=== PATIENT | female | born 1935 | race Caucasian/White ===

== ENCOUNTER → 2016-09-14 | Outpatient (CLI) | payer BC ==
[~2016-09-14] MED LIST: ACET-1311 PO; ACET160S78 PO; ACET650S10 RE; ACET650S11 RE; BACL10TA PO; BUME1TAB PO; BUME1TAB42 PO; CHOL1DRO5 PO; CHOL2000 PO; CHOL200023 PO; CHOL400L4 PO; CIPR-255 PO; CIPR1INJ3 IV; CLR10 PO; CYAN3INJ IM; CYNI1000 IM; CYNI1000 INJ; DIPH-416 PO; DIPH25CA65 PO; EMOL-63 TD; FAMO40SU PO; FLUT0.15 NAE; IMD/2 PO; KETO0.0216 OP; KETO0.024 OPB; KETO2SHA TOP; LAMO25TA PO; LEVO150T PO; LEVO150T9 PO; LIPIDS IV; LOPE-5 PO; LORA10TA5 PO; MENT1LOZ PO; MENT4GEL EXT; MENT4GEL TOP; METO50TA7 PO; MICO12CR EXT; MICOCRE TOP; MULTIVITAMIN IV; NSF10F IV.; ONDA4TAB10 SL; ONDA4TAB46 PO; ONDANSETRON IV; OXYC-57 PO; OXYC-609 PO; OXYC1TAB3 PO; PANT1INJ2 IV; PANT40TA PO; PHNS25 RE; PROM1SUP19 PO; PROM25TA9 PO; SRQ/50 IV; SYN125 PO; TPN IV; TRAZ1TAB5 PO; XNX25 PO; ZFRI4 IV; [UNRECOGNIZED DRUG - CODE] IV; [UNRECOGNIZED DRUG - CODE] IV.; [UNRECOGNIZED DRUG - CODE] OP; [UNRECOGNIZED DRUG - OTHER] TOP
== END | disposition home or self-care (01) ==
LOC: C.MAMM 11:36
PROVIDERS: ATTEND Family Medicine
DX: M85.89 Other specified disorders of bone density and structure, multiple sites (principal); E46 Unspecified protein-calorie malnutrition

== ENCOUNTER 2016-11-29 17:28 | Emergency (ER) | payer BC ==
[~2016-11-29] VITALS: Ht 162.6 cm; Wt 65.2 kg
[~2016-11-29 17:28] MED LIST changes: -ACET-1311 PO; -ACET160S78 PO; -ACET650S11 RE; -BACL10TA PO; -BUME1TAB PO; -CHOL2000 PO; -CHOL200023 PO; -CHOL400L4 PO; -CIPR-255 PO; -CIPR1INJ3 IV; -CLR10 PO; -CYNI1000 IM; -CYNI1000 INJ; -FAMO40SU PO; -FLUT0.15 NAE; -IMD/2 PO; -KETO0.024 OPB; -KETO2SHA TOP; -LAMO25TA PO; -LEVO150T PO; -LEVO150T9 PO; -LIPIDS IV; -LOPE-5 PO; -MENT1LOZ PO; -MENT4GEL EXT; -MENT4GEL TOP; -MICO12CR EXT; -MICOCRE TOP; -MULTIVITAMIN IV; -ONDA4TAB10 SL; -ONDA4TAB46 PO; -ONDANSETRON IV; -OXYC-57 PO; -OXYC1TAB3 PO; -PANT40TA PO; -PHNS25 RE; -PROM1SUP19 PO; -PROM25TA9 PO; -SRQ/50 IV; -TRAZ1TAB5 PO; -[UNRECOGNIZED DRUG - CODE] IV; -[UNRECOGNIZED DRUG - CODE] IV.; -[UNRECOGNIZED DRUG - CODE] OP; -[UNRECOGNIZED DRUG - OTHER] TOP
[2016-11-29 17:35] VITALS: TEMP 37; Ht 162.6 cm; Wt 65.2 kg
[2016-11-29] MEDS ORDERED: SODIUM CHLORIDE 0.9% 1000ML 1,000 ML IV STA (17:46)
[2016-11-29] MEDS ORDERED: ONDANSETRON INJ 2 MG/ML 2 ML VIAL IV STA (17:46)
--- NOTE | 2016-11-29 17:52 | EMERGENCY ROOM VISIT NOTE ---
History Report prepared by Megan: Wes Menchaca Under the Supervision of: Canelo CervantesO. First contact with patient: 17:36 Stated Complaint: VOMIT, DIARRHEA /FR [facility] History of Present Illness The patient is an 81 year old female who presents to the Emergency Room with complaints of persistent vomiting. The patient has a history of nausea/vomiting issues and takes Zofran 3 times per day. She notes that her doctor recently cut her dosage of Zofran back. The staff at [facility] claims that she has been having diarrhea lately as well. She denies any chest pain or shortness of breath throughout the day today. She states that she has had a prior colectomy and had nearly 20 ft of intestine removed. Source of History: patient Position: other (Gastrointestinal) Quality: other (Vomiting) Timing: other (Persistent) Associated Symptoms: No abdominal pain, No chest pain Review of Systems See HPI for pertinent positives & negatives. A total of 10 systems reviewed and were otherwise negative. Past Medical & Surgical Medical Problems: (1) Acute urinary tract infection (2) Anemia (3) Cellulitis of chest wall (4) CHF (congestive heart failure) (5) Cholecystectomy (6) Confusion (7) DVT (deep venous thrombosis) (8) DVT (deep venous thrombosis) (9) Fatigue (10) Hypertension (11) Hypertension Nos (12) Kidney disease (13) Kidney disease (14) Kidney stone (15) Kidney stone (16) Left leg cellulitis (17) Pacemaker (18) Pacemaker (19) Personal History Of Urinary Calculi (20) Restless legs (21) SBO (small bowel obstruction) (22) SBO (small bowel obstruction) (23) SBO (small bowel obstruction) (24) Short bowel syndrome (25) Short bowel syndrome (26) Urinary problem Surgical Problems: (1) H/O colectomy (2) H/O: hysterectomy (3) Hx of cholecystectomy Family History Diabetes mellitus FHx: cancer FHx: gallbladder disease FHx: heart disease Hypertension Kidney disease Kidney stones Social History Smoking Status: Former Smoker Alcohol Use: none Drug Use: none Marital Status: Housing Status: group home Occupation Status: retired Current/Historical Medications Scheduled Cholecalciferol (Vitamin D3), 0.3 ML PO DAILY Cholecalciferol (D-Vi-Kira), 1 DROP PO QAM Ciprofloxacin Hcl (Cipro), 500 MG PO BID Cyanocobalamin (Cyanocobalamin), 1 ML IM MONTHLY Diphenoxylate/Atropine (Lomotil), 3 TAB PO BID UD Diphenoxylate/Atropine (Lomotil), 2 TAB PO QPM Fluticasone Propionate (Nasal) (Flonase Allergy Relief), 2 SPRAYS MARIELA HS Ketotifen Fumarate (Ophth) (Ketotifen Fumarate), 1 DROP OP Q12H Lamotrigine (Lamictal), 25 MG PO HS Levothyroxine Sodium (Levothyroxine Sodium), 150 MCG PO HS Loperamide Hcl (Imodium), 3 MG PO BID Loratadine (Claritin), 10 MG PO QAM Metoprolol Succ (Toprol Xl) (Toprol-Xl), 50 MG PO DAILY Miconazole Nitrate Vaginal (Miconazole 7), 1 APPLN TOP HS Ondansetron (Ondansetron Hcl), 8 MG IV TID Ondasetron Odt (Zofran Odt), 4 MG SL Q6H Pantoprazole Sodium (Protonix), 40 MG IV BID Tpn Infusion (Tpn Infusion), 1 EA IV UD [Lipids & Mvi], IV UD [Seroquel Plo 50MG/Ml], 0.5 ML TOP BID Scheduled PRN Acetaminophen (Tylenol), 650 MG RE Q4-6 PRN for Pain or Fever Acetaminophen (Tylenol Children's Susp), 500 MG PO Q6 PRN for MILD PAIN 1-3 Bumetanide (Bumex), 0.5 MG PO Q24H PRN for HF Menthol (Mouth-Throat) (Merna Cough Drops Sugar F), 1 TAB PO Q4 PRN for SORE THROAT Menthol (Topical Analgesic) (Biofreeze), 1 APPL TOP Q12 PRN for Pain Oxycodone HCl (Oxycodone HCl), 5 MG PO Q6 PRN for Severe Pain Promethazine (Phenergan Suppository), 25 MG PO Q8 PRN for Nausea Trazodone Hcl (Desyrel), 50 MG PO HS PRN for Sleep [Zofran 4MG/Ml], 4 ML IV Q24H PRN for Nausea or Vomiting Allergies Coded Allergies: Furosemide (Verified Allergy, Mild, HIVES, CAN TAKE BUMEX, 04/12/16) Anesthetics, Traci (Verified Allergy, Unknown, ANAPHYLAXIS, 04/12/16) Benzocaine (Verified Allergy, Unknown, 04/12/16) Ceftriaxone (Verified Allergy, Unknown, UNK, 04/12/16) Clonazepam (Verified Allergy, Unknown, ?, 04/12/16) Cyclobenzaprine (Verified Allergy, Unknown, UNKNOWN, 04/12/16) Diclofenac (Verified Allergy, Unknown, UNKNOWN, 04/12/16) Diphenhydramine (Verified Allergy, Unknown, UNK, 04/12/16) Isopropyl Alcohol (Verified Allergy, Unknown, UNKNOWN, 04/12/16) Lidocaine (Verified Allergy, Unknown, 04/12/16) Naproxen (Verified Allergy, Unknown, UNKNOWN, 04/12/16) Octreotide (Verified Allergy, Unknown, HIVES, 04/12/16) Pregabalin (Verified Allergy, Unknown, ?, 04/12/16) Procaine (Verified Allergy, Unknown, 04/12/16) Propylene Glycol (Verified Allergy, Unknown, UNKNOWN, 04/12/16) Scopolamine (Verified Allergy, Unknown, 04/12/16) Sulfamethoxazole w/Trimethoprim (Verified Allergy, Unknown, UNKNOWN, ) Warfarin (Verified Adverse Reaction, Severe, HEMORRHAGE, 04/12/16) Iodinated Diagnostic Agents (Verified Adverse Reaction, Intermediate, RENAL FAILURE, 04/12/16) Fluconazole (Verified Adverse Reaction, Mild, FEVER,NAUSEA, 04/12/16) Indomethacin (Verified Adverse Reaction, Mild, N&V, 04/12/16) Lactose (Verified Adverse Reaction, Mild, INTOLERANT, 04/12/16) INTOLERANT Metronidazole (Verified Adverse Reaction, Mild, FEVER,NAUSEA, 04/12/16) Buprenorphine (Verified Adverse Reaction, Unknown, diarrhea, vomiting, 04/12/16) Codeine (Verified Adverse Reaction, Unknown, MENTAL STATUS CHANGES, ) Physical Exam Vital Signs Date Time Temp Pulse Resp B/P Pulse Ox O2 Delivery O2 Flow Rate FiO2 11/29/16 20:57 71 16 116/49 93 Room Air 11/29/16 19:27 77 18 138/57 95 Room Air 11/29/16 17:40 78 11/29/16 17:35 37.0 75 22 124/56 94 Room Air Physical Exam GENERAL: Patient is awake, alert, and in no acute distress. Patient is resting comfortably and showing no signs of anxiety EYES: The conjunctivae are clear. The pupils are round and reactive. EARS, NOSE, MOUTH AND THROAT: The nose is without any evidence of any deformity. Mucous membranes are dry tongue is midline NECK: The neck is nontender and supple. RESPIRATORY: Normal respiratory effort is noted there is no evidence of wheezing rhonchi or rales CARDIOVASCULAR: Regular rate and rhythm noted there is a systolic murmurs appreciated. No rubs or gallops normal S1 normal S2 GASTROINTESTINAL: The abdomen is soft. Bowel sounds are present in all quadrants. Abdomen is nontender MUSCULOSKELETAL/EXTREMITIES: There is no evidence of gross deformity full range of motion is noted in the hips and shoulders. There is pedal edema noted bilaterally a long with venous stasis changes noted bilaterally. SKIN: There is no obvious evidence of any rash. There are no petechiae, pallor or cyanosis noted. NEUROLOGIC: Patient is awake alert and oriented x3. Medical Decision & Procedures Laboratory Results 11/29/16 18:00 Red Blood Count 3.61, Mean Corpuscular Volume 87.5, Mean Corpuscular Hemoglobin 28.8, Mean Corpuscular Hemoglobin Concent 32.9, Mean Platelet Volume 11.2, Neutrophils (%) (Auto) 90.4, Lymphocytes (%) (Auto) 4.4, Monocytes (%) (Auto) 4.8, Eosinophils (%) (Auto) 0.0, Basophils (%) (Auto) 0.1, Neutrophils # (Auto) 14.37, Lymphocytes # (Auto) 0.70, Monocytes # (Auto) 0.77, Eosinophils # (Auto) 0.00, Basophils # (Auto) 0.01 11/29/16 18:00 Test 11/29/16 18:00 11/29/16 19:18 White Blood Count 15.89 K/uL (4.8-10.8) Red Blood Count 3.61 M/uL (4.2-5.4) Hemoglobin 10.4 g/dL (12.0-16.0) Hematocrit 31.6 % (37-47) Mean Corpuscular Volume 87.5 fL (80-100) Mean Corpuscular Hemoglobin 28.8 pg (25-34) Mean Corpuscular Hemoglobin Concent 32.9 g/dl (32-36) Platelet Count 162 K/uL (130-400) Mean Platelet Volume 11.2 fL (7.4-10.4) Neutrophils (%) (Auto) 90.4 % Lymphocytes (%) (Auto) 4.4 % Monocytes (%) (Auto) 4.8 % Eosinophils (%) (Auto) 0.0 % Basophils (%) (Auto) 0.1 % Neutrophils # (Auto) 14.37 K/uL (1.4-6.5) Lymphocytes # (Auto) 0.70 K/uL (1.2-3.4) Monocytes # (Auto) 0.77 K/uL (0.11-0.59) Eosinophils # (Auto) 0.00 K/uL (0-0.5) Basophils # (Auto) 0.01 K/uL (0-0.2) RDW Standard Deviation 47.5 fL (36.4-46.3) RDW Coefficient of Variation 14.8 % (11.5-14.5) Immature Granulocyte % (Auto) 0.3 % Immature Granulocyte # (Auto) 0.04 K/uL (0.00-0.02) Prothrombin Time 10.8 SECONDS (9.0-12.0) Prothromb Time International Ratio 1.0 (0.9-1.1) Activated Partial Thromboplast Time 28.7 SECONDS (21.0-31.0) Partial Thromboplastin Ratio 1.1 Anion Gap 7.0 mmol/L (3-11) Est Creatinine Clear Calc Drug Dose 29.8 ml/min Estimated GFR () 44.9 Estimated GFR (Non- 38.7 BUN/Creatinine Ratio 36.0 (10-20) Calcium Level 8.5 mg/dl (8.5-10.1) Total Bilirubin 0.6 mg/dl (0.2-1) Direct Bilirubin 0.2 mg/dl (0-0.2) Aspartate Amino Transf (AST/SGOT) 46 U/L (15-37) Alanine Aminotransferase (ALT/SGPT) 37 U/L (12-78) Alkaline Phosphatase 256 U/L (45-117) Total Protein 7.3 gm/dl (6.4-8.2) Albumin 2.8 gm/dl (3.4-5.0) Lipase 46 U/L (73-393) Urine Color YELLOW Urine Appearance CLEAR (CLEAR) Urine pH 5.5 (4.5-7.5) Urine Specific Hodges 1.017 (1.000-1.030) Urine Protein NEG (NEG) Urine Glucose (UA) NEG (NEG) Urine Ketones NEG (NEG) Urine Occult Blood NEG (NEG) Urine Nitrite NEG (NEG) Urine Bilirubin NEG (NEG) Urine Urobilinogen NEG (NEG) Urine Leukocyte Esterase MODERATE (NEG) Urine WBC (Auto) >30 /hpf (0-5) Urine RBC (Auto) 0-4 /hpf (0-4) Urine Hyaline Casts (Auto) 1-5 /lpf (0-5) Urine Epithelial Cells (Auto) >30 /lpf (0-5) Urine Bacteria (Auto) NEG (NEG) Urine Renal Epithelial Cells 0-5 /lpf (0-5) Urine Yeast (Auto) BUDDING (NONE PRSENT) Date/Time Source Procedure Growth Status 11/29/16 19:18 Urine , Clean Catch Urine Culture - Final MORE THAN THREE TYPES OF ORGANISMS ID... Complete Laboratory results per my review. Medications Administered Medications (Trade) Dose Ordered Sig/Elliott Route Start Time Stop Time Status Last Admin Dose Admin Sodium Chloride (Nss 1000ml) 1,000 ml @ 999 mls/hr Q1H1M STAT IV 11/29/16 17:46 11/29/16 18:46 DC 11/29/16 17:46 999 MLS/HR Ondansetron HCl (Zofran Inj) 4 mg NOW STAT IV 11/29/16 17:46 11/29/16 17:47 DC 11/29/16 17:46 4 MG Ciprofloxacin (Cipro Tab) 500 mg NOW STAT PO 11/29/16 20:30 11/29/16 20:32 DC 11/29/16 20:30 500 MG ED Course 1744: The patient was evaluated in room C12. A complete history and physical examination were performed. 1745: Ordered Zofran 4 mg IV, Sodium Chloride 1000 mL @ 999 mL/hr IV. 2029: Ordered Ciprofloxacin 500 mg PO. 2049: Upon reevaluation, the patient is resting in bed. The patient's daughter would like IV antibiotics to be sent back to the assisted living community with the patient. I discussed the results and treatment plan with them. They verbalized agreement of the treatment plan. The patient was discharged home. Medical Decision Medication Reconciliation: I attest that I have personally reviewed the patient' s current medications list. Blood pressure screening: Patient was found to have an elevated blood pressure and was referred to their primary doctor for recheck and further treatment. Differential diagnosis: Etiologies such as gastroenteritis, food borne illness, infections, appendicitis , diverticulitis, inflammatory bowel disease, obstruction, GI bleed, biliary pathology, as well as others were entertained. The patient is an 81-year-old female who presented to the emergency department for an evaluation of chronic nausea and vomiting. The patient was treated with IV fluids and IV antiemetics. She was also treated with antibiotics for presumed urinary tract infection. She was encouraged to follow-up with her family doctor this week. [facility] and encouraged further IV treatment at the group home. She was also encouraged return to the emergency department immediately if symptoms change worsen or the need arises. Impression Primary Impression: Nausea Additional Impressions: Vomiting Acute urinary tract infection Vaginitis Scribe Attestation The scribe's documentation has been prepared under my direction and personally reviewed by me in its entirety. I confirm that the note above accurately reflects all work, treatment, procedures, and medical decision making performed by me. Departure Information Dispostion Home / Self-Care Prescriptions Ciprofloxacin Hcl (CIPRO) 500 Mg Tab 500 MG PO BID, #14 TAB Prov: Ubaldo Christy, DO 11/29/16 Miconazole Nitrate Vaginal (MICONAZOLE 7) 2 % Cre 1 APPLN TOP HS, #30 GM Prov: Ubaldo Christy, DO 11/29/16 Ondasetron Odt (ZOFRAN ODT) 4 Mg Tab 4 MG SL Q6H for Nausea, #15 TAB Prov: Ubaldo Christy, DO 11/29/16 Referrals Samm Bolton (PCP) Forms HOME CARE DOCUMENTATION FORM, IMPORTANT VISIT INFORMATION Patient Instructions My [facility] Additional Instructions Continue all medications as prescribed. Follow-up with your primary care physician tomorrow for further evaluation. Drink plenty clear liquids. Problem Qualifiers Additional Impressions: Vomiting Vomiting type: unspecified Vomiting Intractability: non-intractable Nausea presence: with nausea Qualified Codes: R11.2 - Nausea with vomiting, unspecified Vaginitis Chronicity: subacute Qualified Codes: N76.1 - Subacute and chronic vaginitis
[2016-11-29 18:13] LABS: HEMATOCRIT 31.6 % (37-47); MEAN CELL VOLUME 87.5 fL (80-100); MEAN CORPUSCULAR HEMOGLOBIN 28.8 pg (25-34); MEAN CORPUSCULAR HGB CONC 32.9 g/dl (32-36); MEAN PLATELET VOLUME 11.2 fL (7.4-10.4); PLATELET COUNT 162 K/uL (130-400); RED BLOOD COUNT 3.61 M/uL (4.2-5.4); WHITE BLOOD COUNT 15.89 K/uL (4.8-10.8)
[2016-11-29] MEDS ORDERED: MENT4GEL TOP (18:21)
[2016-11-29] MEDS ORDERED: CHOL2000 PO (18:21)
[2016-11-29 18:23] LABS: PARTIAL THROMBOPLASTIN RATIO 1.1; PROTHROMBIN TIME (PATIENT) 10.8 SECONDS (9.0-12.0)
[2016-11-29 18:31] LABS: CALCIUM 8.5 mg/dl (8.5-10.1); CREATININE 1.3 mg/dl (0.60-1.20); POTASSIUM 4.6 mmol/L (3.5-5.1)
[2016-11-29] MEDS ORDERED: LAMO25TA PO (18:37)
[2016-11-29] MEDS ORDERED: FLUT0.15 NAE (18:37)
[2016-11-29] MEDS ORDERED: CHOL400L4 PO (18:37)
[2016-11-29] MEDS ORDERED: CYNI1000 IM (18:37)
[2016-11-29] MEDS ORDERED: MENT1LOZ PO (18:37)
[2016-11-29] MEDS ORDERED: [UNRECOGNIZED DRUG - CODE] OP (18:37)
[2016-11-29 18:45] LABS: BASO % 0.1 %; BASO ABS # 0.01 K/uL (0-0.2); COMPLETE YES; IG% 0.3 %; LYMPH % 4.4 %; MONO % 4.8 %; NEUT % 90.4 %
[2016-11-29] MEDS ORDERED: PROM1SUP19 PO (18:47)
[2016-11-29] MEDS ORDERED: TRAZ-120 PO (18:47)
[2016-11-29] MEDS ORDERED: DIPH-416 PO (18:47)
[2016-11-29] MEDS ORDERED: LEVO150T9 PO (18:47)
[2016-11-29] MEDS ORDERED: ACET160S78 PO (18:47)
[2016-11-29] MEDS ORDERED: ONDANSETRON IV (19:17)
[2016-11-29] MEDS ORDERED: TPN IV (19:17)
[2016-11-29] MEDS ORDERED: [UNRECOGNIZED DRUG - OTHER] TOP (19:17)
[2016-11-29 19:38] LABS: URINE APPEARANCE CLEAR (CLEAR); URINE BILIRUBIN NEG (NEG); URINE COLOR YELLOW; URINE EPITHELIAL CELL AUTO >30 /lpf (0-5); URINE NITRITE NEG (NEG); URINE PH 5.5 (4.5-7.5); URINE SPECIFIC GRAVITY 1.017 (1.000-1.030); UROBILINOGEN NEG (NEG)
[2016-11-29 19:39] LABS: MANUAL MICROSCOPIC REQUIRED? NO; REVIEW REQ? YES
[2016-11-29] MEDS ORDERED: ONDA4TAB10 SL (20:05)
[2016-11-29] MEDS ORDERED: MICOCRE TOP (20:05)
[2016-11-29] MEDS ORDERED: CIPROFLOXACIN 500 MG TAB PO STA (20:30)
[2016-11-29] MEDS ORDERED: CIPR-255 PO (20:37)
[2016-11-29 20:57] VITALS: BP 116/49; PULSE 71; O2SAT 93
[2016-11-29] MEDS ORDERED: IMD/2 PO (22:20)
[2016-11-29] MEDS ORDERED: LIPIDS IV (23:16)
[2016-11-29] MEDS ORDERED: MULTIVITAMIN IV (23:16)
[2016-12-08] MEDS ORDERED: PROM25TA9 PO (12:29)
[2016-12-08] MEDS ORDERED: DIPH-416 PO (12:29)
[2016-12-08] MEDS ORDERED: KETO2SHA TOP (12:29)
[2016-12-08] MEDS ORDERED: PANT40TA PO (12:29)
[2016-12-08] MEDS ORDERED: ACET-1311 PO (12:29)
[2016-12-08] MEDS ORDERED: [UNRECOGNIZED DRUG - CODE] IV (12:29)
[2016-12-08] MEDS ORDERED: ONDA4TAB46 PO (12:29)
[2017-03-21] MEDS ORDERED: [UNRECOGNIZED DRUG - CODE] PO (01:02)
[2017-06-11] MEDS ORDERED: CHOL200023 PO (01:02)
[2017-06-11] MEDS ORDERED: FLUT0.15 NAE (01:02)
[2017-06-11] MEDS ORDERED: BACL10TA PO (01:02)
[2017-06-11] MEDS ORDERED: BUME1TAB PO (01:02)
[2017-06-11] MEDS ORDERED: ACET160S78 PO (01:02)
[2017-06-11] MEDS ORDERED: CYNI1000 IM (01:02)
[2017-06-11] MEDS ORDERED: LAMO25TA PO (01:02)
[2017-06-11] MEDS ORDERED: LOPE-5 PO (01:02)
[2017-06-11] MEDS ORDERED: METO50TA7 PO (12:29)
[2017-06-11] MEDS ORDERED: KETO0.024 OPB ×2 (12:29→16:41)
[2017-06-11] MEDS ORDERED: LEVO150T PO (12:29)
[2017-06-11] MEDS ORDERED: TPN IV (12:29)
[2017-06-11] MEDS ORDERED: CLR10 PO (12:29)
[2017-06-11] MEDS ORDERED: MENT4GEL TOP (12:29)
[2017-06-11] MEDS ORDERED: MICO12CR TOP (12:29)
== END 2016-11-29 21:29 | disposition home or self-care (01) ==
LOC: EDBD 17:28 → C.EDC 17:29
DX: R11.2 Nausea with vomiting, unspecified (principal); N39.0 Urinary tract infection, site not specified; N76.1 Subacute and chronic vaginitis; I10 Essential (primary) hypertension; Z90.49 Acquired absence of other specified parts of digestive tract; Z86.718 Personal history of other venous thrombosis and embolism; Z87.891 Personal history of nicotine dependence; Z87.442 Personal history of urinary calculi; Z95.0 Presence of cardiac pacemaker; Z90.710 Acquired absence of both cervix and uterus; Z83.3 Family history of diabetes mellitus; Z82.49 Family history of ischemic heart disease and other diseases of the circulatory system; Z84.1 Family history of disorders of kidney and ureter

== ENCOUNTER → 2016-12-16 | Day surgery (SDC) | payer BC ==
[2016-12-08 12:04] VITALS: BMI 26.0
[~2016-12-16] VITALS: Ht 157.5 cm; Wt 65.9 kg
[~2016-12-16] MED LIST changes: +ACET-1311 PO; +ACET160S78 PO; +ACET650S10 PR; -ACET650S10 RE; +ACET650S11 RE; +BACL10TA PO; +BUME1TAB PO; -BUME1TAB42 PO; -CHOL1DRO5 PO; +CHOL200023 PO; +CIPR-255 PO; +CIPR1INJ3 IV; +CLR10 PO; -CYAN3INJ IM; +CYNI1000 IM; -DIPH25CA65 PO; -EMOL-63 TD; +FLUT0.15 NAE; +GFNSR600 PO; -KETO0.0216 OP; +KETO0.024 OPB; +KETO2SHA TOP; +LAMO25TA PO; +LEVO150T PO; +LIDOCAINE HCL 2% 2 ML VIAL (20MG/ML) ONE; +LIPIDS IV; +LOPE-5 PO; -LORA10TA5 PO; +MENT4GEL TOP; +METOPROLOL TARTRATE 1 MG/ML VIAL ONE; +MICO12CR TOP; -NSF10F IV.; +ONDA4TAB46 PO; +ONDANSETRON INJ 2 MG/ML 2 ML VIAL IV PRN; +OXYC1TAB3 PO; +PANT40TA PO; +PHNS25 RE; +PROM25IN13 IV; +PROM25TA9 PO; +SRQ/50 IV; +SUCCINYLCHOLINE CHLORIDE 20 MG/ML 10 ML VIAL IV ONE; -SYN125 PO; +TPRSR/50 PO; -XNX25 PO; +[UNRECOGNIZED DRUG - CODE] IV; +[UNRECOGNIZED DRUG - CODE] IV.; +[UNRECOGNIZED DRUG - CODE] PO; +[UNRECOGNIZED DRUG - OTHER] TOP
[2016-12-16 11:48] VITALS: Ht 157.5 cm; Wt 65.9 kg
--- NOTE | 2016-12-16 12:33 | Endo History and Physical ---
History & Physical Date of Service: Dec 16, 2016. Chief Complaint: Non-intractable cyclical vomiting & nausea Referring Physician: Dr. Christianson History of Present Illness patient presenting for evaluation of recurrent nausea and vomitting. Past Medical History Pacemaker, CHF, Thrombophlebitis, Thyroid Disease, Other Past Surgical History Hx Cardiac Surgery: No Hx Internal Defibrillator: No Hx Pacemaker: Yes (PACEMAKER WITH RECENT BATTERY CHANGE) Hx Abdominal Surgery: Yes (MULTIPLE BOWEL SX & COLECTOMY, COLOSTOMY (2X'S IN PAST WITH REVERSAL)) Hx Post-Op Nausea and Vomiting: No Hx Cancer Surgery: No Hx Thoracic Surgery: Yes Hx Orthopedic: Yes Hx Urinary Tract Surgery: No Family History IBD Social History Smoking Status: Former Smoker Hx Substance Use: No Hx Alcohol Use: No Allergies Coded Allergies: Furosemide (Verified Allergy, Mild, HIVES, CAN TAKE BUMEX, 12/08/16) Anesthetics, Traci (Verified Allergy, Unknown, ANAPHYLAXIS, 12/08/16) Benzocaine (Verified Allergy, Unknown, 12/08/16) Ceftriaxone (Verified Allergy, Unknown, UNK, 12/08/16) Clonazepam (Verified Allergy, Unknown, ?, 12/08/16) Cyclobenzaprine (Verified Allergy, Unknown, UNKNOWN, 12/08/16) Diclofenac (Verified Allergy, Unknown, UNKNOWN, 12/08/16) Diphenhydramine (Verified Allergy, Unknown, UNK, 12/08/16) Isopropyl Alcohol (Verified Allergy, Unknown, UNKNOWN, 12/08/16) Lidocaine (Verified Allergy, Unknown, 12/08/16) Naproxen (Verified Allergy, Unknown, UNKNOWN, 12/08/16) Octreotide (Verified Allergy, Unknown, HIVES, 12/08/16) Pregabalin (Verified Allergy, Unknown, ?, 12/08/16) Procaine (Verified Allergy, Unknown, 12/08/16) Propylene Glycol (Verified Allergy, Unknown, UNKNOWN, 12/08/16) Scopolamine (Verified Allergy, Unknown, 12/08/16) Sulfamethoxazole w/Trimethoprim (Verified Allergy, Unknown, UNKNOWN, ) Warfarin (Verified Adverse Reaction, Severe, HEMORRHAGE, 12/08/16) Iodinated Diagnostic Agents (Verified Adverse Reaction, Intermediate, RENAL FAILURE, 12/08/16) Fluconazole (Verified Adverse Reaction, Mild, FEVER,NAUSEA, 12/08/16) Indomethacin (Verified Adverse Reaction, Mild, N&V, 12/08/16) Lactose (Verified Adverse Reaction, Mild, INTOLERANT, 12/08/16) INTOLERANT Metronidazole (Verified Adverse Reaction, Mild, FEVER,NAUSEA, 12/08/16) Buprenorphine (Verified Adverse Reaction, Unknown, diarrhea, vomiting, 12/08) Codeine (Verified Adverse Reaction, Unknown, MENTAL STATUS CHANGES, 12/08/16 ) Current Medications Reported Home Medications Medications Dose Route/Sig Max Daily Dose Days Date Category Dose Instructions Heparin & Vanco Flush (Vancomycin/Heparin) 1 Ea Ea 1 Ea IV DIRECTED 12/08/16 Reported VANCO 10MG/HEPARIN 5,000 UNITS QS TO 5ML W/NSS Tpn Infusion (Total Parenteral Nutrition) 1 Ea Inj 1 Ea IV DAILY 12/08/16 Reported INFUSES FROM 8PM TO 8AM DAILY Synthroid (Levothyroxine Sodium) 150 Mcg Tab 150 Mcg PO QAM 12/08/16 Reported Phenergan (Promethazine HCl) 25 Mg Tab 25 Mg PO Q8H PRN 12/08/16 Reported Zofran (Ondansetron HCl) 4 Mg Tab 4 Mg PO Q6H PRN 12/08/16 Reported Biofreeze (Menthol (Topical Analgesic)) 4 % Gel 1 Dose EXT BID PRN 12/08/16 Reported Antifungal (Miconazole Nitrate (Topical)) 2 % Cre 1 Dose EXT DIRECTED PRN 12/08/16 Reported Toprol-Xl (Metoprolol Succinate) 50 Mg Tabcr 50 Mg PO QAM 12/08/16 Reported Claritin (Loratadine) 10 Mg Tab 10 Mg PO QAM 12/08/16 Reported Alaway (Ketotifen Fumarate (Ophth)) 0.025 % Fady 1 Drops OPB QAM 12/08/16 Reported Ketoconazole (Ketoconazole (Topical)) 2 % Sha 1 Appln TOP 2XWK PRN 30 12/08/16 Reported Lomotil (Diphenoxylate HCl/Atropine) Tab 12 Tab PO DAILY 12/08/16 Reported PT VERBALIZED TAKING UP TO 12 TABS OF LOMOTIL DAILY Tylenol (Acetaminophen) 325 Mg Tab 650 Mg PO Q8H PRN 12/08/16 Reported Protonix (Pantoprazole Sodium) 40 Mg Tab 40 Mg PO BID 6/6/17 Reported Vital Signs Weight (Kilograms): 65.91 Height (Feet): 5 Height (Inches): 2 Date Time Temp Pulse Resp B/P (MAP) Pulse Ox O2 Delivery O2 Flow Rate FiO2 12/16/16 11:57 36.8 75 18 119/57 (77) 94 Room Air Physical Exam General Appearance: no apparent distress Respiratory/Chest: Auscultation: breath sounds normal Cardiovascular: Heart Auscultation: II/ DANGELO Abdomen: Inspection & Palpation: soft Assessment and Plan EGD for evaluation of nausea and vomitting.
--- NOTE | 2016-12-16 13:19 | GI REPORT ---
Procedure Date: 12/16/2016 12:29 PM Procedure: Upper GI endoscopy Indications: Nausea with vomiting Medicines: Monitored Anesthesia Care Complications: No immediate complications. Estimated blood loss: Minimal. Estimated Blood Loss: Estimated blood loss was minimal. Procedure: Pre-Anesthesia Assessment: - Prior to the procedure, a History and Physical was performed, and patient medications, allergies and sensitivities were reviewed. The patient's tolerance of previous anesthesia was reviewed. - The risks and benefits of the procedure and the sedation options and risks were discussed with the patient. All questions were answered and informed consent was obtained. - Patient identification and proposed procedure were verified prior to the procedure by the physician, the nurse and the clay transporter. The procedure was verified in the procedure room. - Pre-procedure physical examination revealed no contraindications to sedation. - ASA Grade Assessment: III - A patient with severe systemic disease. - After reviewing the risks and benefits, the patient was deemed in satisfactory condition to undergo the procedure. - The anesthesia plan was to use monitored anesthesia care (MAC). - Immediately prior to administration of medications, the patient was re-assessed for adequacy to receive sedatives. - The heart rate, respiratory rate, oxygen saturations, blood pressure, adequacy of pulmonary ventilation, and response to care were monitored throughout the procedure. - The physical status of the patient was re-assessed after the procedure. After obtaining informed consent, the endoscope was passed under direct vision. Throughout the procedure, the patient's blood pressure, pulse, and oxygen saturations were monitored continuously. The scope was introduced through the mouth, and advanced to the second part of duodenum. The upper GI endoscopy was accomplished without difficulty. The patient tolerated the procedure well. Findings: LA Grade B (one or more mucosal breaks greater than 5 mm, not extending between the tops of two mucosal folds) esophagitis with no bleeding was found in the lower third of the esophagus. Biopsies were taken with a cold forceps for histology. Estimated blood loss was minimal. The Z-line was irregular and was found 36 cm from the incisors. A small hiatus hernia was found. The proximal extent of the gastric folds (end of tubular esophagus) was 37 cm from the incisors. The hiatal narrowing was 38 cm from the incisors. The Z-line was 36 cm from the incisors. Clear fluid was found in the stomach. Diffuse mild inflammation characterized by congestion (edema), erythema and granularity was found in the entire examined stomach. Biopsies were taken with a cold forceps for histology. Estimated blood loss was minimal. The examined duodenum was normal aside from a patulous doudenal bulb. Biopsies were taken with a cold forceps for histology. Estimated blood loss was minimal. Impression: - LA Grade B reflux esophagitis. Biopsied. - Z-line irregular, 36 cm from the incisors. - Small hiatus hernia. - Clear gastric fluid. - Gastritis. Biopsied. - Normal examined duodenum. Biopsied. Recommendation: - Discharge patient to home (ambulatory). - Advance diet as tolerated today. - Await pathology results. - MRCP to determine if patient may have CBD stones - Continue Protonix 40 mg per day - Try Carafate slurry 2 time daily Briana Cobb D.O. Briana Cobb, 12/16/2016 1:18:44 PM This report has been signed electronically. Note Initiated On: 12/16/2016 12:29 PM I attest to the content of the Intraoperative Record and orders documented therein, exceptions below
--- NOTE | 2016-12-16 13:20 | Discharge Instructions ---
Endoscopy Patient Instructions Date / Procedure(s) Performed Dec 16, 2016. EGD Allergy Information Coded Allergies: Furosemide (Verified Allergy, Mild, HIVES, CAN TAKE BUMEX, 12/08/16) Anesthetics, Traci (Verified Allergy, Unknown, ANAPHYLAXIS, 12/08/16) Benzocaine (Verified Allergy, Unknown, 12/08/16) Ceftriaxone (Verified Allergy, Unknown, UNK, 12/08/16) Clonazepam (Verified Allergy, Unknown, ?, 12/08/16) Cyclobenzaprine (Verified Allergy, Unknown, UNKNOWN, 12/08/16) Diclofenac (Verified Allergy, Unknown, UNKNOWN, 12/08/16) Diphenhydramine (Verified Allergy, Unknown, UNK, 12/08/16) Isopropyl Alcohol (Verified Allergy, Unknown, UNKNOWN, 12/08/16) Lidocaine (Verified Allergy, Unknown, 12/08/16) Naproxen (Verified Allergy, Unknown, UNKNOWN, 12/08/16) Octreotide (Verified Allergy, Unknown, HIVES, 12/08/16) Pregabalin (Verified Allergy, Unknown, ?, 12/08/16) Procaine (Verified Allergy, Unknown, 12/08/16) Propylene Glycol (Verified Allergy, Unknown, UNKNOWN, 12/08/16) Scopolamine (Verified Allergy, Unknown, 12/08/16) Sulfamethoxazole w/Trimethoprim (Verified Allergy, Unknown, UNKNOWN, ) Warfarin (Verified Adverse Reaction, Severe, HEMORRHAGE, 12/08/16) Iodinated Diagnostic Agents (Verified Adverse Reaction, Intermediate, RENAL FAILURE, 12/08/16) Fluconazole (Verified Adverse Reaction, Mild, FEVER,NAUSEA, 12/08/16) Indomethacin (Verified Adverse Reaction, Mild, N&V, 12/08/16) Lactose (Verified Adverse Reaction, Mild, INTOLERANT, 12/08/16) INTOLERANT Metronidazole (Verified Adverse Reaction, Mild, FEVER,NAUSEA, 12/08/16) Buprenorphine (Verified Adverse Reaction, Unknown, diarrhea, vomiting, 12/08) Codeine (Verified Adverse Reaction, Unknown, MENTAL STATUS CHANGES, 12/08/16 ) Discharge Date / Findings Dec 16, 2016. Reflux esophagitis Gastritis Medication Instructions Reported Home Medications Medications Dose Route/Sig Max Daily Dose Days Date Category Dose Instructions Heparin & Vanco Flush (Vancomycin/Heparin) 1 Ea Ea 1 Ea IV DIRECTED 12/08/16 Reported VANCO 10MG/HEPARIN 5,000 UNITS QS TO 5ML W/NSS Tpn Infusion (Total Parenteral Nutrition) 1 Ea Inj 1 Ea IV DAILY 12/08/16 Reported INFUSES FROM 8PM TO 8AM DAILY Synthroid (Levothyroxine Sodium) 150 Mcg Tab 150 Mcg PO QAM 12/08/16 Reported Phenergan (Promethazine HCl) 25 Mg Tab 25 Mg PO Q8H PRN 12/08/16 Reported Zofran (Ondansetron HCl) 4 Mg Tab 4 Mg PO Q6H PRN 12/08/16 Reported Biofreeze (Menthol (Topical Analgesic)) 4 % Gel 1 Dose EXT BID PRN 12/08/16 Reported Antifungal (Miconazole Nitrate (Topical)) 2 % Cre 1 Dose EXT DIRECTED PRN 12/08/16 Reported Toprol-Xl (Metoprolol Succinate) 50 Mg Tabcr 50 Mg PO QAM 12/08/16 Reported Claritin (Loratadine) 10 Mg Tab 10 Mg PO QAM 12/08/16 Reported Alaway (Ketotifen Fumarate (Ophth)) 0.025 % Fady 1 Drops OPB QAM 12/08/16 Reported Ketoconazole (Ketoconazole (Topical)) 2 % Sha 1 Appln TOP 2XWK PRN 30 12/08/16 Reported Lomotil (Diphenoxylate HCl/Atropine) Tab 12 Tab PO DAILY 12/08/16 Reported PT VERBALIZED TAKING UP TO 12 TABS OF LOMOTIL DAILY Tylenol (Acetaminophen) 325 Mg Tab 650 Mg PO Q8H PRN 12/08/16 Reported Protonix (Pantoprazole Sodium) 40 Mg Tab 40 Mg PO BID 12/08/16 Reported Provider Instructions Activity Restrictions - No exercising or heavy lifting for 24 hours. - Do not drink alcohol the day of the procedure. - Do not drive a car or operate machinery until the day after the procedure. - Do not make any important decisions or sign important papers in 24 hours after the procedure. Following Day: - Return to full activity which may include returning to work/school. Diet Start your diet with liquids and light foods (jello, soup, juice, toast). Then eat your usual diet if not nauseated. Treatment For Common After Affects For mild abdominal pain, bloating, or excessive gas: - Rest - Eat lightly - Lie on right side Follow-Up Information Follow-up with Dr. Christianson as scheduled MRCP to be scheduled Try Carafate twice daily Anesthesia Information What You Should Know You have had a procedure that required some medicine to reduce anxiety and discomfort. This treatment is called moderate sedation. After receiving the treatment, you may be sleepy, but you will be able to breathe on your own. The effects of the treatment may last for several hours. Follow these instructions along with Activity/Diet recommendations noted above: * Do NOT do anything where dizziness or clumsiness would be dangerous. * Rest quietly at home today, then you can be up and about tomorrow. * Have a responsible person stay with you the rest of today. * You may have had an I.V. today. If so, you may take the dressing off later today. Recommendations Call your doctor if: * Trouble breathing * Continuous vomiting for more than 24 hours * Temperature above 101 degrees * Severe abdominal pain or bloating * Pain not relieved by pain medicine ordered * There is increased drainage or redness from any incision * A large amount of rectal bleeding greater than 2-3 tablespoons. (If you had a polyp/s removed or have hemorrhoids, a small amount of blood - from the rectum is to be expected.) * You have any unanswered questions or concerns. IN THE EVENT OF A SERIOUS EMERGENCY, GO TO THE NEAREST EMERGENCY ROOM Your discharge instructions were prepared by provider Briana Cobb. Patient Instructions Signature Page Galilea Richardson Patient (or Guardian) Signature/Date: I have read and understand the instructions given to me by my caregivers. Caregiver/RN/Doctor Signature/Date: The above-named patient and/or guardian has received patient instructions on this date. + Original Patient Signature Page (only) stays with chart. Please make copy for patient.
--- NOTE | 2016-12-16 13:45 | Anesthesiology Progress Note ---
Anesthesia Post Op Note Date & Time Dec 16, 2016 at 13:45 Vital Signs Pain Intensity: 0 Vital Signs Past 12 Hours Date Time Temp Pulse Resp B/P (MAP) Pulse Ox O2 Delivery O2 Flow Rate FiO2 12/16/16 13:21 66 18 116/64 (81) 100 Room Air 12/16/16 13:06 61 18 111/58 (75) 100 Room Air 12/16/16 11:57 36.8 75 18 119/57 (77) 94 Room Air Notes Mental Status: alert / awake / arousable, participated in evaluation Pt Amnestic to Procedure: Yes Nausea / Vomiting: adequately controlled Pain: adequately controlled Airway Patency, RR, SpO2: stable & adequate BP & HR: stable & adequate Hydration State: stable & adequate Anesthetic Complications: no major complications apparent
[2016-12-16 13:51] VITALS: BP 133/53; PULSE 68; O2SAT 98
== END | disposition home or self-care (01) ==
LOC: C.GI 11:33
PROVIDERS: ATTEND Internal Medicine Gastroenterology
DX: K21.0 Gastro-esophageal reflux disease with esophagitis (principal); K44.9 Diaphragmatic hernia without obstruction or gangrene; K29.50 Unspecified chronic gastritis without bleeding; I50.9 Heart failure, unspecified; Z95.0 Presence of cardiac pacemaker; E07.9 Disorder of thyroid, unspecified; Z83.79 Family history of other diseases of the digestive system; Z87.891 Personal history of nicotine dependence; Z79.899 Other long term (current) drug therapy

== ENCOUNTER 2017-03-20 23:39 | Emergency (ER) | payer BC ==
[~2017-03-20] VITALS: Ht 154.9 cm; Wt 62.4 kg
[~2017-03-20 23:39] MED LIST changes: -ACET160S78 PO; -ACET650S10 PR; -ACET650S11 RE; -BACL10TA PO; -BUME1TAB PO; -CHOL200023 PO; -CIPR-255 PO; -CIPR1INJ3 IV; -CYNI1000 IM; -FLUT0.15 NAE; -GFNSR600 PO; -LAMO25TA PO; -LIDOCAINE HCL 2% 2 ML VIAL (20MG/ML) ONE; -LIPIDS IV; -LOPE-5 PO; +MENT4GEL EXT; -MENT4GEL TOP; -METOPROLOL TARTRATE 1 MG/ML VIAL ONE; +MICO12CR EXT; -MICO12CR TOP; -ONDANSETRON INJ 2 MG/ML 2 ML VIAL IV PRN; -OXYC-609 PO; -OXYC1TAB3 PO; -PANT1INJ2 IV; -PHNS25 RE; -PROM25IN13 IV; -SRQ/50 IV; -SUCCINYLCHOLINE CHLORIDE 20 MG/ML 10 ML VIAL IV ONE; -TPRSR/50 PO; -ZFRI4 IV; -[UNRECOGNIZED DRUG - CODE] IV.; -[UNRECOGNIZED DRUG - CODE] PO; -[UNRECOGNIZED DRUG - OTHER] TOP
[2017-03-20 23:45] VITALS: TEMP 36.9; Ht 154.9 cm; Wt 62.4 kg
[2017-03-21] MEDS ORDERED: SODIUM CHLORIDE 0.9% 500ML 500 ML IV STA (00:08)
[2017-03-21] MEDS ORDERED: ONDANSETRON INJ 2 MG/ML 2 ML VIAL IV STA (00:08)
--- NOTE | 2017-03-21 00:10 | EMERGENCY ROOM VISIT NOTE ---
History Report prepared by Megan: Vinny Escobar Under the Supervision of: Dr. Solis Brantley M.D. First contact with patient: 00:04 Chief Complaint: NAUSEA Stated Complaint: NAUSEA & VOMITTING History of Present Illness The patient is an 81 year old female who presents to the Emergency Room via EMS from [facility] with complaints of persistent nausea that started around 9 hours ago. She says that she has been having episodes of vomiting, and received Zofran in her port, but it has not been relieving her nausea. The patient was given Phenergan prior to arrival. The patient denies any pain, and specifically denies any abdominal pain. Source of History: patient Onset: 9 hours ago Position: other (global - nausea) Timing: other (persistent) Associated Symptoms: + vomiting, No abdominal pain Note: Associated symptoms: Denies any pain. Review of Systems See HPI for pertinent positives & negatives. A total of 10 systems reviewed and were otherwise negative. Past Medical & Surgical Medical Problems: (1) Acute urinary tract infection (2) Anemia (3) Cellulitis of chest wall (4) CHF (congestive heart failure) (5) Cholecystectomy (6) Confusion (7) DVT (deep venous thrombosis) (8) DVT (deep venous thrombosis) (9) Fatigue (10) Hypertension (11) Hypertension Nos (12) Kidney disease (13) Kidney disease (14) Kidney stone (15) Kidney stone (16) Left leg cellulitis (17) Pacemaker (18) Pacemaker (19) Personal History Of Urinary Calculi (20) Restless legs (21) SBO (small bowel obstruction) (22) SBO (small bowel obstruction) (23) SBO (small bowel obstruction) (24) Short bowel syndrome (25) Short bowel syndrome (26) Urinary problem Surgical Problems: (1) H/O colectomy (2) H/O: hysterectomy (3) Hx of cholecystectomy Family History Diabetes mellitus FHx: cancer FHx: gallbladder disease FHx: heart disease Hypertension Kidney disease Kidney stones Social History Smoking Status: Former Smoker Alcohol Use: none Drug Use: none Marital Status: Housing Status: custodial Occupation Status: retired Current/Historical Medications Scheduled Cholecalciferol (Ddrops), 2,000 UNITS PO QAM Ciprofloxacin Hcl (Cipro), 500 MG PO BID Cyanocobalamin (Cyanocobalamin), 1,000 MCG INJ MONTHLY Diphenoxylate/Atropine (Lomotil), 4 TAB PO HS Diphenoxylate/Atropine (Lomotil), 3 TAB PO BREAKFAST AND LUNCH Diphenoxylate/Atropine (Lomotil), 2 TAB PO DAILY AT 1800 Famotidine (Famotidine), 20 MG PO AMHS Fluticasone Propionate (Nasal) (Flonase Allergy Relief), 2 SPRAYS MARIELA HS Ketotifen Fumarate (Ophth) (Alaway), 1 DROPS OPB BID Lamotrigine (Lamictal), 50 MG PO HS Levothyroxine Sodium (Synthroid), 150 MCG PO HS Loratadine (Claritin), 10 MG PO Q2D Metoprolol Succ (Toprol Xl) (Toprol-Xl), 50 MG PO QAM Miconazole Nitrate (Topical) (Antifungal), 1 DOSE EXT HS Ondansetron HCl and Sodium Chl (Ondansetron Hydrochloride 8-0.9 mg/50Ml-%), 8 MG IV. TID Quetiapine Fumarate (Seroquel), 25 MG IV AMHS Tpn Infusion (Tpn Infusion), 1 EA IV 4XWK Scheduled PRN Acetaminophen (Tylenol Supp), 650 MG RE Q4H PRN for Pain or Fever Acetaminophen (Tylenol Children's Susp), 500 MG PO Q6H PRN for MILD PAIN Baclofen (Lioresal), 5 MG PO Q12 PRN for HICCUPS Bumetanide (Bumex), 0.5 MG PO Q24H PRN for IF WT > 148 LBS. Loperamide Hcl (Imodium A-D), 4 MG PO DIRECTED PRN for Diarrhea Menthol (Topical Analgesic) (Biofreeze), 1 DOSE EXT AMHS PRN for Pain Oxycodone Ir (Roxicodone Ir), 5 MG PO Q6H PRN for Severe Pain Promethazine HCl (Promethazine HCl), 25 MG RE Q8 PRN for Nausea or Vomiting Allergies Coded Allergies: Furosemide (Verified Allergy, Mild, HIVES, CAN TAKE BUMEX, 03/21/17) Anesthetics, Traci (Verified Allergy, Unknown, ANAPHYLAXIS, 03/21/17) Benzocaine (Verified Allergy, Unknown, 03/21/17) Ceftriaxone (Verified Allergy, Unknown, UNK, 03/21/17) Clonazepam (Verified Allergy, Unknown, ?, 03/21/17) Cyclobenzaprine (Verified Allergy, Unknown, UNKNOWN, 03/21/17) Diclofenac (Verified Allergy, Unknown, UNKNOWN, 03/21/17) Diphenhydramine (Verified Allergy, Unknown, UNK, 03/21/17) Isopropyl Alcohol (Verified Allergy, Unknown, UNKNOWN, 03/21/17) Lidocaine (Verified Allergy, Unknown, 03/21/17) Naproxen (Verified Allergy, Unknown, UNKNOWN, 03/21/17) Octreotide (Verified Allergy, Unknown, HIVES, 03/21/17) Pregabalin (Verified Allergy, Unknown, ?, 03/21/17) Procaine (Verified Allergy, Unknown, 03/21/17) Propylene Glycol (Verified Allergy, Unknown, UNKNOWN, 03/21/17) Scopolamine (Verified Allergy, Unknown, 03/21/17) Sulfamethoxazole w/Trimethoprim (Verified Allergy, Unknown, UNKNOWN, ) Warfarin (Verified Adverse Reaction, Severe, HEMORRHAGE, 03/21/17) Iodinated Diagnostic Agents (Verified Adverse Reaction, Intermediate, RENAL FAILURE, 03/21/17) Fluconazole (Verified Adverse Reaction, Mild, FEVER,NAUSEA, 03/21/17) Indomethacin (Verified Adverse Reaction, Mild, N&V, 03/21/17) Lactose (Verified Adverse Reaction, Mild, INTOLERANT, 03/21/17) INTOLERANT Metronidazole (Verified Adverse Reaction, Mild, FEVER,NAUSEA, 03/21/17) Buprenorphine (Verified Adverse Reaction, Unknown, diarrhea, vomiting, ) Codeine (Verified Adverse Reaction, Unknown, MENTAL STATUS CHANGES, ) Physical Exam Vital Signs Date Time Temp Pulse Resp B/P (MAP) Pulse Ox O2 Delivery O2 Flow Rate FiO2 03/21/17 04:30 63 18 105/61 96 Room Air 03/21/17 02:29 74 16 113/48 98 Room Air 03/20/17 23:48 69 03/20/17 23:45 36.9 70 18 140/67 94 Room Air Physical Exam GENERAL: Patient is chronically unwell-appearing and in minimal distress. HEENT: No acute trauma, normocephalic atraumatic, mucous membranes moist, no nasal congestion, no scleral icterus. NECK: No stridor, no adenopathy, no meningismus, trachea is midline. LUNGS: No dyspnea. Clear to auscultation and equal bilaterally. No wheeze, no rhonchi. HEART: Regular rate and rhythm. No murmurs, rubs, gallops appreciated. CHEST: Port in left upper chest. ABDOMEN: Soft, nontender, bowel sounds positive, no masses appreciated, no peritonitis. BACK: No midline tenderness, no CVA tenderness EXTREMITIES: Normal motion all extremities, no cyanosis, no edema. NEUROLOGIC: Alert and oriented, no acute motor or sensory deficits, no focal weakness, cranial nerves grossly intact. SKIN: No rash, no jaundice, no diaphoresis. Medical Decision & Procedures Laboratory Results 03/21/17 00:50 Red Blood Count 3.29, Mean Corpuscular Volume 89.4, Mean Corpuscular Hemoglobin 28.6, Mean Corpuscular Hemoglobin Concent 32.0, Mean Platelet Volume 10.5, Neutrophils (%) (Auto) 91.8, Lymphocytes (%) (Auto) 3.5, Monocytes (%) (Auto) 4.2, Eosinophils (%) (Auto) 0.0, Basophils (%) (Auto) 0.1, Neutrophils # (Auto) 16.00, Lymphocytes # (Auto) 0.61, Monocytes # (Auto) 0.74, Eosinophils # (Auto) 0.00, Basophils # (Auto) 0.01 03/21/17 00:50 Test 03/21/17 00:50 White Blood Count 17.43 K/uL (4.8-10.8) Red Blood Count 3.29 M/uL (4.2-5.4) Hemoglobin 9.4 g/dL (12.0-16.0) Hematocrit 29.4 % (37-47) Mean Corpuscular Volume 89.4 fL (80-100) Mean Corpuscular Hemoglobin 28.6 pg (25-34) Mean Corpuscular Hemoglobin Concent 32.0 g/dl (32-36) Platelet Count 180 K/uL (130-400) Mean Platelet Volume 10.5 fL (7.4-10.4) Neutrophils (%) (Auto) 91.8 % Lymphocytes (%) (Auto) 3.5 % Monocytes (%) (Auto) 4.2 % Eosinophils (%) (Auto) 0.0 % Basophils (%) (Auto) 0.1 % Neutrophils # (Auto) 16.00 K/uL (1.4-6.5) Lymphocytes # (Auto) 0.61 K/uL (1.2-3.4) Monocytes # (Auto) 0.74 K/uL (0.11-0.59) Eosinophils # (Auto) 0.00 K/uL (0-0.5) Basophils # (Auto) 0.01 K/uL (0-0.2) RDW Standard Deviation 48.7 fL (36.4-46.3) RDW Coefficient of Variation 14.9 % (11.5-14.5) Immature Granulocyte % (Auto) 0.4 % Immature Granulocyte # (Auto) 0.07 K/uL (0.00-0.02) Urine Color YELLOW Urine Appearance TURBID (CLEAR) Urine pH 5.0 (4.5-7.5) Urine Specific [place] 1.022 (1.000-1.030) Urine Protein TRACE (NEG) Urine Glucose (UA) NEG (NEG) Urine Ketones NEG (NEG) Urine Occult Blood NEG (NEG) Urine Nitrite NEG (NEG) Urine Bilirubin NEG (NEG) Urine Urobilinogen NEG (NEG) Urine Leukocyte Esterase LARGE (NEG) Urine WBC (Auto) >30 /hpf (0-5) Urine RBC (Auto) 0-4 /hpf (0-4) Urine Hyaline Casts (Auto) 1-5 /lpf (0-5) Urine Epithelial Cells (Auto) >30 /lpf (0-5) Urine Bacteria (Auto) 1+ (NEG) Urine Renal Epithelial Cells /lpf (0-5) Urine Pathogenic Casts 0-3 GRANULAR CASTS /lpf (0) Urine Yeast (Auto) (NONE PRSENT) Anion Gap 8.0 mmol/L (3-11) Est Creatinine Clear Calc Drug Dose 29.2 ml/min Estimated GFR () 44.9 Estimated GFR (Non- 38.7 BUN/Creatinine Ratio 39.3 (10-20) Calcium Level 8.2 mg/dl (8.5-10.1) Total Bilirubin 0.4 mg/dl (0.2-1) Direct Bilirubin 0.1 mg/dl (0-0.2) Aspartate Amino Transf (AST/SGOT) 31 U/L (15-37) Alanine Aminotransferase (ALT/SGPT) 26 U/L (12-78) Alkaline Phosphatase 265 U/L (45-117) Total Protein 7.0 gm/dl (6.4-8.2) Albumin 2.7 gm/dl (3.4-5.0) Lipase 62 U/L (73-393) Laboratory results as reviewed by me. Medications Administered Medications (Trade) Dose Ordered Sig/Elliott Route Start Time Stop Time Status Last Admin Dose Admin Sodium Chloride 500 ml @ 999 mls/hr Q31M STAT IV 03/21/17 00:08 03/21/17 00:38 DC 03/21/17 00:52 999 MLS/HR Ondansetron HCl (Zofran Inj) 4 mg NOW STAT IV 03/21/17 00:08 03/21/17 00:11 DC 03/21/17 00:08 4 MG Ciprofloxacin (Cipro Tab) 500 mg NOW STAT PO 03/21/17 02:06 03/21/17 02:07 DC 03/21/17 02:16 500 MG Heparin Sodium (Porcine) (Heparin 100 Unit/ml 5ml Flush) 5 ml STK-MED ONCE .ROUTE 03/21/17 04:27 03/21/17 04:28 DC 03/21/17 04:27 5 ML ED Course 0005: The patient was evaluated in room B10. A complete history and physical exam was performed. 0008: Ordered Zofran Inj 4 mg IV, NSS 500 ml @ 999 mls/hr IV. 0140: I reevaluated the patient and she feels much better and is no longer nauseous. She does not want to stay in the hospital, and would like to await the urinalysis prior to discharge. 0203: I reevaluated the patient and she does not want to stay in the hospital. She would like to try oral Cipro and says that it has helped for urine infections. She would like to go home to [facility]. 0206: Ordered Cipro Tab 500 mg PO. 0250: I reevaluated the patient and she is resting. We are awaiting the patient 's daughter to show up. The patient verbally expressed understanding and agreement of the treatment plan. The patient will be discharged. Medical Decision Differential: Gastroenteritis, Food Borne, Esophageal Perforation, , Electrolyte Abnormality, Dehydration, Intraabdominal Infection, UTI/ Pyelonephritis, Bowel Obstruction, Biliary Pathology, amongst other pathology entertained. 81 yr old female with long history of chronic vomiting though worsened over last 3 days. Resolved here with single dose IV zofran. Maybe a bit dehydrated by exam thus IV fluids. WBC mildly bumped though this is in line with previous measurements. Abdominal exam benign. Chest clear. No UTI symptoms though there are some bacteria in UA and she notes previous UTIs cause nausea. Previously tolerated Cipro well thus will continue with this. She does not look septic and is not interested in staying in hospital thus will send back to custodial. Medication Reconcilliation Current Medication List: was personally reviewed by me Blood Pressure Screening Patient's blood pressure: Elevated blood pressure Will be monitored at [facility]. Impression Primary Impression: Persistent vomiting Additional Impression: Bacteria in urine Scribe Attestation The scribe's documentation has been prepared under my direction and personally reviewed by me in its entirety. I confirm that the note above accurately reflects all work, treatment, procedures, and medical decision making performed by me. Departure Information Dispostion Home / Self-Care Prescriptions Ciprofloxacin Hcl (CIPRO) 500 Mg Tab 500 MG PO BID, #14 TAB Prov: Solis Brantley M.D. 03/21/17 Referrals Sharonda Christianson D.O. (PCP) Patient Instructions ED Nausea Vomiting, [facility] Problem Qualifiers
[2017-03-21] MEDS ORDERED: PHNS25 RE (00:47)
[2017-03-21] MEDS ORDERED: [UNRECOGNIZED DRUG - CODE] IV. (00:47)
[2017-03-21] MEDS ORDERED: ACET650S11 RE (00:47)
[2017-03-21] MEDS ORDERED: SRQ/50 IV (01:02)
[2017-03-21] MEDS ORDERED: BUME1TAB PO (01:02)
[2017-03-21] MEDS ORDERED: FAMO40SU PO (01:02)
[2017-03-21] MEDS ORDERED: ACET160S78 PO (01:02)
[2017-03-21] MEDS ORDERED: FLUT0.15 NAE (01:02)
[2017-03-21] MEDS ORDERED: LOPE-5 PO (01:02)
[2017-03-21] MEDS ORDERED: CYNI1000 INJ (01:02)
[2017-03-21] MEDS ORDERED: LAMO25TA PO (01:02)
[2017-03-21] MEDS ORDERED: BACL10TA PO (01:02)
[2017-03-21] MEDS ORDERED: OXYC1TAB3 PO (01:02)
[2017-03-21] MEDS ORDERED: CHOL200023 PO (01:02)
[2017-03-21] MEDS ORDERED: DIPH-416 PO ×3 (01:02)
[2017-03-21 01:03] LABS: BASO % 0.1 %; BASO ABS # 0.01 K/uL (0-0.2); COMPLETE YES; HEMATOCRIT 29.4 % (37-47); IG% 0.4 %; LYMPH % 3.5 %; LYMPH ABS # 0.61 K/uL (1.2-3.4); MEAN CELL VOLUME 89.4 fL (80-100); MEAN CORPUSCULAR HEMOGLOBIN 28.6 pg (25-34); MEAN PLATELET VOLUME 10.5 fL (7.4-10.4); MONO % 4.2 %; NEUT % 91.8 %; PLATELET COUNT 180 K/uL (130-400); RED BLOOD COUNT 3.29 M/uL (4.2-5.4); WHITE BLOOD COUNT 17.43 K/uL (4.8-10.8)
[2017-03-21 01:08] LABS: URINE APPEARANCE TURBID (CLEAR); URINE BILIRUBIN NEG (NEG); URINE COLOR YELLOW; URINE EPITHELIAL CELL AUTO >30 /lpf (0-5); URINE NITRITE NEG (NEG); URINE SPECIFIC GRAVITY 1.022 (1.000-1.030); UROBILINOGEN NEG (NEG); ZZUR CULT IF INDIC CLEAN CATCH YES
[2017-03-21 01:13] LABS: MANUAL MICROSCOPIC REQUIRED? NO; REVIEW REQ? YES
[2017-03-21 01:22] LABS: BUN/CREATININE RATIO 39.3 (10-20); CALCIUM 8.2 mg/dl (8.5-10.1); CREATININE 1.3 mg/dl (0.60-1.20); POTASSIUM 3.8 mmol/L (3.5-5.1)
[2017-03-21 01:42] LABS: URINE PATH CASTS 0-3 GRANULAR CASTS /lpf (0)
[2017-03-21] MEDS ORDERED: CIPROFLOXACIN 500 MG TAB PO STA (02:06)
[2017-03-21] MEDS ORDERED: CIPR-255 PO (02:41)
[2017-03-21 04:30] VITALS: BP 105/61; PULSE 63; O2SAT 96
== END 2017-03-21 04:38 | disposition home or self-care (01) ==
LOC: EDBD 23:39 → C.EDB 23:40
DX: R11.10 Vomiting, unspecified (principal); R82.71 Bacteriuria; D64.9 Anemia, unspecified; I50.9 Heart failure, unspecified; I10 Essential (primary) hypertension; Z83.3 Family history of diabetes mellitus; Z82.49 Family history of ischemic heart disease and other diseases of the circulatory system; Z87.891 Personal history of nicotine dependence

== ENCOUNTER 2017-03-25 21:00 | Emergency (ER) | payer BC ==
[~2017-03-25] VITALS: Ht 154.9 cm; Wt 65.1 kg
[2017-03-25 21:00] VITALS: Ht 154.9 cm; Wt 65.1 kg
[~2017-03-25 21:00] MED LIST changes: -ACET-1311 PO; +ACET160S78 PO; +ACET650S11 RE; +BACL10TA PO; +BUME1TAB PO; +CHOL200023 PO; +CIPR-255 PO; +CYNI1000 INJ; +FAMO40SU PO; +FLUT0.15 NAE; -KETO2SHA TOP; +LAMO25TA PO; +LOPE-5 PO; -ONDA4TAB46 PO; +OXYC1TAB3 PO; -PANT40TA PO; +PHNS25 RE; -PROM25TA9 PO; +SRQ/50 IV; -[UNRECOGNIZED DRUG - CODE] IV; +[UNRECOGNIZED DRUG - CODE] IV.
[2017-03-25] MEDS ORDERED: CIPR1INJ3 IV (21:19)
[2017-03-25] MEDS ORDERED: SODIUM CHLORIDE 0.9% 1000ML 1,000 ML IV STA ×2 (21:45→23:58)
[2017-03-25 22:14] LABS: BASO % 0.1 %; BASO ABS # 0.01 K/uL (0-0.2); COMPLETE YES; EOS % 0.5 %; HEMATOCRIT 28.9 % (37-47); IG% 0.5 %; LYMPH % 9.3 %; MEAN CELL VOLUME 88.1 fL (80-100); MEAN CORPUSCULAR HGB CONC 32.9 g/dl (32-36); MEAN PLATELET VOLUME 10.3 fL (7.4-10.4); MONO % 7.4 %; NEUT % 82.2 %; PLATELET COUNT 172 K/uL (130-400); RED BLOOD COUNT 3.28 M/uL (4.2-5.4); WHITE BLOOD COUNT 9.69 K/uL (4.8-10.8)
[2017-03-25 22:43] LABS: BLOOD UREA NITROGEN 49 mg/dl (7-18); GLUCOSE 82 mg/dl (70-99)
[2017-03-25 22:44] LABS: ALT/SGPT 21 U/L (12-78); BUN/CREATININE RATIO 40.8 (10-20); CALCIUM 8.8 mg/dl (8.5-10.1); CARBON DIOXIDE 25 mmol/L (21-32); CHLORIDE 101 mmol/L (98-107); SODIUM 136 mmol/L (136-145)
[2017-03-25 22:49] LABS: ALB/GLOB RATIO 0.7 (0.9-2); ALKALINE PHOSPHATASE 215 U/L (45-117); AST/SGOT 27 U/L (15-37)
[2017-03-25] MEDS ORDERED: ONDANSETRON INJ 2 MG/ML 2 ML VIAL IV STA (23:58)
[2017-03-26 03:09] VITALS: BP 134/78; PULSE 78; TEMP 37; O2SAT 95
--- NOTE | 2017-03-26 06:04 | EMERGENCY ROOM VISIT NOTE ---
History Report prepared by Megan: Blane White Under the Supervision of: Dr. Lorena Dang D.O. First contact with patient: 21:25 Chief Complaint: DEHYDRATION Stated Complaint: DEHYDRATION/ [facility] Nursing Triage Summary: Pt. arrives to exam room via EMS with reports of not eating or drinking for two days because every time she eats, she vomits. Pt. states she feels dehydrated. Denies dizziness or lightheadedness. Pt. has TPN connected to implanted port, but it is not running at this time. History of Present Illness The patient is an 81 year old female who presents to the Emergency Room with complaints of persistent vomiting. The patient states that she has a history of short bowel syndrome and frequently has episodes of vomiting and dehydration. She is currently on TPN. She explains that she has been vomiting persistently for the past 3 days specifically after any oral intake. She denies any abdominal pain or diarrhea. She did receive some Zofran at [facility]. Review of Systems See HPI for pertinent positives & negatives. A total of 10 systems reviewed and were otherwise negative. Past Medical & Surgical Medical Problems: (1) Acute urinary tract infection (2) Anemia (3) Cellulitis of chest wall (4) CHF (congestive heart failure) (5) Cholecystectomy (6) Confusion (7) DVT (deep venous thrombosis) (8) DVT (deep venous thrombosis) (9) Fatigue (10) Hypertension (11) Hypertension Nos (12) Kidney disease (13) Kidney disease (14) Kidney stone (15) Kidney stone (16) Left leg cellulitis (17) Pacemaker (18) Pacemaker (19) Personal History Of Urinary Calculi (20) Restless legs (21) SBO (small bowel obstruction) (22) SBO (small bowel obstruction) (23) SBO (small bowel obstruction) (24) Short bowel syndrome (25) Short bowel syndrome (26) Urinary problem Surgical Problems: (1) H/O colectomy (2) H/O: hysterectomy (3) Hx of cholecystectomy Family History Diabetes mellitus FHx: cancer FHx: gallbladder disease FHx: heart disease Hypertension Kidney disease Kidney stones Social History Smoking Status: Former Smoker Alcohol Use: none Drug Use: none Marital Status: Housing Status: [facility] Occupation Status: retired Current/Historical Medications Scheduled Cholecalciferol (Ddrops), 2,000 UNITS PO QAM Ciprofloxacin In D5w (Cipro I.v.-In D5w), 400 MG IV QAM Cyanocobalamin (Cyanocobalamin), 1,000 MCG INJ MONTHLY Diphenoxylate/Atropine (Lomotil), 4 TAB PO HS Diphenoxylate/Atropine (Lomotil), 3 TAB PO BREAKFAST AND LUNCH Diphenoxylate/Atropine (Lomotil), 2 TAB PO DAILY AT 1800 Famotidine (Famotidine), 20 MG PO AMHS Fluticasone Propionate (Nasal) (Flonase Allergy Relief), 2 SPRAYS MARIELA HS Ketotifen Fumarate (Ophth) (Alaway), 1 DROPS OPB BID Lamotrigine (Lamictal), 50 MG PO HS Levothyroxine Sodium (Synthroid), 150 MCG PO HS Loratadine (Claritin), 10 MG PO Q2D Metoprolol Succ (Toprol Xl) (Toprol-Xl), 50 MG PO QAM Miconazole Nitrate (Topical) (Antifungal), 1 DOSE EXT HS Ondansetron HCl and Sodium Chl (Ondansetron Hydrochloride 8-0.9 mg/50Ml-%), 8 MG IV. TID Quetiapine Fumarate (Seroquel), 25 MG IV AMHS Tpn Infusion (Tpn Infusion), 1 EA IV [id number] Scheduled PRN Acetaminophen (Tylenol Supp), 650 MG RE Q4H PRN for Pain or Fever Acetaminophen (Tylenol Children's Susp), 500 MG PO Q6H PRN for MILD PAIN Baclofen (Lioresal), 5 MG PO Q12 PRN for HICCUPS Bumetanide (Bumex), 0.5 MG PO Q24H PRN for IF WT > 148 LBS. Loperamide Hcl (Imodium A-D), 4 MG PO DIRECTED PRN for Diarrhea Menthol (Topical Analgesic) (Biofreeze), 1 DOSE EXT AMHS PRN for Pain Oxycodone Ir (Roxicodone Ir), 5 MG PO Q6H PRN for Severe Pain Promethazine HCl (Promethazine HCl), 25 MG RE Q8 PRN for Nausea or Vomiting Allergies Coded Allergies: Furosemide (Verified Allergy, Mild, HIVES, CAN TAKE BUMEX, 03/25/17) Anesthetics, Traci (Verified Allergy, Unknown, ANAPHYLAXIS, 03/21/17) Benzocaine (Verified Allergy, Unknown, 03/25/17) Ceftriaxone (Verified Allergy, Unknown, UNK, 03/25/17) Clonazepam (Verified Allergy, Unknown, ?, 03/25/17) Cyclobenzaprine (Verified Allergy, Unknown, UNKNOWN, 03/25/17) Diclofenac (Verified Allergy, Unknown, UNKNOWN, 03/25/17) Diphenhydramine (Verified Allergy, Unknown, UNK, 03/25/17) Isopropyl Alcohol (Verified Allergy, Unknown, UNKNOWN, 03/25/17) Lidocaine (Verified Allergy, Unknown, 03/25/17) Naproxen (Verified Allergy, Unknown, UNKNOWN, 03/25/17) Octreotide (Verified Allergy, Unknown, HIVES, 03/25/17) Pregabalin (Verified Allergy, Unknown, ?, 03/25/17) Procaine (Verified Allergy, Unknown, 03/25/17) Propylene Glycol (Verified Allergy, Unknown, UNKNOWN, 03/25/17) Scopolamine (Verified Allergy, Unknown, 03/25/17) Sulfamethoxazole w/Trimethoprim (Verified Allergy, Unknown, UNKNOWN, ) Warfarin (Verified Adverse Reaction, Severe, HEMORRHAGE, 03/25/17) Iodinated Diagnostic Agents (Verified Adverse Reaction, Intermediate, RENAL FAILURE, 03/25/17) Fluconazole (Verified Adverse Reaction, Mild, FEVER,NAUSEA, 03/25/17) Indomethacin (Verified Adverse Reaction, Mild, N&V, 03/25/17) Lactose (Verified Adverse Reaction, Mild, INTOLERANT, 03/21/17) INTOLERANT Metronidazole (Verified Adverse Reaction, Mild, FEVER,NAUSEA, 03/25/17) Buprenorphine (Verified Adverse Reaction, Unknown, diarrhea, vomiting, ) Codeine (Verified Adverse Reaction, Unknown, MENTAL STATUS CHANGES, ) Physical Exam Vital Signs Date Time Temp Pulse Resp B/P (MAP) Pulse Ox O2 Delivery O2 Flow Rate FiO2 03/26/17 03:09 37.0 78 16 134/78 95 03/26/17 02:20 78 16 134/78 95 Room Air 03/25/17 23:31 134/56 03/25/17 23:30 81 16 03/25/17 23:01 143/60 03/25/17 23:00 77 15 9/21/17 22:48 135/62 03/25/17 22:45 78 15 135/62 93 Room Air 03/25/17 22:34 75 03/25/17 21:30 70 14 136/55 91 Room Air 03/25/17 21:00 37.0 80 15 132/66 93 Room Air Pain Rating (0-10): 0 Physical Exam General: Frail appearing women. HEENT: Head - normocephalic and atraumatic Pupils are equal, round, and reactive to light. Extraocular eye muscles are intact, and sclera are anicteric. Nose - moist nasal mucosa without discharge. Mouth - dry buccal mucosa. Oropharynx is nonerythematous and there is no tonsillar exudate or edema noted. Neck: Supple; no JVD, nuchal rigidity, cervical lymphadenopathy. Heart: Regular rate and rhythm. There is a normal S1 and S2 with no murmurs, clicks, or gallops appreciated. Lungs: Clear to auscultation bilaterally with no wheezes, rales, or rhonchi. Abdomen: Soft, completely nontender, nondistended, with good bowel sounds. There are no palpable pulsatile masses or hepatosplenomegaly. There is no guarding, rigidity, or rebound noted. Extremities: No evidence of cyanosis, clubbing, or edema. There are easily palpable peripheral pulses. Skin: warm and dry with good turgor and no rashes. Medical Decision & Procedures Laboratory Results 03/25/17 21:59 Red Blood Count 3.28, Mean Corpuscular Volume 88.1, Mean Corpuscular Hemoglobin 29.0, Mean Corpuscular Hemoglobin Concent 32.9, Mean Platelet Volume 10.3, Neutrophils (%) (Auto) 82.2, Lymphocytes (%) (Auto) 9.3, Monocytes (%) (Auto) 7.4, Eosinophils (%) (Auto) 0.5, Basophils (%) (Auto) 0.1, Neutrophils # (Auto) 7.96, Lymphocytes # (Auto) 0.90, Monocytes # (Auto) 0.72, Eosinophils # (Auto) 0.05, Basophils # (Auto) 0.01 03/25/17 21:59 Test 03/25/17 21:59 White Blood Count 9.69 K/uL (4.8-10.8) Red Blood Count 3.28 M/uL (4.2-5.4) Hemoglobin 9.5 g/dL (12.0-16.0) Hematocrit 28.9 % (37-47) Mean Corpuscular Volume 88.1 fL (80-100) Mean Corpuscular Hemoglobin 29.0 pg (25-34) Mean Corpuscular Hemoglobin Concent 32.9 g/dl (32-36) Platelet Count 172 K/uL (130-400) Mean Platelet Volume 10.3 fL (7.4-10.4) Neutrophils (%) (Auto) 82.2 % Lymphocytes (%) (Auto) 9.3 % Monocytes (%) (Auto) 7.4 % Eosinophils (%) (Auto) 0.5 % Basophils (%) (Auto) 0.1 % Neutrophils # (Auto) 7.96 K/uL (1.4-6.5) Lymphocytes # (Auto) 0.90 K/uL (1.2-3.4) Monocytes # (Auto) 0.72 K/uL (0.11-0.59) Eosinophils # (Auto) 0.05 K/uL (0-0.5) Basophils # (Auto) 0.01 K/uL (0-0.2) RDW Standard Deviation 48.2 fL (36.4-46.3) RDW Coefficient of Variation 14.9 % (11.5-14.5) Immature Granulocyte % (Auto) 0.5 % Immature Granulocyte # (Auto) 0.05 K/uL (0.00-0.02) Anion Gap 10.0 mmol/L (3-11) Est Creatinine Clear Calc Drug Dose 32.3 ml/min Estimated GFR () 49.4 Estimated GFR (Non- 42.7 BUN/Creatinine Ratio 40.8 (10-20) Calcium Level 8.8 mg/dl (8.5-10.1) Total Bilirubin 0.4 mg/dl (0.2-1) Aspartate Amino Transf (AST/SGOT) 27 U/L (15-37) Alanine Aminotransferase (ALT/SGPT) 21 U/L (12-78) Alkaline Phosphatase 215 U/L (45-117) Troponin I < 0.015 ng/ml (0-0.045) Total Protein 7.1 gm/dl (6.4-8.2) Albumin 2.8 gm/dl (3.4-5.0) Globulin 4.3 gm/dl (2.5-4.0) Albumin/Globulin Ratio 0.7 (0.9-2) Lipase 54 U/L (73-393) Laboratory results per my review. Medications Administered Medications (Trade) Dose Ordered Sig/Elliott Route Start Time Stop Time Status Last Admin Dose Admin Sodium Chloride 1,000 ml @ 999 mls/hr Q1H1M STAT IV 03/25/17 21:45 03/25/17 22:45 DC 03/26/17 00:24 999 MLS/HR Sodium Chloride 1,000 ml @ 250 mls/hr Q4H STAT IV 03/25/17 23:58 03/26/17 03:57 DC 03/26/17 00:24 250 MLS/HR Ondansetron HCl (Zofran Inj) 4 mg NOW STAT IV 03/25/17 23:58 03/26/17 00:00 DC 03/26/17 00:24 4 MG Procedure 2144: Ordered Sodium Chloride 1000 ml @ 999 mls/hr IV. 2357: Ordered Ondansetron HCl 4mg IV, Sodium Chloride 1000 ml @ 250 mls/hr IV. ECG Indication: weakness Rate (beats per minute): 75 Rhythm: other (Paced rhythm) Findings: no acute ischemic change, no ectopy ED Course 2124: The patient was evaluated in room B3. A complete history and physical was performed. An IV lock was initiated and labs are drawn as above. I reviewed previous medical records. 2144: Ordered Sodium Chloride 1000 ml @ 999 mls/hr IV. 2356: I reevaluated the patient and discussed current exam findings. She reports that she is still nauseous. 2357: Ordered Ondansetron HCl 4mg IV, Sodium Chloride 1000 ml @ 250 mls/hr IV. 0113: I reevaluated the patient, and she is feeling better. I discussed laboratory results. 0200: Upon reevaluation, the patient is able to drink water. I discussed findings and results with her. She verbalized agreement of the treatment plan. The patient will be discharged to [facility]. 0252: I reevaluated the patient and informed her that the ambulance is on its way. I answered remaining questions, and her nausea has resolved. Medical Decision The patient is an 81 year old female who presents to the ED with dehydration symptoms. Differential diagnosis includes vomiting, dehydration, short bowel syndrome exacerbation. Lab results per my interpretation: normal WBC, Hemoglobin of 9.5 which is baseline, BUN 49, creatinine of 1.2, glucose of 82, LFTs were normal, lipase of 54. This is an 81-year-old female patient from [facility] who presents to the emergency department with vomiting and dehydration. The patient has a history of short-bowel syndrome and receives TPN 12 hours a day. Frequently she will have episodes of persistent vomiting and dehydration. On physical exam, the patient does appear dehydrated. Laboratories studies confirm this. She received IV crystalloid therapy and Zofran and is feeling much better. She was able to drink without difficulty. Medication Reconcilliation Current Medication List: was personally reviewed by me Blood Pressure Screening Patient's blood pressure: Elevated blood pressure Blood pressure disposition: Elevated BP felt to be situational Impression Primary Impression: Dehydration Scribe Attestation The scribe's documentation has been prepared under my direction and personally reviewed by me in its entirety. I confirm that the note above accurately reflects all work, treatment, procedures, and medical decision making performed by me. Departure Information Dispostion Home / Self-Care Forms WORK / SCHOOL INSTRUCTIONS, HOME CARE DOCUMENTATION FORM, IMPORTANT VISIT INFORMATION Patient Instructions My [facility], ED Dehydration Additional Instructions Rest. Take plenty of clear liquids
== END 2017-03-26 03:11 ==
LOC: EDBD 21:00 → C.EDB 21:01
DX: E86.0 Dehydration (principal); R11.10 Vomiting, unspecified; K91.2 Postsurgical malabsorption, not elsewhere classified; R53.1 Weakness; I10 Essential (primary) hypertension; Z79.899 Other long term (current) drug therapy; Z86.19 Personal history of other infectious and parasitic diseases; Z86.718 Personal history of other venous thrombosis and embolism; Z87.440 Personal history of urinary (tract) infections; Z87.448 Personal history of other diseases of urinary system; Z87.442 Personal history of urinary calculi; Z82.49 Family history of ischemic heart disease and other diseases of the circulatory system; Z83.3 Family history of diabetes mellitus; Z83.79 Family history of other diseases of the digestive system; Z84.1 Family history of disorders of kidney and ureter

== ENCOUNTER 2017-06-11 13:30 | Inpatient (IN) | payer BC, OTHER ==
[2017-06-11] VITALS (7 sets, daily range): BP systolic 110–172; BP diastolic 66–77; PULSE 60–90; TEMP 36.4–36.9; O2SAT 96–98; Ht 160 cm; Wt 64.7 kg
[~2017-06-11] VITALS: Ht 160 cm; Wt 64.7 kg
[~2017-06-11 13:30] MED LIST changes: -CIPR-255 PO; +CIPR1INJ3 IV; +CYNI1000 IM; -CYNI1000 INJ; -FAMO40SU PO; -MENT4GEL EXT; +MENT4GEL TOP; -MICO12CR EXT; +MICO12CR TOP; +[UNRECOGNIZED DRUG - CODE] PO
--- NOTE | 2017-06-11 13:48 | EMERGENCY ROOM VISIT NOTE ---
History Report prepared by Megan: Jacinta Palma Under the Supervision of: Dr. Ubaldo Christy D.O. First contact with patient: 13:38 Chief Complaint: ABNORMAL LABS Stated Complaint: ABNORMAL LAB History of Present Illness The patient is an 81 year old female who presents to the Emergency Room with complaints of generalized weakness. The patient states that she had bright red blood per rectum 2 days ago but has not noticed any blood per rectum since. She had some outpatient laboratories obtained today and was sent to the emergency department because of anemia. The patient states that she's been very tired and having difficulty with her strength. She becomes very tired quickly with any exertion. She denies having any chest pain. She denies having any nausea vomiting or diarrhea. She's not had any fevers or chills. She denies any lower extremity weakness. She was seen recently for GI bleed but has not had a transfusion for a long time. 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 A total of 10 systems reviewed and were otherwise negative. Past Medical & Surgical Medical Problems: (1) Acute urinary tract infection (2) Anemia (3) Cellulitis of chest wall (4) CHF (congestive heart failure) (5) Cholecystectomy (6) Confusion (7) DVT (deep venous thrombosis) (8) DVT (deep venous thrombosis) (9) Fatigue (10) Hypertension (11) Hypertension Nos (12) Kidney disease (13) Kidney disease (14) Kidney stone (15) Kidney stone (16) Left leg cellulitis (17) Pacemaker (18) Pacemaker (19) Personal History Of Urinary Calculi (20) rectal bleeding, ANEMIA (21) Restless legs (22) SBO (small bowel obstruction) (23) SBO (small bowel obstruction) (24) SBO (small bowel obstruction) (25) Short bowel syndrome (26) Short bowel syndrome (27) Urinary problem Surgical Problems: (1) H/O colectomy (2) H/O: hysterectomy (3) Hx of cholecystectomy Family History Diabetes mellitus FHx: cancer FHx: gallbladder disease FHx: heart disease Hypertension Kidney disease Kidney stones Social History Smoking Status: Never Smoker Alcohol Use: none Drug Use: none Marital Status: Housing Status: assisted Occupation Status: retired Current/Historical Medications Scheduled Cholecalciferol (Ddrops), 2,000 INTER.UNIT PO QAM Cyanocobalamin (Cyanocobalamin), 1,000 MCG IM MONTHLY Diphenoxylate/Atropine (Diphenoxylate/Atropine 2.5-0.025 mg), 4 TABS PO HS Diphenoxylate/Atropine (Diphenoxylate/Atropine 2.5-0.025 mg), 3 TABS PO BID Diphenoxylate/Atropine (Diphenoxylate/Atropine 2.5-0.025 mg), 2 TABS PO QPM Famotidine (Famotidine), 20 MG PO AMHS Fluticasone Propionate (Nasal) (Flonase Allergy Relief), 2 SPRAYS MARIELA HS Ketotifen Fumarate (Ophth) (Alaway), 1 DROP OPB Q12 Lamotrigine (Lamictal), 50 MG PO HS Levothyroxine Sodium (Synthroid), 150 MCG PO HS Loratadine (Claritin), 10 MG PO Q2D Menthol (Topical Analgesic) (Biofreeze), 1 APPLN TOP AMHS Metoprolol Succ (Toprol Xl) (Toprol-Xl), 50 MG PO QAM Miconazole Nitrate (Topical) (Antifungal), 1 APPLN TOP HS Ondansetron (Ondansetron Hcl), 8 MG IV TID Ondansetron HCl and Sodium Chl (Ondansetron Hydrochloride 8-0.9 mg/50Ml-%), 8 MG IV. TID Pantoprazole Sodium (Protonix), 40 MG IV BID Quetiapine Fumarate (Seroquel), 25 MG IV AMHS Tpn Infusion (Tpn Infusion), 1 EA IV 4XWK [Lipids], 1 DOSE IV UD [Seroquel PLO], 0.5 ML TOP BID Scheduled PRN Acetaminophen (Tylenol Children's Susp), 500 MG PO Q6H PRN for MILD PAIN Acetaminophen (Tylenol), 650 MG KS Q4H PRN for Pain or Fever Baclofen (Lioresal), 5 MG PO Q12 PRN for Intractable Hiccups Bumetanide (Bumex), 0.5 MG PO Q24H PRN for IF WT > 148 LBS. Guaifenesin Ext Rel (Mucinex Ext Rel), 600 MG PO Q12 PRN for Congestion Ketotifen Fumarate (Ophth) (Alaway), 1 DROP OPB Q12 PRN for Eye Irritation Loperamide Hcl (Imodium A-D), 2 MG PO UD PRN for Diarrhea Ondansetron (Ondansetron Hcl), 8 MG IV Q24H PRN for Nausea or Vomiting Oxycodone HCl (Oxycodone HCl), 5 MG PO Q6H PRN for Severe Pain Promethazine HCl (Promethazine HCl), 25 MG RE Q8 PRN for Nausea or Vomiting Promethazine Hcl (Phenergan), 0.5 ML IV Q6H PRN for Nausea Allergies Coded Allergies: Furosemide (Verified Allergy, Mild, HIVES, CAN TAKE BUMEX, 03/25/17) Anesthetics, Traci (Verified Allergy, Unknown, ANAPHYLAXIS, 03/21/17) Benzocaine (Verified Allergy, Unknown, 03/25/17) Ceftriaxone (Verified Allergy, Unknown, UNK, 03/25/17) Clonazepam (Verified Allergy, Unknown, ?, 03/25/17) Cyclobenzaprine (Verified Allergy, Unknown, UNKNOWN, 03/25/17) Diclofenac (Verified Allergy, Unknown, UNKNOWN, 03/25/17) Diphenhydramine (Verified Allergy, Unknown, UNK, 03/25/17) Isopropyl Alcohol (Verified Allergy, Unknown, UNKNOWN, 03/25/17) Lidocaine (Verified Allergy, Unknown, 03/25/17) Naproxen (Verified Allergy, Unknown, UNKNOWN, 03/25/17) Octreotide (Verified Allergy, Unknown, HIVES, 03/25/17) Pregabalin (Verified Allergy, Unknown, ?, 03/25/17) Procaine (Verified Allergy, Unknown, 03/25/17) Propylene Glycol (Verified Allergy, Unknown, UNKNOWN, 03/25/17) Scopolamine (Verified Allergy, Unknown, 03/25/17) Sulfamethoxazole w/Trimethoprim (Verified Allergy, Unknown, UNKNOWN, ) Warfarin (Verified Adverse Reaction, Severe, HEMORRHAGE, 03/25/17) Iodinated Diagnostic Agents (Verified Adverse Reaction, Intermediate, RENAL FAILURE, 03/25/17) Fluconazole (Verified Adverse Reaction, Mild, FEVER,NAUSEA, 03/25/17) Indomethacin (Verified Adverse Reaction, Mild, N&V, 03/25/17) Lactose (Verified Adverse Reaction, Mild, INTOLERANT, 03/21/17) INTOLERANT Metronidazole (Verified Adverse Reaction, Mild, FEVER,NAUSEA, 03/25/17) Buprenorphine (Verified Adverse Reaction, Unknown, diarrhea, vomiting, ) Codeine (Verified Adverse Reaction, Unknown, MENTAL STATUS CHANGES, ) Physical Exam Vital Signs Date Time Temp Pulse Resp B/P (MAP) Pulse Ox O2 Delivery O2 Flow Rate FiO2 06/11/17 14:37 63 18 123/60 98 Room Air 06/11/17 13:39 37.0 80 16 141/68 98 Room Air Physical Exam GENERAL: Patient is awake alert in no acute distress patient is resting comfortably and showing no signs of anxiety EYES: The conjunctivae are clear. The pupils are round and reactive. EARS, NOSE, MOUTH AND THROAT: The nose is without any evidence of any deformity. Mucous membranes are moist tongue is midline NECK: The neck is nontender and supple. RESPIRATORY: Normal respiratory effort is noted there is no evidence of wheezing rhonchi or rales CARDIOVASCULAR: Regular rate and rhythm noted there no murmurs rubs or gallops normal S1 normal S2 GASTROINTESTINAL: The abdomen is soft. Bowel sounds are present in all quadrants. Abdomen is nontender. Rectal exam revealed light stool that was heme positive. MUSCULOSKELETAL/EXTREMITIES: There is no evidence of gross deformity full range of motion is noted in the hips and shoulders SKIN: There is no obvious evidence of any rash. Trace pedal edema was noted bilaterally. NEUROLOGIC: Patient is awake alert and oriented x3 strength is symmetric but diminished. Medical Decision & Procedures ER Provider Diagnostic Interpretation: Radiology results as stated below per my review and radiologist interpretation: CHEST ONE VIEW PORTABLE CLINICAL HISTORY: Pain, radiating to the abdomen. COMPARISON STUDY: 02/19/2016 FINDINGS: The cardiac and mediastinal contours remain stable. There is a right subclavian dual-chamber central venous pacemaker. There is a left subclavian A-Port catheter. There are low lung volumes. Since the prior study, the patient developed interstitial left mid and lower lung zone opacities. There is blunting of the left lateral costophrenic angle. There is no free intraperitoneal air.[ IMPRESSION: 1. Low lung volumes 2. Developing interstitial left mid and lower lung zone opacities, atelectatic versus inflammatory. 3. No evidence of free intraperitoneal air Electronically signed by: Adelfo Tan M.D. 06/11/2017 2:15 PM Laboratory Results 06/11/17 14:26 Red Blood Count 2.93, Mean Corpuscular Volume 85.7, Mean Corpuscular Hemoglobin 26.6, Mean Corpuscular Hemoglobin Concent 31.1, Mean Platelet Volume 10.2, Neutrophils (%) (Auto) 61.9, Lymphocytes (%) (Auto) 26.7, Monocytes (%) (Auto) 9.6, Eosinophils (%) (Auto) 1.4, Basophils (%) (Auto) 0.2, Neutrophils # (Auto) 3.16, Lymphocytes # (Auto) 1.36, Monocytes # (Auto) 0.49, Eosinophils # (Auto) 0.07, Basophils # (Auto) 0.01 06/11/17 14:26 Test 06/11/17 14:26 06/11/17 14:45 White Blood Count 5.10 K/uL (4.8-10.8) Red Blood Count 2.93 M/uL (4.2-5.4) Hemoglobin 7.8 g/dL (12.0-16.0) Hematocrit 25.1 % (37-47) Mean Corpuscular Volume 85.7 fL (80-100) Mean Corpuscular Hemoglobin 26.6 pg (25-34) Mean Corpuscular Hemoglobin Concent 31.1 g/dl (32-36) Platelet Count 143 K/uL (130-400) Mean Platelet Volume 10.2 fL (7.4-10.4) Neutrophils (%) (Auto) 61.9 % Lymphocytes (%) (Auto) 26.7 % Monocytes (%) (Auto) 9.6 % Eosinophils (%) (Auto) 1.4 % Basophils (%) (Auto) 0.2 % Neutrophils # (Auto) 3.16 K/uL (1.4-6.5) Lymphocytes # (Auto) 1.36 K/uL (1.2-3.4) Monocytes # (Auto) 0.49 K/uL (0.11-0.59) Eosinophils # (Auto) 0.07 K/uL (0-0.5) Basophils # (Auto) 0.01 K/uL (0-0.2) RDW Standard Deviation 44.9 fL (36.4-46.3) RDW Coefficient of Variation 14.4 % (11.5-14.5) Immature Granulocyte % (Auto) 0.2 % Immature Granulocyte # (Auto) 0.01 K/uL (0.00-0.02) Hypochromasia PRESENT Prothrombin Time 11.0 SECONDS (9.0-12.0) Prothromb Time International Ratio 1.0 (0.9-1.1) Activated Partial Thromboplast Time 29.6 SECONDS (21.0-31.0) Partial Thromboplastin Ratio 1.1 Anion Gap 7.0 mmol/L (3-11) Est Creatinine Clear Calc Drug Dose 35.3 ml/min Estimated GFR () 52.0 Estimated GFR (Non- 44.9 BUN/Creatinine Ratio 38.2 (10-20) Calcium Level 8.4 mg/dl (8.5-10.1) Total Bilirubin 0.2 mg/dl (0.2-1) Direct Bilirubin 0.1 mg/dl (0-0.2) Aspartate Amino Transf (AST/SGOT) 87 U/L (15-37) Alanine Aminotransferase (ALT/SGPT) 73 U/L (12-78) Alkaline Phosphatase 424 U/L (45-117) Troponin I < 0.015 ng/ml (0-0.045) Total Protein 6.3 gm/dl (6.4-8.2) Albumin 2.5 gm/dl (3.4-5.0) Lipase 41 U/L (73-393) Thyroid Stimulating Hormone (TSH) 0.228 uIu/ml (0.300-4.500) Urine Color YELLOW Urine Appearance CLEAR (CLEAR) Urine pH 5.0 (4.5-7.5) Urine Specific Cameron 1.017 (1.000-1.030) Urine Protein NEG (NEG) Urine Glucose (UA) NEG (NEG) Urine Ketones NEG (NEG) Urine Occult Blood NEG (NEG) Urine Nitrite NEG (NEG) Urine Bilirubin NEG (NEG) Urine Urobilinogen NEG (NEG) Urine Leukocyte Esterase SMALL (NEG) Urine WBC (Auto) 1-5 /hpf (0-5) Urine RBC (Auto) 0-4 /hpf (0-4) Urine Hyaline Casts (Auto) 1-5 /lpf (0-5) Urine Epithelial Cells (Auto) 20-30 /lpf (0-5) Urine Bacteria (Auto) NEG (NEG) Laboratory results per my review. ECG Indication: weakness Rate (beats per minute): 60 Rhythm: other (dual chambered pacemaker) Findings: other (No PVC's, no muscogee beats, no change from 03/25/17) ED Course 1355: The patient was evaluated in room B3B. A complete history and physical examination were performed. 1425: I discussed the patients case with Dr. Byrnes [facility] Hospitalist. The patient will be further evaluated. Medical Decision Prior records/ancillary studies reviewed and summarized above. Nursing notes reviewed. Differential diagnosis: Etiologies such as metabolic, infection, hypo/hyperglycemia, electrolyte abnormalities, cardiac sources, intracerebral event, toxicologic, neurologic, as well as others were entertained. The patient is an 81-year-old female who presented to the emergency department for evaluation of weakness. The patient noticed GI bleeding 2 days ago but has not noticed any black stools or bloody stools since. The patient had a low hemoglobin that was drawn as an outpatient yesterday. Her hemoglobin continue to drop today. For this reason she was sent to the emergency department for an evaluation of anemia. The patient was found have heme positive stool. The patient had laboratories redrawn. I discussed patient's laboratory results with her. I discussed her case with the on-call [facility] hospitalist group. They 've agreed to evaluate the patient in the emergency department for further management and disposition. It would appear the patient may require a blood transfusion for symptom an anemia at this time. Medication Reconcilliation Current Medication List: was personally reviewed by me Blood Pressure Screening Patient's blood pressure: Elevated blood pressure Blood pressure disposition: Elevated BP felt to be situational Consults Time Called: 1420 Consulting Physician: Dr. Byrnes [facility] Hospitalist Returned Call: 1425 I discussed the patients case with Dr. Byrnes [facility] Hospitalist. The patient will be further evaluated. Impression Primary Impression: Lower GI bleed Additional Impressions: Symptomatic anemia Generalized weakness Scribe Attestation The scribe's documentation has been prepared under my direction and personally reviewed by me in its entirety. I confirm that the note above accurately reflects all work, treatment, procedures, and medical decision making performed by me. Departure Information Dispostion Being Evaluated By Hospitalist Referrals Sharonda Christianson D.O. (PCP) Patient Instructions My [facility] [address] Problem Qualifiers
--- NOTE | 2017-06-11 14:16 | DIAGNOSTIC IMAGING REPORT ---
CHEST ONE VIEW PORTABLE CLINICAL HISTORY: Pain, radiating to the abdomen. COMPARISON STUDY: 02/19/2016 FINDINGS: The cardiac and mediastinal contours remain stable. There is a right subclavian dual-chamber central venous pacemaker. There is a left subclavian A-Port catheter. There are low lung volumes. Since the prior study, the patient developed interstitial left mid and lower lung zone opacities. There is blunting of the left lateral costophrenic angle. There is no free intraperitoneal air.[ IMPRESSION: 1. Low lung volumes 2. Developing interstitial left mid and lower lung zone opacities, atelectatic versus inflammatory. 3. No evidence of free intraperitoneal air Electronically signed by: Adelfo Tan M.D. 06/11/2017 2:15 PM Dictated Date/Time: 06/11/2017 2:14 PM
[2017-06-11 14:44] LABS: BASO % 0.2 %; BASO ABS # 0.01 K/uL (0-0.2); EOS % 1.4 %; HEMATOCRIT 25.1 % (37-47); IG% 0.2 %; LYMPH % 26.7 %; LYMPH ABS # 1.36 K/uL (1.2-3.4); MEAN CELL VOLUME 85.7 fL (80-100); MEAN CORPUSCULAR HEMOGLOBIN 26.6 pg (25-34); MEAN CORPUSCULAR HGB CONC 31.1 g/dl (32-36); MEAN PLATELET VOLUME 10.2 fL (7.4-10.4); MONO % 9.6 %; NEUT % 61.9 %; PLATELET COUNT 143 K/uL (130-400); RED BLOOD COUNT 2.93 M/uL (4.2-5.4)
[2017-06-11 14:58] LABS: PARTIAL THROMBOPLASTIN RATIO 1.1
[2017-06-11 15:07] LABS: ALT/SGPT 73 U/L (12-78); BLOOD UREA NITROGEN 44 mg/dl (7-18); BUN/CREATININE RATIO 38.2 (10-20); CALCIUM 8.4 mg/dl (8.5-10.1); CARBON DIOXIDE 29 mmol/L (21-32); CHLORIDE 99 mmol/L (98-107); CREATININE 1.15 mg/dl (0.60-1.20); GLUCOSE 88 mg/dl (70-99); POTASSIUM 4.1 mmol/L (3.5-5.1); SODIUM 136 mmol/L (136-145)
[2017-06-11 15:13] LABS: ALKALINE PHOSPHATASE 424 U/L (45-117); AST/SGOT 87 U/L (15-37)
[2017-06-11 15:23] LABS: URINE APPEARANCE CLEAR (CLEAR); URINE BILIRUBIN NEG (NEG); URINE COLOR YELLOW; URINE EPITHELIAL CELL AUTO 20-30 /lpf (0-5); URINE NITRITE NEG (NEG); URINE SPECIFIC GRAVITY 1.017 (1.000-1.030); UROBILINOGEN NEG (NEG)
[2017-06-11 15:26] LABS: COMPLETE YES; HYPOCHROMIA PRESENT
[2017-06-11 15:28] LABS: MANUAL MICROSCOPIC REQUIRED? NO; REVIEW REQ? NO
[2017-06-11] MEDS ORDERED: ZOLPIDEM TARTRATE 5 MG TAB PO PRN (15:45)
[2017-06-11] MEDS ORDERED: ACETAMINOPHEN 325 MG TAB PO PRN (15:45)
[2017-06-11] MEDS ORDERED: MAGNESIUM HYDROXIDE SUSP 30 ML UDC PO PRN (15:45)
[2017-06-11] MEDS ORDERED: ALUMINUM/MAGNESIUM/SIMETH (MAALOX MAX) 30 ML UDC PO PRN (15:45)
[2017-06-11] MEDS ORDERED: POLYETHYLENE (MIRALAX) 17 GM PACK PO PRN (15:45)
[2017-06-11] MEDS ORDERED: ONDANSETRON INJ 2 MG/ML 2 ML VIAL IV PRN (15:45)
[2017-06-11] MEDS ORDERED: LIPIDS IV (15:59)
[2017-06-11] MEDS ORDERED: BUMETANIDE 1 MG TAB PO PRN (16:00)
[2017-06-11] MEDS ORDERED: OXYCODONE HCL IR 5 MG TAB (IMMEDIATE RELEASE) PO PRN (16:00)
[2017-06-11] MEDS ORDERED: PROMETHAZINE HCL 25 MG SUPP PR PRN (16:00)
[2017-06-11] MEDS ORDERED: BACLOFEN 10 MG TAB PO PRN (16:00)
[2017-06-11] MEDS ORDERED: PROMETHAZINE HCL INJ 25 MG in SODIUM CHLORIDE 0.9% 50ML 50 ML IV PRN (16:00)
--- NOTE | 2017-06-11 16:05 | History and Physical ---
History & Physical Date of Service Jun 11, 2017. History & Physical rectal bleeding, ANEMIA, DICTATED
[2017-06-11] MEDS ORDERED: KETO0.024 OPB (16:41)
[2017-06-11] MEDS ORDERED: DIPH-416 PO ×3 (16:41)
[2017-06-11] MEDS ORDERED: TPRSR/50 PO (16:42)
[2017-06-11] MEDS ORDERED: OXYC-609 PO (16:51)
[2017-06-11] MEDS ORDERED: GFNSR600 PO (16:51)
[2017-06-11] MEDS ORDERED: PROM25IN13 IV (16:51)
[2017-06-11] MEDS ORDERED: PANT1INJ2 IV (16:52)
[2017-06-11] MEDS ORDERED: [UNRECOGNIZED DRUG - OTHER] TOP (17:00)
[2017-06-11] MEDS ORDERED: ZFRI4 IV ×2 (17:11)
[2017-06-11] MEDS ORDERED: ACET650S10 PR (17:14)
--- NOTE | 2017-06-11 17:19 | HISTORY & PHYSICAL EXAMINATION ---
DATE OF ADMISSION: 06/11/2017 This is a level 3 inpatient admission, 35 minutes. CHIEF COMPLAINT: Severe generalized weakness and anemia and rectal bleeding. HISTORY OF PRESENT ILLNESS: The patient is an 81-year-old white female with a significant past medical history of small bowel obstruction, short bowel syndrome, restless legs syndrome, kidney disease, severe fatigue, malnutrition on TPN at home, CHF, cellulitis and urinary tract infection, coming to the hospital Emergency Department because of the above chief complaint. The patient state she has bright red blood per rectum 2 days ago, but has not noticed any blood since then. She reported extremely fatigue and tired, associated with nauseation. She reported her hemoglobin level was around 7.4 per labs, Therefore, she came into the Emergency Room because of anemia. In addition to the above, she reported significant tired after any exertion. Denied vomiting or diarrhea. Denied fever or chills. Denied local weakness. The patient reports that she was seen by [facility] before and then was seen by [facility]. Currently, she would like to be seen by [facility]. Denied fever or chills. Denied cough or sputum. Denied palpitations, chest pain or lower extremity swellings. Denied facial droop, slurry speeches or local weakness. Denies skin rashes or open wound. PAST MEDICAL HISTORY: Like I mentioned in the above, 1. UTI. 2. Anemia. 3. Chest wall cellulitis. 4. CHF. 5. Cholecystectomy. 6. DVT. 7. Fatigue. 8. Hypertension. 9. Kidney disease. 10. Neck Cellulitis. 11. Pacemaker. 12. Urinary calculus. 13. Restless legs syndrome. 14. Small bowel obstruction. 15. Short bowel syndrome, on TPN. 16. History of colectomy. 17. History of hysterectomy. 18. Has a medicine port for TPN. ALLERGIES: ALLERGY TO, 1. Traci 2. BENZOCAINE. 3. BUPRENORPHINE. 4. CEPHALOSPORIN. 5. CLONAZEPAM. 6. CODEINE. 7. CYCLOBENZAPRINE. 8. DICLOFENAC. 9. DIPHENHYDRAMINE. 10. FLUCONAZOLE. FAMILY HISTORY: Include diabetic, cancer, gallbladder disease, heart disease, hypertension, kidney disease and kidney stone. SOCIAL HISTORY: Never smoked. Denied alcohol abuse disorder. Denied illicit drug abuse. MEDICATIONS: Taking at home include, 1. Vitamin D 2000 units p.o. q.a.m. 2. Cipro 400 mg IV q.a.m. 3. Vitamin B12 at 1 mg injection q. monthly. 4. Lomotil tab p.o. breakfast and lunch and 2 tab p.o. at 06:00. 5. Famotidine 20 mg p.o. a.m. and at bedtime. 6. Flonase 2 sprays at bedtime. 7. Ketotifen 1 drop OPB b.i.d. 8. Lamotrigine 50 mg p.o. at bedtime. 9. Levothyroxine 150 mcg p.o. at bedtime. 10. Claritin 10 mg p.o. aq2 days 11. Metoprolol 50 mg p.o. q.a.m. 12. Miconazole one dose topical use at bedtime. 13. Zofran 8 mg IV t.i.d. 14. Seroquel 25 mg IV a.m. and at bedtime. 15. TPN IV 4 times per week. MEDICINES NEEDED: Include, 1. Tylenol 650 mg p.o. q. 4 hours p.r.n. for the pain or fever. 2. Baclofen 5 mg p.o. q. 12 hours p.r.n. for hiccups. 3. Bumex 0.5 mg p.o. q. 24 hours p.r.n. for weight more than 148 pounds. 4. Imodium 4 mg p.o. as needed for diarrhea. 5. Oxycodone 5 mg p.o. q. 6 hours p.r.n. for severe pain. 6. Promethazine 25 mg q. 8 hours p.r.n. for nausea and vomiting. REVIEW OF SYSTEMS: Please see HPI. Otherwise, 14-points organ system review were negative. PHYSICAL EXAMINATION: GENERAL: The patient is a white female, awake, alert and orientated, but look very tired, chronically ill looking. No acute distress. EYES: Conjunctivae, no injection. Sclerae nonicterus. EARS: Normal. NOSE: Normal. NECK: Supple. LUNGS: Bilaterally decreased breathing sounds. There were no wheezing, rhonchi or crackles. HEART: Regular rhythm, S1 and S2. Has no murmur, gallop or rub. ABDOMEN: Soft and nontender. Bowel sound was positive. RECTAL: Revealed that the night stool was heme positive. MUSCULOSKELETAL: There were no evidence of gross deformities in the musculoskeletal systems, hip or shoulders. SKIN: No obvious evidence of any rashes and no any open wounds. NEUROLOGIC: Cranial nerves II-XII was intact. There were no local deficits. LABORATORY STUDIES: WBC 5, hemoglobin 7.8, and platelet 143. PT/INR was 11/1. Sodium 136, potassium 4.1, BUN 44, and creatinine 1.1. Total bilirubin 0.2 and direct bilirubin 0.1. AST 78, ALT 73, and alkaline phosphate is 424. UA shows small leukocyte esterase. X-ray studies, which shows low lung volumes, developing interstitial left mild and lower lung opacities. No evidence of free intraperitoneal air. ASSESSMENT AND PLAN: An 81-year-old white female with the conditions see below: 1. Rectal bleedings with heme positive stool, recent bright red blood per rectum and anemic. 2. History of small bowel obstruction and small bowel syndrome, currently is on TPN, but she is able to take oral by her home pick for the food. 3. Hypothyroidism. 4. Malnutrition, on TPN support. 5. Hypertension. 6. Chronic pain. 7. Possible gastroesophageal reflux disease. PLAN: 1. For the above conditions like I mentioned, the patient would like to have [facility] to see her. I agree with that. full admission, follow H&H, regular diet okay for now, continue home dose of TPN, consult nutrition, and may want to consult pharmacist to start TPN. For now, we will continue her TPN regimen from her home. 2. Check prealbumin levels and prealbumin levels. 3. Check TSH. Because the patient has significant weakness and tired and hemoglobin is low at 7.8. I agreed to do 1 unit of blood transfusion. The hemoglobin level is 7.8, which is new low from recent lab with 10.4. It has been gradually dropped to 7.8. 4. We will order 1 unit of blood transfusion. Follow up H&H. Treat symptomatically. Add Zofran for nauseation and if she really needs, we okay to give Phenergan. 5. PT/OT evaluation and treatment. Other medical conditions such as hypothyroidism, GERD, chronic diarrhea, short gut syndrome, and malnutrition, we will continue current care. Continue home medication. 6. GI and DVT prophylaxis is covered. I discussed the code status with the patient. She wants to be full code. However, the patient said that if there is no hope to recover, she does not want to be on the machine for a long time and she does not want to be kept on the machine. The patient said power of consumer attorney, but daughter, is a #1 power of consumer attorney. MTDInes
[2017-06-11] MEDS ORDERED: DIPHENOXYLATE/ATROPINE 2.5/0.025MG TAB PO SCH ×2 (18:00→21:00)
[2017-06-11] MEDS ORDERED: LOPERAMIDE HCL 2 MG CAP PO PRN (18:45)
[2017-06-11] MEDS ORDERED: TPN/PPN CONSULT PHARMACY PRN (20:45)
[2017-06-11] MEDS: FAMOTIDINE 20 MG TAB PO SCH (21:00)
[2017-06-11] MEDS ORDERED: FLUTICASONE PROPIONATE NA SPR 16 GM BTL NAE SCH (21:00)
[2017-06-11] MEDS ORDERED: MICONAZOLE NITRATE 2% CR 30 GM TUBE EXT SCH (21:00)
[2017-06-11] MEDS ORDERED: TPN INFUSION IV SCH (21:00)
[2017-06-11] MEDS: QUETIAPINE FUMARATE 25 MG TAB PO SCH (21:00)
[2017-06-11] MEDS ORDERED: LEVOTHYROXINE 150 MCG TAB PO SCH (21:00)
[2017-06-11] MEDS: ONDANSETRON INJ 2 MG/ML 2 ML VIAL IV SCH ×2 (23:28→23:56)
[2017-06-12 03:46] VITALS: BP 161/77; PULSE 66; TEMP 36.7; O2SAT 97
[2017-06-12 05:19] LABS: BASO % 0.2 %; BASO ABS # 0.01 K/uL (0-0.2); COMPLETE YES; IG% 0.2 %; LYMPH % 18.7 %; LYMPH ABS # 1.13 K/uL (1.2-3.4); MEAN CELL VOLUME 85.7 fL (80-100); MEAN CORPUSCULAR HEMOGLOBIN 27.7 pg (25-34); MEAN CORPUSCULAR HGB CONC 32.3 g/dl (32-36); MEAN PLATELET VOLUME 10.4 fL (7.4-10.4); MONO % 8.3 %; NEUT % 71.6 %; PLATELET COUNT 134 K/uL (130-400); WHITE BLOOD COUNT 6.04 K/uL (4.8-10.8)
[2017-06-12 05:43] LABS: BUN/CREATININE RATIO 39.3 (10-20); CREATININE 1.1 mg/dl (0.60-1.20); MAGNESIUM 2.1 mg/dl (1.8-2.4); POTASSIUM 3.7 mmol/L (3.5-5.1)
[2017-06-12 05:49] LABS: PHOSPHORUS 3.8 mg/dl (2.5-4.9); PREALBUMIN 8.5 mg/dl (20-40)
[2017-06-12 07:48] VITALS: BP 130/69; PULSE 60; TEMP 36.2; O2SAT 94
[2017-06-12] MEDS: DIPHENOXYLATE/ATROPINE 2.5/0.025MG TAB PO SCH ×2 (08:35→12:03)
[2017-06-12] MEDS: QUETIAPINE FUMARATE 25 MG TAB PO SCH (08:35)
[2017-06-12] MEDS: FAMOTIDINE 20 MG TAB PO SCH (08:36)
[2017-06-12] MEDS ORDERED: HEPARIN IV SCH (09:00)
[2017-06-12] MEDS ORDERED: LORATADINE 10 MG TAB PO SCH (09:00)
[2017-06-12] MEDS ORDERED: METOPROLOL SUCC 50MG EXT REL TAB PO SCH (09:00)
[2017-06-12] MEDS ORDERED: VANCOMYCIN IV SCH (09:00)
[2017-06-12] MEDS ORDERED: PANTOprazole INJ 40 MG in SYRINGE 0 ML IV SCH (11:00)
--- NOTE | 2017-06-12 11:23 | Progress Note ---
Subjective Date of Service: Jun 12, 2017. Subjective Pt evaluation today including: conversation w/ patient, physical exam 81 year old female who is here for intermittent blood loss from GI source. Patient also suffers from short term memory loss. This was stated by patient and daughter on the phone. Patient initially was questioning why she did not get any transfusion during her hospital stay I exaplined to her that she already did get a transfusion. After a while, she was able to recall this. She states that she no longer wants to be hospitalized, however, yesterday she stated that she wanted to get herself evaluated by a GI specialist and wanted to be seen by Dr. Moreira's practice. In regards to how she is feeling, she reports that she continues to have low energy., but denies any BM with blood. She states that her last BM from blood was from Wednesday. Problem List Medical Problems: (1) Abnormal LFTs Status: Acute (2) Altered mental status Status: Acute (3) Anemia Status: Chronic (4) Bacteria in urine Status: Acute (5) Contusion of left foot Status: Acute (6) Dehydration Status: Acute (7) Dehydration Status: Acute (8) Diarrhea Status: Acute (9) Enteritis Status: Acute (10) Extravasation injury Status: Acute (11) Fall Status: Acute (12) Generalized weakness Status: Acute (13) Lower GI bleed Status: Acute (14) Multiple rib fractures Status: Acute (15) Nausea, vomiting, and diarrhea Status: Acute (16) On total parenteral nutrition Status: Acute (17) Persistent vomiting Status: Acute (18) Short gut syndrome Status: Acute (19) Symptomatic anemia Status: Acute (20) UTI (urinary tract infection) Status: Acute (21) UTI (urinary tract infection) Status: Acute (22) Vaginitis Status: Acute (23) Vascular port complication Status: Acute (24) Vomiting Status: Acute (25) Vomiting Status: Acute Review of Systems Constitutional: No fever, No chills Respiratory: No cough, No sputum Cardiac: No chest pain, No orthopnea, No PND Abdomen: No pain, No nausea Female : No dysuria Neurologic: + memory loss, No paralysis, No weakness Psychiatric: No depression symptoms, No anhedonism Endo: + fatigue Skin: No rash, No itch All Other Systems: Reviewed and Negative Medications Current Inpatient Medications Medications (Trade) Dose Ordered Sig/Elliott Route Start Time Stop Time Status Last Admin Dose Admin Acetaminophen (Tylenol Tab) 650 mg Q4H PRN PO 06/11/17 15:45 07/11/17 15:44 Al Hydrox/Mg Hydrox/Simethicone (Maalox Max Susp) 15 ml Q4H PRN PO 06/11/17 15:45 07/11/17 15:44 Magnesium Hydroxide (Milk Of Magnesia Susp) 30 ml Q12H PRN PO 06/11/17 15:45 07/11/17 15:44 Zolpidem Tartrate (Ambien Tab) 5 mg HSZ PRN PO 06/11/17 15:45 07/11/17 15:44 Ondansetron HCl (Zofran Inj) 4 mg Q6H PRN IV 06/11/17 15:45 07/11/17 15:44 Polyethylene (Miralax Powder Packet) 17 gm DAILY PRN PO 06/11/17 15:45 07/11/17 15:44 Promethazine HCl 25 mg/Sodium Chloride 51 ml @ 204 mls/hr Q6H PRN IV 06/11/17 16:00 07/11/17 15:59 06/11/17 19:38 204 MLS/HR Baclofen (Lioresal Tab) 5 mg Q12 PRN PO 06/11/17 16:00 07/11/17 15:59 Bumetanide (Bumex Tab) 0.5 mg DAILY PRN PO 06/11/17 16:00 07/11/17 15:59 Diphenoxylate HCl/ Atropine (Lomotil Tab) 2 tab DAILY@1800 PO 06/11/17 18:00 07/11/17 17:59 Diphenoxylate HCl/ Atropine (Lomotil Tab) 3 tab BID@0800,1200 PO 06/12/17 08:00 07/12/17 07:59 06/12/17 08:35 3 TAB Diphenoxylate HCl/ Atropine (Lomotil Tab) 4 tab HS PO 06/11/17 21:00 07/11/17 20:59 06/11/17 21:15 4 TAB Fluticasone Propionate (Flonase Nasal [place]) 2 sprays HS MARIELA 06/11/17 21:00 07/11/17 20:59 Lamotrigine (Lamictal Tab) 50 mg HS PO 06/11/17 21:00 07/11/17 20:59 Levothyroxine Sodium (Synthroid Tab) 150 mcg HS PO 06/11/17 21:00 07/11/17 20:59 06/11/17 21:17 150 MCG Loratadine (Claritin Tab) 10 mg Q2D@0900 PO 06/12/17 09:00 07/12/17 08:59 06/12/17 08:35 10 MG Metoprolol Succinate (Toprol Xl Tab) 50 mg QAM PO 06/12/17 09:00 07/12/17 08:59 06/12/17 08:35 50 MG Miconazole Nitrate (Monistat-Derm Crm) 1 appln HS EXT 06/11/17 21:00 07/11/17 20:59 Oxycodone HCl (Roxicodone Immediate Rel Tab) 5 mg Q6H PRN PO 06/11/17 16:00 06/25/17 15:59 Promethazine HCl (Phenergan Supp) 25 mg Q8 PRN WI 06/11/17 16:00 07/11/17 15:59 Quetiapine Fumarate (seroQUEL TAB) 25 mg AMHS PO 06/11/17 21:00 07/11/17 20:59 06/12/17 08:35 25 MG Famotidine (Pepcid Tab) 20 mg AMHS PO 06/11/17 21:00 07/11/17 20:59 06/12/17 08:36 20 MG Miscellaneous Information (Order Awaiting Action) 1 ea QS N/A 06/12/17 00:00 07/12/17 00:00 Loperamide HCl (Imodium Cap) SEE PROTOCOL TEXT UD PRN PO 06/11/17 18:45 07/11/17 18:44 Miscellaneous Information (Order Awaiting Action) 1 ea QS N/A 06/12/17 00:00 07/12/17 00:00 Ondansetron HCl (Zofran Inj) 4 mg QID@0730,0800,1930,1999 IV 06/11/17 19:30 07/11/17 19:29 06/11/17 23:56 4 MG Miscellaneous Information (Pharmacy Tpn/ Ppn Consult Active) 1 ea UD PRN N/A 06/11/17 20:45 07/11/17 20:44 Pantoprazole Sodium 40 mg/ Syringe 10 ml @ 5 mls/min DAILY@11 IV 06/12/17 11:00 07/12/17 10:59 Non-Formulary Medication (Non-Formulary Patient'S Own Med) 1 ea DAILY IV 06/12/17 09:00 07/12/17 08:59 Heparin Sodium (Porcine) (Heparin 100 Unit/ml 5ml Flush) 5 ml PRN PRN IV 06/12/17 00:15 07/12/17 00:14 Objective Vital Signs Date Time Temp Pulse Resp B/P (MAP) Pulse Ox O2 Delivery O2 Flow Rate FiO2 06/12/17 07:48 36.2 60 20 130/69 (89) 94 06/12/17 04:00 Room Air 06/12/17 03:46 36.7 66 18 161/77 (105) 97 Room Air 06/12/17 00:01 Room Air 06/11/17 23:20 36.9 60 16 151/71 (97) 96 Room Air 06/11/17 23:20 36.9 60 16 151/71 96 06/11/17 22:12 36.7 60 16 146/70 96 06/11/17 21:12 36.5 63 16 148/66 98 06/11/17 20:41 36.4 60 16 151/69 97 06/11/17 20:26 36.4 77 16 172/77 (108) 97 Room Air 06/11/17 20:00 Room Air 06/11/17 19:18 36.6 88 18 124/69 (87) 97 06/11/17 17:28 36.6 90 18 110/72 97 Room Air 06/11/17 16:16 68 16 102/43 98 Room Air 06/11/17 16:13 61 06/11/17 14:37 63 18 123/60 98 Room Air 06/11/17 13:39 37.0 80 16 141/68 98 Room Air Physical Exam General Appearance: WD/WN, no apparent distress Eyes: normal inspection ENT: normal ENT inspection Neck: supple, no adenopathy Respiratory/Chest: chest non-tender, lungs clear, normal breath sounds, no respiratory distress Cardiovascular: regular rate, rhythm, no JVD Abdomen: normal bowel sounds, non tender, soft, no organomegaly Extremities: normal range of motion Neurologic/Psychiatric: alert, normal mood/affect Lymphatic: no adenopathy Laboratory Results Last 24 Hours Test 06/11/17 14:26 06/11/17 14:45 06/12/17 00:24 06/12/17 04:58 White Blood Count 5.10 K/uL 6.04 K/uL Red Blood Count 2.93 M/uL 3.50 M/uL Hemoglobin 7.8 g/dL 9.7 g/dL Hematocrit 25.1 % 30.0 % Mean Corpuscular Volume 85.7 fL 85.7 fL Mean Corpuscular Hemoglobin 26.6 pg 27.7 pg Mean Corpuscular Hemoglobin Concent 31.1 g/dl 32.3 g/dl Platelet Count 143 K/uL 134 K/uL Mean Platelet Volume 10.2 fL 10.4 fL Neutrophils (%) (Auto) 61.9 % 71.6 % Lymphocytes (%) (Auto) 26.7 % 18.7 % Monocytes (%) (Auto) 9.6 % 8.3 % Eosinophils (%) (Auto) 1.4 % 1.0 % Basophils (%) (Auto) 0.2 % 0.2 % Neutrophils # (Auto) 3.16 K/uL 4.33 K/uL Lymphocytes # (Auto) 1.36 K/uL 1.13 K/uL Monocytes # (Auto) 0.49 K/uL 0.50 K/uL Eosinophils # (Auto) 0.07 K/uL 0.06 K/uL Basophils # (Auto) 0.01 K/uL 0.01 K/uL RDW Standard Deviation 44.9 fL 43.7 fL RDW Coefficient of Variation 14.4 % 14.2 % Immature Granulocyte % (Auto) 0.2 % 0.2 % Immature Granulocyte # (Auto) 0.01 K/uL 0.01 K/uL Hypochromasia PRESENT Prothrombin Time 11.0 SECONDS Prothromb Time International Ratio 1.0 Activated Partial Thromboplast Time 29.6 SECONDS Partial Thromboplastin Ratio 1.1 Sodium Level 136 mmol/L 134 mmol/L Potassium Level 4.1 mmol/L 3.7 mmol/L Chloride Level 99 mmol/L 103 mmol/L Carbon Dioxide Level 29 mmol/L 28 mmol/L Anion Gap 7.0 mmol/L 3.0 mmol/L Blood Urea Nitrogen 44 mg/dl 43 mg/dl Creatinine 1.15 mg/dl 1.10 mg/dl Est Creatinine Clear Calc Drug Dose 35.3 ml/min 36.9 ml/min Estimated GFR () 52.0 54.9 Estimated GFR (Non- 44.9 47.4 BUN/Creatinine Ratio 38.2 39.3 Random Glucose 88 mg/dl 109 mg/dl Calcium Level 8.4 mg/dl 8.0 mg/dl Total Bilirubin 0.2 mg/dl 0.5 mg/dl Direct Bilirubin 0.1 mg/dl Aspartate Amino Transf (AST/SGOT) 87 U/L 66 U/L Alanine Aminotransferase (ALT/SGPT) 73 U/L 64 U/L Alkaline Phosphatase 424 U/L 413 U/L Troponin I < 0.015 ng/ml Total Protein 6.3 gm/dl Albumin 2.5 gm/dl 2.3 gm/dl Lipase 41 U/L Thyroid Stimulating Hormone (TSH) 0.228 uIu/ml Urine Color YELLOW Urine Appearance CLEAR Urine pH 5.0 Urine Specific [place] 1.017 Urine Protein NEG Urine Glucose (UA) NEG Urine Ketones NEG Urine Occult Blood NEG Urine Nitrite NEG Urine Bilirubin NEG Urine Urobilinogen NEG Urine Leukocyte Esterase SMALL Urine WBC (Auto) 1-5 /hpf Urine RBC (Auto) 0-4 /hpf Urine Hyaline Casts (Auto) 1-5 /lpf Urine Epithelial Cells (Auto) 20-30 /lpf Urine Bacteria (Auto) NEG Bedside Glucose 104 mg/dl Phosphorus Level 3.8 mg/dl Magnesium Level 2.1 mg/dl Prealbumin 8.5 mg/dl Triglycerides Level 99 mg/dl Test 06/12/17 06:38 Bedside Glucose 127 mg/dl Assessment and Plan Subacute Blood Loss in an 81 year old female who has recurrent episodes of Gi blood loss requiring transfusion and resides in [place] [id number]. Anemia from subacute blood loss (From Wednesday) Patient on telemetry. Will likely downgrade if hemoglobin stays stable. Awaiting GI input. Patient has not had a bloody BM since Wednesday as per patient. No blood BM in hospital Hemoglobin appropriately cy to 9.7 after 1 unit of PRBC. will recheck level in the afternoon. 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 Patient is on TPN. Restless Leg Syndrome May be from Iron defiency. Patient already transfused will monitor as out patient.
[2017-06-12 11:48] VITALS: BP 114/67; PULSE 60; TEMP 36.6; O2SAT 93
[2017-06-12] MEDS: ONDANSETRON INJ 2 MG/ML 2 ML VIAL IV SCH ×2 (12:03→12:58)
--- NOTE | 2017-06-12 13:44 | Gastrointestinal Consultation ---
Gastrointestinal Consultation Date of Consultation: Jun 12, 2017 Attending Physician: Fernandez Moreno Consulting Physician: Andrew Serna Reason for Consultation: GI bleeding History of Present Illness Patient is a 81 year old female with chief complaint of bleeding and fatigue. 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 If eats gets n/v so avoid that. Noted 2 episode of red blood per rectum in last week with fatigue. Hgb checked on 06/11 7.8 versus baseline 9/5 on 03/25/17. Rectal in ER heme pos but no gross blood. Hgb 9.7 after transfusion. No abd pain. NO change in baselien 5 bms daily. No recent outpt [facility] records. Most recent scope in [facility] EMR EGD 12/2016 irregular z line, gastaritis, fluid in stomach, small HH. Do not see colonoscopy report in chart. Past Medical/Surgical History Medical Problems: (1) Abnormal LFTs Status: Acute (2) Altered mental status Status: Acute (3) Anemia Status: Chronic (4) Bacteria in urine Status: Acute (5) Contusion of left foot Status: Acute (6) Dehydration Status: Acute (7) Dehydration Status: Acute (8) Diarrhea Status: Acute (9) Enteritis Status: Acute (10) Extravasation injury Status: Acute (11) Fall Status: Acute (12) Generalized weakness Status: Acute (13) Lower GI bleed Status: Acute (14) Multiple rib fractures Status: Acute (15) Nausea, vomiting, and diarrhea Status: Acute (16) On total parenteral nutrition Status: Acute (17) Persistent vomiting Status: Acute (18) Short gut syndrome Status: Acute (19) Symptomatic anemia Status: Acute (20) UTI (urinary tract infection) Status: Acute (21) UTI (urinary tract infection) Status: Acute (22) Vaginitis Status: Acute (23) Vascular port complication Status: Acute (24) Vomiting Status: Acute (25) Vomiting Status: Acute Family History Diabetes mellitus FHx: cancer FHx: gallbladder disease FHx: heart disease Hypertension Kidney disease Kidney stones Social History Smoking Status: Former Smoker Alcohol Use: none Drug Use: none Marital Status: Housing Status: custodial Occupation Status: retired Allergies Coded Allergies: Furosemide (Verified Allergy, Mild, HIVES, CAN TAKE BUMEX, 03/25/17) Anesthetics, Traci (Verified Allergy, Unknown, ANAPHYLAXIS, 03/21/17) Benzocaine (Verified Allergy, Unknown, 03/25/17) Ceftriaxone (Verified Allergy, Unknown, UNK, 03/25/17) Clonazepam (Verified Allergy, Unknown, ?, 03/25/17) Cyclobenzaprine (Verified Allergy, Unknown, UNKNOWN, 03/25/17) Diclofenac (Verified Allergy, Unknown, UNKNOWN, 03/25/17) Diphenhydramine (Verified Allergy, Unknown, UNK, 03/25/17) Isopropyl Alcohol (Verified Allergy, Unknown, UNKNOWN, 03/25/17) Lidocaine (Verified Allergy, Unknown, 03/25/17) Naproxen (Verified Allergy, Unknown, UNKNOWN, 03/25/17) Octreotide (Verified Allergy, Unknown, HIVES, 03/25/17) Pregabalin (Verified Allergy, Unknown, ?, 03/25/17) Procaine (Verified Allergy, Unknown, 03/25/17) Propylene Glycol (Verified Allergy, Unknown, UNKNOWN, 03/25/17) Scopolamine (Verified Allergy, Unknown, 03/25/17) Sulfamethoxazole w/Trimethoprim (Verified Allergy, Unknown, UNKNOWN, ) Warfarin (Verified Adverse Reaction, Severe, HEMORRHAGE, 03/25/17) Iodinated Diagnostic Agents (Verified Adverse Reaction, Intermediate, RENAL FAILURE, 03/25/17) Fluconazole (Verified Adverse Reaction, Mild, FEVER,NAUSEA, 03/25/17) Indomethacin (Verified Adverse Reaction, Mild, N&V, 03/25/17) Lactose (Verified Adverse Reaction, Mild, INTOLERANT, 03/21/17) INTOLERANT Metronidazole (Verified Adverse Reaction, Mild, FEVER,NAUSEA, 03/25/17) Buprenorphine (Verified Adverse Reaction, Unknown, diarrhea, vomiting, ) Codeine (Verified Adverse Reaction, Unknown, MENTAL STATUS CHANGES, ) Current Medications Home Meds and Scripts Medications Dose Route/Sig Max Daily Dose Days Date Category Dose Instructions Tylenol (Acetaminophen) 650 Mg Supp 650 Mg AL Q4H PRN 06/11/17 Reported DO NOT EXCEED 3 GMS APAP/24 HOURS Ondansetron Hcl (Ondansetron HCl) 2 Mg/Ml Inj 8 Mg IV TID 06/11/17 Reported ADMINISTER IVP ONCE WITH TPN HOOKUP THEN AGAIN WITH TPN DISCONNECT. THREE TIMES A DAY. Ondansetron Hcl (Ondansetron HCl) 2 Mg/Ml Inj 8 Mg IV Q24H PRN 06/11/17 Reported MAY HAVE ONE EXTRA DOSE IN ADDITION TO ROUTINE DOSE IN 24 HOUR PERIOD [Seroquel PLO] 50 mg/ml Misc 0.5 Ml TOP BID 06/11/17 Reported APPLY TO FOREARM EVERY MORNING AND AT BEDTIME Protonix (Pantoprazole Sodium) 40 Mg Inj 40 Mg IV BID 06/11/17 Reported Phenergan (Promethazine Hcl) 25 Mg/Ml Inj 0.5 Ml IV Q6H PRN 06/11/17 Reported GIVE IF ZOFRAN IS INEFFECTIVE Mucinex Ext Rel (Guaifenesin) 600 Mg Tabcr 600 Mg PO Q12 PRN 06/11/17 Reported DIRECTED X 4 DOSES Oxycodone HCl 5 Mg Tab 5 Mg PO Q6H PRN 06/11/17 Reported [place] (Ketotifen Fumarate (Ophth)) 0.025 % Fady 1 Drop OPB Q12 PRN 06/11/17 Reported Diphenoxylate/Atropine 2.5-0.025 mg (Diphenoxylate HCl/Atropine) 1 Tab Tab 2 Tabs PO QPM 06/11/17 Reported Diphenoxylate/Atropine 2.5-0.025 mg (Diphenoxylate HCl/Atropine) 1 Tab Tab 3 Tabs PO BID 06/11/17 Reported TAKE THIS MEDICATION WITH BREAKFAST AND LUNCH Diphenoxylate/Atropine 2.5-0.025 mg (Diphenoxylate HCl/Atropine) 1 Tab Tab 4 Tabs PO HS 06/11/17 Reported [Lipids] 1 Dose IV UD 06/11/17 Reported LIPIDS TO BE ADMINISTERED AT BEDTIME EVERY WEDNESDAY, WEDNESDAY AND WEDNESDAY WITH MVI AND FAMOTIDINE 20 MG ADDED TO THE IV BAG Imodium A-D (Loperamide Hcl) 2 Mg Tab 2 Mg PO UD PRN 03/21/17 Reported TAKE 2 TABLETS AFTER FIRST LOOSE BOWEL MOVEMENT THEN TAKE 1 TABLET AFTER EACH ADDITIONAL LOOSE BOWEL MOVEMENT Lamictal (Lamotrigine) 25 Mg Tab 50 Mg PO HS 03/21/17 Reported Flonase Allergy Relief (Fluticasone Propionate (Nasal)) 50 Mcg/Act Spr 2 Sprays MARIELA HS 03/21/17 Reported Famotidine 40 Mg/5 Ml Mary 20 Mg PO AMHS 03/21/17 Reported GIVE PRIOR TO TPN [employer]IFIC [employer]ATORY SUPERVISOR AND DISCONNECT. Cyanocobalamin 1,000 Mcg/Ml Inj 1,000 Mcg IM MONTHLY 03/21/17 Reported TO BE ADMINISTERED THE 13TH DAY OF THE [facility] Ddrops (Cholecalciferol) 2,000 Ut/0.028 Ml Liq 2,000 Inter.unit PO QAM 03/21/[address] DROP ON BACK OF PT'S HAND TO BE LICKED OFF HAND Bumex (Bumetanide) 1 Mg Tab 0.5 Mg PO Q24H PRN 03/21/17 Reported Lioresal (Baclofen) 10 Mg Tab 5 Mg PO Q12 PRN 03/21/17 Reported Seroquel (Quetiapine Fumarate) 50 Mg Tab 25 Mg IV AMHS 03/21/17 Reported Tylenol Children's Susp (Acetaminophen) 160 Mg/5 Ml Susp 500 Mg PO Q6H PRN 03/21/17 Reported NEEDED FOR MILD PAIN RATED 1-3 ON A SCALE OF "0-10" Promethazine HCl 25 Mg Supp 25 Mg RE Q8 PRN 03/21/17 Reported Ondansetron Hydrochloride 8-0.9 mg/50Ml-% (Ondansetron HCl and Sodium Chl) 1 Inj Inj 8 Mg IV. TID 03/21/17 Reported GIVE PRIOR TO TPN SCIENTIFIC [employer]ORATORY SUPERVISOR AND DISCONNECTING TPN. Tpn Infusion (Total Parenteral Nutrition) 1 Ea Inj 1 Ea IV 4XWK 12/08/16 Reported ADMINISTER EVERY WEDNESDAY,WEDNESDAY,WEDNESDAY AND WEDNESDAY AT 2000 ML OVER 12 HOURS Synthroid (Levothyroxine Sodium) 150 Mcg Tab 150 Mcg PO HS 12/08/16 Reported Biofreeze (Menthol (Topical Analgesic)) 4 % Gel 1 Appln TOP AMHS 12/08/16 Reported APPLY TO FEET DIRECTED Antifungal (Miconazole Nitrate (Topical)) 2 % Cre 1 Appln TOP HS 12/08/16 Reported APPLY TO VAGINA Toprol-Xl (Metoprolol Succinate) 50 Mg Tabcr 50 Mg PO QAM 12/08/16 Reported Claritin (Loratadine) 10 Mg Tab 10 Mg PO Q2D 12/08/16 Reported [place] (Ketotifen Fumarate (Ophth)) 0.025 % Fady 1 Drop OPB Q12 12/08/16 Reported Review of Systems See HPI. Othwerwise 10 ROS negative. Physical Exam Date Time Temp Pulse Resp B/P (MAP) Pulse Ox O2 Delivery O2 Flow Rate FiO2 06/12/17 11:48 36.6 60 20 114/67 (83) 93 Room Air 06/12/17 07:48 36.2 60 20 130/69 (89) 94 06/12/17 04:00 Room Air 06/12/17 03:46 36.7 66 18 161/77 (105) 97 Room Air 06/12/17 00:01 Room Air 06/11/17 23:20 36.9 60 16 151/71 (97) 96 Room Air 06/11/17 23:20 36.9 60 16 151/71 96 06/11/17 22:12 36.7 60 16 146/70 96 06/11/17 21:12 36.5 63 16 148/66 98 06/11/17 20:41 36.4 60 16 151/69 97 06/11/17 20:26 36.4 77 16 172/77 (108) 97 Room Air 06/11/17 20:00 Room Air 06/11/17 19:18 36.6 88 18 124/69 (87) 97 06/11/17 17:28 36.6 90 18 110/72 97 Room Air 06/11/17 16:16 68 16 102/43 98 Room Air 06/11/17 16:13 61 06/11/17 14:37 63 18 123/60 98 Room Air 06/11/17 13:39 37.0 80 16 141/68 98 Room Air General Appearance: WD/WN, no apparent distress Eyes: normal inspection ENT: hearing grossly normal, pharynx normal Neck: supple, trachea midline Respiratory/Chest: lungs clear, normal breath sounds Cardiovascular: regular rate, rhythm, no murmur Abdomen: normal bowel sounds, non tender, soft, no organomegaly, no pulsatile mass Neurologic/Psych: alert, normal mood/affect, oriented x 3 Skin: normal color, warm/dry Laboratory Results Last 24 Hours Test 06/11/17 14:26 06/11/17 14:45 06/12/17 00:24 06/12/17 04:58 White Blood Count 5.10 K/uL 6.04 K/uL Red Blood Count 2.93 M/uL 3.50 M/uL Hemoglobin 7.8 g/dL 9.7 g/dL Hematocrit 25.1 % 30.0 % Mean Corpuscular Volume 85.7 fL 85.7 fL Mean Corpuscular Hemoglobin 26.6 pg 27.7 pg Mean Corpuscular Hemoglobin Concent 31.1 g/dl 32.3 g/dl Platelet Count 143 K/uL 134 K/uL Mean Platelet Volume 10.2 fL 10.4 fL Neutrophils (%) (Auto) 61.9 % 71.6 % Lymphocytes (%) (Auto) 26.7 % 18.7 % Monocytes (%) (Auto) 9.6 % 8.3 % Eosinophils (%) (Auto) 1.4 % 1.0 % Basophils (%) (Auto) 0.2 % 0.2 % Neutrophils # (Auto) 3.16 K/uL 4.33 K/uL Lymphocytes # (Auto) 1.36 K/uL 1.13 K/uL Monocytes # (Auto) 0.49 K/uL 0.50 K/uL Eosinophils # (Auto) 0.07 K/uL 0.06 K/uL Basophils # (Auto) 0.01 K/uL 0.01 K/uL RDW Standard Deviation 44.9 fL 43.7 fL RDW Coefficient of Variation 14.4 % 14.2 % Immature Granulocyte % (Auto) 0.2 % 0.2 % Immature Granulocyte # (Auto) 0.01 K/uL 0.01 K/uL Hypochromasia PRESENT Prothrombin Time 11.0 SECONDS Prothromb Time International Ratio 1.0 Activated Partial Thromboplast Time 29.6 SECONDS Partial Thromboplastin Ratio 1.1 Sodium Level 136 mmol/L 134 mmol/L Potassium Level 4.1 mmol/L 3.7 mmol/L Chloride Level 99 mmol/L 103 mmol/L Carbon Dioxide Level 29 mmol/L 28 mmol/L Anion Gap 7.0 mmol/L 3.0 mmol/L Blood Urea Nitrogen 44 mg/dl 43 mg/dl Creatinine 1.15 mg/dl 1.10 mg/dl Est Creatinine Clear Calc Drug Dose 35.3 ml/min 36.9 ml/min Estimated GFR () 52.0 54.9 Estimated GFR (Non- 44.9 47.4 BUN/Creatinine Ratio 38.2 39.3 Random Glucose 88 mg/dl 109 mg/dl Calcium Level 8.4 mg/dl 8.0 mg/dl Total Bilirubin 0.2 mg/dl 0.5 mg/dl Direct Bilirubin 0.1 mg/dl Aspartate Amino Transf (AST/SGOT) 87 U/L 66 U/L Alanine Aminotransferase (ALT/SGPT) 73 U/L 64 U/L Alkaline Phosphatase 424 U/L 413 U/L Troponin I < 0.015 ng/ml Total Protein 6.3 gm/dl Albumin 2.5 gm/dl 2.3 gm/dl Lipase 41 U/L Thyroid Stimulating Hormone (TSH) 0.228 uIu/ml Urine Color YELLOW Urine Appearance CLEAR Urine pH 5.0 Urine Specific [place] 1.017 Urine Protein NEG Urine Glucose (UA) NEG Urine Ketones NEG Urine Occult Blood NEG Urine Nitrite NEG Urine Bilirubin NEG Urine Urobilinogen NEG Urine Leukocyte Esterase SMALL Urine WBC (Auto) 1-5 /hpf Urine RBC (Auto) 0-4 /hpf Urine Hyaline Casts (Auto) 1-5 /lpf Urine Epithelial Cells (Auto) 20-30 /lpf Urine Bacteria (Auto) NEG Bedside Glucose 104 mg/dl Phosphorus Level 3.8 mg/dl Magnesium Level 2.1 mg/dl Prealbumin 8.5 mg/dl Triglycerides Level 99 mg/dl Test 06/12/17 06:38 Bedside Glucose 127 mg/dl Impression Patient is a 81 year old female Plan GI bleed--no further bleeding. Pt refuses colonoscopy and BE and want to go home. anemia--back to baseline post transfusion elev LFTs--likely from TPN, alk phos higher then baseline--outpt f/u recommeded if desired by patient. Will sign off. She does not want any intervention for reason she was admitted to hospital.
[2017-06-12 14:08] LABS: HEMATOCRIT 30.6 % (37-47)
--- NOTE | 2017-06-12 14:41 | Discharge Instructions ---
Discharge Instructions Date of Service Jun 12, 2017. Admission Reason for Admission: Rectal Bleeding, Anemia Discharge Discharge Diagnosis / Problem: Anemia from subacute lower GI bleeding Discharge Goals Goal(s): Decrease discomfort, Improve function Activity Recommendations Activity Limitations: resume your previous activity . Instructions / Follow-Up Instructions / Follow-Up OK to resume prior medications that were prescribed prior to admission to hospital F/U with PCP in 1 week F/U with Sk[facility] Splitter within the month once patient would like to have diagnostic testing. Current Hospital Diet Patient's current hospital diet: Regular Diet Discharge Diet Recommended Diet: Regular Diet Pending Studies Studies pending at discharge: no Laboratory Results Lipid Panel Test 06/12/17 04:58 Range/Units Triglycerides Level 99 0-150 mg/dl Medical Emergencies . Who to Call and When: Medical Emergencies: If at any time you feel your situation is an emergency, please call 911 immediately. . Non-Emergent Contact Non-Emergency issues call your: Primary Care Provider Call Non-Emergent contact if: you have any medication questions . . "Provider Documentation" section prepared by Fernandez Sousa. . VTE Core Measure Inpt VTE Proph given/why not?: Treatment not indicated
[2017-06-12 15:49] VITALS: BP 139/69; PULSE 60; TEMP 36.5; O2SAT 95
[2017-06-12 18:01] VITALS: BP 139/69; PULSE 60; TEMP 36.5; O2SAT 95
== END 2017-06-12 19:30 | DRG 378 ==
LOC: EDBD 13:30 → C.EDB 13:32 → C.2T 15:42 → ENRESERV 16:54
PROVIDERS: ADMIT Hospitalist; ATTEND Hospitalist
DX: K62.5 Hemorrhage of anus and rectum (principal); K91.2 Postsurgical malabsorption, not elsewhere classified; D62 Acute posthemorrhagic anemia; I50.9 Heart failure, unspecified; I11.0 Hypertensive heart disease with heart failure; E03.9 Hypothyroidism, unspecified; K21.9 Gastro-esophageal reflux disease without esophagitis; Z79.899 Other long term (current) drug therapy; Z87.891 Personal history of nicotine dependence; Z88.2 Allergy status to sulfonamides; Z88.8 Allergy status to other drugs, medicaments and biological substances; Z91.041 Radiographic dye allergy status; Z95.0 Presence of cardiac pacemaker

== ENCOUNTER → 2017-11-22 | Outpatient (CLI) | payer BC ==
[~2017-11-22] MED LIST changes: +ACET650S10 PR; -ACET650S11 RE; -BACL10TA PO; -CIPR1INJ3 IV; -DIPH-416 PO; -FLUT0.15 NAE; +LIPIDS IV; -METO50TA7 PO; +METO50TA8 PO; +OXYC-609 PO; -OXYC1TAB3 PO; +PANT1INJ2 IV; +PROM25IN13 IV; -SRQ/50 IV; +ZFRI4 IV; -[UNRECOGNIZED DRUG - CODE] PO
--- NOTE | 2017-11-22 14:59 | DIAGNOSTIC IMAGING REPORT ---
SMALL BOWEL FOLLOW-THROUGH CLINICAL HISTORY: Diarrhea. 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 COMPARISON STUDY: Abdominal CT dated 02/04/2016. TECHNIQUE: An abdominal inspector and clipper radiograph was performed. The patient consumed 1.5 cups of thin barium and a small bowel follow-through was performed. 6 additional overhead radiographs were obtained. Spot compression views were deferred. FINDINGS: The abdominal inspector and clipper radiograph shows a nonobstructed abdominal bowel gas pattern. Mildly distended loops of small bowel are nonspecific. Extensive suture material and postoperative change is seen throughout the abdomen and pelvis. No evidence of intraperitoneal free air is identified. Pelvic phleboliths are observed. There are no abnormal abdominal calcifications. A cardiac pacemaker lead is noted in the lower chest. The skeletal structures are osteopenic. A left hip arthroplasty is in place. On the small bowel follow-through, there is nonspecific diffuse dilatation of the small bowel loops, which is chronic and unchanged from prior abdominal CT scans. This is likely related to postoperative changes and status post colectomy. The stomach appears normal in configuration. There is a paucity of small bowel loops consistent with the reported history of previous small bowel resections. Enteric contrast reaches the ilial pouch in the pelvis at 2 hours and 35 minutes. No mucosal abnormality is suggested. There is no evidence of stricture or mass. IMPRESSION: 1. Extensive postoperative changes as above. Enteric contrast reaches the region of the ileal pouch at 2 h and 35 minutes. 2. There is a paucity of small bowel loops consistent with previous surgical resection and the reported history of short gut syndrome. 3. There is mild diffuse distention of the small bowel loops, which is chronic and likely related to previous colectomy/lack of an enteric reservoir. There may also be a component of denervation given the surgical history. 4. No obstruction is seen. Electronically signed by: Benedicto Saravia M.D. 11/22/2017 2:57 PM Dictated Date/Time: 11/22/2017 2:51 PM
== END | disposition home or self-care (01) ==
LOC: C.RAD 11:01
PROVIDERS: ATTEND Internal Medicine Gastroenterology
DX: A09 Infectious gastroenteritis and colitis, unspecified (principal)

== ENCOUNTER 2018-02-14 05:20 | Inpatient (IN) | payer BC, OTHER ==
[~2018-02-14] VITALS: Ht 160 cm; Wt 66.4 kg
[~2018-02-14 05:20] MED LIST changes: +OXYC-737 PO; +[UNRECOGNIZED DRUG - CODE] IV.; -[UNRECOGNIZED DRUG - CODE] IV.
--- NOTE | 2018-02-14 05:33 | EMERGENCY ROOM VISIT NOTE ---
History First contact with patient: 05:22 Chief Complaint: SHORTNESS OF BREATH Stated Complaint: SHORT OF BREATH Nursing Triage Summary: pt arrives via EMS from [facility] reports increased sob starting 1 day ago pt reports cough with mucus production. BLE edema History of Present Illness The patient is a 82 year old female who presents to the Emergency Room for evaluation of shortness of breath. She notes several days of feeling tired/ fatigued beyond her baseline severe fatigue. She developed cough and shortness of breath yesterday. Increased sputum. Associated increased in bilateral leg swelling. Denies fevers, chills, nausea, vomiting, abdominal pain nor other symptoms. She was apparently "blue" at retirement when EMS arrived, placed her on NC O2 with improvement in symptoms en route. Currently saying she feels weak and tired but denies acute other symptoms. No medications prior to arrival. NC O2 makes better. Nothing makes worse. Multiple chronic medical conditions and on TPN through left port. She does have history of CHF. Review of Systems See HPI for pertinent positives & negatives. A total of 10 systems reviewed and were otherwise negative. Past Medical/Surgical History Medical Problems: (1) Acute urinary tract infection (2) Anemia (3) Cellulitis of chest wall (4) CHF (congestive heart failure) (5) Cholecystectomy (6) Confusion (7) DVT (deep venous thrombosis) (8) DVT (deep venous thrombosis) (9) Fall (10) Fatigue (11) Hypertension (12) Hypertension Nos (13) Kidney disease (14) Kidney disease (15) Kidney stone (16) Kidney stone (17) Left leg cellulitis (18) Pacemaker (19) Pacemaker (20) Personal History Of Urinary Calculi (21) rectal bleeding, ANEMIA (22) Restless legs (23) SBO (small bowel obstruction) (24) SBO (small bowel obstruction) (25) SBO (small bowel obstruction) (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 (28) Urinary problem Surgical Problems: (1) H/O colectomy (2) H/O: hysterectomy (3) Hx of cholecystectomy Family History Diabetes mellitus FHx: cancer FHx: gallbladder disease FHx: heart disease Hypertension Kidney disease Kidney stones Social History Smoking Status: Never Smoker Alcohol Use: none Drug Use: none Marital Status: Housing Status: retirement Occupation Status: retired Current/Historical Medications Scheduled Bumetanide (Bumetanide), 0.5 MG PO QAM Carboxymethylcellulose Sodium (Refresh Tears), 1 DROP OPB QID Cholecalciferol (Ddrops), 2,000 INTER.UNIT PO QAM Cyanocobalamin (Cyanocobalamin), 1,000 MCG IM MONTHLY Diphenoxylate/Atropine (Lomotil), 4 TAB PO HS Diphenoxylate/Atropine (Lomotil), 2 TAB PO QPM Ketotifen Fumarate (Ophth) (Alaway), 1 DROP OPB Q12 Lamotrigine (Lamictal), 25 MG PO QAM Lamotrigine (Lamictal), 100 MG PO HS Levothyroxine Sodium (Synthroid), 150 MCG PO HS Melatonin (Kp Melatonin), 1 TAB PO HS Metoprolol Succinate (Toprol Xl), 75 MG PO DAILY Miconazole Nitrate (Topical) (Antifungal), 1 APPLN TOP HS Ondansetron (Ondansetron Hcl), 8 MG IV TID Pantoprazole Sodium (Protonix), 40 MG IV BID Tpn Infusion (Tpn Infusion), 1 EA IV [id number] Scheduled PRN Acetaminophen (Tylenol), 650 MG WI Q4 PRN for Pain or Fever Acetaminophen (Tylenol), 650 MG WI Q6 PRN for Pain Acetaminophen (Childrens Acetaminophen), 500 MG PO Q6 PRN for Mild Pain Acetaminophen Tab (Tylenol), 325 MG PO Q6 PRN for Mild Pain Acetaminophen Tab (Tylenol), 650 MG PO Q6 PRN for MOD-SEVERE PAIN RATED 4-10 Bacitracin (Topical) (Bacitracin), 1 APPLN TOP BID PRN for SKIN SPLIT TO FINGERS Guaifenesin La (Guaifenesin Er), 600 MG PO Q12H PRN for cough/allergies Loperamide Hcl (Imodium A-D), 2 MG PO UD PRN for Diarrhea Menthol (Topical Analgesic) (Biofreeze), 1 APPLN TOP Q12 PRN for pain/discomfort Nitroglycerin (Nitrostat), 0.4 MG UT UD PRN for Chest Pain Ondansetron (Ondansetron Hcl), 8 MG IV Q24H PRN for Nausea or Vomiting Oxycodone HCl (Oxycodone HCl), 5 MG PO Q4 PRN for Severe Pain Promethazine Hcl (Phenergan), 0.5 ML IV Q6H PRN for Nausea Miscellaneous Medications Diphenoxylate/Atropine (Lomotil), 3 TAB PO Physical Exam Vital Signs Date Time Temp Pulse Resp B/P (MAP) Pulse Ox O2 Delivery O2 Flow Rate FiO2 02/14/18 09:01 124/57 02/14/18 08:36 63 16 98 02/14/18 08:31 132/63 02/14/18 08:06 60 19 98 02/14/18 08:01 132/55 02/14/18 07:50 64 20 99 02/14/18 07:49 100 Nasal Cannula 2.0 02/14/18 07:37 100 Nasal Cannula 2.0 02/14/18 07:31 127/47 02/14/18 07:20 62 20 99 02/14/18 07:01 130/65 02/14/18 06:58 60 18 139/56 96 Nasal Cannula 2.0 02/14/18 06:50 60 20 96 02/14/18 06:20 62 23 97 02/14/18 06:14 139/56 02/14/18 06:05 109/63 02/14/18 05:50 89 25 99 02/14/18 05:32 64 02/14/18 05:25 109/63 02/14/18 05:24 37.0 68 20 109/63 98 Room Air Physical Exam GENERAL: Patient is chroncially unwell appearing and in mild distress. EYES: No scleral icterus, unremarkable pupils. ENT: Mucous membranes moist, no nasal congestion. NECK: No masses appreciated, no meningismus, trachea is midline. RESPIRATORY: Bilateral wet crackles, worse at bases. Equal bilaterally. No wheeze. CARDIOVASCULAR: Regular rate and rhythm. No murmurs, rubs, gallops appreciated. GASTROINTESTINAL: Abdomen soft, nontender, no peritonitis. Bowel sounds positive. No masses appreciated. BACK: No midline tenderness, no CVA tenderness EXTREMITIES: 3+ pitting edema bilateral legs. Normal motion all extremities, no cyanosis. NEUROLOGIC: Alert and oriented, no acute motor or sensory deficits, no focal weakness, cranial nerves grossly intact. SKIN: No rash, no jaundice, no diaphoresis. Medical Decision & Procedures Laboratory Results 02/14/18 05:40 Red Blood Count 3.05, Mean Corpuscular Volume 91.1, Mean Corpuscular Hemoglobin 28.9, Mean Corpuscular Hemoglobin Concent 31.7, Mean Platelet Volume 10.7, Neutrophils (%) (Auto) 68.3, Lymphocytes (%) (Auto) 18.0, Monocytes (%) (Auto) 12.6, Eosinophils (%) (Auto) 0.5, Basophils (%) (Auto) 0.3, Neutrophils # (Auto ) 4.18, Lymphocytes # (Auto) 1.10, Monocytes # (Auto) 0.77, Eosinophils # (Auto ) 0.03, Basophils # (Auto) 0.02 02/14/18 05:40 Test 02/14/18 05:40 02/14/18 05:49 White Blood Count 6.12 K/uL (4.8-10.8) Red Blood Count 3.05 M/uL (4.2-5.4) Hemoglobin 8.8 g/dL (12.0-16.0) Hematocrit 27.8 % (37-47) Mean Corpuscular Volume 91.1 fL (80-100) Mean Corpuscular Hemoglobin 28.9 pg (25-34) Mean Corpuscular Hemoglobin Concent 31.7 g/dl (32-36) Platelet Count 165 K/uL (130-400) Mean Platelet Volume 10.7 fL (7.4-10.4) Neutrophils (%) (Auto) 68.3 % Lymphocytes (%) (Auto) 18.0 % Monocytes (%) (Auto) 12.6 % Eosinophils (%) (Auto) 0.5 % Basophils (%) (Auto) 0.3 % Neutrophils # (Auto) 4.18 K/uL (1.4-6.5) Lymphocytes # (Auto) 1.10 K/uL (1.2-3.4) Monocytes # (Auto) 0.77 K/uL (0.11-0.59) Eosinophils # (Auto) 0.03 K/uL (0-0.5) Basophils # (Auto) 0.02 K/uL (0-0.2) RDW Standard Deviation 50.5 fL (36.4-46.3) RDW Coefficient of Variation 15.3 % (11.5-14.5) Immature Granulocyte % (Auto) 0.3 % Immature Granulocyte # (Auto) 0.02 K/uL (0.00-0.02) Red Blood Cell Morphology Unremarkable Anion Gap 8.0 mmol/L (3-11) Estimated GFR () 56.4 Estimated GFR (Non- 48.6 BUN/Creatinine Ratio 44.9 (10-20) Calcium Level 8.6 mg/dl (8.5-10.1) Magnesium Level 2.1 mg/dl (1.8-2.4) Total Creatine Kinase 19 U/L (26-192) Creatine Kinase MB < 1.0 ng/ml (0.5-3.6) Creatine Kinase MB Ratio (0-3.0) Troponin I < 0.015 ng/ml (0-0.045) Pro-B-Type Natriuretic Peptide 9962 pg/ml (0-1800) Bedside Lactic Acid Venous 1.57 mmol/L (0.90-1.70) Medications Administered Medications (Trade) Dose Ordered Sig/Elliott Route Start Time Stop Time Status Last Admin Dose Admin Bumetanide 1 mg/ Syringe 4 ml @ 4 mls/min ONE STAT IV 02/14/18 06:36 02/14/18 06:37 DC 02/14/18 06:58 4 MLS/MIN Lamotrigine (Lamictal Tab) 25 mg QAM PO 02/14/18 09:00 03/16/18 08:59 02/14/18 14:43 25 MG Metoprolol Succinate (Toprol Xl Tab) 75 mg DAILY PO 02/14/18 09:00 03/16/18 08:59 02/14/18 14:43 75 MG Oxycodone HCl (Roxicodone Immediate Rel Tab) 5 mg Q4H PRN PO 02/14/18 09:00 02/28/18 08:59 02/14/18 11:08 5 MG Pantoprazole Sodium (Protonix Tab) 40 mg BID PO 02/14/18 09:00 03/16/18 08:59 02/14/18 14:43 40 MG ECG Per My Interpretation Indication: SOB/dyspnea Rate (beats per minute): 60 Rhythm: other (Atrial and Ventricular Paced. No ectopy. No ischemia. Similar to previous.) Medical Decision Differential: Infectious/Pneumonia, COPD, CHF, ACS, Pulmonary Embolism, MSK, GI , Dissection, amongst other etiologies entertained. 82 yr old female with shortness of breath. Congestive failure by exam with some congestive findings on CXR. BNP much higher than her baseline. Unable to lay flat, but with sitting up just SHOB on RA without hypoxia here (though not moving around). She is chronically unwell and is brittle complex medical patient. Symptoms unlikely to be PE given other evidence. Given findings I feel she will need to come in for further management. Given IV Bumex (states rash to Lasix) and she agrees with this plan. Hospitalist paged and she will be evaluated by them. Medication Reconcilliation Current Medication List: was personally reviewed by me Blood Pressure Screening Patient's blood pressure: Normal blood pressure Impression Primary Impression: Acute congestive heart failure Departure Information Referrals Pro,Ubaldo Tao M.D. (PCP) Patient Instructions My [facility]
[2018-02-14 05:53] LABS: BASO % 0.3 %; BASO ABS # 0.02 K/uL (0-0.2); EOS % 0.5 %; EOS ABS # 0.03 K/uL (0-0.5); HEMATOCRIT 27.8 % (37-47); HEMOGLOBIN 8.8 g/dL (12.0-16.0); IG# 0.02 K/uL (0.00-0.02); MEAN CELL VOLUME 91.1 fL (80-100); MEAN CORPUSCULAR HEMOGLOBIN 28.9 pg (25-34); MEAN CORPUSCULAR HGB CONC 31.7 g/dl (32-36); MEAN PLATELET VOLUME 10.7 fL (7.4-10.4); MONO % 12.6 %; MONO ABS # 0.77 K/uL (0.11-0.59); NEUT % 68.3 %; NEUT ABS # 4.18 K/uL (1.4-6.5); PLATELET COUNT 165 K/uL (130-400); RED CELL DISTRIBUTION WIDTH CV 15.3 % (11.5-14.5); RED CELL DISTRIBUTION WIDTH SD 50.5 fL (36.4-46.3); WHITE BLOOD COUNT 6.12 K/uL (4.8-10.8)
[2018-02-14] MEDS ORDERED: NTRGSL/4 UT (06:03)
[2018-02-14] MEDS ORDERED: METO-217 PO (06:03)
[2018-02-14] MEDS ORDERED: MELA1TAB5 PO (06:04)
[2018-02-14] MEDS ORDERED: DIPH-416 PO ×3 (06:07)
[2018-02-14] MEDS ORDERED: LAMO100T16 PO (06:09)
[2018-02-14] MEDS ORDERED: GUAI1TAB75 PO (06:12)
[2018-02-14] MEDS ORDERED: BUME0.5T3 PO (06:14)
[2018-02-14] MEDS ORDERED: CARB0.5D28 OPB (06:18)
[2018-02-14 06:20] LABS: BLOOD UREA NITROGEN 48 mg/dl (7-18); CALCIUM 8.6 mg/dl (8.5-10.1); CARBON DIOXIDE 30 mmol/L (21-32); CKMB < 1.0 ng/ml (0.5-3.6); CREATININE 1.07 mg/dl (0.60-1.20); GLUCOSE 100 mg/dl (70-99); POTASSIUM 4.2 mmol/L (3.5-5.1); SODIUM 138 mmol/L (136-145)
[2018-02-14] MEDS ORDERED: ACET650S10 PR ×2 (06:27)
[2018-02-14] MEDS ORDERED: BUMETANIDE IV 4 MG in SYRINGE 0 ML IV STA (06:30)
[2018-02-14] MEDS ORDERED: BUMETANIDE SOLN 1 MG/4 ML VIAL IV ONE (06:30)
[2018-02-14] MEDS ORDERED: ACET-1693 PO (06:30)
[2018-02-14] MEDS ORDERED: ACET1SUS56 PO (06:32)
[2018-02-14] MEDS ORDERED: BACI500O11 TOP (06:35)
[2018-02-14] MEDS ORDERED: BUMETANIDE IV 1 MG in SYRINGE 0 ML IV STA (06:36)
--- NOTE | 2018-02-14 07:26 | DIAGNOSTIC IMAGING REPORT ---
SINGLE VIEW CHEST CLINICAL HISTORY: Dyspnea. FINDINGS: An AP, portable, upright chest radiograph is compared to study dated 06/11/2017 and correlated with chest CT dated 03/21/2016. A 2-lead cardiac pacemaker and a left subclavian central venous infusion port are unchanged in position. The heart is enlarged and there is atherosclerotic calcification of the thoracic aorta. There is mild pulmonary vascular congestion. There are low lung volumes and bibasilar atelectasis. Small pleural effusions are identified. There is no airspace consolidation typical for pneumonia. No pneumothorax is seen. The skeletal structures are osteopenic. The bony thorax is grossly intact. Degenerative change is noted in the shoulders and thoracic spine. IMPRESSION: 1. Cardiomegaly and cardiac pacemaker with evidence of mild congestive failure. 2. Low lung volumes. 3. There are small pleural effusions with bibasilar atelectasis. Electronically signed by: Benedicto Saravia M.D. 02/14/2018 7:25 AM Dictated Date/Time: 02/14/2018 7:23 AM
[2018-02-14 07:49] VITALS: O2SAT 100; BMI 26.2
[2018-02-14] MEDS ORDERED: PROMETHAZINE HCL INJ 25 MG/ML 1 ML VIAL IV PRN (09:00)
[2018-02-14] MEDS ORDERED: BUMETANIDE IV 1 MG in SYRINGE 0 ML IV SCH (09:00)
[2018-02-14] MEDS ORDERED: ACETAMINOPHEN 325 MG TAB PO PRN (09:00)
[2018-02-14] MEDS ORDERED: MAGNESIUM HYDROXIDE SUSP 30 ML UDC PO PRN (09:00)
[2018-02-14] MEDS ORDERED: ONDANSETRON INJ 2 MG/ML 2 ML VIAL IV PRN (09:00)
[2018-02-14] MEDS ORDERED: POLYETHYLENE (MIRALAX) 17 GM PACK PO PRN (09:00)
[2018-02-14] MEDS ORDERED: GUAIFENESIN 600 MG TABCR PO PRN (09:00)
[2018-02-14] MEDS ORDERED: PROMETHAZINE HCL INJ 12.5 MG in SODIUM CHLORIDE 0.9% 50ML 50 ML IV PRN (09:30)
--- NOTE | 2018-02-14 09:30 | History and Physical ---
History & Physical Date & Time of Service: Feb 14, 2018 at 09:05 Chief Complaint: Short Of Breath Primary Care Physician: Ubaldo Marrufo M.D. History of Present Illness Source: patient, clinic records, hospital records This is an 82 y/o female with a history of HTN, complete heart block s/p pacemaker, anemia, anxiety and depression, hypothyroidism, short gut syndrome, intestinal malabsorption on chronic TPN, and neuropathy who presented to the ED on 02/14 with worsening shortness of breath, weight gain, and bilateral lower extremity edema. The patient states she started to develop shortness of breath about 3 days ago. She saw the PA at [facility], who increased her Bumex from every other day to daily and was to recheck the patient today. The patient 's SOB became progressively worse, however, so the patient came to the ED instead. She complains of increased fatigue, orthopnea, and increased swelling in her lower extremities. The patient denies any coughing but states she does wake up with a lot of phlegm in the morning that eventually clears as the day goes on. The patient has chronic nausea, but she states she did vomit the last two mornings, which is unusual for her. The patient denies fevers, chills, sweats, chest pain, palpitations, claudication, cough, wheezing, abdominal pain , dysuria, hematuria, urinary retention, paralysis, weakness, numbness and tingling. Past Medical/Surgical History Medical Problems: (1) Abdominal bloating (2) Abdominal pain (3) Abnormal LFTs (4) Acute CHF (5) Acute urinary tract infection (6) Altered mental status (7) Anemia (8) Anemia (9) Bacteria in urine (10) blood clots (11) Cellulitis of chest wall (12) CHF (congestive heart failure) (13) Cholecystectomy (14) Chronic abdominal pain (15) Chronic low back pain (16) Chronic nausea (17) Chronic nausea (18) Chronic nausea (19) Confusion (20) Congestive heart failure (21) Congestive heart failure (22) Contusion of left foot (23) Cough (24) Dehydration (25) Dehydration (26) Dehydration (27) Dehydration (28) Dehydration (29) Dehydration (30) Diarrhea (31) Diarrhea (32) DVT (deep venous thrombosis) (33) DVT (deep venous thrombosis) (34) Enteritis (35) Erythema (36) Extravasation injury (37) Fall (38) Fall (39) Fall (40) Fatigue (41) Fever (42) Fever (43) Gallbladder problem (44) Generalized weakness (45) History of infection with vancomycin resistant Enterococcus(VRE) (46) Hypertension (47) Hypertension Nos (48) Intractable pain (49) Kidney disease (50) Kidney disease (51) Kidney stone (52) Kidney stone (53) Left hip pain (54) Left leg cellulitis (55) Lower GI bleed (56) Multiple rib fractures (57) Muscular deconditioning (58) Nausea (59) Nausea (60) Nausea (61) Nausea and vomiting (62) Nausea, vomiting, and diarrhea (63) neck pain (64) Neck pain on left side (65) Neck pain on right side (66) On total parenteral nutrition (67) Pacemaker (68) Pacemaker (69) Persistent vomiting (70) Personal History Of Urinary Calculi (71) Pneumonia (72) Pulmonary infiltrate (73) rectal bleeding, ANEMIA (74) Restless legs (75) Rib pain (76) Right shoulder pain (77) Right shoulder pain (78) SBO (small bowel obstruction) (79) SBO (small bowel obstruction) (80) SBO (small bowel obstruction) (81) Sepsis (82) Severe anemia (83) Short bowel syndrome (84) Short bowel syndrome (85) Short gut syndrome (86) Shortness of breath (87) Small bowel obstruction due to adhesions (88) Stomach problems (89) Symptomatic anemia (90) Ulcer (91) Urinary problem (92) Urinary tract infection (93) Urinary tract infection (94) UTI (urinary tract infection) (95) UTI (urinary tract infection) (96) Vaginitis (97) Vascular port complication (98) Viral illness (99) Vomiting (100) Vomiting (101) Vomiting (102) VRE infection (vancomycin resistant Enterococcus) (103) Weakness (104) Weakness generalized Surgical Problems: (1) H/O colectomy (2) H/O: hysterectomy (3) Hx of cholecystectomy HTN Complete heart block s/p pacemaker Anemia Anxiety and depression Hypothyroidism s/p thyroidectomy Short gut syndrome and intestinal malabsorption on TPN Neuropathy Surgical history: Appendectomy Colectomy Hysterectomy Port placement Family History Diabetes mellitus FHx: cancer FHx: gallbladder disease FHx: heart disease Hypertension Kidney disease Kidney stones Social History Smoking Status: Former Smoker (quit 50 years ago) Smokeless Tobacco Use: No Alcohol Use: none Drug Use: none Marital Status: Housing status: long-term ([facility]) Occupational Status: retired Immunizations History of Influenza Vaccine: N/A Influenza Vaccine Date: Apr 21, 2011 History of Tetanus Vaccine?: Unknown Tetanus Immunization Date: Dec 28, 1998 History of Pneumococcal: Yes Pneumococcal Date: Dec 20, 2010 History of Hepatitis B Vaccine: No Allergies Coded Allergies: Furosemide (Verified Allergy, Mild, HIVES, CAN TAKE BUMEX, 02/14/18) Anesthetics, Traci (Verified Allergy, Unknown, ANAPHYLAXIS, 02/14/18) Benzocaine (Verified Allergy, Unknown, 02/14/18) Ceftriaxone (Verified Allergy, Unknown, UNK, 02/14/18) Clonazepam (Verified Allergy, Unknown, ?, 02/14/18) Cyclobenzaprine (Verified Allergy, Unknown, UNKNOWN, 02/14/18) Diclofenac (Verified Allergy, Unknown, UNKNOWN, 02/14/18) Diphenhydramine (Verified Allergy, Unknown, UNK, 02/14/18) Isopropyl Alcohol (Verified Allergy, Unknown, UNKNOWN, 02/14/18) Lidocaine (Verified Allergy, Unknown, 02/14/18) Naproxen (Verified Allergy, Unknown, UNKNOWN, 02/14/18) Octreotide (Verified Allergy, Unknown, HIVES, 02/14/18) Pregabalin (Verified Allergy, Unknown, ?, 02/14/18) Procaine (Verified Allergy, Unknown, 02/14/18) Propylene Glycol (Verified Allergy, Unknown, UNKNOWN, 02/14/18) Scopolamine (Verified Allergy, Unknown, 02/14/18) Sulfamethoxazole w/Trimethoprim (Verified Allergy, Unknown, UNKNOWN, ) Warfarin (Verified Adverse Reaction, Severe, HEMORRHAGE, 02/14/18) Iodinated Diagnostic Agents (Verified Adverse Reaction, Intermediate, RENAL FAILURE, 02/14/18) Fluconazole (Verified Adverse Reaction, Mild, FEVER,NAUSEA, 02/14/18) Indomethacin (Verified Adverse Reaction, Mild, N&V, 02/14/18) Lactose (Verified Adverse Reaction, Mild, INTOLERANT, 02/14/18) INTOLERANT Metronidazole (Verified Adverse Reaction, Mild, FEVER,NAUSEA, 02/14/18) Buprenorphine (Verified Adverse Reaction, Unknown, diarrhea, vomiting, ) Codeine (Verified Adverse Reaction, Unknown, MENTAL STATUS CHANGES, ) Home Medications Scheduled Bumetanide (Bumetanide), 0.5 MG PO QAM Carboxymethylcellulose Sodium (Refresh Tears), 1 DROP OPB QID Cholecalciferol (Ddrops), 2,000 INTER.UNIT PO QAM Cyanocobalamin (Cyanocobalamin), 1,000 MCG IM MONTHLY Diphenoxylate/Atropine (Lomotil), 4 TAB PO HS Diphenoxylate/Atropine (Lomotil), 2 TAB PO QPM Ketotifen Fumarate (Ophth) (Alaway), 1 DROP OPB Q12 Lamotrigine (Lamictal), 25 MG PO QAM Lamotrigine (Lamictal), 100 MG PO HS Levothyroxine Sodium (Synthroid), 150 MCG PO HS Melatonin (Kp Melatonin), 1 TAB PO HS Metoprolol Succinate (Toprol Xl), 75 MG PO DAILY Miconazole Nitrate (Topical) (Antifungal), 1 APPLN TOP HS Ondansetron (Ondansetron Hcl), 8 MG IV TID Pantoprazole Sodium (Protonix), 40 MG IV BID Tpn Infusion (Tpn Infusion), 1 EA IV [id number] Scheduled PRN Acetaminophen (Tylenol), 650 MG WV Q4 PRN for Pain or Fever Acetaminophen (Tylenol), 650 MG WV Q6 PRN for Pain Acetaminophen (Childrens Acetaminophen), 500 MG PO Q6 PRN for Mild Pain Acetaminophen Tab (Tylenol), 325 MG PO Q6 PRN for Mild Pain Acetaminophen Tab (Tylenol), 650 MG PO Q6 PRN for MOD-SEVERE PAIN RATED 4-10 Bacitracin (Topical) (Bacitracin), 1 APPLN TOP BID PRN for SKIN SPLIT TO FINGERS Guaifenesin La (Guaifenesin Er), 600 MG PO Q12H PRN for cough/allergies Loperamide Hcl (Imodium A-D), 2 MG PO UD PRN for Diarrhea Menthol (Topical Analgesic) (Biofreeze), 1 APPLN TOP Q12 PRN for pain/discomfort Nitroglycerin (Nitrostat), 0.4 MG UT UD PRN for Chest Pain Ondansetron (Ondansetron Hcl), 8 MG IV Q24H PRN for Nausea or Vomiting Oxycodone HCl (Oxycodone HCl), 5 MG PO Q4 PRN for Severe Pain Promethazine Hcl (Phenergan), 0.5 ML IV Q6H PRN for Nausea Miscellaneous Medications Diphenoxylate/Atropine (Lomotil), 3 TAB PO Review of Systems Constitutional: +Fatigue. No fever, No chills, No sweats Eyes: No worsening of vision, No eye pain, No diplopia ENT: No hearing loss, No nasal symptoms, No trouble swallowing Respiratory: +SOB. No cough, No wheezing Cardiovascular: No chest pain, No claudication, No palpitations Abdomen: +Nausea, vomiting. No pain Musculoskeletal: +Lower extremity edema. No joint pain, No muscle pain Genitourinary - Female: No dysuria, No urinary retention, No hematuria Neurologic: No paralysis, No weakness, No numbness/tingling Integumentary: No rash, No itch, No color change Physical Exam Vital Signs Date Time Temp Pulse Resp B/P (MAP) Pulse Ox O2 Delivery O2 Flow Rate FiO2 02/14/18 08:01 132/55 02/14/18 07:50 64 20 99 02/14/18 07:49 100 Nasal Cannula 2.0 02/14/18 07:37 100 Nasal Cannula 2.0 02/14/18 07:31 127/47 02/14/18 07:20 62 20 99 02/14/18 07:01 130/65 02/14/18 06:58 60 18 139/56 96 Nasal Cannula 2.0 02/14/18 06:50 60 20 96 02/14/18 06:20 62 23 97 02/14/18 06:14 139/56 02/14/18 06:05 109/63 02/14/18 05:50 89 25 99 02/14/18 05:32 64 02/14/18 05:25 109/63 02/14/18 05:24 37.0 68 20 109/63 98 Room Air General appearance: Well-developed, well-nourished, no apparent distress Head: Normocephalic, atraumatic Eyes: Normal inspection, PERRL, EOMI ENT: Normal ENT inspection, hearing grossly normal, pharynx normal Neck: Supple, no JVD, trachea midline Respiratory/Chest: +Currently on 2L NC. Crackles bilaterally. Normal breath sounds, no respiratory distress Cardiovascular: +Systolic murmur. Regular rate & rhythm, no gallop Abdomen/GI: Normal bowel sounds, non-tender, soft Extremities/Musculoskeletal: +4+ pitting edema in lower extremities, L>R. Pt states this is chronic. Distal lower extremities w/erythema and chronic venous stasis changes. No calf tenderness Neurological/Psych: Alert, normal mood/affect, oriented x 3 Skin: Normal color, warm/dry, no rash Diagnostics Laboratory Results Results Past 24 Hours Test 02/14/18 05:40 02/14/18 05:49 Range/Units White Blood Count 6.12 4.8-10.8 K/uL Red Blood Count 3.05 4.2-5.4 M/uL Hemoglobin 8.8 12.0-16.0 g/dL Hematocrit 27.8 37-47 % Mean Corpuscular Volume 91.1 80-100 fL Mean Corpuscular Hemoglobin 28.9 25-34 pg Mean Corpuscular Hemoglobin Concent 31.7 32-36 g/dl Platelet Count 165 130-400 K/uL Mean Platelet Volume 10.7 7.4-10.4 fL Neutrophils (%) (Auto) 68.3 % Lymphocytes (%) (Auto) 18.0 % Monocytes (%) (Auto) 12.6 % Eosinophils (%) (Auto) 0.5 % Basophils (%) (Auto) 0.3 % Neutrophils # (Auto) 4.18 1.4-6.5 K/uL Lymphocytes # (Auto) 1.10 1.2-3.4 K/uL Monocytes # (Auto) 0.77 0.11-0.59 K/uL Eosinophils # (Auto) 0.03 0-0.5 K/uL Basophils # (Auto) 0.02 0-0.2 K/uL RDW Standard Deviation 50.5 36.4-46.3 fL RDW Coefficient of Variation 15.3 11.5-14.5 % Immature Granulocyte % (Auto) 0.3 % Immature Granulocyte # (Auto) 0.02 0.00-0.02 K/uL Red Blood Cell Morphology Unremarkable Sodium Level 138 136-145 mmol/L Potassium Level 4.2 3.5-5.1 mmol/L Chloride Level 100 98-107 mmol/L Carbon Dioxide Level 30 21-32 mmol/L Anion Gap 8.0 3-11 mmol/L Blood Urea Nitrogen 48 7-18 mg/dl Creatinine 1.07 0.60-1.20 mg/dl Estimated GFR () 56.4 Estimated GFR (Non- 48.6 BUN/Creatinine Ratio 44.9 10-20 Random Glucose 100 70-99 mg/dl Calcium Level 8.6 8.5-10.1 mg/dl Magnesium Level 2.1 1.8-2.4 mg/dl Total Creatine Kinase 19 26-192 U/L Creatine Kinase MB < 1.0 0.5-3.6 ng/ml Creatine Kinase MB Ratio 0-3.0 Troponin I < 0.015 0-0.045 ng/ml Pro-B-Type Natriuretic Peptide 9962 0-1800 pg/ml Bedside Lactic Acid Venous 1.57 0.90-1.70 mmol/L Diagnostic Radiology Reviewed the following studies and agree with interpretation as follows: SINGLE VIEW CHEST CLINICAL HISTORY: Dyspnea. FINDINGS: An AP, portable, upright chest radiograph is compared to study dated 06/11/2017 and correlated with chest CT dated 03/21/2016. A 2-lead cardiac pacemaker and a left subclavian central venous infusion port are unchanged in position. The heart is enlarged and there is atherosclerotic calcification of the thoracic aorta. There is mild pulmonary vascular congestion. There are low lung volumes and bibasilar atelectasis. Small pleural effusions are identified. There is no airspace consolidation typical for pneumonia. No pneumothorax is seen. The skeletal structures are osteopenic. The bony thorax is grossly intact. Degenerative change is noted in the shoulders and thoracic spine. IMPRESSION: 1. Cardiomegaly and cardiac pacemaker with evidence of mild congestive failure. 2. Low lung volumes. 3. There are small pleural effusions with bibasilar atelectasis. EKG Reviewed EKG and agree with interpretation as follows: Ventricular paced rhythm Impression Assessment and Plan 82 y/o female with a history of HTN, complete heart block s/p pacemaker, anemia , anxiety and depression, hypothyroidism, short gut syndrome, intestinal malabsorption on chronic TPN, and neuropathy who presented to the ED on 02/14 with worsening shortness of breath, weight gain, and bilateral lower extremity edema. Pt reportedly "blue" when EMS arrived and so was placed on 4L NC. Currently on 2L NC. Does not wear oxygen normally. Otherwise pt afebrile, VSS. CXR shows mild CHF, BNP elevated. EKG no acute ischemic changes. Given 1 mg Bumex IV in ED. Acute congestive heart failure--does not have recorded systolic or diastolic CHF but does take Bumex 0.5 mg as outpt and has severe aortic stenosis -Admit to telemetry -Daily weights, strict I's & O's -Bumex 1 mg IV qd -Fluid restriction 1500 cc. Pt admits to increased free water intake as her mouth had been feeling dry -Repeat echocardiogram, last study done as outpt in October -Consult cardiology, appreciate recs -Continue metoprolol -LLE greater than RLE which is apparently chronic but will check Doppler U/S to r/o DVT Acute hypoxic respiratory failure, likely secondary to CHF -O2 by protocol, likely to improve w/diuresis HTN--stable -Continue Toprol XL 75 mg PO qd Chronic anemia--stable -Unknown etiology, possibly of chronic disease -Baseline Hgb 9-10 -Hgb 8.8 on admission Anxiety, depression, peripheral neuropathy -Continue Lamictal 25 mg PO qam and 100 mg PO hs Hypothyroidism -Continue Synthroid 150 mcg PO qd Short gut syndrome, intestinal malabsorption -On TPN via left chest port 5x/week (///Sa/Sy) -Interrelated Special Education Teacher consulted to help manage -Continue home regimen Lomotil CKD stage III--stable -Creatinine at baseline DVT prophylaxis -Enoxaparin 40 mg SC q24h -LEOLA Messer Code Status -Level V, DO NOT RESUSCITATE Advanced Directives Existing Living Will: Yes Existing Power of Horse Race Starter: Yes (ZACKARY BLUE) Resuscitation Status VTE Prophylaxis Will order VTE Prophylaxis: Yes
[2018-02-14] MEDS: OXYCODONE HCL IR 5 MG TAB (IMMEDIATE RELEASE) PO PRN (11:08)
--- NOTE | 2018-02-14 11:53 | DIAGNOSTIC IMAGING REPORT ---
ULTRASOUND LEFT LOWER EXTREMITY VENOUS CLINICAL HISTORY: Left lower extremity edema. COMPARISON STUDY: Bilateral lower extremity venous ultrasound dated 03/08/2014. TECHNIQUE: Real-time, grayscale, and color Doppler sonography of the deep veins of the left lower extremity was performed from the inguinal crease to the calf. Compression and augmentation were utilized. FINDINGS: There is no sonographic evidence of deep venous thrombosis identified in the left lower extremity. The common femoral, superficial femoral, and popliteal veins are patent and normally compressible. The greater saphenous vein and the profunda femoris vein at the junction with the common femoral vein are clear. The visualized calf veins are patent. Subcutaneous soft tissue edema is noted in the left leg. IMPRESSION: There is no sonographic evidence of deep venous thrombosis identified in the left lower extremity. Electronically signed by: Benedicto Saravia M.D. 02/14/2018 11:52 AM Dictated Date/Time: 02/14/2018 11:51 AM
[2018-02-14 12:00] VITALS: BP 121/77; PULSE 87; TEMP 36; O2SAT 36; O2SAT 98
--- NOTE | 2018-02-14 12:47 | ECHOCARDIOGRAM REPORT ---
*NOTICE TO RECEIVING REPUBLICAN AGENCY This information is strictly Confidential and protected under [place] law. [place] law prohibits you from making any further disclosure of this information unless further disclosure is expressly permitted by the written consent of the person to whom it pertains or is authorized by law. A general authorization for the release of medical or other information is not sufficient for this purpose. Hospital accepts no responsibility if the information is made available to any other person, INCLUDING THE PATIENT. Interpretation Summary * Name: AMIRAH REID Study Date: 02/14/2018 09:20 AM BP: 132/55 mmHg * Patient Location: C.EDB HR: 64 * : 1935 (M/d/yyyy) Gender: Female Height: 63 in * Age: 82 yrs Ethnicity: CA Weight: 147 lb * Ordering Physician: Paz Sams * Performed By: Yudith Felipe RDCS * * Reason For Study: CHF * BSA: 1.7 m2 * -- Conclusions -- * There is mild concentric left ventricular hypertrophy. * Left ventricular systolic function is normal. * The left atrium is mildly dilated. * The right atrium is mild to moderately dilated. * Severe valvular aortic stenosis. * There is moderate mitral annular calcification. * There is moderate mitral regurgitation. * There is moderate tricuspid regurgitation. * Right ventricular systolic pressure is elevated at 40-50mmHg. * Compared to study from 2015, the pulmonary pressures are much higher in the degree of aortic stenosis is now severe Procedure Details * A complete two-dimensional transthoracic echocardiogram was performed (2D, M-mode, Doppler and color flow Doppler). * The study was technically difficult. * There were technical limitations due to patient'spoor positioning Left Ventricle * The left ventricle is not well visualized. * There is mild concentric left ventricular hypertrophy. * Ejection Fraction = 60-65%. * Left ventricular systolic function is normal. * The left ventricular wall motion is normal. Right Ventricle * The right ventricle is normal in size and function. * There is a pacemaker lead in the right ventricle. Atria * The left atrium is mildly dilated. * The right atrium is mild to moderately dilated. * There is a catheter/pacemaker lead seen in the right atrium. Mitral Valve * There is moderate mitral annular calcification. * There is moderate mitral regurgitation. Tricuspid Valve * The tricuspid valve is not well visualized, but is grossly normal. * There is moderate tricuspid regurgitation. * Right ventricular systolic pressure is elevated at 40-50mmHg. Aortic Valve * There is severe calcific aortic valve stenosis. * Severe valvular aortic stenosis. * Trace aortic regurgitation. Pulmonic Valve * The pulmonic valve is not well seen, but is grossly normal. * Trace pulmonic valvular regurgitation. Pericardium/Pleural * There is no pericardial effusion. MMode 2D Measurements and Calculations IVSd 1.5 cm IVSs 2.0 cm LVIDd 4.7 cm LVIDs 3.1 cm LVPWd 1.3 cm LVPWs 1.9 cm IVS/LVPW 1.1 FS 32.8 % EDV(Teich) 101.5 ml ESV(Teich) 39.3 ml EF(Teich) 61.3 % EDV(cubed) 102.7 ml ESV(cubed) 31.1 ml EF(cubed) 69.7 % % IVS thick 30.9 % % LVPW thick 47.5 % LV mass(C)d 262.8 grams LV mass(C)dI 154.9 grams/m\S\2 LV mass(C)s 262.3 grams LV mass(C)sI 154.6 grams/m\S\2 SV(Teich) 62.2 ml SI(Teich) 36.7 ml/m\S\2 SV(cubed) 71.6 ml SI(cubed) 42.2 ml/m\S\2 EPSS 1.0 cm ACS 0.30 cm LA dimension 4.3 cm asc Aorta Diam 3.5 cm LVOT diam 2.0 cm LVOT area 3.0 cm\S\2 LVAd ap4 22.0 cm\S\2 LVLd ap4 6.5 cm EDV(MOD-sp4) 65.5 ml EDV(sp4-el) 63.7 ml LVAs ap4 12.2 cm\S\2 LVLs ap4 5.2 cm ESV(MOD-sp4) 25.0 ml ESV(sp4-el) 24.1 ml EF(MOD-sp4) 61.9 % EF(sp4-el) 62.1 % LVAd ap2 28.8 cm\S\2 LVLd ap2 7.4 cm EDV(MOD-sp2) 91.2 ml EDV(sp2-el) 95.3 ml LVAs ap2 15.8 cm\S\2 LVLs ap2 5.9 cm ESV(MOD-sp2) 35.6 ml ESV(sp2-el) 36.0 ml EF(MOD-sp2) 61.0 % EF(sp2-el) 62.2 % LVLd %diff 12.8 % EDV(MOD-bp) 81.3 ml LVLs %diff 11.6 % ESV(MOD-bp) 30.5 ml EF(MOD-bp) 62.5 % SV(MOD-sp4) 40.5 ml SI(MOD-sp4) 23.9 ml/m\S\2 SV(MOD-sp2) 55.6 ml SI(MOD-sp2) 32.8 ml/m\S\2 SV(MOD-bp) 50.8 ml SI(MOD-bp) 30.0 ml/m\S\2 SV(sp4-el) 39.5 ml SI(sp4-el) 23.3 ml/m\S\2 SV(sp2-el) 59.3 ml SI(sp2-el) 35.0 ml/m\S\2 Doppler Measurements and Calculations MV E max viola 131.6 cm/sec MV A max viola 70.6 cm/sec MV E/A 1.9 MV dec time 0.13 sec Ao V2 max 427.2 cm/sec Ao max PG 73.4 mmHg Ao max PG (full) 65.8 mmHg Ao V2 mean 286.0 cm/sec Ao mean PG 39.1 mmHg Ao V2 VTI 112.8 cm ANJALI(V,A) 0.98 cm\S\2 ANJALI(V,D) 0.98 cm\S\2 AI max viola 479.6 cm/sec AI max PG 92.0 mmHg AI dec slope 175.0 cm/sec\S\2 AI P1/2t 802.8 msec LV V1 max PG 7.6 mmHg LV V1 max 137.5 cm/sec MR max viola 539.4 cm/sec MR max PG 116.4 mmHg MR mean viloa 350.3 cm/sec MR mean PG 59.5 mmHg MR VTI 188.1 cm PA V2 max 88.4 cm/sec PA max PG 3.1 mmHg TR max viola 319.0 cm/sec
[2018-02-14 14:25] VITALS: Ht 160 cm; Wt 66.4 kg
[2018-02-14] MEDS: METOPROLOL SUCC 50MG EXT REL TAB PO SCH (14:43)
[2018-02-14] MEDS: PANTOprazole SOD 40 MG TAB PO SCH ×2 (14:43→20:35)
[2018-02-14 15:31] LABS: INR 1.1 (0.9-1.1); PTT PATIENT 25.2 SECONDS (21.0-31.0)
--- NOTE | 2018-02-14 15:56 | Cardiology Consultation ---
Cardiology Consultation Date of Consultation: Feb 14, 2018. Requesting Physician: Soniya Reason for Consultation: Heart failure Pt evaluation today including: conversation w/ patient, conversation w/ family , physical exam, chart review, lab review, review of studies, review of inpatient medication list, conversation w/ attending History of Present Illness The patient is 82-year-old woman with a history of complete heart block and aortic stenosis who is been experiencing progressive shortness of breath for several days. Patient states she has noticed both increasing shortness of breath and increasing peripheral edema. She seems to have noticed some increasing abdominal girth as well and has a bandlike sensation around her lower chest and upper abdomen. She feels that is difficult to get a deep breath. Last evening her symptoms have progressed to the point where she could not lie flat and despite attempting different positions she had worsening breathing difficulty. She was transported [facility] for an evaluation and was felt to have an element of pulmonary edema. She was placed on supplemental oxygen and a diuresis was attempted. This point she states that her breathing is improved but not yet back to baseline. She is a sedentary individual who used to be accustomed to walking but more recently only ambulates rarely. She uses a cane for ambulation most of the time. She is limited primarily by dyspnea and weakness. She has not report symptoms of chest pain currently. She has not been dizzy or lightheaded. She has remote history of syncope which seemed to resolve with implantation of a pacemaker. Past Medical/Surgical History Severe aortic stenosis Complete heart block History of syncope status post pacemaker implantation Short gut syndrome Gout Hypertension Hypothyroidism Restless leg syndrome Past surgical history: Appendectomy Dilation and curettage Hernia repair Hysterectomy Rotator cuff repair Tonsillectomy Total abdominal colectomy Family History Diabetes mellitus FHx: cancer FHx: gallbladder disease FHx: heart disease Hypertension Kidney disease Kidney stones Noncontributory given her advanced age and comorbidities Social History Smoking Status: Former Smoker History of Alcohol Use: No Currently a resident at [facility] Review of Systems Per HPI. Patient use to participate an exercises at her facility. Lately she has not been feeling well. No fevers or chills recently. All Other Systems: Reviewed and Negative Allergies Coded Allergies: Furosemide (Verified Allergy, Mild, HIVES, CAN TAKE BUMEX, 02/14/18) Anesthetics, Traci (Verified Allergy, Unknown, ANAPHYLAXIS, 02/14/18) Benzocaine (Verified Allergy, Unknown, 02/14/18) Ceftriaxone (Verified Allergy, Unknown, UNK, 02/14/18) Clonazepam (Verified Allergy, Unknown, ?, 02/14/18) Cyclobenzaprine (Verified Allergy, Unknown, UNKNOWN, 02/14/18) Diclofenac (Verified Allergy, Unknown, UNKNOWN, 02/14/18) Diphenhydramine (Verified Allergy, Unknown, UNK, 02/14/18) Isopropyl Alcohol (Verified Allergy, Unknown, UNKNOWN, 02/14/18) Lidocaine (Verified Allergy, Unknown, 02/14/18) Naproxen (Verified Allergy, Unknown, UNKNOWN, 02/14/18) Octreotide (Verified Allergy, Unknown, HIVES, 02/14/18) Pregabalin (Verified Allergy, Unknown, ?, 02/14/18) Procaine (Verified Allergy, Unknown, 02/14/18) Propylene Glycol (Verified Allergy, Unknown, UNKNOWN, 02/14/18) Scopolamine (Verified Allergy, Unknown, 02/14/18) Sulfamethoxazole w/Trimethoprim (Verified Allergy, Unknown, UNKNOWN, ) Warfarin (Verified Adverse Reaction, Severe, HEMORRHAGE, 02/14/18) Iodinated Diagnostic Agents (Verified Adverse Reaction, Intermediate, RENAL FAILURE, 02/14/18) Fluconazole (Verified Adverse Reaction, Mild, FEVER,NAUSEA, 02/14/18) Indomethacin (Verified Adverse Reaction, Mild, N&V, 02/14/18) Lactose (Verified Adverse Reaction, Mild, INTOLERANT, 02/14/18) INTOLERANT Metronidazole (Verified Adverse Reaction, Mild, FEVER,NAUSEA, 02/14/18) Buprenorphine (Verified Adverse Reaction, Unknown, diarrhea, vomiting, ) Codeine (Verified Adverse Reaction, Unknown, MENTAL STATUS CHANGES, ) Medications Current Inpatient Medications Medications (Trade) Dose Ordered Sig/Elliott Route Start Time Stop Time Status Last Admin Dose Admin Enoxaparin Sodium (Lovenox Inj) 40 mg DAILY@1600 SC 02/14/18 16:00 03/16/18 15:59 Acetaminophen (Tylenol Tab) 650 mg Q4H PRN PO 02/14/18 09:00 03/16/18 08:59 Magnesium Hydroxide (Milk Of Magnesia Susp) 30 ml Q12H PRN PO 02/14/18 09:00 03/16/18 08:59 Ondansetron HCl (Zofran Inj) 4 mg Q6H PRN IV 02/14/18 09:00 03/16/18 08:59 Polyethylene (Miralax Powder Packet) 17 gm DAILY PRN PO 02/14/18 09:00 03/16/18 08:59 Diphenoxylate HCl/ Atropine (Lomotil Tab) 2 tab DAILY@1800 PO 02/14/18 18:00 03/16/18 17:59 Diphenoxylate HCl/ Atropine (Lomotil Tab) 3 tab 0700,1100 PO 02/15/18 07:00 03/17/18 06:59 Diphenoxylate HCl/ Atropine (Lomotil Tab) 4 tab HS PO 02/14/18 21:00 03/16/18 20:59 Guaifenesin (Mucinex Contr Rel Tab) 600 mg Q12H PRN PO 02/14/18 09:00 03/16/18 08:59 Lamotrigine (Lamictal Tab) 25 mg QAM PO 02/14/18 09:00 03/16/18 08:59 02/14/18 14:43 25 MG Lamotrigine (Lamictal Tab) 100 mg HS PO 02/14/18 21:00 03/16/18 20:59 Levothyroxine Sodium (Synthroid Tab) 150 mcg HS PO 02/14/18 21:00 03/16/18 20:59 Metoprolol Succinate (Toprol Xl Tab) 75 mg DAILY PO 02/14/18 09:00 03/16/18 08:59 02/14/18 14:43 75 MG Miconazole Nitrate (Monistat-Derm Crm) 1 appln HS EXT 02/14/18 21:00 03/16/18 20:59 Oxycodone HCl (Roxicodone Immediate Rel Tab) 5 mg Q4H PRN PO 02/14/18 09:00 02/28/18 08:59 02/14/18 11:08 5 MG Pantoprazole Sodium (Protonix Tab) 40 mg BID PO 02/14/18 09:00 03/16/18 08:59 02/14/18 14:43 40 MG Promethazine HCl 12.5 mg/Sodium Chloride 50.5 ml @ 202 mls/hr Q6H PRN IV 02/14/18 09:30 03/16/18 09:29 Bumetanide 1 mg/ Syringe 4 ml @ 4 mls/min DAILY@09 IV 02/15/18 09:00 03/17/18 08:59 Physical Exam Vital Signs Past 12 Hours Date Time Temp Pulse Resp B/P (MAP) Pulse Ox O2 Delivery O2 Flow Rate FiO2 02/14/18 12:00 36.0 87 18 121/77 (92) 98 Nasal Cannula 2.0 02/14/18 12:00 98 Nasal Cannula 2.0 02/14/18 12:00 36 Nasal Cannula 2.0 02/14/18 11:00 76 18 95 Nasal Cannula 2.0 02/14/18 10:24 72 18 122/70 96 02/14/18 10:06 82 95 02/14/18 09:36 60 96 02/14/18 09:17 61 02/14/18 09:06 63 18 99 02/14/18 09:01 124/57 02/14/18 08:36 63 16 98 02/14/18 08:31 132/63 02/14/18 08:06 60 19 98 02/14/18 08:01 132/55 02/14/18 07:50 64 20 99 02/14/18 07:49 100 Nasal Cannula 2.0 02/14/18 07:37 100 Nasal Cannula 2.0 02/14/18 07:31 127/47 02/14/18 07:20 62 20 99 02/14/18 07:01 130/65 02/14/18 06:58 60 18 139/56 96 Nasal Cannula 2.0 02/14/18 06:50 60 20 96 02/14/18 06:20 62 23 97 02/14/18 06:14 139/56 02/14/18 06:05 109/63 02/14/18 05:50 89 25 99 02/14/18 05:32 64 02/14/18 05:25 109/63 02/14/18 05:24 37.0 68 20 109/63 98 Room Air She is alert and oriented x3. Mood affect appear normal. She answered all questions appropriately. HEENT: Sclerae are anicteric. Pupils are equal and reactive to light and accommodation. Extraocular movements were intact. Neuro: Cranial nerves intact Neck: Examination of the submandibular region did not reveal any significant lymphadenopathy. Carotids are palpable bilaterally and free of bruits on auscultation but there is radiation of the aortic murmur into the left carotid. There was no evidence of jugular venous distention. The thyroid was not enlarged. Lungs: Lungs are clear to auscultation bilaterally. There are no rales wheezes or rhonchi. She has normal respiratory effort without use of accessory muscles. There is normal pulmonary excursion. Cardiac: The rhythm was regular. S1 and S2 were normal. High-pitched, musical late peaking crescendo systolic murmur The PMI was not markedly displaced on palpation. Abdomen: The abdomen was soft and nontender. It did appear distended. Extremities: Patient has bilateral radial pulses that are equal in intensity. There is no evidence cyanosis or clubbing. Pitting edema bilaterally, left greater than right. Skin: There are no rashes noted on examination today. Data Laboratory Results: Last 24 Hours Test 02/14/18 05:40 02/14/18 05:49 02/14/18 15:03 White Blood Count 6.12 K/uL Red Blood Count 3.05 M/uL Hemoglobin 8.8 g/dL Hematocrit 27.8 % Mean Corpuscular Volume 91.1 fL Mean Corpuscular Hemoglobin 28.9 pg Mean Corpuscular Hemoglobin Concent 31.7 g/dl Platelet Count 165 K/uL Mean Platelet Volume 10.7 fL Neutrophils (%) (Auto) 68.3 % Lymphocytes (%) (Auto) 18.0 % Monocytes (%) (Auto) 12.6 % Eosinophils (%) (Auto) 0.5 % Basophils (%) (Auto) 0.3 % Neutrophils # (Auto) 4.18 K/uL Lymphocytes # (Auto) 1.10 K/uL Monocytes # (Auto) 0.77 K/uL Eosinophils # (Auto) 0.03 K/uL Basophils # (Auto) 0.02 K/uL RDW Standard Deviation 50.5 fL RDW Coefficient of Variation 15.3 % Immature Granulocyte % (Auto) 0.3 % Immature Granulocyte # (Auto) 0.02 K/uL Red Blood Cell Morphology Unremarkable Sodium Level 138 mmol/L Potassium Level 4.2 mmol/L Chloride Level 100 mmol/L Carbon Dioxide Level 30 mmol/L Anion Gap 8.0 mmol/L Blood Urea Nitrogen 48 mg/dl Creatinine 1.07 mg/dl Estimated GFR () 56.4 Estimated GFR (Non- 48.6 BUN/Creatinine Ratio 44.9 Random Glucose 100 mg/dl Calcium Level 8.6 mg/dl Magnesium Level 2.1 mg/dl Total Creatine Kinase 19 U/L Creatine Kinase MB < 1.0 ng/ml Creatine Kinase MB Ratio Troponin I < 0.015 ng/ml Pro-B-Type Natriuretic Peptide 9962 pg/ml Bedside Lactic Acid Venous 1.57 mmol/L Prothrombin Time 11.2 SECONDS Prothromb Time International Ratio 1.1 Activated Partial Thromboplast Time 25.2 SECONDS Partial Thromboplastin Ratio 1.0 Imaging: Chest x-ray demonstrated evidence of pulmonary vascular congestion. EK% av sequential pacing Telemetry reviewed: Paced rhythm Echocardiogram performed today revealed preserved LV systolic function with severe aortic stenosis. Moderate mitral regurgitation. Moderate to severe pulmonary hypertension Assessment & Plan 1. Congestive heart failure: This is likely due to her valvular heart disease. She has preserved LV systolic function. She has noted progressive edema over the past few days and presented with symptoms decompensated heart failure. It would be reasonable to affect a diuresis for symptom improvement. I do not think there is another valid therapy other than valve replacement. 2. Aortic stenosis: Severe. This is the likely culprit for her decompensation. We discussed options for treating her valvular heart disease. She is clearly not a candidate for an open valve replacement. She may be a candidate for catheter based therapy. The only other options involved palliation with use of diuretics. Given the progression to decompensated heart failure her anticipated mortality would be less than a year in the absence of treatment. She does have moderate mitral regurgitation. It is unknown if she has significant coronary disease. These factors will need to be taken into consideration when thinking about a TAVR. We talked about the need for coronary angiogram prior to performing any tab ever. My recommendation was for angiography before a referral, but she has serious reservations regarding the use of contrast dye. She claims to have had a severe reaction in the past which caused kidney failure. She simply wishes to discuss the option and details regarding a percutaneous intervention prior to any additional studies. Eventually she may need to be evaluated by the interventional cardiology service at [facility] to see if she has an appropriate candidate. 3. Complete heart block: Normally functioning dual-chamber permanent pacemaker.
[2018-02-14 16:12] VITALS: BP 132/64; PULSE 63; TEMP 36.9; O2SAT 98
[2018-02-14] MEDS: DIPHENOXYLATE/ATROPINE 2.5/0.025MG TAB PO SCH ×2 (18:13→20:34)
[2018-02-14] MEDS: ENOXAPARIN 40 MG/0.4 ML SYR SC SCH (18:14)
[2018-02-14 19:53] VITALS: BP 111/58; PULSE 62; TEMP 36.6; O2SAT 98
[2018-02-14] MEDS: MICONAZOLE NITRATE 2% CR 30 GM TUBE EXT SCH (20:33)
[2018-02-14] MEDS: LEVOTHYROXINE 150 MCG TAB PO SCH (20:35)
[2018-02-15] VITALS (9 sets, daily range): BP systolic 105–151; BP diastolic 52–81; PULSE 60–104; TEMP 36.4–37; O2SAT 91–100
[2018-02-15 06:36] LABS: HEMATOCRIT 27.2 % (37-47); HEMOGLOBIN 8.5 g/dL (12.0-16.0); MEAN CELL VOLUME 91.3 fL (80-100); MEAN CORPUSCULAR HEMOGLOBIN 28.5 pg (25-34); MEAN CORPUSCULAR HGB CONC 31.3 g/dl (32-36); MEAN PLATELET VOLUME 10.9 fL (7.4-10.4); PLATELET COUNT 155 K/uL (130-400); RED CELL DISTRIBUTION WIDTH CV 15.1 % (11.5-14.5); RED CELL DISTRIBUTION WIDTH SD 50.3 fL (36.4-46.3); WHITE BLOOD COUNT 4.68 K/uL (4.8-10.8)
[2018-02-15 07:12] LABS: CREATININE 1.25 mg/dl (0.60-1.20); POTASSIUM 4.2 mmol/L (3.5-5.1)
--- NOTE | 2018-02-15 07:46 | Clinical Documentation Query ---
VINNIE BENJAMIN : CLINICAL DOCUMENTATION QUERIES QUERY 1 OF 2 Patient is an 82 year old female admitted for evaluation of shortness of breath, weight gain, and bilateral lower extremity edema. Diagnosed with an unspecified CHF. Echocardiogram demonstrated a normal LVEF with severe aortic stenosis. Cardiology noted CHF on this basis. As appropriate, consider documentation as suggested below as this impact accurate code assignment. Thank you. In your clinical opinion is this patient being managed for: ( x ) Acute diastolic/preserved EF CHF ( ) Not Agree ( ) Other explanation of clinical findings (No explanation is considered a No Response) ( ) Unable to determine ( ) Need to Discuss (Phone CDS or qliq) (No discussion is considered a No Response) The medical record reflects the following clinical findings, treatment, and risk factors. Clinical Indicators: As above Treatment: Telemetry, I/O, Bumex, fluid restriction, echocardiogram, cardiology consultation, lopressor Risk Factors: Age, hypertension, severe aortic stenosis. QUERY 2 OF 2 Clinical documentation includes a diagnosis of: Acute Hypoxic Respiratory Failure. Clarified , see note Documentation includes "no apparent distress" and specifically "no respiratory distress". No documented hypoxemia in EMR. Due to stringent requirements by our coding department, multiple clinical indicators associated with this diagnosis must be present in order for this to be coded/captured within the medical record. If appropriate, please document 2 or more of the following clinical indicators in daily progress notes and the discharge summary. If you feel the diagnosis of acute respiratory failure was made in error, or do not agree with it, simply discontinue documentation thereof. Acute Respiratory Failure indicators include: * Respirations >28 * Air hunger * Use of accessory muscles of respiration * Inability to speak in full sentences * Cyanosis * Pulse ox <90% RA or <95% on O2 *pH <7.35 or >7.45 * pO2 < 60 mm Hg (or 10mm below COPD patient's baseline) * pCO2 >50mm Hg (or 10mm above COPD patient's baseline) * mechanical ventilation * Increased work of breathing * Tachypnea Thank You, Andrew Foster, CHUY [phone]
[2018-02-15] MEDS: METOPROLOL SUCC 50MG EXT REL TAB PO SCH (09:12)
[2018-02-15] MEDS: PANTOprazole SOD 40 MG TAB PO SCH ×2 (09:12→21:24)
[2018-02-15] MEDS: DIPHENOXYLATE/ATROPINE 2.5/0.025MG TAB PO SCH ×4 (09:13→21:23)
[2018-02-15] MEDS: BUMETANIDE IV 1 MG in SYRINGE 0 ML IV SCH (09:14)
[2018-02-15] MEDS ORDERED: EUCERIN CR 120 GM JAR EXT ONE (10:15)
[2018-02-15] MEDS ORDERED: TPN/PPN CONSULT PHARMACY SCH (13:37)
--- NOTE | 2018-02-15 13:42 | Hospitalist Progress Note ---
Hospitalist Progress Note Date of Service Feb 15, 2018. Subjective Pt evaluation today including: conversation w/ patient, physical exam, chart review, lab review, review of inpatient medication list Pain: None PO Intake: Tolerating PO diet Voiding: no voiding problems Patient reports feeling well but remains on supplemental oxygen, which she does not wear at home. She states she has not been up and moving today so cannot tell if her SOB is really resolved. She still complains of orthopnea. The patient denies fevers, chills, sweats, chest pain, palpitations, claudication, cough, wheezing, shortness of breath, nausea, vomiting, abdominal pain, dysuria , hematuria, urinary retention, paralysis, weakness, numbness and tingling. Additional Comments: See HPI for pertinent positives and negatives. All other systems reviewed and negative. Objective Vital Signs Date Time Temp Pulse Resp B/P (MAP) Pulse Ox O2 Delivery O2 Flow Rate FiO2 02/15/18 11:55 36.7 62 19 117/69 (85) 96 Nasal Cannula 2.0 02/15/18 08:00 Nasal Cannula 2.0 02/15/18 07:01 36.8 71 17 118/72 (87) 100 Nasal Cannula 2.0 02/15/18 03:03 36.8 64 17 134/64 (87) 100 Room Air 02/15/18 00:00 36.4 72 20 129/52 (77) 91 Room Air 02/15/18 00:00 Nasal Cannula 2.0 02/14/18 20:00 Nasal Cannula 2.0 02/14/18 19:53 36.6 62 17 111/58 (75) 98 Nasal Cannula 2.0 02/14/18 16:12 36.9 63 17 132/64 (86) 98 Nasal Cannula 2.0 Physical Exam Notes: General appearance: Well-developed, well-nourished, no apparent distress Head: Normocephalic, atraumatic Eyes: Normal inspection, PERRL, EOMI ENT: Normal ENT inspection, hearing grossly normal, pharynx normal Neck: Supple, no JVD, trachea midline Respiratory/Chest: +Currently on 2L NC. Continues to have crackles bilaterally. Normal breath sounds, no respiratory distress Cardiovascular: +Systolic murmur. Regular rate & rhythm, no gallop Abdomen/GI: Normal bowel sounds, non-tender, soft Extremities/Musculoskeletal: +4+ pitting edema in lower extremities, L>R. Pt states LLE is chronically larger. Distal lower extremities w/erythema and chronic venous stasis changes. No calf tenderness Neurological/Psych: +Forgetful but oriented. Alert, normal mood/affect, oriented x 3 Skin: Normal color, warm/dry, no rash Laboratory Results Last 24 Hours Test 02/14/18 15:03 02/14/18 16:43 02/15/18 06:09 Prothrombin Time 11.2 SECONDS Prothromb Time International Ratio 1.1 Activated Partial Thromboplast Time 25.2 SECONDS Partial Thromboplastin Ratio 1.0 Bedside Glucose 81 mg/dl White Blood Count 4.68 K/uL Red Blood Count 2.98 M/uL Hemoglobin 8.5 g/dL Hematocrit 27.2 % Mean Corpuscular Volume 91.3 fL Mean Corpuscular Hemoglobin 28.5 pg Mean Corpuscular Hemoglobin Concent 31.3 g/dl RDW Standard Deviation 50.3 fL RDW Coefficient of Variation 15.1 % Platelet Count 155 K/uL Mean Platelet Volume 10.9 fL Sodium Level 135 mmol/L Potassium Level 4.2 mmol/L Chloride Level 100 mmol/L Carbon Dioxide Level 28 mmol/L Anion Gap 7.0 mmol/L Blood Urea Nitrogen 41 mg/dl Creatinine 1.25 mg/dl Est Creatinine Clear Calc Drug Dose 32.4 ml/min Estimated GFR () 46.7 Estimated GFR (Non- 40.3 BUN/Creatinine Ratio 33.1 Random Glucose 79 mg/dl Calcium Level 8.0 mg/dl Diagnostic Results Reviewed the following studies and agree with interpretation as follows: Interpretation Summary * Name: AMIRAH REID Study Date: 02/14/2018 09:20 AM BP: 132/55 mmHg * Patient Location: [facility] HR: 64 * : 1935 (M/d/yyyy) Gender: Female Height: 63 in * Age: 82 yrs Ethnicity: CA Weight: 147 lb * Ordering Physician: Paz Sams * Performed By: Yudith eFlipe RDCS * * Reason For Study: CHF * BSA: 1.7 m2 * -- Conclusions -- * There is mild concentric left ventricular hypertrophy. * Left ventricular systolic function is normal. * The left atrium is mildly dilated. * The right atrium is mild to moderately dilated. * Severe valvular aortic stenosis. * There is moderate mitral annular calcification. * There is moderate mitral regurgitation. * There is moderate tricuspid regurgitation. * Right ventricular systolic pressure is elevated at 40-50mmHg. * Compared to study from 2015, the pulmonary pressures are much higher in the degree of aortic stenosis is now severe Procedure Details * A complete two-dimensional transthoracic echocardiogram was performed (2D, M-mode, Doppler and color flow Doppler). * The study was technically difficult. * There were technical limitations due to patient'spoor positioning Left Ventricle * The left ventricle is not well visualized. * There is mild concentric left ventricular hypertrophy. * Ejection Fraction = 60-65%. * Left ventricular systolic function is normal. * The left ventricular wall motion is normal. Right Ventricle * The right ventricle is normal in size and function. * There is a pacemaker lead in the right ventricle. Atria * The left atrium is mildly dilated. * The right atrium is mild to moderately dilated. * There is a catheter/pacemaker lead seen in the right atrium. Mitral Valve * There is moderate mitral annular calcification. * There is moderate mitral regurgitation. Tricuspid Valve * The tricuspid valve is not well visualized, but is grossly normal. * There is moderate tricuspid regurgitation. * Right ventricular systolic pressure is elevated at 40-50mmHg. Aortic Valve * There is severe calcific aortic valve stenosis. * Severe valvular aortic stenosis. * Trace aortic regurgitation. Pulmonic Valve * The pulmonic valve is not well seen, but is grossly normal. * Trace pulmonic valvular regurgitation. Pericardium/Pleural * There is no pericardial effusion. ULTRASOUND LEFT LOWER EXTREMITY VENOUS CLINICAL HISTORY: Left lower extremity edema. COMPARISON STUDY: Bilateral lower extremity venous ultrasound dated 03/08/2014. TECHNIQUE: Real-time, grayscale, and color Doppler sonography of the deep veins of the left lower extremity was performed from the inguinal crease to the calf. Compression and augmentation were utilized. FINDINGS: There is no sonographic evidence of deep venous thrombosis identified in the left lower extremity. The common femoral, superficial femoral, and popliteal veins are patent and normally compressible. The greater saphenous vein and the profunda femoris vein at the junction with the common femoral vein are clear. The visualized calf veins are patent. Subcutaneous soft tissue edema is noted in the left leg. IMPRESSION: There is no sonographic evidence of deep venous thrombosis identified in the left lower extremity. Assessment and Plan 82 y/o female with a history of HTN, complete heart block s/p pacemaker, anemia , anxiety and depression, hypothyroidism, short gut syndrome, intestinal malabsorption on chronic TPN, and neuropathy who presented to the ED on 02/14 with worsening shortness of breath, weight gain, and bilateral lower extremity edema. Pt reportedly "blue" when EMS arrived and so was placed on 4L NC. Currently on 2L NC. Does not wear oxygen normally. Otherwise pt afebrile, VSS. CXR shows mild CHF, BNP elevated. EKG no acute ischemic changes. Given 1 mg Bumex IV in ED. Acute diastolic congestive heart failure, severe aortic stenosis--stable -Admit to telemetry. Patient in paced rhythm with HR 60s-90s -Daily weights, strict I's & O's -UO only recorded as 200 cc 02/14, net balance -25 cc -Continue Bumex 1 mg IV qd -Fluid restriction 1500 cc. Pt admits to increased free water intake as her mouth had been feeling dry -Echo shows EF 60-65%. Left atrium mildly dilated. Right atrium moderately dilated. Severe aortic stenosis. Moderate mitral and tricuspid regurgitation. RVSP elevated at 40-50 mmHg. -Consult cardiology, appreciate recs: Decompensated, heart failure likely due to severe aortic stenosis. Reasonable to give diuresis for symptomatic improvement. May be candidate for catheter valve replacement. Only other option would be palliation with diuretics. May need evaluation by interventional cardiology at [facility] for possible TAVR. -Continue metoprolol -LLE greater than RLE, Doppler negative for DVT Acute hypoxic respiratory failure, likely secondary to CHF--pt cyanotic when EMS arrived and hypoxic requiring 4L NC initially, now down to 2L. SpO2 as low as 36 per EMR and tachypneic w/RR 25 -O2 by protocol, likely to improve w/diuresis HTN--stable -Continue Toprol XL 75 mg PO qd Chronic anemia--stable -Unknown etiology, possibly of chronic disease -Baseline Hgb 9-10 -Hgb 8.5 on 02/15, stable from 8.8 Anxiety, depression, peripheral neuropathy -Continue Lamictal 25 mg PO qam and 100 mg PO hs Hypothyroidism -Continue Synthroid 150 mcg PO qd Short gut syndrome, intestinal malabsorption -On TPN via left chest port 5x/week (M/W/F/Sa/Sy) -Manufacturing Process Technician/pharmacy consulted to help manage -Continue home regimen Lomotil CKD stage III--stable -Creatinine 1.25 on 02/15, elevated slightly from baseline of 1.1 DVT prophylaxis -Enoxaparin 40 mg SC q24h -LEOLA camilo SCDs Code Status -Level V, DO NOT RESUSCITATE Dispo -From [facility], bed hold -PT/OT evaluate and treat
--- NOTE | 2018-02-15 16:32 | Cardiology Follow-Up ---
Subjective Date of Service: Feb 15, 2018. Pt evaluation today including: conversation w/ patient, physical exam, chart review, lab review, review of studies, review of inpatient medication list History of Present Illness This afternoon the patient claims to be feeling well. She states her breathing is better than yesterday. She does not have a sensation of fullness in her upper abdomen and lower chest. She was up in a chair today appear comfortable. Social History Smoking Status: Former Smoker History of Alcohol Use: No Review of Systems Per HPI. Patient use to participate an exercises at her facility. Lately she has not been feeling well. No fevers or chills recently. Objective Vital Signs Past 12 Hours Date Time Temp Pulse Resp B/P (MAP) Pulse Ox O2 Delivery O2 Flow Rate FiO2 02/15/18 11:55 36.7 62 19 117/69 (85) 96 Nasal Cannula 2.0 02/15/18 08:00 Nasal Cannula 2.0 02/15/18 07:01 36.8 71 17 118/72 (87) 100 Nasal Cannula 2.0 Last Recorded Weight-Kilograms: 67.000 Intake & Output 8-Hour Column 02/15/18 02/16/18 02/16/18 16:00 00:00 08:00 Intake Total 260 ml Output Total 450 ml Balance -190 ml 24-Hour Column 02/16/18 08:00 Intake Total 260 ml Output Total 450 ml Balance -190 ml Physical Exam She is alert and oriented x3. Mood affect appear normal. She answered all questions appropriately. HEENT: Sclerae are anicteric. Pupils are equal and reactive to light and accommodation. Extraocular movements were intact. Neuro: Cranial nerves intact Neck: Examination of the submandibular region did not reveal any significant lymphadenopathy. Carotids are palpable bilaterally and free of bruits on auscultation but there is radiation of the aortic murmur into the left carotid. There was no evidence of jugular venous distention. The thyroid was not enlarged. Lungs: Lungs are clear to auscultation bilaterally. There are no rales wheezes or rhonchi. She has normal respiratory effort without use of accessory muscles. There is normal pulmonary excursion. Cardiac: The rhythm was regular. S1 and S2 were normal. High-pitched, musical late peaking crescendo systolic murmur The PMI was not markedly displaced on palpation. Abdomen: The abdomen was soft and nontender. It did appear distended. Extremities: Patient has bilateral radial pulses that are equal in intensity. There is no evidence cyanosis or clubbing. Pitting edema bilaterally, left greater than right. Skin: There are no rashes noted on examination today. Data Laboratory Results: Last 24 Hours Test 02/14/18 16:43 02/15/18 06:09 Bedside Glucose 81 mg/dl White Blood Count 4.68 K/uL Red Blood Count 2.98 M/uL Hemoglobin 8.5 g/dL Hematocrit 27.2 % Mean Corpuscular Volume 91.3 fL Mean Corpuscular Hemoglobin 28.5 pg Mean Corpuscular Hemoglobin Concent 31.3 g/dl RDW Standard Deviation 50.3 fL RDW Coefficient of Variation 15.1 % Platelet Count 155 K/uL Mean Platelet Volume 10.9 fL Sodium Level 135 mmol/L Potassium Level 4.2 mmol/L Chloride Level 100 mmol/L Carbon Dioxide Level 28 mmol/L Anion Gap 7.0 mmol/L Blood Urea Nitrogen 41 mg/dl Creatinine 1.25 mg/dl Est Creatinine Clear Calc Drug Dose 32.4 ml/min Estimated GFR () 46.7 Estimated GFR (Non- 40.3 BUN/Creatinine Ratio 33.1 Random Glucose 79 mg/dl Calcium Level 8.0 mg/dl Telemetry reviewed: Paced for Assessment and Plan 1. Congestive heart failure: She appears to be affecting a reasonable diuresis on intravenous Bumex. It is very likely that she may need to be on a daily dose of Bumex at home. Will continue to monitor output, symptoms, electrolytes and renal function. 2. Aortic stenosis: Severe. I discussed treatment options with the patient and her daughter. We will arrange for evaluation at [facility] for possible tab ever. I did discuss with her the need for angiography at some point. She is hesitant given her concerns over prior contrast reaction. I do not think we necessarily need to accomplish a catheterization while she is an inpatient. This certainly can be performed as an outpatient. She may elect to discuss this procedure with the senior project architect to see if she is indeed a candidate prior to performing cardiac catheterization. 3. Complete heart block: Normally functioning dual-chamber permanent pacemaker.
[2018-02-15] MEDS: ENOXAPARIN 40 MG/0.4 ML SYR SC SCH (17:35)
[2018-02-15] MEDS: MICONAZOLE NITRATE 2% CR 30 GM TUBE EXT SCH (21:00)
[2018-02-15] MEDS: LEVOTHYROXINE 150 MCG TAB PO SCH (21:24)
[2018-02-15] MEDS: EUCERIN CR 120 GM JAR EXT SCH (21:24)
[2018-02-15] MEDS: OXYCODONE HCL IR 5 MG TAB (IMMEDIATE RELEASE) PO PRN (21:28)
[2018-02-16] MEDS: OXYCODONE HCL IR 5 MG TAB (IMMEDIATE RELEASE) PO PRN (02:02)
[2018-02-16 03:58] VITALS: BP 110/45; PULSE 65; TEMP 36.7; O2SAT 94
[2018-02-16 06:52] VITALS: BP 149/94; PULSE 68; TEMP 36.9; O2SAT 94
[2018-02-16 07:12] LABS: HEMATOCRIT 26.6 % (37-47); HEMOGLOBIN 8.6 g/dL (12.0-16.0); MEAN CELL VOLUME 89.9 fL (80-100); MEAN CORPUSCULAR HEMOGLOBIN 29.1 pg (25-34); MEAN CORPUSCULAR HGB CONC 32.3 g/dl (32-36); MEAN PLATELET VOLUME 10.9 fL (7.4-10.4); PLATELET COUNT 176 K/uL (130-400); RED CELL DISTRIBUTION WIDTH SD 49.1 fL (36.4-46.3); WHITE BLOOD COUNT 7.25 K/uL (4.8-10.8)
[2018-02-16 07:46] LABS: CALCIUM 8.1 mg/dl (8.5-10.1); CREATININE 1.45 mg/dl (0.60-1.20); PHOSPHORUS 3.8 mg/dl (2.5-4.9); POTASSIUM 4.5 mmol/L (3.5-5.1)
[2018-02-16] MEDS: METOPROLOL SUCC 50MG EXT REL TAB PO SCH (08:15)
[2018-02-16] MEDS: PANTOprazole SOD 40 MG TAB PO SCH (08:15)
[2018-02-16] MEDS: DIPHENOXYLATE/ATROPINE 2.5/0.025MG TAB PO SCH ×2 (08:15→11:15)
[2018-02-16] MEDS: EUCERIN CR 120 GM JAR EXT SCH (08:16)
[2018-02-16] MEDS: BUMETANIDE IV 1 MG in SYRINGE 0 ML IV SCH (08:19)
--- NOTE | 2018-02-16 11:22 | Discharge Instructions ---
Discharge Instructions Date of Service Feb 16, 2018. Admission Reason for Admission: Acute Congestive Heart Failure Discharge Discharge Diagnosis / Problem: Acute diastolic congestive heart failure Discharge Goals Goal(s): Decrease discomfort, Improve function, Diagnostic testing, Therapeutic intervention Activity Recommendations Activity Level: Assistance Required Therapies: Physical Therapy, Occupational Therapy . Additional Information Patient informed of condition: Yes Advance Directives: Yes DNR: Yes Level of Care: Skilled Communicable Disease: No (h/o MRSA but last nasal swab negative in 2016) Prognosis: Stable Instructions / Follow-Up Instructions / Follow-Up The patient was admitted to the hospital after presenting with decompensated acute congestive heart failure, likely due to her severe aortic stenosis. She was treated with IV Bumex and evaluated by cardiology, who recommends evaluation at [facility] to see if she is a candidate for TAVR to replace her valve. In the meantime, she will be treated with diuretics. The patient had been cyanotic and hypoxic initially, but this has since resolved following diuresis, and the patient is back on room air. She is now medically stable for discharge. Medications: *Patient reports she was only taking Bumex 0.5 mg every other day, then 2 days prior to arrival she was increased to 0.5 mg daily. We will continue Bumex 0.5 daily, scheduled, at this point. *Continue home medications as prescribed. Follow up: *Please have patient follow up with Dr. Rogers of cardiology in 2-3 weeks. Cardiology is coordinating outpatient evaluation at [facility] for possible TAVR. *Follow up with primary care provider within 1 week of discharge. Please seek medical attention if patient experiences fevers, chills, sweats, dizziness/lightheadedness, loss of consciousness, chest pain, shortness of breath, nausea, vomiting, numbness or tingling. Call 911 and go to the Emergency Room if: * You have tightness or pain in your chest that does not go away with rest or Nitroglycerin * You are very short of breath even with rest Call your doctor if any of the following symptoms or problems start or get worse: * Shortness of breath or difficulty breathing * Wake up at night short of breath * Chest pain * Cough * Swelling of your hands, fee, or legs * More fatigued or tired with your normal activity * Palpitations - sudden fast heart beats WEIGHT * Weigh yourself every morning after using the bathroom. * Use the same scale. * Wear the same amount of clothing. * Write your weight down on your chart. * Call your doctor if you gain more than 2-3 pounds in 1-2 days. MEDICATIONS * Use this discharge instruction sheet for instructions. * Take your medications at the time your doctor ordered. * Do not skip a dose of your medicines. * If you miss a dose of medicine, take as soon as possible, but DO NOT DOUBLE A DOSE. * Read your medicine information when you get home. * Know all of the side effects of your medicine. * Call your doctor's office if you have any side effects. * Be sure all of your doctors know what medicine and herbs you take (including cold, flu, and herbal medicine). * Pain Medicine: If you do not get relief from your pain, please call your doctor for help. Take the following with you to your follow-up doctor appointments: * Weight Chart * Medication List * List of questions Do not drink excessive alcohol, beer or wine. Current Hospital Diet Patient's current hospital diet: Low Sodium Diet (2gm Na), AHA Diet (Heart Healthy) Discharge Diet Recommended Diet: AHA Diet (Heart Healthy), Low Sodium Diet (2gm Na) Pending Studies Studies pending at discharge: no Physician Orders On Transfer Special Precautions: Fall precautions IV Therapy: TPN 5x/week as before Vital Signs: Routine Weigh: Daily Additional Orders: Patient can take an additional Bumex in afternoon if she has weight gain of 2-3 pounds in 1 day. Laboratory Results Lipid Panel Test 02/16/18 06:21 Range/Units Triglycerides Level 115 0-150 mg/dl Medical Emergencies . Who to Call and When: Medical Emergencies: If at any time you feel your situation is an emergency, please call 911 immediately. . Non-Emergent Contact Non-Emergency issues call your: Primary Care Provider, Shipping Technician Call Non-Emergent contact if: you have a fever, you have any medication questions . Past History Medical & Surgical History: (1) Acute congestive heart failure . "Provider Documentation" section prepared by Paz Sams. . Core Measure Problem Core Measures: None
[2018-02-16 11:50] VITALS: BP 149/94; PULSE 68; TEMP 36.9; O2SAT 94
--- NOTE | 2018-02-16 13:16 | Discharge Summary ---
Discharge Summary Date of Service Feb 16, 2018. Discharge Summary Admission Date: Feb 14, 2018 at 09:02 Discharge Date: Feb 16, 2018 Discharge Disposition: custodial facility Principal Diagnosis: Acute diastolic congestive heart failure Problems/Secondary Diagnoses: (1) Anemia Status: Chronic Acute hypoxic respiratory failure, ANNIKA, HTN, complete heart block s/p pacemaker , anemia, anxiety and depression, hypothyroidism, short gut syndrome, intestinal malabsorption on chronic TPN, neuropathy Immunizations: Have You Had Influenza Vaccine: N/A Influenza Vaccine Date: Apr 21, 2011 History of Tetanus Vaccine?: Unknown Tetanus Immunization Date: Dec 28, 1998 History of Pneumococcal: Yes Pneumococcal Date: Dec 20, 2010 History of Hepatitis B Vaccine: No Procedures: SINGLE VIEW CHEST CLINICAL HISTORY: Dyspnea. FINDINGS: An AP, portable, upright chest radiograph is compared to study dated 06/11/2017 and correlated with chest CT dated 03/21/2016. A 2-lead cardiac pacemaker and a left subclavian central venous infusion port are unchanged in position. The heart is enlarged and there is atherosclerotic calcification of the thoracic aorta. There is mild pulmonary vascular congestion. There are low lung volumes and bibasilar atelectasis. Small pleural effusions are identified. There is no airspace consolidation typical for pneumonia. No pneumothorax is seen. The skeletal structures are osteopenic. The bony thorax is grossly intact. Degenerative change is noted in the shoulders and thoracic spine. IMPRESSION: 1. Cardiomegaly and cardiac pacemaker with evidence of mild congestive failure. 2. Low lung volumes. 3. There are small pleural effusions with bibasilar atelectasis. Echocardiogram: * -- Conclusions -- * There is mild concentric left ventricular hypertrophy. * Left ventricular systolic function is normal. * The left atrium is mildly dilated. * The right atrium is mild to moderately dilated. * Severe valvular aortic stenosis. * There is moderate mitral annular calcification. * There is moderate mitral regurgitation. * There is moderate tricuspid regurgitation. * Right ventricular systolic pressure is elevated at 40-50mmHg. * Compared to study from 2014, the pulmonary pressures are much higher in the degree of aortic stenosis is now severe ULTRASOUND LEFT LOWER EXTREMITY VENOUS CLINICAL HISTORY: Left lower extremity edema. COMPARISON STUDY: Bilateral lower extremity venous ultrasound dated 03/08/2014. TECHNIQUE: Real-time, grayscale, and color Doppler sonography of the deep veins of the left lower extremity was performed from the inguinal crease to the calf. Compression and augmentation were utilized. FINDINGS: There is no sonographic evidence of deep venous thrombosis identified in the left lower extremity. The common femoral, superficial femoral, and popliteal veins are patent and normally compressible. The greater saphenous vein and the profunda femoris vein at the junction with the common femoral vein are clear. The visualized calf veins are patent. Subcutaneous soft tissue edema is noted in the left leg. IMPRESSION: There is no sonographic evidence of deep venous thrombosis identified in the left lower extremity. Consultations: Cardiology Medication Reconciliation Continued Medications: Acetaminophen (Tylenol) 650 Mg Supp 650 MG AR Q4 PRN for Pain or Fever DO NOT EXCEED 3GM/24HR Acetaminophen Tab (Tylenol) 325 Mg Tab 325 MG PO Q6 PRN for Mild Pain GIVE FOR PAIN RATED 1-3 Acetaminophen Tab (Tylenol) 325 Mg Tab 650 MG PO Q6 PRN for MOD-SEVERE PAIN RATED 4-10 Acetaminophen (Tylenol) 650 Mg Supp 650 MG AR Q6 PRN for Pain Acetaminophen (Childrens Acetaminophen) 160 Mg/5 Ml Mary 500 MG PO Q6 PRN for Mild Pain GIVE FOR PAIN RATED 1-3 Bacitracin (Topical) (Bacitracin) 500 Unit/Gm Oin 1 APPLN TOP BID PRN for SKIN SPLIT TO FINGERS USE WHEN SKIN SPLITS DUE TO DRYNESS. CLEANSE AREA WITH SOAP AND WATER,DRY, APPLY BACITRACIN OINT AND COVER WITH BANDAID, MAY CHANGE BID Bumetanide (Bumetanide) 0.5 Mg Tab 0.5 MG PO QAM hold if weight is less than 140 lb Carboxymethylcellulose Sodium (Refresh Tears) 0.5 % Fady 1 DROP OPB QID Cholecalciferol (Ddrops) 2,000 Ut/0.028 Ml Liq 2000 INTER.UNIT PO QAM PLACE DROP ON BACK OF PT'S HAND TO BE LICKED OFF HAND Cyanocobalamin (Cyanocobalamin) 1,000 Mcg/Ml Inj 1000 MCG IM MONTHLY TO BE ADMINISTERED THE 13TH DAY OF THE [facility] Diphenoxylate/Atropine (Lomotil) Tab 3 TAB PO take with breakfast and lunch Diphenoxylate/Atropine (Lomotil) Tab 4 TAB PO HS Diphenoxylate/Atropine (Lomotil) Tab 2 TAB PO QPM Guaifenesin La (Guaifenesin Er) 600 Mg Tabcr 600 MG PO Q12H PRN for cough/allergies, TAB Ketotifen Fumarate (Ophth) (Alaway) 0.025 % Fady 1 DROP OPB Q12, ML Lamotrigine (Lamictal) 25 Mg Tab 25 MG PO QAM Lamotrigine (Lamictal) 100 Mg Tab 100 MG PO HS, TAB Levothyroxine Sodium (Synthroid) 150 Mcg Tab 150 MCG PO HS, TAB Loperamide Hcl (Imodium A-D) 2 Mg Tab 2 MG PO UD PRN for Diarrhea TAKE 2 TABLETS AFTER FIRST LOOSE BOWEL MOVEMENT THEN TAKE 1 TABLET AFTER EACH ADDITIONAL LOOSE BOWEL MOVEMENT Melatonin (Kp Melatonin) 3 Mg Tab 1 TAB PO HS, #30 TAB Menthol (Topical Analgesic) (Biofreeze) 4 % Gel 1 APPLN TOP Q12 PRN for pain/discomfort B/L FEET Metoprolol Succinate (Toprol Xl) 50 Mg Tabcr 75 MG PO DAILY Miconazole Nitrate (Topical) (Antifungal) 2 % Cre 1 APPLN TOP HS APPLY TO VAGINA Nitroglycerin (Nitrostat) 0.4 Mg Tab 0.4 MG UT UD PRN for Chest Pain, BTL Ondansetron (Ondansetron Hcl) 2 Mg/Ml Inj 8 MG IV Q24H PRN for Nausea or Vomiting, EA MAY HAVE ONE EXTRA DOSE IN ADDITION TO ROUTINE DOSE IN 24 HOUR PERIOD Ondansetron (Ondansetron Hcl) 2 Mg/Ml Inj 8 MG IV TID, EA ADMINISTER IVP ONCE WITH TPN HOOKUP AT 1500 THEN AGAIN WITH TPN DISCONNECT. THREE TIMES A DAY. Oxycodone HCl (Oxycodone HCl) 5 Mg Tab 5 MG PO Q4 PRN for Severe Pain Pantoprazole Sodium (Protonix) 40 Mg Inj 40 MG IV BID Promethazine Hcl (Phenergan) 25 Mg/Ml Inj 0.5 ML IV Q6H PRN for Nausea GIVE IF ZOFRAN IS INEFFECTIVE Tpn Infusion (Tpn Infusion) 1 Ea Inj 1 EA IV 5XWK ADMINISTER EVERY WEDNESDAY,WEDNESDAY,WEDNESDAY,WEDNESDAY,WEDNESDAY AT 2000 ML OVER 12 HOURS AT BEDTIME ADD RANITIDINE 75 MG AND MVI VIALS TO BAG Discharge Exam Patient reports feeling well and denies shortness of breath currently. She is now back on room air. She denies any chest pain. The patient denies fevers, chills, sweats, chest pain, palpitations, claudication, cough, wheezing, shortness of breath, nausea, vomiting, abdominal pain, dysuria, hematuria, urinary retention, paralysis, weakness, numbness and tingling. Constitutional: No fever, No chills, No sweats Eyes: No worsening of vision, No eye pain, No diplopia ENT: No hearing loss, No nasal symptoms, No trouble swallowing Respiratory: No cough, No wheezing, No shortness of breath Cardiovascular: No chest pain, No claudication, No palpitations Abdomen: No pain, No nausea, No vomiting Musculoskeletal: No joint pain, No muscle pain, No swelling Genitourinary - Female: No dysuria, No urinary retention, No hematuria Neurologic: No paralysis, No weakness, No numbness/tingling Integumentary: No rash, No itch, No color change General appearance: Well-developed, well-nourished, no apparent distress Head: Normocephalic, atraumatic Eyes: Normal inspection, PERRL, EOMI ENT: Normal ENT inspection, hearing grossly normal, pharynx normal Neck: Supple, no JVD, trachea midline Respiratory/Chest: Lungs clear to auscultation, normal breath sounds, no respiratory distress Cardiovascular: +Systolic murmur. Regular rate & rhythm, no gallop Abdomen/GI: Normal bowel sounds, non-tender, soft Extremities/Musculoskeletal: +3+ pitting edema in lower extremities, L>R. Pt states LLE is chronically larger. Distal lower extremities w/erythema and chronic venous stasis changes. No calf tenderness Neurological/Psych: +Forgetful but oriented. Alert, normal mood/affect, oriented x 3 Skin: Normal color, warm/dry, no rash Hospital Course 82 y/o female with a history of HTN, complete heart block s/p pacemaker, anemia , anxiety and depression, hypothyroidism, short gut syndrome, intestinal malabsorption on chronic TPN, and neuropathy who presented to the ED on 02/14 with worsening shortness of breath, weight gain, and bilateral lower extremity edema. Pt reportedly "blue" when EMS arrived and so was placed on 4L NC. Currently on 2L NC. Does not wear oxygen normally. Otherwise pt afebrile, VSS. CXR shows mild CHF, BNP elevated. EKG no acute ischemic changes. Given 1 mg Bumex IV in ED. Acute diastolic congestive heart failure, severe aortic stenosis--resolving, creatinine rising, hypoxia and crackles resolved -Admit to telemetry. Patient in paced rhythm with HR 60s-70s -Daily weights, strict I's & O's -UO 850 cc, net balance -215 cc 02/15. Although does not appear to have impressive diuresis, pt symptomatically improved and weaned off oxygen -Recommend Bumex 0.5 mg PO qd (pt had been taking every other day) at discharge -Fluid restriction 1500 cc. Pt admits to increased free water intake as her mouth had been feeling dry -Echo shows EF 60-65%. Left atrium mildly dilated. Right atrium moderately dilated. Severe aortic stenosis. Moderate mitral and tricuspid regurgitation. RVSP elevated at 40-50 mmHg. -Consult cardiology, appreciate recs: Spoke with Dr. Rogers. Ok for discharge from cardiology standpoint. Will arrange for [facility] [place] possible [place]R. If valve not replaced, anticipated mortality less than 1 year. Patient may need catheterization prior but this can be done as an outpatient. Would recommend daily Bumex at home. Follow up as an outpatient in a few weeks. -Continue metoprolol -LLE greater than RLE, Doppler negative for DVT Acute hypoxic respiratory failure, likely secondary to CHF--resolved -Pt cyanotic when EMS arrived and hypoxic requiring 4L NC initially, now down to 2L. SpO2 as low as 36 per EMR and tachypneic w/RR 25 -Pt weaned off oxygen, now saturating in mid 90s on room air Acute kidney injury on CKD stage III -Creatinine 1.45 on 02/16, up from 1.25 -Rise in creatinine likely indicating that pt now complete w/acute diuresis, -Being discharged on smaller dose of Bumex (0.5 rather than the 1 mg she got inpatient), so this should resolve -Recheck BMP in 3-5 days HTN--stable -Continue Toprol XL 75 mg PO qd Chronic anemia--stable -Unknown etiology, possibly of chronic disease -Baseline Hgb 9-10 -Hgb 8.6 on 02/16, remains stable Anxiety, depression, peripheral neuropathy -Continue Lamictal 25 mg PO qam and 100 mg PO hs Hypothyroidism -Continue Synthroid 150 mcg PO qd Short gut syndrome, intestinal malabsorption--stable -On TPN via left chest port 5x/week (M/W/F/Sa/Sy) -Senior Qa Analyst/pharmacy consulted to help manage -Continue home regimen Lomotil DVT prophylaxis -Enoxaparin 40 mg SC q24h -LEOLA garcia and SCDs Code Status -Level V, DO NOT RESUSCITATE Dispo -From [facility], bed hold -PT/OT evaluate and treat: PT recommends continuing PT at SNF, per OT she is at baseline level of function Total Time Spent: Greater than 30 minutes This includes examination of the patient, discharge planning, medication reconciliation, and communication with other providers. Discharge Instructions Please refer to the electronic Patient Visit Report (Discharge Instructions) for additional information. Follow-Up PCP Cardiology in 2-4 weeks, they will also set up [facility] [place] for possible TAVR Additional Copies To ,Ubaldo Tao M.D.
== END 2018-02-16 13:43 | DRG 291 ==
LOC: EDBD 05:20 → C.EDB 05:22 → C.2T 09:02 → ENRESERV 09:40 → CANRESERV 09:40 → ENRESERV 10:21
PROVIDERS: ADMIT Hospitalist; ATTEND Hospitalist
DX: I13.0 Hypertensive heart and chronic kidney disease with heart failure and stage 1 through stage 4 chronic kidney disease, or unspecified chronic kidney disease (principal); I50.31 Acute diastolic (congestive) heart failure; J96.01 Acute respiratory failure with hypoxia; K91.2 Postsurgical malabsorption, not elsewhere classified; N17.9 Acute kidney failure, unspecified; I35.0 Nonrheumatic aortic (valve) stenosis; N18.3 Chronic kidney disease, stage 3 (moderate); E03.9 Hypothyroidism, unspecified; F32.9 Major depressive disorder, single episode, unspecified; F41.9 Anxiety disorder, unspecified; D63.8 Anemia in other chronic diseases classified elsewhere; Z66 Do not resuscitate; Z79.899 Other long term (current) drug therapy

== ENCOUNTER 2018-02-28 04:37 | Emergency (ER) | payer BC, OTHER ==
[~2018-02-28] VITALS: Ht 160 cm; Wt 70.0 kg
[~2018-02-28 04:37] MED LIST changes: +ACET-1693 PO; -ACET160S78 PO; +ACET1SUS56 PO; +BACI500O11 TOP; +BUME0.5T3 PO; -BUME1TAB PO; +CARB0.5D28 OPB; -CLR10 PO; +DIPH-416 PO; +GUAI1TAB75 PO; +LAMO100T16 PO; -LIPIDS IV; +MELA1TAB5 PO; +METO-217 PO; -METO50TA8 PO; +NTRGSL/4 UT; -OXYC-737 PO; -PHNS25 RE; -[UNRECOGNIZED DRUG - CODE] IV.
[2018-02-28 05:00] VITALS: Ht 160 cm; Wt 70.0 kg
--- NOTE | 2018-02-28 05:00 | EMERGENCY ROOM VISIT NOTE ---
History Report prepared by Megan: Wes Menchaca Under the Supervision of: Dr. Lorena Dang D.O. First contact with patient: 04:48 Chief Complaint: UNABLE TO VOID Stated Complaint: UNABLE TO URINATE History of Present Illness The patient is an 82 year old female who presents to the Emergency Room with inability to void her urine. The patient states that she has short-term memory loss and cannot remember if her symptoms began today or yesterday. She adds that she has been trying not to drink fluids because she knows that she cannot pass the fluid. She denies any other fevers or abdominal pain. The patient notes that the swelling in her lower extremities "does not impress her." Source of History: patient Onset: Today or yesterday Position: other (bladder) Quality: other (inability to void) Timing: other (urinary retention since yesterday) Associated Symptoms: No fevers Review of Systems See HPI for pertinent positives & negatives. A total of 10 systems reviewed and were otherwise negative. Past Medical & Surgical Medical Problems: (1) Acute urinary tract infection (2) Anemia (3) Cellulitis of chest wall (4) CHF (congestive heart failure) (5) Cholecystectomy (6) Confusion (7) DVT (deep venous thrombosis) (8) DVT (deep venous thrombosis) (9) Fall (10) Fatigue (11) Hypertension (12) Hypertension Nos (13) Kidney disease (14) Kidney disease (15) Kidney stone (16) Kidney stone (17) Left leg cellulitis (18) Pacemaker (19) Pacemaker (20) Personal History Of Urinary Calculi (21) rectal bleeding, ANEMIA (22) Restless legs (23) SBO (small bowel obstruction) (24) SBO (small bowel obstruction) (25) SBO (small bowel obstruction) (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 (28) Urinary problem Surgical Problems: (1) H/O colectomy (2) H/O: hysterectomy (3) Hx of cholecystectomy Family History Diabetes mellitus FHx: cancer FHx: gallbladder disease FHx: heart disease Hypertension Kidney disease Kidney stones Social History Smoking Status: Former Smoker Alcohol Use: none Drug Use: none Marital Status: Housing Status: skilled nursing Occupation Status: retired Current/Historical Medications Scheduled Bumetanide (Bumetanide), 0.5 MG PO QAM Carboxymethylcellulose Sodium (Refresh Tears), 1 DROP OPB QID Cholecalciferol (Ddrops), 2,000 INTER.UNIT PO QAM Cyanocobalamin (Cyanocobalamin), 1,000 MCG IM MONTHLY Diphenoxylate/Atropine (Lomotil), 4 TAB PO HS Diphenoxylate/Atropine (Lomotil), 2 TAB PO QPM Ketotifen Fumarate (Ophth) (Alaway), 1 DROP OPB Q12 Lamotrigine (Lamictal), 25 MG PO QAM Lamotrigine (Lamictal), 100 MG PO HS Levothyroxine Sodium (Synthroid), 150 MCG PO HS Melatonin (Kp Melatonin), 1 TAB PO HS Metoprolol Succinate (Toprol Xl), 75 MG PO DAILY Miconazole Nitrate (Topical) (Antifungal), 1 APPLN TOP HS Ondansetron (Ondansetron Hcl), 8 MG IV TID Pantoprazole Sodium (Protonix), 40 MG IV BID Tpn Infusion (Tpn Infusion), 1 EA IV [id number] Scheduled PRN Acetaminophen (Tylenol), 650 MG AL Q4 PRN for Pain or Fever Acetaminophen (Tylenol), 650 MG AL Q6 PRN for Pain Acetaminophen (Childrens Acetaminophen), 500 MG PO Q6 PRN for Mild Pain Acetaminophen Tab (Tylenol), 325 MG PO Q6 PRN for Mild Pain Acetaminophen Tab (Tylenol), 650 MG PO Q6 PRN for MOD-SEVERE PAIN RATED 4-10 Bacitracin (Topical) (Bacitracin), 1 APPLN TOP BID PRN for SKIN SPLIT TO FINGERS Guaifenesin La (Guaifenesin Er), 600 MG PO Q12H PRN for cough/allergies Loperamide Hcl (Imodium A-D), 2 MG PO UD PRN for Diarrhea Menthol (Topical Analgesic) (Biofreeze), 1 APPLN TOP Q12 PRN for pain/discomfort Nitroglycerin (Nitrostat), 0.4 MG UT UD PRN for Chest Pain Ondansetron (Ondansetron Hcl), 8 MG IV Q24H PRN for Nausea or Vomiting Oxycodone HCl (Oxycodone HCl), 5 MG PO Q4 PRN for Severe Pain Promethazine Hcl (Phenergan), 0.5 ML IV Q6H PRN for Nausea Miscellaneous Medications Diphenoxylate/Atropine (Lomotil), 3 TAB PO Allergies Coded Allergies: Furosemide (Verified Allergy, Mild, HIVES, CAN TAKE BUMEX, 02/28/18) Anesthetics, Traci (Verified Allergy, Unknown, ANAPHYLAXIS, 02/28/18) Benzocaine (Verified Allergy, Unknown, 02/28/18) Ceftriaxone (Verified Allergy, Unknown, UNK, 02/28/18) Clonazepam (Verified Allergy, Unknown, ?, 02/28/18) Cyclobenzaprine (Verified Allergy, Unknown, UNKNOWN, 02/28/18) Diclofenac (Verified Allergy, Unknown, UNKNOWN, 02/28/18) Diphenhydramine (Verified Allergy, Unknown, UNK, 02/28/18) Isopropyl Alcohol (Verified Allergy, Unknown, UNKNOWN, 02/28/18) Lidocaine (Verified Allergy, Unknown, 02/28/18) Naproxen (Verified Allergy, Unknown, UNKNOWN, 02/28/18) Octreotide (Verified Allergy, Unknown, HIVES, 02/28/18) Pregabalin (Verified Allergy, Unknown, ?, 02/28/18) Procaine (Verified Allergy, Unknown, 02/28/18) Propylene Glycol (Verified Allergy, Unknown, UNKNOWN, 02/28/18) Scopolamine (Verified Allergy, Unknown, 02/28/18) Sulfamethoxazole w/Trimethoprim (Verified Allergy, Unknown, UNKNOWN, ) Warfarin (Verified Adverse Reaction, Severe, HEMORRHAGE, 02/28/18) Iodinated Diagnostic Agents (Verified Adverse Reaction, Intermediate, RENAL FAILURE, 02/28/18) Fluconazole (Verified Adverse Reaction, Mild, FEVER,NAUSEA, 02/28/18) Indomethacin (Verified Adverse Reaction, Mild, N&V, 02/28/18) Lactose (Verified Adverse Reaction, Mild, INTOLERANT, 02/28/18) INTOLERANT Metronidazole (Verified Adverse Reaction, Mild, FEVER,NAUSEA, 02/28/18) Buprenorphine (Verified Adverse Reaction, Unknown, diarrhea, vomiting, ) Codeine (Verified Adverse Reaction, Unknown, MENTAL STATUS CHANGES, ) Physical Exam Vital Signs Date Time Temp Pulse Resp B/P (MAP) Pulse Ox O2 Delivery O2 Flow Rate FiO2 02/28/18 06:13 83 02/28/18 05:00 78 18 134/57 Room Air Physical Exam HEENT: Head - normocephalic and atraumatic Pupils are equal, round, and reactive to light. Extraocular eye muscles are intact, and sclera are anicteric. Nose - moist nasal mucosa without discharge. Mouth -DRY buccal mucosa. Oropharynx is nonerythematous and there is no tonsillar exudate or edema noted. Neck: Supple; no JVD, nuchal rigidity, cervical lymphadenopathy. Heart: Regular rate and rhythm. There is a normal S1 and S2 with no clicks, or gallops appreciated. 6/6 systolic ejection murmur appreciated. Lungs: Clear to auscultation bilaterally with no wheezes, rales, or rhonchi. Abdomen: Soft, completely nontender, nondistended, with good bowel sounds. There are no palpable pulsatile masses or hepatosplenomegaly. There is no guarding, rigidity, or rebound noted. Extremities: No evidence of cyanosis, clubbing. There is 4+ edema to the lower extremities, left greater than right. There are easily palpable peripheral pulses. Skin: Dry with poor turgor. Erythema about both legs. Medical Decision & Procedures Laboratory Results 02/28/18 05:12 Red Blood Count 2.81, Mean Corpuscular Volume 90.4, Mean Corpuscular Hemoglobin 28.1, Mean Corpuscular Hemoglobin Concent 31.1, Mean Platelet Volume 10.9, Neutrophils (%) (Auto) 68.3, Lymphocytes (%) (Auto) 17.7, Monocytes (%) (Auto) 12.6, Eosinophils (%) (Auto) 0.9, Basophils (%) (Auto) 0.3, Neutrophils # (Auto ) 4.51, Lymphocytes # (Auto) 1.17, Monocytes # (Auto) 0.83, Eosinophils # (Auto ) 0.06, Basophils # (Auto) 0.02 02/28/18 05:12 Test 02/28/18 05:12 02/28/18 05:35 White Blood Count 6.60 K/uL (4.8-10.8) Red Blood Count 2.81 M/uL (4.2-5.4) Hemoglobin 7.9 g/dL (12.0-16.0) Hematocrit 25.4 % (37-47) Mean Corpuscular Volume 90.4 fL (80-100) Mean Corpuscular Hemoglobin 28.1 pg (25-34) Mean Corpuscular Hemoglobin Concent 31.1 g/dl (32-36) Platelet Count 144 K/uL (130-400) Mean Platelet Volume 10.9 fL (7.4-10.4) Neutrophils (%) (Auto) 68.3 % Lymphocytes (%) (Auto) 17.7 % Monocytes (%) (Auto) 12.6 % Eosinophils (%) (Auto) 0.9 % Basophils (%) (Auto) 0.3 % Neutrophils # (Auto) 4.51 K/uL (1.4-6.5) Lymphocytes # (Auto) 1.17 K/uL (1.2-3.4) Monocytes # (Auto) 0.83 K/uL (0.11-0.59) Eosinophils # (Auto) 0.06 K/uL (0-0.5) Basophils # (Auto) 0.02 K/uL (0-0.2) RDW Standard Deviation 49.9 fL (36.4-46.3) RDW Coefficient of Variation 15.3 % (11.5-14.5) Immature Granulocyte % (Auto) 0.2 % Immature Granulocyte # (Auto) 0.01 K/uL (0.00-0.02) Anion Gap 10.0 mmol/L (3-11) Est Creatinine Clear Calc Drug Dose 32.3 ml/min Estimated GFR () 45.4 Estimated GFR (Non- 39.2 BUN/Creatinine Ratio 48.4 (10-20) Calcium Level 8.0 mg/dl (8.5-10.1) Urine Color YELLOW Urine Appearance CLEAR (CLEAR) Urine pH 5.0 (4.5-7.5) Urine Specific Julian 1.013 (1.000-1.030) Urine Protein TRACE (NEG) Urine Glucose (UA) NEG (NEG) Urine Ketones NEG (NEG) Urine Occult Blood NEG (NEG) Urine Nitrite NEG (NEG) Urine Bilirubin NEG (NEG) Urine Urobilinogen NEG (NEG) Urine Leukocyte Esterase MODERATE (NEG) Urine WBC (Auto) 10-30 /hpf (0-5) Urine RBC (Auto) 0-4 /hpf (0-4) Urine Hyaline Casts (Auto) 1-5 /lpf (0-5) Urine Epithelial Cells (Auto) >30 /lpf (0-5) Urine Bacteria (Auto) NEG (NEG) Laboratory results per my review. Medications Administered Medications (Trade) Dose Ordered Sig/Elliott Route Start Time Stop Time Status Last Admin Dose Admin Sodium Chloride 500 ml @ 999 mls/hr Q31M STAT IV 02/28/18 05:59 02/28/18 06:29 DC 02/28/18 05:59 999 MLS/HR Procedure Ordered Medications: Normal Saline ED Course 0450: Past medical records reviewed. The patient was evaluated in room B4B. A complete history and physical exam was performed. A bladder scan was obtained and showed only 80 mL's of urine. Labs were drawn as above. 0539: I checked on the patient at this time. I asked if she had noticed any black or bloody stools recently, she denies. The patient refuses a rectal exam at this time, after my suggestion to do so. I explained that her hemoglobin has dropped down to 7.9. I suggested that she have a blood transfusion like she has had in the past. The patient refuses blood transfusion. 0559: On physical exam, the patient appears to be dehydrated. Laboratory studies are concerning for this to. I ordered Sodium Chloride 500 mL @ 999 mL/ hr IV. 0619: I discussed findings and results with her. She verbalized agreement of the treatment plan. The patient was discharged home. Medical Decision The patient is a 82 year old female who presents to the Emergency Department with urinary retention. Differential diagnosis includes UTI, dehydration, urinary retention. Laboratory results were reviewed and show; No leukocytosis, hemoglobin dropped to 7.9, BUN of 62, creatinine of 1.2, glucose of 101, urinalysis reveals trace protein, negative bacteria, greater than 30 epithelial cells, moderate leukocyte esterase, and 10-30 WBC. This is an 82-year-old female patient presents to the emergency department stating she is unable to urine. She states that she has such difficult time urinating that she has not been drinking liquids because she can go to the bathroom. A bladder scan showed less than 100 mL's of urine in the bladder. On physical exam, the patient appeared to be significantly dehydrated. Her BUN/ creatinine ratio was very high. She was given IV crystalloid therapy here in the emergency department and encouraged to drink clear liquids. On routine laboratory testing, the patient was noted to be significantly anemic. She does have a history of this. She has had a previous GI bleed. I recommended that we perform a rectal exam and give her a blood transfusion but she refused both of these. I explained to the patient that she may become more weak as a result of the anemia so she should move slowly and with extra care. I also recommended that she follow-up with her PCP within next couple of days to discuss this. Medication Reconcilliation Current Medication List: was personally reviewed by me Blood Pressure Screening Patient's blood pressure: Normal blood pressure Impression Primary Impression: Dehydration Additional Impression: Anemia Scribe Attestation The scribe's documentation has been prepared under my direction and personally reviewed by me in its entirety. I confirm that the note above accurately reflects all work, treatment, procedures, and medical decision making performed by me. Departure Information Dispostion Home / Self-Care Referrals Sharonda Christianson D.O. (PCP) Forms HOME CARE DOCUMENTATION FORM, IMPORTANT VISIT INFORMATION, WORK / SCHOOL INSTRUCTIONS Patient Instructions My [facility] Additional Instructions Take plenty of clear liquids and a bland diet. You are anemic and may continue to get weaker if you don't get a blood transfusion. Follow up with your PCP in the next 1-2 days. Problem Qualifiers Additional Impression: Anemia Anemia type: unspecified type Qualified Codes: D64.9 - Anemia, unspecified
[2018-02-28 05:32] LABS: BASO % 0.3 %; BASO ABS # 0.02 K/uL (0-0.2); EOS % 0.9 %; EOS ABS # 0.06 K/uL (0-0.5); HEMATOCRIT 25.4 % (37-47); HEMOGLOBIN 7.9 g/dL (12.0-16.0); IG# 0.01 K/uL (0.00-0.02); LYMPH % 17.7 %; LYMPH ABS # 1.17 K/uL (1.2-3.4); MEAN CELL VOLUME 90.4 fL (80-100); MEAN CORPUSCULAR HEMOGLOBIN 28.1 pg (25-34); MEAN CORPUSCULAR HGB CONC 31.1 g/dl (32-36); MEAN PLATELET VOLUME 10.9 fL (7.4-10.4); MONO % 12.6 %; MONO ABS # 0.83 K/uL (0.11-0.59); NEUT % 68.3 %; NEUT ABS # 4.51 K/uL (1.4-6.5); PLATELET COUNT 144 K/uL (130-400); RED CELL DISTRIBUTION WIDTH CV 15.3 % (11.5-14.5); RED CELL DISTRIBUTION WIDTH SD 49.9 fL (36.4-46.3)
[2018-02-28 05:49] LABS: CREATININE 1.28 mg/dl (0.60-1.20); POTASSIUM 3.3 mmol/L (3.5-5.1)
[2018-02-28] MEDS ORDERED: SODIUM CHLORIDE 0.9% 500ML 500 ML IV STA (05:59)
[2018-02-28 06:20] VITALS: BP 119/57; PULSE 73; O2SAT 98
--- NOTE | 2018-03-02 13:47 | Pharmacy Progress Note ---
ED Pharmacist Culture FollowUp Date of Service: Mar 02, 2018. Patient's urine culture growing klebsiella pneumonia >100,000 CFU/ml, patient with difficulty voiding but also dehydrated, >30 epi's in sample. Discussed with Dr. Christy, will treat with ciprofloxacin 500 mg BID x 5 days. Repeat urine culture to be performed after treatment. Called [facility] and spoke with Giovanna. Prescription faxed to [phone], Successful 1220.
== END 2018-02-28 06:36 | disposition home or self-care (01) ==
LOC: EDBD 04:37 → C.EDB 04:38
DX: E86.0 Dehydration (principal); D64.9 Anemia, unspecified; Z87.440 Personal history of urinary (tract) infections; I50.9 Heart failure, unspecified; Z87.891 Personal history of nicotine dependence; Z90.49 Acquired absence of other specified parts of digestive tract; Z86.718 Personal history of other venous thrombosis and embolism; I11.0 Hypertensive heart disease with heart failure; Z87.442 Personal history of urinary calculi; Z95.0 Presence of cardiac pacemaker; G25.81 Restless legs syndrome; Z79.899 Other long term (current) drug therapy; Z90.710 Acquired absence of both cervix and uterus; Z88.8 Allergy status to other drugs, medicaments and biological substances; Z88.1 Allergy status to other antibiotic agents; Z88.2 Allergy status to sulfonamides; Z88.4 Allergy status to anesthetic agent; Z83.3 Family history of diabetes mellitus; Z80.9 Family history of malignant neoplasm, unspecified; Z83.79 Family history of other diseases of the digestive system; Z82.49 Family history of ischemic heart disease and other diseases of the circulatory system; Z84.1 Family history of disorders of kidney and ureter

== ENCOUNTER 2020-03-16 03:19 | Inpatient (IN) ==
[2020-03-16 04:36] LABS: Basophils # (auto) 0.01 K/uL (0-0.2); Basophils % (auto) 0.1 %; Eosinophils # (auto) 0.09 K/uL (0-0.5); Eosinophils % (auto) 1.1 %; Hematocrit (blood only) 32.6 % (37-47); Hemoglobin 10.5 g/dL (12.0-16.0); Immature Granulocytes # (auto) 0.01 K/uL (0.00-0.02); Immature Granulocytes % (auto) 0.1 %; Lymphocytes # (auto) 0.86 K/uL (1.2-3.4); Lymphocytes % (auto) 10.8 %; Mean Corpuscular Hemoglobin 31.5 pg (25-34); Mean Corpuscular Hgb Conc 32.2 g/dL (32-36); Mean Corpuscular Volume 97.9 fL (80-100); Mean Platelet Volume 9.9 fL (7.4-10.4); Monocytes # (auto) 0.38 K/uL (0.11-0.59); Monocytes % (auto) 4.8 %; Neutrophils # (auto) 6.62 K/uL (1.4-6.5); Neutrophils % (auto) 83.1 %; Platelet Count 121 K/uL (130-400); RDW Coefficient of Variation 14.1 % (11.5-14.5); Red Blood Count 3.33 M/uL (4.2-5.4); White Blood Count 7.97 K/uL (4.8-10.8)
[2020-03-16 04:47] LABS: INR 1.1 (0.9-1.1); Partial Thromboplastin Ratio 0.9; Partial Thromboplastin Time 25.6 Seconds (21.0-31.0); Prothrombin Time 11.3 Seconds (9.0-12.0)
[2020-03-16 04:57] LABS: Albumin Level 2.2 gm/dl (3.4-5.0); BUN Creatinine Ratio 52.9 (10-20); Calcium 8.8 mg/dl (8.5-10.1); Creatinine Clr Calc Pharmacy 25.1 ml/min; Est GFR (African American) 44.8; Est GFR (Non-African American) 38.6; Magnesium 1.6 mg/dl (1.8-2.4); Potassium 3.6 mmol/L (3.5-5.1)
[2020-03-16 05:02] LABS: Albumin Globulin Ratio 0.5 (0.9-2); Bilirubin,Total 0.6 mg/dl (0.2-1); Globulin 4.5 gm/dl (2.5-4.0); Total Protein 6.7 gm/dl (6.4-8.2); Troponin I 0.022 ng/ml (0-0.045)
[2020-03-16] MEDS ORDERED: DAPTOMYCIN CONSULT ACTIVE PRN (05:02)
[2020-03-16] MEDS ORDERED: DAPTOmycin 300 MG in SYRINGE 0 ML IV ONE (05:02)
[2020-03-16] MEDS ORDERED: PIPERACILLIN/TAZOBACTAM 4.5 GM/120 ML BAG IV ONE (05:02)
[2020-03-16] MEDS ORDERED: PIPERACILL/TAZOBAC CONSULT ACTIVE PRN ×2 (05:02→10:59)
--- NOTE | 2020-03-16 08:06 | History & Physical Report ---
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 No evidence of sepsis - WBC 7.97, afebrile here, - Started on zosyn and daptomycin in ER, will continue zosyn IV. - Follow blood cultures 03/15 for sensitivities - called [facility] ( ) 1st set from port growing gram neg rods 2nd set from R hand growing Enterobacteriaceae, preliminary results. Will grow for 5 days in lab. - Repeat BCx from 03/16 here in the ER - Urine culture from 03/15 appears clear, small esterase, mild WBC, large epithelial cells - CXR from then also appears to be without infection - Palliative care consultation as she has had multiple infections of the port - pt wants antibiotic therapy at this point - requests to see her children since she hasn't visited with them since the beginning of September. She also tells me she feels like she is going to , and that she is tired of living like this. Further goals of care to be established. Noted IV vanc in outpatient meds, (2) On total parenteral nutrition (TPN): Daily and runs from 8:30 PM to 8:30 AM We will hold off on TPN for now given possibility of infected port We will give gentle IV fluids at this time (3) Malnutrition related to chronic disease: (4) Aortic stenosis: - Severe, noted on echo, auscultated on exam Seen by cardiology at [facility] and not felt to be a good candidate for valve replacement (5) CHF (congestive heart failure): - chronic diastolic CHF, appears euvolemic, with chronic lower extremity edema -We will hold Bumex 2 mg IV daily and metolazone 5 mg PO 3 x /wk until restarted on TPN or if volume status worsens -Continue metoprolol succinate 75 mg daily - Last echo completed 03/05/20 showing normal LV function 50 to 55%, mild concentric LVH, left atrium mildly dilated, severe aortic stenosis, mild mitral regurg. -Pacemaker noted in the right ventricle (6) Heart failure due to valvular disease: - severe aortic stenosis as above Holding diuretics and giving gentle IV fluids at 60 mL's per hour well not receiving TPN and is essentially n.p.o. (7) Vitamin B12 deficiency: - hx of such, check level (8) Anemia: - Macrocytic anemia - Hgb 10.5, has been lower in the past at 8-10, earlier this month was 11.5 - check b12 and folic acid, monitor with am CBC (9) CKD (chronic kidney disease) stage 3, GFR 30-59 ml/min: - Cr. of 1.28, BUN 68 - appears baseline from a year ago was closer to 1.0-1.1, Monitor with am labs (10) Hypothyroidism: - Cont levothyroxine - TSH 2.560 (11) History of memory loss: - hx of depression, COVID-19 pandemic has not allowed her to see her children/family in person and is worsening her mood overall. (12) Peripheral neuropathy: -Patient follows with Dr. Gann as an outpatient, last saw the beginning of January this year. Continue on mirtazapine 7.5 mg HS for sleep, lamotrigine 125 mg p.o. BID -Patient is primarily confined to wheelchair -Last EMG in October 2010 consistent with polyneuropathy -Check b12 and folic acid -PT/OT consults (13) Insomnia: - Pt reports wanting to sleep, continue home mirtazapine 7.5 mg HS (14) Abdominal pain: With some tenderness on examination. CT abdomen/pelvis obtained given gram-negative bacteremia to look for source as well as with tenderness to palpation on examination No source of infection. Fluid-filled loops of small bowel appear consistent with partial small bowel obstruction, although this seems chronic. She is not vomiting and is passing stool. Of note, she is on a very high dose of Lomotil for chronic loose stools-previous notes reviewed and report that patient and family insist on continuing on this dose Watch for obstruction (15) Chronic diarrhea: As above, continue Lomotil for now and watch for bowel obstruction (16) Transaminitis: Mildly elevated, likely secondary to TPN Follow LFTs (17) Third degree AV block: Now status post pacer, follows with [facility] Continue on telemetry (18) DVT prophylaxis: - teds, ambulatory CODE: DNR Dispo: From LUIS Paulino to assist with dc planning, likely to remain in the hospital x 2 days. History of Present Illness Primary Care Provider: [facility] [place] This is an 84 yo F from [facility] with PMHx of chronic diastolic heart failure, H TN, severe aortic stenosis, pacemaker, short gut syndrome with chronic TPN since 2004, hx of multiple small bowel surgeries and small bowel obstruction, pyloric stenosis, intestinal malabsorption, macular degeneration, hypothyroidism, chronic anemia, short-term memory issues. Patient was noted to have a fever of 100.6 on 03/14/2020 and was sent for an acute visit at it was found that the patient had positive blood cultures growing Enterobacteriaceae from 03/15/2020. Repeat blood cultures have been obtained in our facility. The patient is COVID- 19 negative. The pt reports being very tired, and is asking for something for sleep. She reports feeling chilled for a few days but cannot recall a fever, she is unaware if she has had a temperature. Pt provides one word answers and does not vo lunteer much information. During exam she has pain with palpation in the RUQ and guards the abdomen, but denies current nausea or issues with vomiting. Yesterday she had one bite of applesauce but primarily receives nutrition through TPN 5d per week through left chest port. Pt reports right leg is typically more swollen than the left, when noticing that it is red, she denies that it is normally like this. She ambulates with a walker with a one assist at baseline. Allergies Allergy/AdvReac Type Severity Reaction Status Date / Time furosemide Allergy Mild HIVES, CAN Verified 03/16/20 03:48 TAKE BUMEX Anesthetics - Traci Type- Allergy Unknown ANAPHYLAXIS Verified 03/16/20 03:48 Parabens benzocaine Allergy Unknown Unknown Verified 03/16/20 03:48 capsaicin Allergy Unknown UNKNOWN Verified 03/16/20 03:48 ceftriaxone Allergy Unknown UNK Verified 03/16/20 03:48 clonazepam Allergy Unknown ? Verified 03/16/20 03:48 cyclobenzaprine Allergy Unknown UNKNOWN Verified 03/16/20 03:48 diclofenac Allergy Unknown UNKNOWN Verified 03/16/20 03:48 diphenhydramine Allergy Unknown UNK Verified 03/16/20 03:48 isopropyl alcohol Allergy Unknown UNKNOWN Verified 03/16/20 03:48 lidocaine Allergy Unknown Unknown Verified 03/16/20 03:48 milk Allergy Unknown Unknown Verified 03/16/20 03:48 naproxen Allergy Unknown UNKNOWN Verified 03/16/20 03:48 octreotide Allergy Unknown HIVES Verified 03/16/20 03:48 pregabalin Allergy Unknown ? Verified 03/16/20 03:48 procaine Allergy Unknown Unknown Verified 03/16/20 03:48 propylene glycol Allergy Unknown UNKNOWN Verified 03/16/20 03:48 scopolamine Allergy Unknown Unknown Verified 03/16/20 03:48 sulfamethoxazole Allergy Unknown UNKNOWN Verified 03/16/20 03:48 trimethoprim Allergy Unknown UNKNOWN Verified 03/16/20 03:48 warfarin AdvReac Severe HEMORRHAGE Verified 03/16/20 03:48 Iodinated Contrast Media AdvReac Intermediate RENAL Verified 03/16/20 03:48 FAILURE fluconazole AdvReac Mild FEVER,NAUSE Verified 03/16/20 03:48 A indomethacin AdvReac Mild N&V Verified 03/16/20 03:48 lactose AdvReac Mild INTOLERANT Verified 03/16/20 03:48 metronidazole AdvReac Mild FEVER,NAUSE Verified 03/16/20 03:48 A buprenorphine AdvReac Unknown diarrhea, Verified 03/16/20 03:48 vomiting codeine AdvReac Unknown MENTAL Verified 03/16/20 03:48 STATUS CHANGES Home Medications Home Medications Medication Instructions Recorded Confirmed Type nitroglycerin [Nitrostat] 0.4 mg SUBLINGUAL DIRECTED PRN 03/14/18 03/16/20 History oxycodone 5 mg PO Q4H PRN #14 tab 03/29/18 03/16/20 Rx epoetin mary [Procrit] 10,000 unit/kg IV MONTHLY 08/18/18 03/16/20 History cholecalciferol (vitamin D3) 2,000 units PO DAILY ml 03/01/19 03/16/20 History diphenoxylate-atropine 2.5 2 tab PO QPM 03/01/19 03/16/20 History mg-0.025 mg tablet metoprolol succinate 50 mg 75 mg PO DAILY tab 03/01/19 03/16/20 History tablet,extended release 24 hr bumetanide 2 mg IV DAILY 03/06/19 03/16/20 History diphenoxylate-atropine [Lomotil] 3 tab PO BID 03/06/19 03/16/20 History diphenoxylate-atropine [Lomotil] 4 tab PO HS@2200 03/06/19 03/16/20 History ondansetron HCl 8 mg IV TID 03/06/19 03/16/20 History melatonin 1 mg tablet 0.5 mg PO HS PRN tab 08/28/19 03/16/20 History acetaminophen 325 mg capsule 650 mg PO Q4H PRN cap 12/18/19 03/16/20 History camphor-menthol 0.5 %-0.5 % lotion 1 applic TOPICAL TID PRN 12/18/19 03/16/20 Hi story carboxymethylcellulose sodium 0.5 1 drops OP QID PRN 12/18/19 03/16/20 History % eye drops ketotifen fumarate 0.025 % (0.035 1 drops OP BID PRN ml 12/18/19 03/16/20 History %) eye drops lamotrigine 100 mg tablet 125 mg PO BID tab 12/18/19 03/16/20 History levothyroxine 175 mcg tablet 175 mcg PO HS 12/18/19 03/16/20 History loperamide 2 mg tablet 2 mg PO Q3H PRN tab 12/18/19 03/16/20 History metolazone 5 mg tablet 5 mg PO 3XWK tab 12/18/19 03/16/20 History ondansetron HCl (PF) 4 mg/2 mL 4 mg IV DAILY PRN ml 12/18/19 03/16/20 History injection solution pantoprazole 40 mg intravenous 40 mg IV BID ea 12/18/19 03/16/20 History solution vit C 250 mg-E 200 unit-zinc 40 1 tab PO DAILY cap 12/18/19 03/16/20 History mg-copper 1 [id number] capsule Quetiapine Topical Cream 0.5 ml TOPICAL AMHS 03/16/20 03/16/20 History Smof Lipids 2x Wk 50 g IV QPM 03/16/20 03/16/20 History Tpn 5x Wk 1,500 ml IV QPM 03/16/20 03/16/20 History Vancomycin/Heparin Flush 1 dose IV QAM 03/16/20 03/16/20 History mirtazapine 7.5 mg PO HS 03/16/20 03/16/20 History sodium chloride 0.9 % (flush) 10 ml IV TID 03/16/20 03/16/20 History [Normal Saline Flush] sodium chloride [Saline Nasal] 1 spray INTRANASAL DIRECTED PRN 03/16/20 03/16/20 History Past Med/Surg History Medical History (Updated 03/16/20 @ 21:12 by Virgie Davis MD) Anemia Anxiety Aortic stenosis SEVERE Arthritis CHF (congestive heart failure) Chronic abdominal pain Chronic nausea Congestive heart failure Progressive, acute on chronic Diarrhea DVT (deep venous thrombosis) Fall History of acute gouty arthritis History of intestinal obstruction History of memory loss History of pseudogout Hypertension Hypothyroidism Kidney disease (11/08/12) Pacemaker SBO (small bowel obstruction) Sepsis 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) Surgical History H/O colectomy H/O dilation and curettage H/O hernia repair H/O: hysterectomy History of appendectomy History of tubal ligation Hx of cholecystectomy Hx of repair of rotator cuff Hx of tonsillectomy Family History Sister Breast cancer Mother Arthritis Myocardial infarction Daughter Immunodeficiency disorder Denies family history of Ovarian cancer Prostate cancer Colorectal cancer Social History Smoking Status: Never smoker Second Hand Exposure: No; Do You Dip or Chew Tobacco: No; Tobacco Cessation Education Requested by Patient: No Hx Alcohol Use: No Hx Substance Use: No Preferred Language: [place] Communication Ability: Effective Visual Impairment: Limited 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: No Beliefs That Will Affect Care: None Current Living Situation: [facility] current occupational status: retired Other Information That Helps Us Care for You: No Feels Safe at Home: Yes Safety Concerns: Feels Safe At This Time Seatbelt Use: always Review of Systems Review of Systems: Constitutional: No fever or sweats, + chills Eyes: No diplopia, no worsening or blurred vision ENT: normal hearing, no trouble swallowing, takes in most nutrition from TPN Respiratory: No cough, sputum, dyspnea at rest or on exertion Cardiovascular: No chest pain, tightness or palpitations Abdomen: + RUQ pain, + chronic nausea, no vomiting, + bowel incontinence, some urinary incontinence Musculoskeletal: No joint pain, calf pain, + chronic BLE swelling Neurologic: No weakness, numbness/tingling, or balance problems Psychiatric: + anxiety and depression Skin: No rash or itch, + erythema of BLE Physical Exam Physical Exam: General: awake, alert, no apparent distress, +frail Head: Normocephalic, atraumatic ENT: PERRL, EOMI, no pharyngeal exudate, mucous membranes moist Chest: + Left chest wall port accessed, diminished breath sounds at bases bilaterally, on room air, no adventitious breath sounds Cardiac: Regular rate and rhythm, + loud systolic murmur radiating to carotids, grade III/, no JVD, normal peripheral pulses, good capillary refill Abdominal: hypoactive BS x 4 quadrants, soft, nondistended, + Tender in RUQ to palpation, + guarding, no rebound Extremities: Normal inspection, +1 peripheral edema BLE, worse in RLE compared to left, + erythema and warmth of RLE, calfs nontender to palpation Psych: Normal mood and affect Neuro: AAO x 3, + short term memory loss, has difficulty with some recall of events, no gross motor deficits, ambulates with 1 assist, speech is clear Results & Data Results & Data ([facility]) Vital Signs (Past 12 Hours) Vital Signs Temp Pulse Resp BP Pulse Ox 03/16/20 07:00 70 22 110/51 L 92 03/16/20 06:30 70 17 121/52 L 94 03/16/20 06:14 69 16 124/56 L 97 03/16/20 05:30 64 18 03/16/20 04:34 37.2 C 69 12 127/54 L 95 03/16/20 04:30 75 19 95 03/16/20 03:33 72 21 94 Diagnostic Findings XR chest 1V portable CLINICAL HISTORY: SEPSIS COMPARISON STUDY: 03/06/2019 FINDINGS: The patient is listing to the left. There is a mild scoliosis. The heart is enlarged. There is a right subclavian dual-chamber central venous pacemaker. There is a left subclavian A-Port catheter. The heart is mildly enlarged. There are persistent left basilar opacities. Trace pleural effusions cannot be excluded.[ IMPRESSION: No significant change from the preceding study. Ill-definition left hemidiaphragm suggesting a small left pleural effusion and/or left basilar atelectasis/consolidation. Persistent blunting of the right lateral costophrenic angle ECG Additional Comments: 16-MAR-2020 03:53:39 [facility]-EDSTAT ROUTINE RETRIEVAL Atrial-sensed ventricular-paced rhythm with prolonged AV conduction Abnormal ECG When compared with ECG of 06-MAR-2019 08:40, Vent. rate has increased BY 5 BPM 25mm/s 10mm/mV 150Hz 9.0.9 12SL 241 JULIUS: 11 Referred by: Samm at [facility] Unconfirmed Vent. rate 70 BPM VA interval 254 ms QRS duration 160 ms QT/QTc 470/507 ms P-R-T axes 27 -72 105 Code Status & VTE Plan Code Status DNR - discussed with pt at bedside Supervising Physician Co-Signing Physician Notes PA Supervision Note: I personally saw and examined the patient. I verified all hewitt points and agree with LISANDRA Lemos with the following exceptions and/or additions: Patient presents from the assisted with confirmed gram-negative bacteremia after having a fever on 03/14. She has a chronic indwelling port and history of multiple port infections requiring removal and replacement. She is on chronic TPN for short gut syndrome and severe malnutrition. She otherwise is feeling fairly well when I saw her after admission on the floor. She denies chest pain or shortness of breath, no abdominal pain unless palpated. Is comfortable and sitting in the chair. She is quite lucid and tells me multiple details about her entire medical history which is all confirmed in the records. She was feeling nauseated earlier but now is improved. Denies vomiting. History and ROS reviewed as above Vitals reviewed Gen: AAOx3, NAD, cachectic with temporal wasting HEENT: Anicteric sclerae, EOMI CV: RRR 3/6 high-pitched DANGELO at the RUSB, right anterior chest wall with pacer in place, left anterior chest wall with port in place and accessed without any surrounding erythema or tenderness Pulm: Mild crackles at the bases bilaterally, no labored breathing Abd: +BS soft, mildly distended with mild tenderness to palpation to the right of midline, multiple incisional scars present with one large pain midline laparotomy scar Ext: 1-2+ pitting edema to the proximal tibia bilaterally, with chronic venous stasis color changes, 2+ DP pulses Skin: Chronic venous stasis changes of the legs, no erythema, otherwise no rashes Neuro: Full strength throughout This is an 84 yo F from [facility] with PMHx of chronic diastolic heart failure, HTN, severe aortic stenosis, pacemaker for complete heart block, short gut syndrome with chronic TPN since 2004 with indwelling A-port, hx of multiple small bowel surgeries and small bowel obstruction, intestinal malabsorption, macular degeneration, hypothyroidism, chronic anemia, short-term memory issues here with gram-negative bacteremia -Continue Zosyn and await culture results -Consider infectious disease consultation -Most likely will just need 2 weeks of IV antibiotics as gram-negative bacteremia not likely to cause port infection -Unclear what the source of her bacteremia is. CT abdomen/pelvis without any source of infection. 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 A49.8 On total parenteral nutrition (TPN) Z78.9 Malnutrition related to chronic disease E46 Aortic stenosis I35.0 Cardiac valve disease etiology: etiology unspecified CHF (congestive heart failure) I50.9 Heart failure due to valvular disease I50.33; I38 Heart failure chronicity: acute on chronic Heart failure type: diastolic Vitamin B12 deficiency E53.8 Anemia N18.3; D63.1 Anemia type: due to chronic kidney disease Chronic kidney disease stage: stage 3 (moderate) CKD (chronic kidney disease) stage 3, GFR 30-59 ml/min N18.3 Hypothyroidism E03.9 Hypothyroidism type: unspecified History of memory loss Z87.898 Peripheral neuropathy G62.9 Insomnia G47.00 Abdominal pain R10.9 Chronic diarrhea K52.9 Transaminitis R74.0 Third degree AV block I44.2 DVT prophylaxis Z29.9 (1) Heart failure due to valvular disease Heart failure chronicity: acute on chronic Heart failure type: diastolic Qualified Code(s): I50.33 - Acute on chronic diastolic (congestive) heart failure; I38 - Endocarditis, valve unspecified (2) Anemia Anemia type: due to chronic kidney disease Chronic kidney disease stage: stage 3 (moderate) Qualified Code(s): N18.3 - Chronic kidney disease, stage 3 (moderate); D63.1 - Anemia in chronic kidney disease (3) Aortic stenosis Cardiac valve disease etiology: etiology unspecified Qualified Code(s): I35.0 - Nonrheumatic aortic (valve) stenosis (4) Hypothyroidism Hypothyroidism type: unspecified Qualified Code(s): E03.9 - Hypothyroidism, unspecified
--- NOTE | 2020-03-16 08:08 | XRay Report ---
XR chest 1V portable CLINICAL HISTORY: SEPSIS COMPARISON STUDY: 03/06/2019 FINDINGS: The patient is listing to the left. There is a mild scoliosis. The heart is enlarged. There is a right subclavian dual-chamber central venous pacemaker. There is a left subclavian A-Port dane ter. The heart is mildly enlarged. There are persistent left basilar opacities. Trace pleural effusio ns cannot be excluded.[ IMPRESSION: No significant change from the preceding study. Ill-definition left hemidiaphragm suggest ing a small left pleural effusion and/or left basilar atelectasis/consolidation. Persistent blunting of the right lateral costophrenic angle ACT 112: Negative or not required by law. Electronically signed by: Adelfo Tan M.D. 03/16/2020 8:07 AM
--- NOTE | 2020-03-16 10:26 | Electrocardiogram Report ---
Test Reason : Blood Pressure : / mmHG Vent. Rate : 070 BPM Atrial Rate : 070 BPM P-R Int : 254 ms QRS Dur : 160 ms QT Int : 470 ms P-R-T Axes : 027 -72 105 degrees QTc Int : 507 ms Atrial-sensed ventricular-paced rhythm with prolonged AV conduction Abnormal ECG When compared with ECG of 06-MAR-2019 08:40, Vent. rate has increased BY 5 BPM SinusRhythm has replaced Atrial paced rhythm Confirmed by Quirino Ambrocio ([id number]) on 03/16/2020 10:25:39 AM Referred By: Samm langford [facility] Confirmed By:Quirino Ambrocio
[2020-03-16] MEDS ORDERED: ONDANSETRON INJ 2 MG/ML 2 ML VIAL IV PRN ×2 (10:59→11:05)
[2020-03-16] MEDS ORDERED: NON-FORMULARY MEDICATION (Pantoprazole [Pantoprazole] 40 MG) IV SCH (10:59)
[2020-03-16] MEDS ORDERED: NON-FORMULARY MEDICATION (Bumetanide [Bumetanide] 2 MG) IV SCH (10:59)
[2020-03-16] MEDS ORDERED: NON-FORMULARY MEDICATION (Ondansetron Hcl [Ondansetron Hcl] 8 MG) IV SCH (10:59)
[2020-03-16] MEDS ORDERED: SODIUM CHLORIDE 0.65% NA SOLN 45 ML (OCEAN) PRN (10:59)
[2020-03-16] MEDS ORDERED: MELATONIN 0.5 MG PO PRN (10:59)
[2020-03-16] MEDS ORDERED: ONDANSETRON INJ 2 MG/ML 2 ML VIAL ONE (11:22)
[2020-03-16] MEDS ORDERED: TPN/PPN CONSULT PHARMACY PRN (11:29)
[2020-03-16] MEDS ORDERED: ACETAMINOPHEN 325 MG TAB PO PRN (11:45)
[2020-03-16] MEDS ORDERED: ARTIFICIAL TEARS OP PRN (11:47)
[2020-03-16 12:22] LABS: Folate (Folic Acid) 13.14 ng/ml (>5.38)
[2020-03-16] MEDS: PIPERACILLIN/TAZOBACTAM 3.375 GM in DEXTROSE 5% 100 ML IV SCH ×2 (12:27→19:40)
[2020-03-16] MEDS: PANTOprazole 40 MG in SYRINGE 0 ML IV SCH ×2 (12:29→21:06)
[2020-03-16] MEDS ORDERED: BUMETANIDE 2 MG in SYRINGE 0 ML IV SCH (12:30)
[2020-03-16] MEDS: CHOLECALCIFEROL 1,000 UNITS 25 MCG TAB PO SCH ×2 (12:31→13:23)
[2020-03-16] MEDS: lamoTRIgine 25 MG TAB PO SCH ×3 (12:32→21:06)
[2020-03-16] MEDS: DIPHENOXYLATE/ATROPINE 2.5/0.025MG TAB PO SCH ×3 (12:32→21:05)
[2020-03-16] MEDS: METOPROLOL SUCC 25MG EXT REL TAB PO SCH ×2 (12:33→13:20)
--- NOTE | 2020-03-16 13:46 | CT Scan Report ---
CT SCAN OF THE ABDOMEN AND PELVIS WITHOUT CONTRAST CLINICAL HISTORY: Abdominal pain and bacteremia. COMPARISON STUDY: 03/06/2019 TECHNIQUE: CT scan of the abdomen and pelvis was performed from the lung bases to the proximal femurs . Images are reviewed in the axial, sagittal, and coronal planes. IV contrast was not administered fo r this examination. A dose lowering technique was utilized adhering to the principles of ALARA. CT DOSE: 463.43 mGy.cm FINDINGS: Lower chest: There is scattered parenchymal densities likely atelectatic. There are coronary artery c alcifications. Heart is enlarged. Liver: There is trace perihepatic fluid. No focal hepatic masses are visualized in this noncontrast s tudy. Underlying hepatic cirrhosis is suspected. Gallbladder: Not visualized presumed surgically absent Spleen: Normal in size and attenuation. Pancreas: Unremarkable. Adrenal glands: Unremarkable. Kidneys: No renal, ureteral, or bladder calculi are visualized. Bowel: There are postsurgical changes of a presumed right hemicolectomy. There are multiple small bow el anastomoses. There are mildly dilated fluid-filled small bowel loops with areas of more normal bailey iber small bowel. The findings are suggestive of a partial small bowel obstruction. Findings are less pronounced than on the preceding examination. Peritoneum: There is trace perihepatic fluid. There is no free intraperitoneal air. Vasculature: The abdominal aorta is normal in course and caliber. Adenopathy: None. Pelvic viscera: The uterus is surgically absent. There is a 5 cm right pelvic cystic structure, bladd er diverticulum versus adnexal cyst. Skeletal structures: There are postsurgical changes present within the lumbar spine. There is a total left hip arthroplasty. IMPRESSION: 1. Examination limited due to the lack of intravenous and oral contrast 2. Extensive postsurgical changes involving the bowel 3. Mildly dilated fluid-filled loops of small bowel. A partial small bowel obstruction is suspected. This appears improved when compared the prior study 4. Hepatic cirrhosis 5. Right-sided bladder diverticulum versus cystic adnexal lesion ACT 112: Negative or not required by law. Electronically signed by: Adelfo Tan M.D. 03/16/2020 1:45 PM
[2020-03-16] MEDS: SODIUM CHLORIDE 0.9% 10ML FLUSH IV SCH ×2 (14:12→21:03)
[2020-03-16] MEDS: ondansetron HCL 8 MG in DEXTROSE 5% 50 ML IV SCH ×2 (14:12→20:53)
[2020-03-16] MEDS: D5NSS + 20MEQ KCL 20 MEQ/1,000 ML BAG IV SCH (15:06)
[2020-03-16] MEDS: MAGNESIUM SULFATE / D5W 1 GM/100 ML BAG IV SCH ×2 (19:25→21:09)
[2020-03-16] MEDS ORDERED: TPN IV SCH (21:00)
[2020-03-16] MEDS ORDERED: LIPID EMULSION IV SCH (21:00)
[2020-03-16] MEDS: MIRTAZAPINE TAB 15 MG TAB PO SCH (21:04)
[2020-03-16] MEDS: LEVOTHYROXINE SODIUM 175 MCG TABLET PO SCH (21:05)
--- NOTE | 2020-03-16 22:38 | Emergency Department Note ---
History of Present Illness General Chief complaint: Abnormal Labs/Diagnostic Testing Stated complaint: ABNORMAL LAB Time Seen by Provider: 03/16/20 03:31 Source: patient, EMS, RN notes reviewed and old records reviewed Mode of arrival: EMS Limitations: no limitations History of Present Illness Provider complaint: + Blood culture Onset (ago): day(s) 2 This is an 84-year-old female sent in by her care home over concerns that the patient has positive blood cultures. The patient has a port in place and is believed this is a source of the positive blood cultures. The patient herself has no complaints she is requesting water. She denies any fevers chills abdominal pain. Home Medications Home Medications Medication Instructions Recorded Confirmed Type nitroglycerin [Nitrostat] 0.4 mg SUBLINGUAL DIRECTED PRN 03/14/18 03/16/20 History oxycodone 5 mg PO Q4H PRN #14 tab 03/29/18 03/16/20 Rx epoetin mary [Procrit] 10,000 unit/kg IV MONTHLY 08/18/18 03/16/20 History cholecalciferol (vitamin D3) 2,000 units PO DAILY ml 03/01/19 03/16/20 History diphenoxylate-atropine 2.5 2 tab PO QPM 03/01/19 03/16/20 History mg-0.025 mg tablet metoprolol succinate 50 mg 75 mg PO DAILY tab 03/01/19 03/16/20 History tablet,extended release 24 hr bumetanide 2 mg IV DAILY 03/06/19 03/16/20 History diphenoxylate-atropine [Lomotil] 3 tab PO BID 03/06/19 03/16/20 History diphenoxylate-atropine [Lomotil] 4 tab PO HS@2200 03/06/19 03/16/20 History ondansetron HCl 8 mg IV TID 03/06/19 03/16/20 History melatonin 1 mg tablet 0.5 mg PO HS PRN tab 08/28/19 03/16/20 History acetaminophen 325 mg capsule 650 mg PO Q4H PRN cap 12/18/19 03/16/20 History camphor-menthol 0.5 %-0.5 % lotion 1 applic TOPICAL TID PRN 12/18/19 03/16/20 History carboxymethylcellulose sodium 0.5 1 drops OP QID PRN 12/18/19 03/16/20 History % eye drops ketotifen fumarate 0.025 % (0.035 1 drops OP BID PRN ml 12/18/19 03/16/20 History %) eye drops lamotrigine 100 mg tablet 125 mg PO BID tab 12/18/19 03/16/20 History levothyroxine 175 mcg tablet 175 mcg PO HS 12/18/19 03/16/20 History loperamide 2 mg tablet 2 mg PO Q3H PRN tab 12/18/19 03/16/20 History metolazone 5 mg tablet 5 mg PO 3XWK tab 12/18/19 03/16/20 History ondansetron HCl (PF) 4 mg/2 mL 4 mg IV DAILY PRN ml 12/18/19 03/16/20 History injection solution pantoprazole 40 mg intravenous 40 mg IV BID ea 12/18/19 03/16/20 History solution vit C 250 mg-E 200 unit-zinc 40 1 tab PO DAILY cap 12/18/19 03/16/20 History mg-copper 1 ru-aqyloa-rvsnso capsule Quetiapine Topical Cream 0.5 ml TOPICAL AMHS 03/16/20 03/16/20 History Smof Lipids 2x Wk 50 g IV QPM 03/16/20 03/16/20 History Tpn 5x Wk 1,500 ml IV QPM 03/16/20 03/16/20 History Vancomycin/Heparin Flush 1 dose IV QAM 03/16/20 03/16/20 History mirtazapine 7.5 mg PO HS 03/16/20 03/16/20 History sodium chloride 0.9 % (flush) 10 ml IV TID 03/16/20 03/16/20 History [Normal Saline Flush] sodium chloride [Saline Nasal] 1 spray INTRANASAL DIRECTED PRN 03/16/20 03/16/20 History Allergies Allergy/AdvReac Type Severity Reaction Status Date / Time furosemide Allergy Mild HIVES, CAN Verified 03/16/20 03:48 TAKE BUMEX Anesthetics - Traci Type- Allergy Unknown ANAPHYLAXIS Verified 03/16/20 03:48 Parabens benzocaine Allergy Unknown Unknown Verified 03/16/20 03:48 capsaicin Allergy Unknown UNKNOWN Verified 03/16/20 03:48 ceftriaxone Allergy Unknown UNK Verified 03/16/20 03:48 clonazepam Allergy Unknown ? Verified 03/16/20 03:48 cyclobenzaprine Allergy Unknown UNKNOWN Verified 03/16/20 03:48 diclofenac Allergy Unknown UNKNOWN Verified 03/16/20 03:48 diphenhydramine Allergy Unknown UNK Verified 03/16/20 03:48 isopropyl alcohol Allergy Unknown UNKNOWN Verified 03/16/20 03:48 lidocaine Allergy Unknown Unknown Verified 03/16/20 03:48 milk Allergy Unknown Unknown Verified 03/16/20 03:48 naproxen Allergy Unknown UNKNOWN Verified 03/16/20 03:48 octreotide Allergy Unknown HIVES Verified 03/16/20 03:48 pregabalin Allergy Unknown ? Verified 03/16/20 03:48 procaine Allergy Unknown Unknown Verified 03/16/20 03:48 propylene glycol Allergy Unknown UNKNOWN Verified 03/16/20 03:48 scopolamine Allergy Unknown Unknown Verified 03/16/20 03:48 sulfamethoxazole Allergy Unknown UNKNOWN Verified 03/16/20 03:48 trimethoprim Allergy Unknown UNKNOWN Verified 03/16/20 03:48 warfarin AdvReac Severe HEMORRHAGE Verified 03/16/20 03:48 Iodinated Contrast Media AdvReac Intermediate RENAL Verified 03/16/20 03:48 FAILURE fluconazole AdvReac Mild FEVER,NAUSE Verified 03/16/20 03:48 A indomethacin AdvReac Mild N&V Verified 03/16/20 03:48 lactose AdvReac Mild INTOLERANT Verified 03/16/20 03:48 metronidazole AdvReac Mild FEVER,NAUSE Verified 03/16/20 03:48 A buprenorphine AdvReac Unknown diarrhea, Verified 03/16/20 03:48 vomiting codeine AdvReac Unknown MENTAL Verified 03/16/20 03:48 STATUS CHANGES Past Med/Surg History Medical History Anemia Anxiety Aortic stenosis SEVERE Arthritis CHF (congestive heart failure) Chronic abdominal pain Chronic nausea Congestive heart failure Progressive, acute on chronic Diarrhea DVT (deep venous thrombosis) Fall History of acute gouty arthritis History of intestinal obstruction History of memory loss History of pseudogout Hypertension Hypothyroidism Kidney disease (11/08/12) Pacemaker SBO (small bowel obstruction) Sepsis 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) Surgical History H/O colectomy H/O dilation and curettage H/O hernia repair H/O: hysterectomy History of appendectomy History of tubal ligation Hx of cholecystectomy Hx of repair of rotator cuff Hx of tonsillectomy Family History Sister Breast cancer Mother Arthritis Myocardial infarction Daughter Immunodeficiency disorder Denies family history of Ovarian cancer Prostate cancer Colorectal cancer Social History Smoking Status: Never smoker Second Hand Exposure: No; Do You Dip or Chew Tobacco: No; Tobacco Cessation Education Requested by Patient: No Hx Alcohol Use: No Hx Substance Use: No Preferred Language: Estonian Communication Ability: Effective Visual Impairment: Limited Spring Internship Required: No Beliefs That Will Affect Care: None Current Living Situation: Intermediate current occupational status: retired Other Information That Helps Us Care for You: No Feels Safe at Home: Yes Safety Concerns: Feels Safe At This Time Seatbelt Use: always Review of Systems A total of 10 systems reviewed and were otherwise negative Physical Exam Vital Signs Vital Signs - 24 hr 03/16/20 03:33 03/16/20 04:30 03/16/20 04:34 Temperature 37.2 C Temperature Source Oral Pulse Rate 72 75 69 Pulse Rate from SpO2 Sensor 73 69 Respiratory Rate 21 19 12 Respiratory Effort / Characteristics Non-Labored Spontaneous Respiratory Depth Normal Blood Pressure 127/54 L Blood Pressure Mean 78 Pulse Oximetry 94 95 95 Oxygen Delivery Method Room Air Room Air Room Air Sepsis New/Unexplained Change in Mental Status N/A Sepsis Action Taken by Nursing No Action Required 03/16/20 05:30 03/16/20 06:14 03/16/20 06:30 Temperature Temperature Source Pulse Rate 64 69 70 Pulse Rate from SpO2 Sensor 70 70 Respiratory Rate 18 16 17 Respiratory Effort / Characteristics Respiratory Depth Blood Pressure 124/56 L 121/52 L Blood Pressure Mean 84 81 Pulse Oximetry 97 94 Oxygen Delivery Method Room Air Room Air Sepsis New/Unexplained Change in Mental Status Sepsis Action Taken by Nursing 03/16/20 07:00 Temperature Temperature Source Pulse Rate 70 Pulse Rate from SpO2 Sensor 70 Respiratory Rate 22 Respiratory Effort / Characteristics Respiratory Depth Blood Pressure 110/51 L Blood Pressure Mean 85 Pulse Oximetry 92 Oxygen Delivery Method Room Air Sepsis New/Unexplained Change in Mental Status Sepsis Action Taken by Nursing VITAL SIGNS - Vital signs and nursing notes were reviewed. GENERAL - 84-year-old female appearing cachectic who is in no acute distress. Communicates well with provider and answers questions appropriately. SKIN - Without rashes. HEAD - NC/AT. EYES - PERRL with EOMI bilaterally. Sclera anicteric. Palpebral conjunctiva pink and moist with no injection noted. EARS - No deformities of external structures noted on gross examination bilaterally. No pain elicited with palpation of the tragus bilaterally. External auditory canals without discharge or otorrhea. Tympanic membranes pearly barth without retraction or bulging. No fluid or purulent material visualized behind the TM. Handle of malleus, umbo, cone of light, pars tensa/flaccid all easily visualized. NOSE - Midline and without cyanosis. No epistaxis or purulent drainage noted. Septum midline without deviation or septal hematoma noted. MOUTH/OROPHARYNX - Without perioral cyanosis. Buccal mucosa pink and moist and without leukoplakia. Tongue midline with equal elevation of palate bilaterally. No tonsillar hypertrophy, erythema, or exudates noted. dentition noted. NECK - Neck with FROM. Supple to palpation. lymphadenopathy noted. No nuchal rigidity. LUNGS - Chest wall symmetric without accessory muscle use, intercostals retractions, or central cyanosis. Normal vesicular breath sounds CTA B/L. No wheezes, rales, or rhonchi appreciated. CHEST: Port in place, no evidence of erythema or discharge CARDIAC - RRR with S1/S2. No murmur, rubs, or gallops appreciated. ABDOMEN - Abdominal contour without pulsations or visible masses. BS normoactive all four quadrants. No tenderness, palpable masses, hepatosplenom egaly, or ascites noted. EXTREMITIES - No clubbing or peripheral cyanosis. No pretibial edema present. +3/5 radial, posterior tibial, and dorsalis pedis pulses palpated throughout. +5/5 strength noted in UE/LE bilaterally. NEUROLOGIC - Cranial nerves II through XII grossly intact. Sensory intact to light touch throughout. Patellar reflexes +2/4. PSYCH - A&Ox3 and cooperates fully with examiner. Pt is very pleasant and interacts well with examiner. Course Administered Medications Diphenoxylate HCl/Atropine (Diphenoxylate/Atropine 2.5/0.025mg Tab) 3 tab PO BID@0800,1200 [facility] Stop: 04/15/20 12:29 Last Admin: 03/16/20 12:32 Dose: 3 tab Documented by: [id number] Diphenoxylate HCl/Atropine (Diphenoxylate/Atropine 2.5/0.025mg Tab) 4 tab PO HS@2200 [facility] Stop: 04/15/20 21:59 Last Admin: 03/16/20 21:05 Dose: 4 tab Documented by: [id number] Diphenoxylate HCl/Atropine (Diphenoxylate/Atropine 2.5/0.025mg Tab) 2 tab PO DAILY@1700 [facility] Stop: 04/15/20 16:59 Last Admin: 03/16/20 17:04 Dose: 2 tab Documented by: [id number] Piperacillin Sod/Tazobactam (Sod 3.375 gm/ Dextrose) 115 mls @ 28.75 mls/hr IV Q8H [facility]; Protocol Stop: 03/30/20 11:59 Last Admin: 03/16/20 19:40 Dose: 28.8 mls/hr Documented by: [id number] Infusion: 03/16/20 16:41 Dose: 0 mls/hr Documented by: [id number] Infusion: 03/16/20 14:25 Dose: 28.8 mls/hr Documented by: [id number] Infusion: 03/16/20 14:11 Dose: 0 mls/hr Documented by: [id number] Admin: 03/16/20 12:27 Dose: 28.8 mls/hr Documented by: [id number] Pantoprazole Sodium 40 mg/ (Syringe) 10 mls @ 5 mls/min IV BID@0900,2100 [facility] Stop: 04/15/20 08:59 Last Admin: 03/16/20 21:06 Dose: 5 mls/min Documented by: [id number] Admin: 03/16/20 12:29 Dose: 5 mls/min Documented by: [id number] Bumetanide 2 mg/ Syringe 8 mls @ 4 mls/min IV DAILY [facility] Stop: 04/15/20 08:59 Last Admin: 03/16/20 13:00 Dose: 4 mls/min Documented by: [id number] Ondansetron HCl 8 mg/ Dextrose 54 mls @ 216 mls/hr IV TID [facility] Stop: 04/15/20 13:59 Last Admin: 03/16/20 20:53 Dose: Not Given Documented by: [id number] Infusion: 03/16/20 14:27 Dose: 0 mls/hr Documented by: [id number] Admin: 03/16/20 14:12 Dose: 216 mls/hr Documented by: [id number] Potassium Chloride/Dextrose/Sod Cl (D5nss + 20meq Kcl) 20 meq in 1,000 mls @ 60 mls/hr IV .[id number] [facility] Stop: 04/15/20 14:59 Last Admin: 03/16/20 15:06 Dose: 60 mls/hr Documented by: [id number] Lamotrigine (Lamotrigine 25 Mg Tab) 125 mg PO BID [facility] Stop: 04/15/20 10:58 Last Admin: 03/16/20 21:06 Dose: 125 mg Documented by: [id number] Admin: 03/16/20 13:20 Dose: Not Given Documented by: [id number] Levothyroxine Sodium (Levothyroxine Sodium 175 Mcg Tablet) 175 mcg PO [facility] Stop: 04/15/20 20:59 Last Admin: 03/16/20 21:05 Dose: 175 mcg Documented by: [id number] Metoprolol Succinate (Metoprolol Succ 25mg Ext Rel Tab) 75 mg PO DAILY [facility] Stop: 04/15/20 10:58 Last Admin: 03/16/20 13:20 Dose: Not Given Documented by: [id number] Mirtazapine (Mirtazapine Tab 15 Mg Tab) 7.5 mg PO [facility] Stop: 04/15/20 20:59 Last Admin: 03/16/20 21:04 Dose: 7.5 mg Documented by: [id number] Miscellaneous (Camphor-Menthol 1 Appln ~ Order Awaiting Action) 1 ea N/A QS [facility] Stop: 04/15/20 15:59 Last Admin: 03/16/20 15:06 Dose: Not Given Documented by: [id number] Miscellaneous (Ketotifen Fumarate ~ Order Awaiting Action) 1 ea N/A QS [facility] Stop: 04/15/20 15:59 Last Admin: 03/16/20 15:06 Dose: Not Given Documented by: [id number] Miscellaneous (Quetiapine Topical Cream 0.5 Ml~ Order Awaiting Action) 1 ea N/A QS [facility] Stop: 04/15/20 15:59 Last Admin: 03/16/20 15:06 Dose: Not Given Documented by: [id number] Sodium Chloride (Sodium Chloride 0.9% 10ml Flush) 10 ml IV TID [facility] Stop: 04/15/20 13:59 Last Admin: 03/16/20 21:03 Dose: Not Given Documented by: [id number] Admin: 03/16/20 14:12 Dose: 10 ml Documented by: [id number] Vitamin D (Cholecalciferol 1,000 Units 25 Mcg Tab) 2,000 units PO DAILY [facility] Stop: 04/15/20 12:29 Last Admin: 03/16/20 13:23 Dose: Not Given Documented by: [id number] Discontinued Medications Piperacillin Sod/Tazobactam Sod (Zosyn) 4.5 gm in 120 mls @ 240 mls/hr IV NOW ONE Stop: 03/16/20 05:31 Last Infusion: 03/16/20 06:55 Dose: 0 mls/hr Documented by: [id number] Admin: 03/16/20 06:14 Dose: 240 mls/hr Documented by: [id number] Daptomycin 300 mg/ Syringe 6 mls @ 3 mls/min IV NOW ONE; Protocol Stop: 03/16/20 05:03 Last Admin: 03/16/20 06:10 Dose: 3 mls/min Documented by: [id number] Magnesium Sulfate/Dextrose (Magnesium Sulfate / D5w) 1 gm in 100 mls @ 50 mls/hr IV Q2H [facility] Stop: 03/16/20 22:29 Last Admin: 03/16/20 21:09 Dose: 50 mls/hr Documented by: [id number] Infusion: 03/16/20 21:09 Dose: 50 mls/hr Documented by: [id number] Admin: 03/16/20 19:25 Dose: 50 mls/hr Documented by: [id number] Ondansetron HCl (Ondansetron Inj 2 Mg/Ml 2 Ml Vial) Confirm Administered Dose 4 mg .ROUTE .STK-MED ONE Stop: 03/16/20 11:23 Last Admin: 03/16/20 11:36 Dose: 4 mg Documented by: [id number] Medical Decision Making Differential Diagnosis Sepsis, UTI, pneumonia, metabolic, electrolyte abnormalities, cardiac sources, intracerebral event, toxicologic, neurologic, as well as other pathologies. Medical Records Attestation: I reviewed the patient's medical records. Home Medications Current Medication List: was personally reviewed by me Laboratory Data Attestation: I reviewed the patient's lab results. Result diagrams: 03/16/20 04:21 03/16/20 04:21 Lab Results 03/16/20 03/16/20 03/16/20 Range/Units 04:21 04:21 04:21 WBC 7.97 (4.8-10.8) K/uL RBC 3.33 L (4.2-5.4) M/uL Hgb 10.5 L (12.0-16.0) g/dL Hct 32.6 L (37-47) % MCV 97.9 (80-100) fL MCH 31.5 (25-34) pg MCHC 32.2 (32-36) g/dL RDW Std Deviation 51.0 H (36.4-46.3) fL RDW Coeff of Gabe 14.1 (11.5-14.5) % Plt Count 121 L (130-400) K/uL MPV 9.9 (7.4-10.4) fL Immature Gran % (Auto) 0.1 % Neut % (Auto) 83.1 % Lymph % (Auto) 10.8 % [place] % (Auto) 4.8 % Eos % (Auto) 1.1 % Baso % (Auto) 0.1 % Neut # (Auto) 6.62 H (1.4-6.5) K/uL Lymph # (Auto) 0.86 L (1.2-3.4) K/uL [place] # (Auto) 0.38 (0.11-0.59) K/uL Eos # (Auto) 0.09 (0-0.5) K/uL Baso # (Auto) 0.01 (0-0.2) K/uL Immature Gran # (Auto) 0.01 (0.00-0.02) K/uL PT 11.3 (9.0-12.0) Seconds INR 1.1 (0.9-1.1) APTT 25.6 (21.0-31.0) Seconds PTT Ratio 0.9 Sodium 138 (136-145) mmol/L Potassium 3.6 (3.5-5.1) mmol/L Chloride 96 L (98-107) mmol/L Carbon Dioxide 36 H (21-32) mmol/L Anion Gap 6.0 (3-11) BUN 68 H (7-18) mg/dl Creatinine 1.28 H (0.6-1.2) mg/dl Est Cr Clr Drug Dosing 25.1 ml/min Est GFR ( Amer) 44.8 Est GFR (Non-Af Amer) 38.6 BUN/Creatinine Ratio 52.9 H (10-20) Glucose 91 (70-99) mg/dl Lactate (0.4-2.0) mmol/L Calcium 8.8 (8.5-10.1) mg/dl Magnesium 1.6 L (1.8-2.4) mg/dl Total Bilirubin 0.6 (0.2-1) mg/dl AST 63 H (15-37) U/L ALT 40 (12-78) U/L Alkaline Phosphatase 198 H (45-117) U/L Troponin I 0.022 (0-0.045) ng/ml Total Protein 6.7 (6.4-8.2) gm/dl Albumin 2.2 L (3.4-5.0) gm/dl Globulin 4.5 H (2.5-4.0) gm/dl Albumin/Globulin Ratio 0.5 L (0.9-2) Procalcitonin (0-0.5) ng/ml TSH (0.300-4.500) uIu/ml COVID-19 Eval Order COVID-19 PCR (Negative) 03/16/20 03/16/20 03/16/20 Range/Units 04:21 04:21 04:21 WBC (4.8-10.8) K/uL RBC (4.2-5.4) M/uL Hgb (12.0-16.0) g/dL Hct (37-47) % MCV (80-100) fL MCH (25-34) pg MCHC (32-36) g/dL RDW Std Deviation (36.4-46.3) fL RDW Coeff of Gabe (11.5-14.5) % Plt Count (130-400) K/uL MPV (7.4-10.4) fL Immature Gran % (Auto) % Neut % (Auto) % Lymph % (Auto) % [place] % (Auto) % Eos % (Auto) % Baso % (Auto) % Neut # (Auto) (1.4-6.5) K/uL Lymph # (Auto) (1.2-3.4) K/uL [place] # (Auto) (0.11-0.59) K/uL Eos # (Auto) (0-0.5) K/uL Baso # (Auto) (0-0.2) K/uL Immature Gran # (Auto) (0.00-0.02) K/uL PT (9.0-12.0) Seconds INR (0.9-1.1) APTT (21.0-31.0) Seconds PTT Ratio Sodium (136-145) mmol/L Potassium (3.5-5.1) mmol/L Chloride (98-107) mmol/L Carbon Dioxide (21-32) mmol/L Anion Gap (3-11) BUN (7-18) mg/dl Creatinine (0.6-1.2) mg/dl Est Cr Clr Drug Dosing ml/min Est GFR ( Amer) Est GFR (Non-Af Amer) BUN/Creatinine Ratio (10-20) Glucose (70-99) mg/dl Lactate 0.9 (0.4-2.0) mmol/L Calcium (8.5-10.1) mg/dl Magnesium (1.8-2.4) mg/dl Total Bilirubin (0.2-1) mg/dl AST (15-37) U/L ALT (12-78) U/L Alkaline Phosphatase (45-117) U/L Troponin I (0-0.045) ng/ml Total Protein (6.4-8.2) gm/dl Albumin (3.4-5.0) gm/dl Globulin (2.5-4.0) gm/dl Albumin/Globulin Ratio (0.9-2) Procalcitonin 0.27 (0-0.5) ng/ml TSH 2.560 (0.300-4.500) uIu/ml COVID-19 Eval Order COVID-19 PCR (Negative) 03/16/20 03/16/20 Range/Units 06:00 06:00 WBC (4.8-10.8) K/uL RBC (4.2-5.4) M/uL Hgb (12.0-16.0) g/dL Hct (37-47) % MCV (80-100) fL MCH (25-34) pg MCHC (32-36) g/dL RDW Std Deviation (36.4-46.3) fL RDW Coeff of Gaeb (11.5-14.5) % Plt Count (130-400) K/uL MPV (7.4-10.4) fL Immature Gran % (Auto) % Neut % (Auto) % Lymph % (Auto) % [place] % (Auto) % Eos % (Auto) % Baso % (Auto) % Neut # (Auto) (1.4-6.5) K/uL Lymph # (Auto) (1.2-3.4) K/uL [place] # (Auto) (0.11-0.59) K/uL Eos # (Auto) (0-0.5) K/uL Baso # (Auto) (0-0.2) K/uL Immature Gran # (Auto) (0.00-0.02) K/uL PT (9.0-12.0) Seconds INR (0.9-1.1) APTT (21.0-31.0) Seconds PTT Ratio Sodium (136-145) mmol/L Potassium (3.5-5.1) mmol/L Chloride (98-107) mmol/L Carbon Dioxide (21-32) mmol/L Anion Gap (3-11) BUN (7-18) mg/dl Creatinine (0.6-1.2) mg/dl Est Cr Clr Drug Dosing ml/min Est GFR ( Amer) Est GFR (Non-Af Amer) BUN/Creatinine Ratio (10-20) Glucose (70-99) mg/dl Lactate (0.4-2.0) mmol/L Calcium (8.5-10.1) mg/dl Magnesium (1.8-2.4) mg/dl Total Bilirubin (0.2-1) mg/dl AST (15-37) U/L ALT (12-78) U/L Alkaline Phosphatase (45-117) U/L Troponin I (0-0.045) ng/ml Total Protein (6.4-8.2) gm/dl Albumin (3.4-5.0) gm/dl Globulin (2.5-4.0) gm/dl Albumin/Globulin Ratio (0.9-2) Procalcitonin (0-0.5) ng/ml TSH (0.300-4.500) uIu/ml COVID-19 Eval Order Covid19 Done at [facility] COVID-19 PCR NEGATIVE (Negative) Imaging Data Radiologist's Impression: [place], [place] [phone] XRay Report Patient: AMIRAH REID AAdmit Date: 03/16/20 MR#: [id number]: 1949 [address] Acct ID:[id number]: Date: 6City Zip: [place] [address] Age: 84Location: ED Sex: FRoom/Bed: Att Phy:Diagnosis: ABNORMAL LAB [facility]: [facility] F[facility] Phy:Interpreting Phy: Adelfo Tan MD Admit Phy: Ordering Phy: Marlon Petit MD cc: ~ XR chest 1V portable CLINICAL HISTORY: SEPSIS COMPARISON STUDY: 03/06/2019 FINDINGS: The patient is listing to the left. There is a mild scoliosis. The heart is enlarged. There is a right subclavian dual-chamber central venous pacemaker. There is a left subclavian A-Port catheter. The heart is mildly enlarged. There are persistent left basilar opacities. Trace pleural effusions cannot be excluded.[ IMPRESSION: No significant change from the preceding study. Ill-definition left hemidiaphragm suggesting a small left pleural effusion and/or left basilar atelectasis/consolidation. Persistent blunting of the right lateral costophrenic angle ACT 112: Negative or not required by law. Electronically signed by: Adelfo Tan M.D. 03/16/2020 8:07 AM Dictated: 03/16/20804 Transcribed: 03/16/20804 ECG Data Attestation: I personally reviewed and interpreted this ECG as follows: Indication: + other (paced rythym) Rate (beats per minute): 70 Rhythm: + other (paced) ECG Intervals/blocks: + Prolonged QT (507) ECG [place]: + Normal ECG ST segments: no ST depression and no ST elevation Comparison ECG Date: from (03/06/2019) Change: no significant change MDM Narrative Patient was seen and evaluated as above in room C12. Review was performed of nursing notes and vital signs. I did review pertinent previous visits and patient history. After obtaining a thorough history and physical examination the above work up was performed. This is an 84-year-old female who presents emergency department sent in for positive blood cultures. Patient herself denies any complaints. She does not have an elevation in white blood cell count. I did discuss the case with the hospitalist service. She was started on broad-spectrum antibiotics here in the emergency department. Blood cultures were repeated. While in the department, I personally reevaluated the patient several times and each time the patient was found to be resting comfortably. The patient was educated upon management, educated upon todays findings/results, educated upon importance of follow up from today's visit, educated upon symptoms in which to return, had questions answered prior to discharge, verbalized understanding, and was discharged home in good condition. An order was placed for continuous cardiac monitoring. The monitor shows a rate of 70 with paced rhythm. The patient was evaluated during the global COVID-19 pandemic, and that diagnosis was suspected/considered upon their initial presentation. Their evaluation, treatment and testing was consistent with current guidelines for patients who present with complaints or symptoms that may be related to COVID- 19. Impression & Plan Positive blood culture Discharge Plan Visit Data Chief Complaint: Abnormal Labs/Diagnostic Testing Stated Complaint: ABNORMAL LAB ED Provider: Marlon Petit Discharge Problem: Positive blood culture Patient Disposition: Admitted As Inpatient Discharge Instructions Interventions: ED Discharge Assessment Last Done: 03/16/20 10:43
[2020-03-16] MEDS ORDERED: HEPARIN 100 UNIT/ML 5ML FLUSH FLUSH PRN (23:01)
[2020-03-17] MEDS: PIPERACILLIN/TAZOBACTAM 3.375 GM in DEXTROSE 5% 100 ML IV SCH ×2 (04:10→16:53)
[2020-03-17 05:57] LABS: Hematocrit (blood only) 27.9 % (37-47); Hemoglobin 9.1 g/dL (12.0-16.0); Mean Corpuscular Hgb Conc 32.6 g/dL (32-36); Mean Corpuscular Volume 98.2 fL (80-100); RDW Coefficient of Variation 14.5 % (11.5-14.5); RDW Standard Deviation 52.4 fL (36.4-46.3); Red Blood Count 2.84 M/uL (4.2-5.4); White Blood Count 7.68 K/uL (4.8-10.8)
[2020-03-17 06:18] LABS: Platelet Count 94 K/uL (130-400); Platelet Estimate Decreased (Normal)
[2020-03-17 06:32] LABS: Albumin Level 1.7 gm/dl (3.4-5.0); BUN Creatinine Ratio 38.1 (10-20); Calcium 8.2 mg/dl (8.5-10.1); Creatinine Clr Calc Pharmacy 17.2 ml/min; Est GFR (African American) 28.3; Est GFR (Non-African American) 24.4; Magnesium 2.4 mg/dl (1.8-2.4); Potassium 3.5 mmol/L (3.5-5.1)
[2020-03-17 06:46] LABS: Albumin Globulin Ratio 0.4 (0.9-2); Bilirubin,Total 1.4 mg/dl (0.2-1); Globulin 4.2 gm/dl (2.5-4.0); Phosphorus 3.3 mg/dl (2.5-4.9); Total Protein 5.9 gm/dl (6.4-8.2)
[2020-03-17] MEDS: D5NSS + 20MEQ KCL 20 MEQ/1,000 ML BAG IV SCH ×2 (07:13→23:24)
[2020-03-17] MEDS: SODIUM CHLORIDE 0.9% 10ML FLUSH IV SCH ×3 (09:09→21:12)
[2020-03-17] MEDS: ondansetron HCL 8 MG in DEXTROSE 5% 50 ML IV SCH (09:09)
[2020-03-17] MEDS: PANTOprazole 40 MG in SYRINGE 0 ML IV SCH ×2 (09:13→21:10)
[2020-03-17] MEDS: METOPROLOL SUCC 25MG EXT REL TAB PO SCH (10:14)
[2020-03-17] MEDS: DIPHENOXYLATE/ATROPINE 2.5/0.025MG TAB PO SCH ×4 (10:15→21:13)
[2020-03-17] MEDS: lamoTRIgine 25 MG TAB PO SCH ×2 (10:16→21:10)
[2020-03-17] MEDS ORDERED: TPN/PPN CONSULT PHARMACY STA (10:34)
[2020-03-17] MEDS: CEROVITE ADV FORMULA TAB PO SCH (10:43)
[2020-03-17] MEDS: CHOLECALCIFEROL 1,000 UNITS 25 MCG TAB PO SCH (10:43)
[2020-03-17] MEDS ORDERED: ondansetron HCL 8 MG in DEXTROSE 5% 50 ML IV PRN (12:00)
--- NOTE | 2020-03-17 12:06 | Pharmacy Report ---
PHA: Parenteral Nutrition Con - Date of Service March 17, 2020 - Scope Pharmacy was consulted on 03/16/20 to manage parenteral nutrition orders for this patient. - Subjective TPN is currently on hold - Objective Height: 5 ft 1 in Weight: 54 kg Diet: NPO Intake & Output (24hrs):: Intake & Output 03/15/20 03/16/20 03/17/20 03/18/20 06:59 06:59 06:59 06:59 Intake Total 120 / 120 710.667 / 881.987 6488 / 1136 Output Total 100 / 100 Balance 120 / 120 610.667 / 754.249 4050 / 1136 Weight 54 kg 54 kg Laboratory Data (Last 24 Hr):: 03/17/20 05:41 Sodium 139 Potassium 3.5 Chloride 97 L Carbon Dioxide 33 H BUN 71 H Creatinine 1.87 H D Glucose 99 Calcium 8.2 L Phosphorus 3.3 Magnesium 2.4 Total Bilirubin 1.4 H D AST 71 H ALT 42 Alkaline Phosphatase 192 H Albumin 1.7 L Triglycerides 139 Nutrition Assessment:: Please refer to the Notes section of the EMR for the most recent budget manager note. - Assessment Galilea is a 84 yo female on chronic TPN for short gut syndrome, intestinal malabsorption. * Preliminary cultures from [facility] revealed gram negative bacteremia (GNB growing in BC drawn from port and Enterobacteriaceae growing from BC drawn from R hand). Not septic on admission. - Plan * After discussion with provider, it was decided to hold TPN x 48 hours until additional culture data is available. Reassess on 03/18. * Of note, during a 2018 admission, the patient had TPN held due to fungemia. Parenteral nutrition was administered via peripheral line during this time. * If port salvage is plan, consider antibiotic lock therapy in addition to IV antibiotics. It is ideal for lock solution to dwell for a minimum of 12 hours (longer dwell times are to be based on stability-> see Antibiotic Lock Therapy for IV Line Salvage policy/order set) Pharmacy will continue to follow and adjust parenteral nutrition orders on a daily basis. Thank you for allowing us to participate in the care of this patient.
--- NOTE | 2020-03-17 12:14 | Hospitalist Progress Note ---
Date of Service March 17, 2020 Assessment & Plan (1) Infection due to Enterobacteriaceae: This is an 84 yo F from [facility] with PMHx of chronic diastolic heart failure, HTN, severe aortic stenosis, pacemaker for complete heart block, short gut syndrome with chronic TPN since 2004 with indwelling A-port, hx of multiple small bowel surgeries and small bowel obstruction, intestinal malabsorption, macular degeneration, hypothyroidism, chronic anemia, short-term memory issues here with gram-negative bacteremia found on cultures drawn for a fever from 03/14. Blood cultures sent to [facility] laboratory: 1st set from port growing gram neg rods and 2nd set from R hand growing Enterobacteriaceae, without Carbapenem resistance as per rapidfire PCR test, final cultures pending. No evidence of sepsis, remains afebrile, no leukocytosis. Blood pressures are normal. -Continue IV Zosyn -Can call [facility] [place] [facility] ( ) lab for updates - Repeat BCx from 03/16 here-no growth to date -Unclear source-CT abdomen/pelvis without evidence of infection, and urinalysis here appears contaminated, urine culture mixed organisms. She has no open wounds. Her port does not appear infected - CXR from then also appears to be without infection -Will request infectious disease consultation on Wednesday -Most likely will just need 2 weeks of IV antibiotics as gram-negative bacteremia not likely to cause port infection. She does not do well with taking oral medications therefore IV would be a better option for her. -Holding TPN until repeat cultures are negative greater than 48 hours -Continue maintenance IV fluids and holding diuretics in the meantime Follow electrolytes, CBC (2) On total parenteral nutrition (TPN): Daily and runs from 8:30 PM to 8:30 AM at the alf. She usually has vancomycin dwell during the daytime. -Continue to hold off on TPN for now given possibility of infected port-but can restart tomorrow evening if cultures negative x48 hours -Continue maintenance IV fluids and increase rate to 100 mL's per hour for mild acute kidney injury -Cannot give her vancomycin dwell due to continuously running IV fluids (3) Malnutrition related to chronic disease: Noted (4) CKD (chronic kidney disease) stage 3, GFR 30-59 ml/min: With acute kidney injury in the setting of CKD stage III Baseline Cr. of 1.28 and now increased today up to 1.87 Increase maintenance IV fluids to up to 100 mL's per hour Follow BMP in the morning Hold Bumex and metolazone (5) Aortic stenosis: - Severe, noted on echo Seen by cardiology at [facility] and not felt to be a good candidate for valve replacement (6) CHF (congestive heart failure): - chronic diastolic CHF, appears euvolemic, with chronic lower extremity edema -Continue to hold Bumex 2 mg IV daily and metolazone 5 mg PO 3 x /wk until restarted on TPN or if volume status worsens -Continue metoprolol succinate 75 mg daily - Last echo completed 03/05/20 showing normal LV function 50 to 55%, mild concentric LVH, left atrium mildly dilated, severe aortic stenosis, mild mitral regurg. -Pacemaker noted in the right ventricle (7) Heart failure due to valvular disease: - severe aortic stenosis as above Holding diuretics and giving gentle IV fluids at 60 mL's per hour well not receiving TPN and is essentially n.p.o. (8) Vitamin B12 deficiency: - hx of such, B12 levels checked here and are normal (9) Anemia: - Macrocytic anemia - Hgb 10.5, has been lower in the past at 8-10, earlier this month was 11.5 - checked b12 and folate and both are normal Likely anemia of chronic disease, liver dysfunction (10) Hypothyroidism: - Cont levothyroxine - TSH 2.560 (11) Peripheral neuropathy: -Patient follows with Dr. Gann as an outpatient, last saw the beginning of January this year. Continue on mirtazapine 7.5 mg HS for sleep, lamotrigine 125 mg p.o. BID -Patient is primarily confined to wheelchair -Last EMG in October 2010 consistent with polyneuropathy B12 level normal -PT/OT consults (12) Insomnia: - continue home mirtazapine 7.5 mg HS (13) Abdominal pain: With some tenderness on examination initially which is now resolved. CT abdomen/pelvis obtained given gram-negative bacteremia to look for source as well as with tenderness to palpation on examination No source of infection. Fluid-filled loops of small bowel appear consistent with partial small bowel obstruction, although this seems chronic. She is not vomiting and is passing stool. Of note, she is on a very high dose of Lomotil for chronic loose stools-previous notes reviewed and report that patient and family insist on continuing on this dose Watch for obstruction (14) Chronic diarrhea: As above, continue Lomotil for now and watch for bowel obstruction which she had in 03/2019 (15) Transaminitis: Mildly elevated, likely secondary to TPN Follow LFTs (16) Third degree AV block: Now status post pacer, follows with [facility] Continue on telemetry (17) History of memory loss: - hx of depression, COVID-19 pandemic has not allowed her to see her children/family in person and is worsening her mood overall. Overall, she seems to be quite lucid and remembers immense details about her history and knows exactly what is going on here in the hospital (18) DVT prophylaxis: - rizwana, ambulatory CODE: DNR Dispo: From [facility] to assist with dc planning, could potentially be discharged in the next 2 days, awaiting infectious disease consultation for further recommendations and following repeat blood cultures PT/OT consultations requested Discussed her care with her daughter, Amanda Barrow, on the phone at length Admission and Anticipated Discharge Date Admission Date: March 16, 2020 Subjective Patient feeling fairly well. No further abdominal pain, nausea is improved. She is moving her bowels each time she urinates. Denies chest pain or shortness of breath. She remains afebrile. She reports that she does eat mashed potatoes and meat loaf but no vegetables, otherwise sips on water. Review of Systems Review of Systems: All systems reviewed & are unremarkable except as noted in HPI & below Physical Exam Constitutional: + cachectic and + frail appearing; no acute distress Eyes: + eyelid abnormality (Right eye ptosis) and + anicteric sclerae ENMT: external ear and nose normal, oropharynx normal Neck: trachea midline, no thyromegaly Respiratory: normal respiratory effort, lungs clear to auscultation Cardiovascular: Rate/Rhythm: regular rate and regular rhythm Heart Sounds: + murmur (4/6 high-pitched DANGELO at the RUSB) Extremities: + edema (1+ pitting edema in the bilateral lower extremities, with LEOLA hose in place) Chest (Breasts): Chest: + vascular access device or port (Left anterior chest wall with port in place without surrounding erythema; right chest with pacer in place) Gastrointestinal (Abdomen): normal bowel sounds, soft, nontender, no hepatosplenomegaly (Mildly distended) Musculoskeletal: Extremities: no cyanosis and no clubbing Skin: + erythema (Chronic venous stasis changes of the legs bilaterally) Neurologic: moves all extremities and awake; no focal motor deficits Psychiatric: A+Ox3, euthymic affect Results & Data Results & Data ([facility]) Vital Signs (Past 12 Hours) Vital Signs Temp Pulse Resp BP Pulse Ox 03/17/20 11:16 36.4 C L 61 20 111/63 96 03/17/20 07:30 36.5 C 65 20 98/52 L 93 03/17/20 04:24 36.8 C 67 18 107/52 L 93 Laboratory Results 03/17/20 03/17/20 03/17/20 Range/Units 09:01 05:41 05:41 WBC 7.68 (4.8-10.8) K/uL RBC 2.84 L (4.2-5.4) M/uL Hgb 9.1 L (12.0-16.0) g/dL Hct 27.9 L (37-47) % MCV 98.2 (80-100) fL MCH 32.0 (25-34) pg MCHC 32.6 (32-36) g/dL RDW Std Deviation 52.4 H (36.4-46.3) fL RDW Coeff of Gabe 14.5 (11.5-14.5) % Plt Count 94 L (130-400) K/uL MPV 10.0 (7.4-10.4) fL Platelet Estimate Decreased L (Normal) Sodium 139 (136-145) mmol/L Potassium 3.5 (3.5-5.1) mmol/L Chloride 97 L (98-107) mmol/L Carbon Dioxide 33 H (21-32) mmol/L Anion Gap 9.0 (3-11) BUN 71 H (7-18) mg/dl Creatinine 1.87 H D (0.6-1.2) mg/dl Est Cr Clr Drug Dosing 17.2 ml/min Est GFR ( Amer) 28.3 Est GFR (Non-Af Amer) 24.4 BUN/Creatinine Ratio 38.1 H (10-20) Glucose 99 (70-99) mg/dl Calcium 8.2 L (8.5-10.1) mg/dl Phosphorus 3.3 (2.5-4.9) mg/dl Magnesium 2.4 (1.8-2.4) mg/dl Total Bilirubin 1.4 H D (0.2-1) mg/dl AST 71 H (15-37) U/L ALT 42 (12-78) U/L Alkaline Phosphatase 192 H (45-117) U/L Total Protein 5.9 L (6.4-8.2) gm/dl Albumin 1.7 L (3.4-5.0) gm/dl Globulin 4.2 H (2.5-4.0) gm/dl Albumin/Globulin Ratio 0.4 L (0.9-2) Triglycerides 139 (0-150) mg/dl Nasal Screen MRSA (PCR) Negative (Negative) Blood cultures faxed over from [facility] laboratory-culture from 03/15 growing Enterobacteriaceae without Carbapenem resistance, second set growing gram-negative rods not identified yet Blood cultures drawn 03/16 at [facility]-no growth to date PG Care Time/CCT Total # of Minutes Spent Total Time Spent with Patient: Total time spent is greater than 50% in coordination of care (as documented) at patient's floor/unit and/or counseling patient: Coding Level of Care Code 92183 Subseq Hosp Care Lvl 3 Diagnoses Infection due to Enterobacteriaceae A49.8 On total parenteral nutrition (TPN) Z78.9 Malnutrition related to chronic disease E46 CKD (chronic kidney disease) stage 3, GFR 30-59 ml/min N18.3 Aortic stenosis I35.0 Cardiac valve disease etiology: etiology unspecified CHF (congestive heart failure) I50.9 Heart failure due to valvular disease I50.33; I38 Heart failure chronicity: acute on chronic Heart failure type: diastolic Vitamin B12 deficiency E53.8 Anemia N18.3; D63.1 Anemia type: due to chronic kidney disease Chronic kidney disease stage: stage 3 (moderate) Hypothyroidism E03.9 Hypothyroidism type: unspecified Peripheral neuropathy G62.9 Insomnia G47.00 Abdominal pain R10.9 Chronic diarrhea K52.9 Transaminitis R74.0 Third degree AV block I44.2 History of memory loss Z87.898 DVT prophylaxis Z29.9 (1) Heart failure due to valvular disease Heart failure chronicity: acute on chronic Heart failure type: diastolic Qualified Code(s): I50.33 - Acute on chronic diastolic (congestive) heart failure; I38 - Endocarditis, valve unspecified (2) Anemia Anemia type: due to chronic kidney disease Chronic kidney disease stage: stage 3 (moderate) Qualified Code(s): N18.3 - Chronic kidney disease, stage 3 (moderate); D63.1 - Anemia in chronic kidney disease (3) Aortic stenosis Cardiac valve disease etiology: etiology unspecified Qualified Code(s): I35.0 - Nonrheumatic aortic (valve) stenosis (4) Hypothyroidism Hypothyroidism type: unspecified Qualified Code(s): E03.9 - Hypothyroidism, unspecified
[2020-03-17] MEDS: MIRTAZAPINE TAB 15 MG TAB PO SCH (21:11)
[2020-03-17] MEDS: LEVOTHYROXINE SODIUM 175 MCG TABLET PO SCH (21:12)
[2020-03-18] MEDS: PIPERACILLIN/TAZOBACTAM 3.375 GM in DEXTROSE 5% 100 ML IV SCH ×2 (02:04→16:03)
[2020-03-18 04:38] LABS: Appearance Urine Clear (Clear); Bacteria Urine Automated Negative (Negative); Bilirubin Urine Negative (Negative); Blood Urine Negative (Negative); Color Urine Yellow; Epithelial Cell Urine Auto >30 /lpf (0-5); Glucose Urine UA Negative (Negative); Ketones Urine Negative (Negative); Leukocyte Esterase Urine 2+ (Negative); Nitrite Urine Negative (Negative); Protein Urine Trace (Negative); RBC Urine Automated 0-4 /hpf (0-4); Specific Gravity Urine 1.016 (1.000-1.030); Urobilinogen Urine Negative (Negative); pH Urine 6.5 (4.5-7.5)
[2020-03-18 06:28] LABS: Hematocrit (blood only) 28.9 % (37-47); Hemoglobin 9.3 g/dL (12.0-16.0); Mean Corpuscular Hemoglobin 32.3 pg (25-34); Mean Corpuscular Hgb Conc 32.2 g/dL (32-36); Mean Corpuscular Volume 100.3 fL (80-100); Mean Platelet Volume 10.8 fL (7.4-10.4); Platelet Count 103 K/uL (130-400); RDW Coefficient of Variation 14.3 % (11.5-14.5); RDW Standard Deviation 52.2 fL (36.4-46.3); Red Blood Count 2.88 M/uL (4.2-5.4); White Blood Count 4.85 K/uL (4.8-10.8)
[2020-03-18 07:01] LABS: BUN Creatinine Ratio 32.6 (10-20); Calcium 8.2 mg/dl (8.5-10.1); Creatinine Clr Calc Pharmacy 18.7 ml/min; Est GFR (African American) 31.3; Magnesium 2.3 mg/dl (1.8-2.4); Potassium 3.8 mmol/L (3.5-5.1)
[2020-03-18 07:06] LABS: Albumin Globulin Ratio 0.5 (0.9-2); Bilirubin,Total 1.4 mg/dl (0.2-1); Globulin 4.4 gm/dl (2.5-4.0); Phosphorus 2.5 mg/dl (2.5-4.9); Total Protein 6.4 gm/dl (6.4-8.2)
[2020-03-18] MEDS ORDERED: metOLazone 5 MG TABLET PO SCH (09:00)
[2020-03-18] MEDS: DIPHENOXYLATE/ATROPINE 2.5/0.025MG TAB PO SCH ×4 (09:15→22:25)
[2020-03-18] MEDS: lamoTRIgine 25 MG TAB PO SCH ×2 (09:16→20:00)
[2020-03-18] MEDS: PANTOprazole 40 MG in SYRINGE 0 ML IV SCH ×2 (09:16→20:07)
[2020-03-18] MEDS: CEROVITE ADV FORMULA TAB PO SCH ×2 (09:16→18:55)
[2020-03-18] MEDS: METOPROLOL SUCC 25MG EXT REL TAB PO SCH (09:17)
[2020-03-18] MEDS: CHOLECALCIFEROL 1,000 UNITS 25 MCG TAB PO SCH (09:18)
[2020-03-18] MEDS: SODIUM CHLORIDE 0.9% 10ML FLUSH IV SCH ×3 (09:19→20:08)
[2020-03-18] MEDS ORDERED: Nursing to Pharmacy Communication SCH (10:30)
[2020-03-18] MEDS: D5NSS + 20MEQ KCL 20 MEQ/1,000 ML BAG IV SCH ×2 (12:40→22:28)
[2020-03-18] MEDS: MULTI VIT W/MINERALS LIQUID 15 ML UDP PO SCH (12:40)
[2020-03-18] MEDS: OXYCODONE HCL IR 5 MG TAB (IMMEDIATE RELEASE) PO PRN (12:52)
--- NOTE | 2020-03-18 15:14 | Hospitalist Progress Note ---
Date of Service March 18, 2020 Assessment & Plan (1) Septicemia: 2nd to enterobacter. source - a-port. see below. cont zosyn for now. (2) Infection due to Port-A-Cath: 2nd enterobacter. Final results with sensitivities still pending. Cultures are being processed at [facility]. Appreciate ID consult and recs. Ideally a-port is removed, and later on a new port is placed. HOWEVER, patient has had numerous ports over the years, and access might be an issue. I spoke with Dr Babcock who will consult tomorrow and determine if she is candidate for new a-port. If deemed a candidate then old PORT will be explanted and ultimately new port will be placed. ID in [place] gave option that if new port can't be placed then we would simply treat through the infection for 14 days. Repeat cultures from 03/16 remain negative to date. (3) On total parenteral nutrition (TPN): Daily and runs from 8:30 PM to 8:30 AM at the alf. She usually has vancomycin dwell during the daytime. Holding TPN due to concern of port infection and septicemia. re-eval tomorrow after Dr Babcock consults. ideally if port is explanted we would place temporary PICC for TPN needs. cont IVF in meantime. 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 cachectic on exam with muscle wasting of facial muscles, etc. (5) Malnutrition related to chronic disease: (6) CKD (chronic kidney disease) stage 3, GFR 30-59 ml/min: With acute kidney injury in the setting of CKD stage III Baseline Cr. of 1.28 and now increased today up to 1.7 Cont IVF given that TPN is on hold Hold diuretics BMP am (7) Aortic stenosis: severe, noted on echo not felt to be a good candidate for valve replacement (8) CHF (congestive heart failure): compensated cont to hold Bumex 2 mg IV daily and metolazone cont to hold metoprolol succinate 75 mg daily (9) Vitamin B12 deficiency: recent b12 level wnl (10) Hypothyroidism: - Cont levothyroxine - TSH 2.560 (11) Peripheral neuropathy: patient follows with Dr. Gann as an outpatient - [facility] neurology Continue on mirtazapine 7.5 mg HS for sleep, lamotrigine 125 mg p.o. BID Last EMG consistent with polyneuropathy B12 level normal PT, OT (12) Chronic diarrhea: 2nd to short gut syndrome CT abd/pelvis findings reviewed she has no clinical evidence of a pSBO cont lomotil as previous (13) Third degree AV block: pacemaker status follows with [facility] Continue on telemetry (14) Cirrhosis: 2nd to chronic TPN? will d/w patient this finding on CT (15) Pancytopenia: 2nd to cirrhosis? recent TSH, B12, folate wnl could have other micronutrient deficiency that is contributing follow (16) DVT prophylaxis: add heparin 5000 BID updated Amanda Barrow, daughter, by phone today questions answered Admission and Anticipated Discharge Date Admission Date: March 16, 2020 Subjective patient c/o joint pains in various locations from arthritis; worst location is right shoulder. she denies any abdominal pain. denies any pain around port site. she mentions that Dr Karimi had placed several ports in the distant past. last port exchange was 03/[address] Babcock. she further mentions that "it has been getting hard to figure out where to put the new ports." she DOES take oral nutrition by mouth but small quantities. stools -5 to 10 per day, loose/soft. no change in quantity or calibre of stools. has been living at [facility] for 4 years. blood cx results from [facility] with enterobacter - sensitivities pending. ID consult recs noted. Review of Systems Constitutional: no fever and no chills Respiratory: no dyspnea Cardiovascular: no chest pain Gastrointestinal: + dysphagia Physical Exam Constitutional: + thin, + cachectic and + frail appearing; no acute distress and no altered mental status ENMT: external ear and nose normal, oropharynx normal Respiratory: normal respiratory effort, lungs clear to auscultation Cardiovascular: Rate/Rhythm: regular rate and regular rhythm Heart Sounds: normal S1, normal S2 and + murmur (3/6 holosystolic murmur apex) Vessels: posterior tibial pulses present and dorsalis pedis pulses present; no JVD Extremities: no edema Chest (Breasts): Additional Comments: port - mild erythema adjacent to port; per staff a portion of the port is exposed through the skin?? Gastrointestinal (Abdomen): normal bowel sounds, soft, nontender, no hepatosplenomegaly Skin: + pallor Psychiatric: Orientation: alert and oriented x 3 Results & Data Results & Data ([facility]) Vital Signs (Past 12 Hours) Vital Signs Temp Pulse Resp BP Pulse Ox 03/18/20 14:41 36.7 C 74 16 124/54 L 96 03/18/20 10:54 36.8 C 61 16 101/58 L 95 03/18/20 07:13 36.4 C L 91 H 16 139/65 97 03/18/20 04:06 36.9 C 65 18 111/55 L 95 Laboratory Results Laboratory Results - last 24 hr 03/18/20 03/18/20 03/18/20 04:25 05:49 05:49 WBC 4.85 RBC 2.88 L Hgb 9.3 L Hct 28.9 L MCV 100.3 H MCH 32.3 MCHC 32.2 RDW Std Deviation 52.2 H RDW Coeff of Gabe 14.3 Plt Count 103 L MPV 10.8 H Sodium 138 Potassium 3.8 Chloride 101 Carbon Dioxide 31 Anion Gap 6.0 BUN 56 H Creatinine 1.72 H Est Cr Clr Drug Dosing 18.7 Est GFR ( Amer) 31.3 Est GFR (Non-Af Amer) 27.0 BUN/Creatinine Ratio 32.6 H Glucose 95 Calcium 8.2 L Phosphorus 2.5 Magnesium 2.3 Total Bilirubin 1.4 H AST 48 H ALT 35 Alkaline Phosphatase 195 H Total Protein 6.4 Albumin 2.0 L Globulin 4.4 H Albumin/Globulin Ratio 0.5 L Urine Color Yellow Urine Appearance Clear Urine pH 6.5 Ur Specific [place] 1.016 Urine Protein Trace H Urine Glucose (UA) Negative Urine Ketones Negative Urine Blood Negative Urine Nitrite Negative Urine Bilirubin Negative Urine Urobilinogen Negative Ur Leukocyte Esterase 2+ H Urine WBC (Auto) 5-10 H Urine RBC (Auto) 0-4 U Hyaline Cast (Auto) 1-5 U Epithel Cells (Auto) >30 H Urine Bacteria (Auto) Negative PG Care Time/CCT Total # of Minutes Spent Total Time Spent with Patient: Total time spent is greater than 50% in coordination of care (as documented) at patient's floor/unit and/or counseling patient: Coding Level of Care Code 27769 Subseq Hosp Care Lvl 3 Diagnoses Septicemia A41.9 Infection due to Port-A-Cath T80.219D Encounter type: subsequent encounter On total parenteral nutrition (TPN) Z78.9 Severe protein-calorie malnutrition E43 Malnutrition related to chronic disease E46 CKD (chronic kidney disease) stage 3, GFR 30-59 ml/min N18.3 Aortic stenosis I35.0 Cardiac valve disease etiology: etiology unspecified CHF (congestive heart failure) I50.32 Heart failure type: diastolic Heart failure chronicity: chronic Vitamin B12 deficiency E53.8 Hypothyroidism E03.9 Hypothyroidism type: unspecified Peripheral neuropathy G62.9 Chronic diarrhea K52.9 Third degree AV block I44.2 Cirrhosis K74.60 Pancytopenia D61.818 DVT prophylaxis Z29.9 (1) CHF (congestive heart failure) Heart failure type: diastolic Heart failure chronicity: chronic Qualified Code(s): I50.32 - Chronic diastolic (congestive) heart failure (2) Aortic stenosis Cardiac valve disease etiology: etiology unspecified Qualified Code(s): I35.0 - Nonrheumatic aortic (valve) stenosis (3) Hypothyroidism Hypothyroidism type: unspecified Qualified Code(s): E03.9 - Hypothyroidism, unspecified (4) Infection due to Port-A-Cath Encounter type: subsequent encounter Qualified Code(s): T80.219D - Unspecified infection due to central venous catheter, subsequent encounter
[2020-03-18] MEDS: DICLOFENAC SOD 1% GEL 100 GM TUBE EXT SCH ×2 (16:05→19:53)
[2020-03-18] MEDS: MIRTAZAPINE TAB 15 MG TAB PO SCH (20:01)
[2020-03-18] MEDS: LEVOTHYROXINE SODIUM 175 MCG TABLET PO SCH (20:08)
[2020-03-19] MEDS: DICLOFENAC SOD 1% GEL 100 GM TUBE EXT SCH ×4 (00:37→19:56)
[2020-03-19] MEDS: PIPERACILLIN/TAZOBACTAM 3.375 GM in DEXTROSE 5% 100 ML IV SCH (03:43)
[2020-03-19 06:33] LABS: Hematocrit (blood only) 30.8 % (37-47); Hemoglobin 9.5 g/dL (12.0-16.0); Mean Corpuscular Hemoglobin 31.1 pg (25-34); Mean Corpuscular Hgb Conc 30.8 g/dL (32-36); Mean Platelet Volume 10.4 fL (7.4-10.4); Platelet Count 113 K/uL (130-400); RDW Standard Deviation 51.5 fL (36.4-46.3); Red Blood Count 3.05 M/uL (4.2-5.4); White Blood Count 4.71 K/uL (4.8-10.8)
[2020-03-19 07:14] LABS: Albumin Level 2.1 gm/dl (3.4-5.0); BUN Creatinine Ratio 26.2 (10-20); Calcium 7.6 mg/dl (8.5-10.1); Creatinine Clr Calc Pharmacy 22.2 ml/min; Est GFR (African American) 38.5; Est GFR (Non-African American) 33.2; Potassium 4.8 mmol/L (3.5-5.1)
[2020-03-19 07:15] LABS: Albumin Globulin Ratio 0.5 (0.9-2); Globulin 4.5 gm/dl (2.5-4.0); Total Protein 6.6 gm/dl (6.4-8.2)
[2020-03-19] MEDS: lamoTRIgine 25 MG TAB PO SCH ×2 (08:21→20:37)
[2020-03-19] MEDS: PANTOprazole 40 MG in SYRINGE 0 ML IV SCH ×2 (08:21→20:37)
[2020-03-19] MEDS: D5NSS + 20MEQ KCL 20 MEQ/1,000 ML BAG IV SCH (08:21)
[2020-03-19] MEDS: DIPHENOXYLATE/ATROPINE 2.5/0.025MG TAB PO SCH ×4 (08:22→20:37)
[2020-03-19] MEDS: METOPROLOL SUCC 25MG EXT REL TAB PO SCH (08:22)
[2020-03-19] MEDS: CHOLECALCIFEROL 1,000 UNITS 25 MCG TAB PO SCH (08:23)
[2020-03-19] MEDS: MULTI VIT W/MINERALS LIQUID 15 ML UDP PO SCH (08:24)
--- NOTE | 2020-03-19 08:45 | Hospitalist Progress Note ---
Date of Service March 19, 2020 Assessment & Plan (1) Septicemia: 2nd to unique species of klebsiella. blood cx's obtained from 03/15 that were sent to [facility]. the klebsiella is sensitive to cipro, rocephin, unasyn, bactrim. source - a-port. see below. narrow abx from zosyn to rocephin. (2) Infection due to Port-A-Cath: 2nd klebsiella species as reported by Delaney. Appreciate ID consult and recs. Ideally a-port is removed and new one placed. HOWEVER, patient has had numerous ports over the years, and access might be an issue. Dr Babcock from vascular consulted, and ordered CT venogram to assess central vasculature to see if new port can be placed. Regardless old port - given that it is leaking/malfunctioning - should be removed. Repeat cultures from 03/16 remain negative to date. (3) On total parenteral nutrition (TPN): Daily and runs from 8:30 PM to 8:30 AM at the long term. She usually has vancomycin dwell during the daytime. Holding TPN due to concern of port infection and septicemia. repeat blood cx's from 03/16 remain negative. thus -- place u/s-guided peripheral IV and start PPN. 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 cachectic on exam with muscle wasting of facial muscles, etc. (5) Malnutrition related to chronic disease: Noted (6) CKD (chronic kidney disease) stage 3, GFR 30-59 ml/min: With acute kidney injury in the setting of CKD stage III Baseline Cr. of 1.28 ANNIKA improving; Cr 1.4 today BMP am (7) Aortic stenosis: severe, noted on echo not felt to be a good candidate for valve replacement patient has pondered the decision for years about whether to have AVR or not (8) CHF (congestive heart failure): perhaps at beginning of decompensation as she has had copious IVF give bumex 0.5mg IV x1 re-eval in am typically takes bumex 2 mg IV daily and metolazone cont to hold metoprolol succinate 75 mg daily due to low-normal BPS (9) Vitamin B12 deficiency: recent b12 level wnl (10) Hypothyroidism: - Cont levothyroxine - TSH 2.560 (11) Peripheral neuropathy: Continue on mirtazapine 7.5 mg HS for sleep, lamotrigine 125 mg p.o. BID Last EMG consistent with polyneuropathy B12 level normal PT, OT (12) Chronic diarrhea: 2nd to short gut syndrome CT abd/pelvis findings reviewed she has no clinical evidence of a pSBO cont lomotil as previous (13) Third degree AV block: pacemaker status follows with [facility] electrophysiology Continue on telemetry (14) Cirrhosis: 2nd to chronic TPN? will d/w patient this finding on CT check ammonia level due to confusion (15) Pancytopenia: 2nd to cirrhosis? recent TSH, B12, folate wnl could have other micronutrient deficiency that is contributing follow (16) DVT prophylaxis: heparin 5000 BID updated Amanda Barrow, daughter, by phone 03/18 Admission and Anticipated Discharge Date Admission Date: March 16, 2020 Subjective patient sitting on edge of bed upon my arrival. denies complaints. no fevers or chills. seemed somewhat confused during the visit. at one point, while talking about her health issues, she said "if they can't replace my port then I don't want it." I asked her to clarify what she meant and she was referring to stopping all treatment. she then said "I hurt everywhere every day, I'm tired of all this." Review of Systems Constitutional: no fever Respiratory: no dyspnea Cardiovascular: no chest pain Gastrointestinal: no abdominal pain, no nausea and no vomiting Physical Exam Constitutional: + thin, + cachectic and + frail appearing; no acute distress and no altered mental status ENMT: external ear and nose normal, oropharynx normal Respiratory: normal respiratory effort, lungs clear to auscultation Cardiovascular: Rate/Rhythm: regular rate and regular rhythm Heart Sounds: normal S1, normal S2 and + murmur (3/6 holosystolic murmur apex) Vessels: posterior tibial pulses present and dorsalis pedis pulses present; no JVD Extremities: no edema (LLE is larger than RLE chronically , however) Chest (Breasts): Additional Comments: port site - IV fluid leaking around site Gastrointestinal (Abdomen): normal bowel sounds, soft, nontender, no hepatosplenomegaly Skin: + pallor venous stasis changes b/l shins Psychiatric: Orientation: alert and oriented x 3 modestly confused Results & Data Results & Data ([facility]) Vital Signs (Past 12 Hours) Vital Signs Temp Pulse Pulse Resp BP Pulse Ox 03/19/20 08:00 36.5 C 86 18 127/69 94 03/19/20 03:34 36.8 C 76 20 132/72 96 03/18/20 23:39 70 03/18/20 23:25 36.3 C L 59 L 18 107/55 L 100 Laboratory Results Laboratory Results - last 24 hr 03/19/20 03/19/20 06:16 06:16 WBC 4.71 L RBC 3.05 L Hgb 9.5 L Hct 30.8 L MCV 101.0 H MCH 31.1 MCHC 30.8 L RDW Std Deviation 51.5 H RDW Coeff of Gabe 14.0 Plt Count 113 L MPV 10.4 Sodium 140 Potassium 4.8 D Chloride 108 H Carbon Dioxide 27 Anion Gap 5.0 BUN 38 H Creatinine 1.45 H Est Cr Clr Drug Dosing 22.2 Est GFR ( Amer) 38.5 Est GFR (Non-Af Amer) 33.2 BUN/Creatinine Ratio 26.2 H Glucose 99 Calcium 7.6 L Total Bilirubin 1.0 AST 43 H ALT 33 Alkaline Phosphatase 208 H Total Protein 6.6 Albumin 2.1 L Globulin 4.5 H Albumin/Globulin Ratio 0.5 L Diagnostic Findings blood cultures from 03/15 processed at [facility] - klebsiella, sensitive to rocephin, cipro, bactrim PG Care Time/CCT Total # of Minutes Spent Total Time Spent with Patient: Total time spent is greater than 50% in coordination of care (as documented) at patient's floor/unit and/or counseling patient: Coding Level of Care Code 01397 Subseq Hosp Care Lvl 3 Diagnoses Septicemia A41.9 Infection due to Port-A-Cath T80.219D Encounter type: subsequent encounter On total parenteral nutrition (TPN) Z78.9 Severe protein-calorie malnutrition E43 Malnutrition related to chronic disease E46 CKD (chronic kidney disease) stage 3, GFR 30-59 ml/min N18.3 Aortic stenosis I35.0 Cardiac valve disease etiology: etiology unspecified CHF (congestive heart failure) I50.32 Heart failure chronicity: chronic Heart failure type: diastolic Vitamin B12 deficiency E53.8 Hypothyroidism E03.9 Hypothyroidism type: unspecified Peripheral neuropathy G62.9 Chronic diarrhea K52.9 Third degree AV block I44.2 Cirrhosis K74.60 Pancytopenia D61.818 DVT prophylaxis Z29.9 (1) CHF (congestive heart failure) Heart failure chronicity: chronic Heart failure type: diastolic Qualified Code(s): I50.32 - Chronic diastolic (congestive) heart failure (2) Aortic stenosis Cardiac valve disease etiology: etiology unspecified Qualified Code(s): I35.0 - Nonrheumatic aortic (valve) stenosis (3) Hypothyroidism Hypothyroidism type: unspecified Qualified Code(s): E03.9 - Hypothyroidism, unspecified (4) Infection due to Port-A-Cath Encounter type: subsequent encounter Qualified Code(s): T80.219D - Unspecif ied infection due to central venous catheter, subsequent encounter
[2020-03-19] MEDS: SODIUM CHLORIDE 0.9% 10ML FLUSH IV SCH ×3 (09:00→20:37)
[2020-03-19] MEDS ORDERED: SODIUM CHLORIDE 0.9% 1000ML 1,000 ML IV SCH (09:45)
--- NOTE | 2020-03-19 10:34 | Consultation ---
Date of Consultation March 19, 2020 Assessment & Plan (1) Infection due to Port-A-Cath: This point will order CT venogram to evaluate venous access from the upper extremities and neck. If there is a another access possible then we will plan on removing the infected port. We will let her rest for 2 to 3 days and obtain a more cultures to make sure they are negative. If the repeat cultures are negative then a new port will be placed. Thank you very much for letting us participate in the care of this patient. Encounter type: subsequent encounter Qualified Code(s): T80.219D - Unspecified infection due to central venous catheter, subsequent encounter History of Present Illness Reason for Consultation: Infected left internal jugular vein [id number] Attending Physician: Harry Poole History of Present Illness This is a 84-year-old female who has a short gut syndrome. She has left internal jugular vein Tpybbt-d-Fzmi in place. This was placed 3 years ago. 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 Is now admitted at this time with another infection of her Ehfqdr-u-Calo. She is dependent on her port for TPN infusions. Allergies Allergy/AdvReac Type Severity Reaction Status Date / Time furosemide Allergy Mild HIVES, CAN Verified 03/16/20 03:48 TAKE BUMEX Anesthetics - Traci Type- Allergy Unknown ANAPHYLAXIS Verified 03/16/20 03:48 Parabens benzocaine Allergy Unknown Unknown Verified 03/16/20 03:48 capsaicin Allergy Unknown UNKNOWN Verified 03/16/20 03:48 ceftriaxone Allergy Unknown UNK Verified 03/16/20 03:48 clonazepam Allergy Unknown ? Verified 03/16/20 03:48 cyclobenzaprine Allergy Unknown UNKNOWN Verified 03/16/20 03:48 diclofenac Allergy Unknown UNKNOWN Verified 03/16/20 03:48 diphenhydramine Allergy Unknown UNK Verified 03/16/20 03:48 isopropyl alcohol Allergy Unknown UNKNOWN Verified 03/16/20 03:48 lidocaine Allergy Unknown Unknown Verified 03/16/20 03:48 milk Allergy Unknown Unknown Verified 03/16/20 03:48 naproxen Allergy Unknown UNKNOWN Verified 03/16/20 03:48 octreotide Allergy Unknown HIVES Verified 03/16/20 03:48 pregabalin Allergy Unknown ? Verified 03/16/20 03:48 procaine Allergy Unknown Unknown Verified 03/16/20 03:48 propylene glycol Allergy Unknown UNKNOWN Verified 03/16/20 03:48 scopolamine Allergy Unknown Unknown Verified 03/16/20 03:48 sulfamethoxazole Allergy Unknown UNKNOWN Verified 03/16/20 03:48 trimethoprim Allergy Unknown UNKNOWN Verified 03/16/20 03:48 warfarin AdvReac Severe HEMORRHAGE Verified 03/16/20 03:48 Iodinated Contrast Media AdvReac Intermediate RENAL Verified 03/16/20 03:48 FAILURE fluconazole AdvReac Mild FEVER,NAUSE Verified 03/16/20 03:48 A indomethacin AdvReac Mild N&V Verified 03/16/20 03:48 lactose AdvReac Mild INTOLERANT Verified 03/16/20 03:48 metronidazole AdvReac Mild FEVER,NAUSE Verified 03/16/20 03:48 A buprenorphine AdvReac Unknown diarrhea, Verified 03/16/20 03:48 vomiting codeine AdvReac Unknown MENTAL Verified 03/16/20 03:48 STATUS CHANGES Home Medications Home Medications Medication Instructions Recorded Confirmed Type nitroglycerin [Nitrostat] 0.4 mg SUBLINGUAL DIRECTED PRN 03/14/18 03/16/20 History oxycodone 5 mg PO Q4H PRN #14 tab 03/29/18 03/16/20 Rx epoetin mary [Procrit] 10,000 unit/kg IV MONTHLY 08/18/18 03/16/20 History cholecalciferol (vitamin D3) 2,000 units PO DAILY ml 03/01/19 03/16/20 History diphenoxylate-atropine 2.5 2 tab PO QPM 03/01/19 03/16/20 History mg-0.025 mg tablet metoprolol succinate 50 mg 75 mg PO DAILY tab 03/01/19 03/16/20 History tablet,extended release 24 hr bumetanide 2 mg IV DAILY 03/06/19 03/16/20 History diphenoxylate-atropine [Lomotil] 3 tab PO BID 03/06/19 03/16/20 History diphenoxylate-atropine [Lomotil] 4 tab PO HS@2200 03/06/19 03/16/20 History ondansetron HCl 8 mg IV TID 03/06/19 03/16/20 History melatonin 1 mg tablet 0.5 mg PO HS PRN tab 08/28/19 03/16/20 History acetaminophen 325 mg capsule 650 mg PO Q4H PRN cap 12/18/19 03/16/20 History camphor-menthol 0.5 %-0.5 % lotion 1 applic TOPICAL TID PRN 12/18/19 03/16/20 History carboxymethylcellulose sodium 0.5 1 drops OP QID PRN 12/18/19 03/16/20 History % eye drops ketotifen fumarate 0.025 % (0.035 1 drops OP BID PRN ml 12/18/19 03/16/20 History %) eye drops lamotrigine 100 mg tablet 125 mg PO BID tab 12/18/19 03/16/20 History levothyroxine 175 mcg tablet 175 mcg PO HS 12/18/19 03/16/20 History loperamide 2 mg tablet 2 mg PO Q3H PRN tab 12/18/19 03/16/20 History metolazone 5 mg tablet 5 mg PO 3XWK tab 12/18/19 03/16/20 History ondansetron HCl (PF) 4 mg/2 mL 4 mg IV DAILY PRN ml 12/18/19 03/16/20 History injection solution pantoprazole 40 mg intravenous 40 mg IV BID ea 12/18/19 03/16/20 History solution vit C 250 mg-E 200 unit-zinc 40 1 tab PO DAILY cap 12/18/19 03/16/20 History mg-copper 1 rr-gsmtwt-uqenqh capsule Quetiapine Topical Cream 0.5 ml TOPICAL AMHS 03/16/20 03/16/20 History Smof Lipids 2x Wk 50 g IV QPM 03/16/20 03/16/20 History Tpn 5x Wk 1,500 ml IV QPM 03/16/20 03/16/20 History Vancomycin/Heparin Flush 1 dose IV QAM 03/16/20 03/16/20 History mirtazapine 7.5 mg PO HS 03/16/20 03/16/20 History sodium chloride 0.9 % (flush) 10 ml IV TID 03/16/20 03/16/20 History [Normal Saline Flush] sodium chloride [Saline Nasal] 1 spray INTRANASAL DIRECTED PRN 03/16/20 03/16/20 History Patient History Medical History Anxiety Aortic stenosis SEVERE Arthritis CHF (congestive heart failure) Chronic abdominal pain Chronic nausea Congestive heart failure Progressive, acute on chronic Diarrhea DVT (deep venous thrombosis) Fall History of acute gouty arthritis History of intestinal obstruction History of memory loss History of pseudogout Hypertension Hypothyroidism Kidney disease (11/08/12) Pacemaker SBO (small bowel obstruction) Sepsis 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) Surgical History H/O colectomy H/O dilation and curettage H/O hernia repair H/O: hysterectomy History of appendectomy History of tubal ligation Hx of cholecystectomy Hx of repair of rotator cuff Hx of tonsillectomy Family History Sister Breast cancer Mother Arthritis Myocardial infarction Daughter Immunodeficiency disorder Denies family history of Ovarian cancer Prostate cancer Colorectal cancer Social History Smoking Status: Never smoker Second Hand Exposure: No; Do You Dip or Chew Tobacco: No; Tobacco Cessation Education Requested by Patient: No Hx Alcohol Use: No Hx Substance Use: No Preferred Language: Serbian Communication Ability: Impaired Visual Impairment: Limited Garment Looper Required: No Beliefs That Will Affect Care: None Current Living Situation: Longterm current occupational status: retired Other Information That Helps Us Care for You: No Feels Safe at Home: Yes Safety Concerns: Feels Safe At This Time Seatbelt Use: always Review of Systems Review of Systems: All systems reviewed & are unremarkable except as noted in HPI & below Physical Exam Constitutional: WD/WN, vitals as above Neck: trachea midline; neck nontender Respiratory: normal respiratory effort; no respiratory distress Auscultation: lungs clear to auscultation bilaterally Cardiovascular: Rate/Rhythm: regular rate and regular rhythm Gastrointestinal (Abdomen): Inspection/Auscultation: abdomen normal to inspection Percussion/Palpation: abdomen soft; abdomen nontender Psychiatric: Orientation: alert and oriented x 3 Results & Data ([facility]) Vital Signs (Past 12 Hours) Vital Signs Temp Pulse Pulse Resp BP Pulse Ox 03/19/20 08:00 36.5 C 86 18 127/69 94 03/19/20 03:34 36.8 C 76 20 132/72 96 03/18/20 23:39 70 03/18/20 23:25 36.3 C L 59 L 18 107/55 L 100
[2020-03-19] MEDS ORDERED: PIPERACILLIN/TAZOBACTAM 3.375 GM in DEXTROSE 5% 100 ML IV SCH (12:00)
[2020-03-19] MEDS: cefTRIAXone SODIUM 2,000 MG in DEXTROSE 5% 50 ML IV SCH (12:35)
[2020-03-19] MEDS ORDERED: DEXTROSE 10% 1,000 ML IV PRN (13:51)
[2020-03-19] MEDS ORDERED: IOVERSOL 100ml IV ONE (14:13)
--- NOTE | 2020-03-19 14:20 | Pharmacy Report ---
PHA: Parenteral Nutrition Con - Date of Service March 19, 2020 - Scope Pharmacy was consulted to start TPN today on 03/19/20 and to manage parenteral nutrition orders for this patient. - Subjective The patient is currently on day 1 of peripheral parenteral nutrition for this patient on chronic TPN due to short-gut. - Objective Height: 5 ft 1 in Weight: 54.7 kg Diet: NPO Intake & Output (24hrs):: Intake & Output 03/17/20 03/18/20 03/19/20 03/20/20 06:59 06:59 06:59 06:59 Intake Total 710.667 / 073.680 0576 / 3298 2694 / 2694 1323.333 / 1323.333 Output Total 100 / 100 360 / 360 Balance 610.667 / 427.474 7441 / 2938 2694 / 2694 1322.333 / 1322.333 Weight 54 kg 54.3 kg 54.7 kg Laboratory Data (Last 24 Hr):: 03/19/20 06:16 Sodium 140 Potassium 4.8 D Chloride 108 H Carbon Dioxide 27 BUN 38 H Creatinine 1.45 H Glucose 99 Calcium 7.6 L Total Bilirubin 1.0 AST 43 H ALT 33 Alkaline Phosphatase 208 H Albumin 2.1 L Nutrition Assessment:: Please refer to the Notes section of the EMR for the most recent senior search marketing analyst note. - Assessment * Patient with gram-negative bacteremia - suspected source is her a-port * Plan is to either remove/replace port * Peripheral line placed today in order to allow for temporary PPN * Cultures available through [facility] - changed to ceftriaxone 2 g IV q24h today based on sensitivities * Patient is ordered a diet, but chronically eats very minimally * Ordered D5/NS@100 mL/hr yesterday (~120 g/day) -> reduced to 75 mL/hr today and will be d/c'd at time of PPN initiation * Home TPN formulation obtained from [facility] * Dextrose 70%: 300 g/day * Plenamine: 70 g/day * SMOF lipid 20%: 50 g/day * Sodium chloride: 100 mEq/day * Sodium acetate: 60 mEq/day * Potassium chloride: 24 mEq/day * Magnesium sulfate: 4 mEq * Calcium gluconate: 9 mEq * Sodium phosphate: 15 mmoL/day * Copper: 0.4 mg/day * Zinc chloride: 5 mg/day * Selenium: 100 mcg/day * Infuvite: 10 mL/day * Famotidine 20 mg/day * Receives [facility] at [facility] - receives chronic bumetanide 2 mg IV daily - Plan For day 1 of PN administration, the following will be ordered: Macronutrients Amino acids 70 grams/day Dextrose 125 grams/day Lipids 0 grams/day - will hold in light of gram-negative bacteremia Micronutrients Sodium phosphate 15 MMol Sodium acetate 40 mEq Potassium chloride 20 mEq Magnesium sulfate 4.06 mEq Calcium gluconate 9.3 mEq Multivitamins 10 mL Trace Elements 1 mL Total volume 1680 mL to be infused over 24 hrs will provide 705 kcal/day Final osmolarity 840 mOsm/L (maximum for PPN is 900 mOsm/L) Labs, as indicated, will be ordered per protocol Pharmacy will continue to follow and adjust parenteral nutrition orders on a daily basis. Thank you for allowing us to participate in the care of this patient.
[2020-03-19] MEDS ORDERED: BUMETANIDE 0.5 MG in SYRINGE 0 ML IV ONE (14:30)
--- NOTE | 2020-03-19 14:40 | CT Scan Report ---
CT VENOGRAM OF THE CHEST COMBO CLINICAL HISTORY: Preoperative examination. Assess for central venous access. COMPARISON STUDY: Chest x-ray dated 03/16/2020. Chest CT dated 03/21/2016. TECHNIQUE: Before and following the IV administration of 94 cc of Optiray 320, CT scan of the thorax was performed from the thoracic inlet to the upper abdomen. Images are reviewed in the axial, sagitta l, and coronal planes. IV contrast was administered without complication. A dose lowering technique was utilized adhering to the principles of ALARA. The examination is degraded by motion artifact. CT DOSE: 617.05 mGy.cm FINDINGS: Thyroid: Markedly atrophic. Thoracic aorta: There is atherosclerotic calcification of the thoracic aorta, which is normal in sharan jenise and demonstrates standard 3-vessel arch anatomy. No dissection is seen. Venous structures: A left internal jugular central venous infusion port is in place. The right sports intern al jugular vein is widely patent, as is the right subclavian vein. The superior vena cava is patent. There is narrowing of the superior vena cava above the right ventricle and below the inflow of the az ygos vein, with a minimum diameter of 10 mm. The left internal jugular vein is patent above the infus ion port. At the level of the infusion port catheter the left internal jugular vein becomes diminutiv e with no discernible flow. No intraluminal thrombus is identified. Flow is seen within the left subc lavian vein and the innominate vein. Small venous collaterals drain from the left neck into the innom inate vein (axial image #49). There are internal mammary venous collaterals, best seen on axial image #98. Pulmonary vasculature: The pulmonary trunk is normal in caliber. There are no filling defects identif ied in the central pulmonary vessels to indicate pulmonary embolus. Note that this examination was no t protocoled for evaluation of the pulmonary arteries. Heart: A 2-lead cardiac pacemaker is seen in the right chest wall. The heart is enlarged and without pericardial effusion. The coronary arteries, mitral annulus, and aortic valve leaflets are densely ca lcified. Lungs and pleural spaces: Evaluation of the lung parenchyma is degraded by motion artifact. There is bibasilar scarring/atelectasis. Small pleural effusions are noted. The trachea and central airways ar e clear. There is mild diffuse intralobular septal thickening. No airspace consolidation is seen typi bailey for pneumonia. Mediastinum: There are enlarged mediastinal lymph nodes. A subcarinal node on image #134 measures 2.7 x 2.0 cm. Pretracheal and AP window nodes measure up to 10 mm short axis. Catherine: Clear. Axillae: There is no axillary lymphadenopathy. Upper abdomen: The liver is cirrhotic in morphology and heterogeneous in attenuation. There is nodula rity of the hepatic surface contour. The partially visualized kidneys demonstrate cortical atrophy. T here is trace perihepatic ascites. Skeletal structures: The skeletal structures are osteopenic. Degenerative change and kyphoscoliosis i s noted in the thoracic spine. Advanced arthritic change is seen in the shoulders. No lytic or blasti c bony lesions are seen. There are healed right-sided rib fractures. IMPRESSION: 1. Discussion of the thoracic venous structures as above. 2. Cardiomegaly and cardiac pacemaker. Mild intralobular septal thickening suggests acute versus supervisor plastics gil congestive change. 3. Small pleural effusions. 4. There is no airspace consolidation typical for pneumonia. 5. Mediastinal lymphadenopathy as above. 6. Cirrhotic liver morphology and trace perihepatic ascites. ACT 112: Negative or not required by law. Electronically signed by: Benedicto Saravia M.D. 03/19/2020 2:38 PM
[2020-03-19] MEDS ORDERED: PERIPHERAL PN IV SCH (16:00)
[2020-03-19] MEDS ORDERED: TPN IV SCH (16:00)
[2020-03-19] MEDS: MIRTAZAPINE TAB 15 MG TAB PO SCH (20:37)
[2020-03-19] MEDS: LEVOTHYROXINE SODIUM 175 MCG TABLET PO SCH (20:37)
[2020-03-20] MEDS: DICLOFENAC SOD 1% GEL 100 GM TUBE EXT SCH ×4 (01:07→18:02)
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
[2020-03-20] MEDS ORDERED: EPOETIN ALFA 10,000 UNITS/ML VIAL IV SCH (09:00)
[2020-03-20] MEDS: DIPHENOXYLATE/ATROPINE 2.5/0.025MG TAB PO SCH ×4 (09:43→20:54)
[2020-03-20] MEDS: MULTI VIT W/MINERALS LIQUID 15 ML UDP PO SCH (09:44)
[2020-03-20] MEDS: lamoTRIgine 25 MG TAB PO SCH ×2 (09:44→19:43)
[2020-03-20] MEDS: PANTOprazole 40 MG in SYRINGE 0 ML IV SCH ×2 (09:45→19:43)
[2020-03-20] MEDS: METOPROLOL SUCC 25MG EXT REL TAB PO SCH (09:46)
[2020-03-20] MEDS: CHOLECALCIFEROL 1,000 UNITS 25 MCG TAB PO SCH (09:46)
[2020-03-20] MEDS: SODIUM CHLORIDE 0.9% 10ML FLUSH IV SCH ×3 (09:46→19:43)
--- NOTE | 2020-03-20 10:15 | Psychiatric Consultation ---
Date of Consultation March 20, 2020 Impression / Recommendations Impression Dr. Valentine Whiting was directly involved in review and discussion of the patient's case and participated in medical decision making regarding treatment recommendations. RECOMMENDATIONS: 03/20 - Psychiatric consultation requested by hospitalist team to evaluate patient for an episode of agitation/confusion. Pt was last seen by our service in 2018 for metabolic encephalopathy. - Strongly recommend that patient's home medication of compounded topical quetiapine be acquired from [facility] to allow patient to continue this medication as scheduled. There is documentation from previous consultation that patient has not responded well to antipsychotic medication trials, but behavior has been stabilized with the compounded quetiapine gel. Given history of positive response to quetiapine, would not yet suggest deviating from this medication regimen. - Otherwise, suggest behavioral strategies for management of agitation related to delirium. Encourage teams attempt to avoid deliriogenic medications. Recommendation was provided that trazodone 25mg could be utilized as needed for agitation - but primary recommendation is for continued use of home quetiapine compounded gel. - Patient has recently refused to take some oral medications, specifically refusing her last two doses of lamotrigine 125mg. Will need to monitor refusal of this medication very closely, as it may be necessary to restart titration if medication is stopped for a period of 3 days or more due to risk of SJS. - Appreciate the opportunity to participate in the care of this patient. Please reach out to our service with any additional questions or updates. Psychiatric recommendations were reviewed with the patient's daughter, Amanda Barrow. Delirium protocol would suggest patient should be frequently reoriented to person, place, time, event, and intervention to be performed. Pt should be permitted to utilize corrective lenses and assistive hearing devices when appropriate. Permit use of familiar comfort items when appropriate as well. Keep patient awake and active during the day, with light on in room. Conversely, dark room should be maintained at night with sleep being encouraged. Use of prn medications should be limited to behavioral concerns that threaten the safety of the patient or staff, in order to prevent worsening of confusion and excessive sedation. Psych History Identifying Data 84-year-old female admitted medically on 03/16/2020 after presenting to the ED from her residence at [facility] for fever and positive blood cultures. Patient is being treated medically for septicemia, related to infected port. Over the course of the patient's hospitalization, it is reported that she has become increasingly confused and agitated at times. Psychiatric consultation was requested by hospitalist service to evaluate patient for this agitation. Chief Complaint "I'm just asking them to leave me alone!" History of Present Illness Galilea Richardson is an 84-year-old female admitted medically on 03/16/2020 after presenting to the ED from her residence at [facility]. Pt presented following a fever and reports of positive blood cultures. Source of infection is likely her port, and patient is being treated medically for septicemia. Over the course of the patient's hospitalization, she has become more agitated and confused, and has been monitored for likely encephalopathy. Last evening, nursing notes indicate that the patient would not come out of her bathroom or accept assistance from staff. On-call psychiatrist was contacted with recommendation for prn trazodone if necessary, but suggesting avoidance of deliriogenic medications. She is seen on our psychiatric consult service today to follow-up on agitation. Pt was initially observed by this provider from the hallway. She demonstrated a confused, but irritable, affect while nursing staff attempted to offer assistance with dressings. As patient continued to state she wanted to be left alone, this provider conducted the conversation from the doorway of the patient's room - where she actually did engage in a brief conversation. Pt reiterated that she wants to be left alone. She states that her arms are sore and bruised. Pt also admits she is frustrated that she is not permitted to walk to her bathroom alone. This provider suggested that the concern may be that she could fall and harm herself. She states "That's not it, I haven't fallen in 4 years!" Pt was asked if there was anything she felt our service could offer to her at this time, and did not think of anything specific other than "to be left alone." Pt denied any questions, and was reassured we would continue to follow her case. Discussed case with nursing following conversation with patient. They state they have been able to obtain patient's compounded quetiapine gel which she utilizes twice daily at [facility]. This provider was able to discuss the patient's case with her daughter, Amanda Barrow, via phone. We reviewed recent confusion and agitation as well as ability to obtain the quetiapine gel. Amanda Barrow was informed of patient's ongoing irritability and limited willingness to allow nursing staff to complete appropriate interventions regarding wound care. Amanda Barrow mentioned that significant delirium has been noted in numerous previous admissions (~7). We discussed indication for IM medications when patient is at risk of harm to self or staff, and patient's daughter verbalized understanding. She did admit that patient's unwillingness to allow dressing changes or inability to ensure adequate nutritional intake were cause for concern and she did not oppose to IM injections as necessary to assist with these self-care tasks. Amanda Barrow was informed that patient has received IM haloperidol so far today. She stated that when patient does respond to antipsychotic medications, she generally improves rather quickly. We discussed that resuming home dose of quetiapine will likely assist in this process as well. Amanda Barrow was given psychiatric nurse liaison phone number and encouraged to call with any additional questions or concerns. Past Psychiatric History Current Psychiatric Diagnosis: Vascular dementia w/ behavioral disturbance, mood d/o d/t known cond. Outpatient Services: Pt had previously seen Dr. Alba at [facility] [place] - diagnosed with vascular dementia with behavioral disturbance and mood disorder due to known physiological condition. Past Medication Trials: Based on medication documentation: - Lamictal - Remeron - Seroquel (in gel compound for topical use) - Klonopin (on allergy list) - Benadryl (on allergy list) - Prozac - sedation - Zoloft - Ambien - Trazodone Allergies Allergy/AdvReac Type Severity Reaction Status Date / Time furosemide Allergy Mild HIVES, CAN Verified 03/16/20 03:48 TAKE BUMEX Anesthetics - Traci Type- Allergy Unknown ANAPHYLAXIS Verified 03/16/20 03:48 Parabens benzocaine Allergy Unknown Unknown Verified 03/16/20 03:48 capsaicin Allergy Unknown UNKNOWN Verified 03/16/20 03:48 ceftriaxone Allergy Unknown UNK Verified 03/16/20 03:48 clonazepam Allergy Unknown ? Verified 03/16/20 03:48 cyclobenzaprine Allergy Unknown UNKNOWN Verified 03/16/20 03:48 diclofenac Allergy Unknown UNKNOWN Verified 03/16/20 03:48 diphenhydramine Allergy Unknown UNK Verified 03/16/20 03:48 isopropyl alcohol Allergy Unknown UNKNOWN Verified 03/16/20 03:48 lidocaine Allergy Unknown Unknown Verified 03/16/20 03:48 milk Allergy Unknown Unknown Verified 03/16/20 03:48 naproxen Allergy Unknown UNKNOWN Verified 03/16/20 03:48 octreotide Allergy Unknown HIVES Verified 03/16/20 03:48 pregabalin Allergy Unknown ? Verified 03/16/20 03:48 procaine Allergy Unknown Unknown Verified 03/16/20 03:48 propylene glycol Allergy Unknown UNKNOWN Verified 03/16/20 03:48 scopolamine Allergy Unknown Unknown Verified 03/16/20 03:48 sulfamethoxazole Allergy Unknown UNKNOWN Verified 03/16/20 03:48 trimethoprim Allergy Unknown UNKNOWN Verified 03/16/20 03:48 warfarin AdvReac Severe HEMORRHAGE Verified 03/16/20 03:48 Iodinated Contrast Media AdvReac Intermediate RENAL Verified 03/16/20 03:48 FAILURE fluconazole AdvReac Mild FEVER,NAUSE Verified 03/16/20 03:48 A indomethacin AdvReac Mild N&V Verified 03/16/20 03:48 lactose AdvReac Mild INTOLERANT Verified 03/16/20 03:48 metronidazole AdvReac Mild FEVER,NAUSE Verified 03/16/20 03:48 A buprenorphine AdvReac Unknown diarrhea, Verified 03/16/20 03:48 vomiting codeine AdvReac Unknown MENTAL Verified 03/16/20 03:48 STATUS CHANGES Home Medications Home Medications Medication Instructions Recorded Confirmed Type nitroglycerin [Nitrostat] 0.4 mg SUBLINGUAL DIRECTED PRN 03/14/18 03/16/20 History oxycodone 5 mg PO Q4H PRN #14 tab 03/29/18 03/16/20 Rx epoetin mary [Procrit] 10,000 unit/kg IV MONTHLY 08/18/18 03/16/20 History cholecalciferol (vitamin D3) 2,000 units PO DAILY ml 03/01/19 03/16/20 History diphenoxylate-atropine 2.5 2 tab PO QPM 03/01/19 03/16/20 History mg-0.025 mg tablet metoprolol succinate 50 mg 75 mg PO DAILY tab 03/01/19 03/16/20 History tablet,extended release 24 hr bumetanide 2 mg IV DAILY 03/06/19 03/16/20 History diphenoxylate-atropine [Lomotil] 3 tab PO BID 03/06/19 03/16/20 History diphenoxylate-atropine [Lomotil] 4 tab PO HS@2200 03/06/19 03/16/20 History ondansetron HCl 8 mg IV TID 03/06/19 03/16/20 History melatonin 1 mg tablet 0.5 mg PO HS PRN tab 08/28/19 03/16/20 History acetaminophen 325 mg capsule 650 mg PO Q4H PRN cap 12/18/19 03/16/20 History camphor-menthol 0.5 %-0.5 % lotion 1 applic TOPICAL TID PRN 12/18/19 03/16/20 History carboxymethylcellulose sodium 0.5 1 drops OP QID PRN 12/18/19 03/16/20 History % eye drops ketotifen fumarate 0.025 % (0.035 1 drops OP BID PRN ml 12/18/19 03/16/20 History %) eye drops lamotrigine 100 mg tablet 125 mg PO BID tab 12/18/19 03/16/20 History levothyroxine 175 mcg tablet 175 mcg PO HS 12/18/19 03/16/20 History loperamide 2 mg tablet 2 mg PO Q3H PRN tab 12/18/19 03/16/20 History metolazone 5 mg tablet 5 mg PO 3XWK tab 12/18/19 03/16/20 History ondansetron HCl (PF) 4 mg/2 mL 4 mg IV DAILY PRN ml 12/18/19 03/16/20 History injection solution pantoprazole 40 mg intravenous 40 mg IV BID ea 12/18/19 03/16/20 History solution vit C 250 mg-E 200 unit-zinc 40 1 tab PO DAILY cap 12/18/19 03/16/20 History mg-copper 1 su-[id number]-jbmvup capsule Quetiapine Topical Cream 0.5 ml TOPICAL AMHS 03/16/20 03/16/20 History Smof Lipids 2x Wk 50 g IV QPM 03/16/20 03/16/20 History Tpn 5x Wk 1,500 ml IV QPM 03/16/20 03/16/20 History Vancomycin/Heparin Flush 1 dose IV QAM 03/16/20 03/16/20 History mirtazapine 7.5 mg PO HS 03/16/20 03/16/20 History sodium chloride 0.9 % (flush) 10 ml IV TID 03/16/20 03/16/20 History [Normal Saline Flush] sodium chloride [Saline Nasal] 1 spray INTRANASAL DIRECTED PRN 03/16/20 03/16/20 History Family History Pt unable to provide history at this time. Substance Abuse History No known substance abuse concerns per available history. 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) Surgical History H/O colectomy H/O dilation and curettage H/O hernia repair H/O: hysterectomy History of appendectomy History of tubal ligation Hx of cholecystectomy Hx of repair of rotator cuff Hx of tonsillectomy Family History Sister Breast cancer Mother Arthritis Myocardial infarction Daughter Immunodeficiency disorder Denies family history of Ovarian cancer Prostate cancer Colorectal cancer Social History Smoking Status: Never smoker Second Hand Exposure: No; Do You Dip or Chew Tobacco: No; Tobacco Cessation Education Requested by Patient: No Hx Alcohol Use: No Hx Substance Use: No Preferred Language: Persian Communication Ability: Impaired Visual Impairment: Limited Recording Engineer Required: No Current Living Situation: Residential current occupational status: retired Other Information That Helps Us Care for You: No Feels Safe at Home: Yes Safety Concerns: Feels Safe At This Time Seatbelt Use: always Physical Exam Psychiatric: Orientation: alert, oriented to person and + guarded (uncooperative with interventions, irritable ) Apperance: appropriately dressed, + disheveled and appeared stated age; + inappropriately groomed Cachectic appearing elderly female, seated in bedside chair and appearing to be in irritable distress. Pt is appropriately dressed in a hospital gown, but areas of gown are stained with blood. Pt is somewhat disheveled. Eye Contact: + poor eye contact (for the most part, patient seems to be avoiding direct eye contact) Motor Behavior: + psychomotor agitation although seated in chair, patient frequently repositions and is kicking her leg rather forcefully when sitting with legs crossed Speech: + loud speech (irritable tone) Affect: + irritable affect Mood: + angry mood Thought Process: + perseveration and + concrete thought process; + thought process not linear or logical Thought Content: + preoccupation distorted thought content, likely in the setting of delirium. Pt believes she is being mistreated by staff. Cognition: language grossly intact; + attention not intact Insight: + impaired insight Judgement: + impaired judgement Vital Signs (Past 24 Hours): Last Vital Signs Temp 36.4 C L 03/19/20 15:40 Pulse 60 03/20/20 02:03 Resp 18 03/19/20 15:40 BP 103/68 03/19/20 15:40 Pulse Ox 96 03/19/20 15:40 Review of Systems Pt presents as confused and with significant agitation. Pt does not respond to questions being asked of her at this time. The only physical complaint verbalized at time of encounter is that patient's arms are sore bilaterally. Results & Data (PSY) Medications Administered Acetaminophen (Acetaminophen 325 Mg Tab) 650 mg PO Q4H PRN PRN Reason: fever or pain Stop: 04/15/20 11:44 Last Admin: 03/18/20 09:18 Dose: 650 mg Documented by: [id number] Diclofenac Sodium (Diclofenac Sod 1% Gel 100 Gm Tube) 4 gm EXT Q6H ABBI Stop: 04/17/20 12:59 Last Admin: 03/20/20 06:35 Dose: Not Given Documented by: [id number] Admin: 03/20/20 01:07 Dose: Not Given Documented by: [id number] Admin: 03/19/20 19:56 Dose: Not Given Documented by: [id number] Admin: 03/19/20 12:35 Dose: 4 gm Documented by: [id number] Admin: 03/19/20 08:25 Dose: 4 gm Documented by: [id number] Admin: 03/19/20 00:37 Dose: Not Given Documented by: [id number] Admin: 03/18/20 19:53 Dose: 4 gm Documented by: [id number] Admin: 03/18/20 16:05 Dose: 4 gm Documented by: [id number] Diphenoxylate HCl/Atropine (Diphenoxylate/Atropine 2.5/0.025mg Tab) 3 tab PO BID@0800,1200 ABBI Stop: 04/15/20 12:29 Last Admin: 03/20/20 09:43 Dose: Not Given Documented by: [id number] Admin: 03/19/20 12:36 Dose: 3 tab Documented by: [id number] Admin: 03/19/20 08:22 Dose: 3 tab Documented by: [id number] Admin: 03/18/20 12:40 Dose: 3 tab Documented by: [id number] Admin: 03/18/20 09:15 Dose: 3 tab Documented by: [id number] Admin: 03/17/20 13:05 Dose: 3 tab Documented by: [id number] Admin: 03/17/20 10:15 Dose: 3 tab Documented by: [id number] Admin: 03/16/20 12:32 Dose: 3 tab Documented by: [id number] Diphenoxylate HCl/Atropine (Diphenoxylate/Atropine 2.5/0.025mg Tab) 4 tab PO HS@2200 [facility] Stop: 04/15/20 21:59 Last Admin: 03/19/20 20:37 Dose: Not Given Documented by: [id number] Admin: 03/18/20 22:25 Dose: 4 tab Documented by: [id number] Admin: 03/17/20 21:13 Dose: 4 tab Documented by: [id number] Admin: 03/16/20 21:05 Dose: 4 tab Documented by: [id number] Diphenoxylate HCl/Atropine (Diphenoxylate/Atropine 2.5/0.025mg Tab) 2 tab PO DAILY@1700 ABBI Stop: 04/15/20 16:59 Last Admin: 03/19/20 17:32 Dose: 2 tab Documented by: [id number] Admin: 03/18/20 17:15 Dose: 2 tab Documented by: [id number] Admin: 03/17/20 16:55 Dose: 2 tab Documented by: [id number] Admin: 03/16/20 17:04 Dose: 2 tab Documented by: [id number] Epoetin Mary (Epoetin Mary 10,000 Units/Ml Vial) 10,000 units IV Q28D [facility] Stop: 10/16/20 08:59 Last Admin: 03/20/20 09:44 Dose: Not Given Documented by: [id number] Pantoprazole Sodium 40 mg/ (Syringe) 10 mls @ 5 mls/min IV BID@0900,2100 ABBI Stop: 04/15/20 08:59 Last Admin: 03/20/20 09:45 Dose: Not Given Documented by: [id number] Admin: 03/19/20 20:37 Dose: Not Given Documented by: [id number] Admin: 03/19/20 08:21 Dose: 5 mls/min Documented by: [id number] Admin: 03/18/20 20:07 Dose: 5 mls/min Documented by: [id number] Admin: 03/18/20 09:16 Dose: 5 mls/min Documented by: [id number] Admin: 03/17/20 21:10 Dose: 5 mls/min Documented by: [id number] Admin: 03/17/20 09:13 Dose: 5 mls/min Documented by: [id number] Admin: 03/16/20 21:06 Dose: 5 mls/min Documented by: [id number] Admin: 03/16/20 12:29 Dose: 5 mls/min Documented by: [id number] Bumetanide 2 mg/ Syringe 8 mls @ 4 mls/min IV DAILY ABBI Stop: 04/15/20 08:59 Last Admin: 03/16/20 13:00 Dose: 4 mls/min Documented by: [id number] Ceftriaxone Sodium 2,000 mg/ (Dextrose) 70 mls @ 140 mls/hr IV Q24H ABBI; Protocol Stop: 04/02/20 11:59 Last Infusion: 03/19/20 13:15 Dose: 0 mls/hr Documented by: [id number] Admin: 03/19/20 12:35 Dose: 140 mls/hr Documented by: [id number] Nutrition (Parenteral) 1,680 (ml/ TPN BAG) 1,680 mls @ 0 mls/hr IV .Q0M ABBI; Protocol Stop: 03/20/20 15:59 Last Infusion: 03/20/20 09:57 Dose: 0 mls/hr Documented by: [id number] Admin: 03/19/20 17:30 Dose: 70 mls/hr Documented by: [id number] Lamotrigine (Lamotrigine 25 Mg Tab) 125 mg PO BID ABBI Stop: 04/15/20 10:58 Last Admin: 03/20/20 09:44 Dose: Not Given Documented by: [id number] Admin: 03/19/20 20:37 Dose: Not Given Documented by: [id number] Admin: 03/19/20 08:21 Dose: 125 mg Documented by: [id number] Admin: 03/18/20 20:00 Dose: 125 mg Documented by: [id number] Admin: 03/18/20 09:16 Dose: 125 mg Documented by: [id number] Admin: 03/17/20 21:10 Dose: 125 mg Documented by: [id number] Admin: 03/17/20 10:16 Dose: 125 mg Documented by: [id number] Admin: 03/16/20 21:06 Dose: 125 mg Documented by: [id number] Admin: 03/16/20 13:20 Dose: Not Given Documented by: [id number] Levothyroxine Sodium (Levothyroxine Sodium 175 Mcg Tablet) 175 mcg PO HS [facility] Stop: 04/15/20 20:59 Last Admin: 03/19/20 20:37 Dose: Not Given Documented by: [id number] Admin: 03/18/20 20:08 Dose: 175 mcg Documented by: [id number] Admin: 03/17/20 21:12 Dose: 175 mcg Documented by: [id number] Admin: 03/16/20 21:05 Dose: 175 mcg Documented by: [id number] Metoprolol Succinate (Metoprolol Succ 25mg Ext Rel Tab) 75 mg PO DAILY ABBI Stop: 04/15/20 10:58 Last Admin: 03/20/20 09:46 Dose: Not Given Documented by: [id number] Admin: 03/19/20 08:22 Dose: 75 mg Documented by: [id number] Admin: 03/18/20 09:17 Dose: 75 mg Documented by: [id number] Admin: 03/17/20 10:14 Dose: Not Given Documented by: [id number] Admin: 03/16/20 13:20 Dose: Not Given Documented by: [id number] Mirtazapine (Mirtazapine Tab 15 Mg Tab) 7.5 mg PO HS ABBI Stop: 04/15/20 20:59 Last Admin: 03/19/20 20:37 Dose: Not Given Documented by: [id number] Admin: 03/18/20 20:01 Dose: 7.5 mg Documented by: [id number] Admin: 03/17/20 21:11 Dose: 7.5 mg Documented by: [id number] Admin: 03/16/20 21:04 Dose: 7.5 mg Documented by: [id number] Miscellaneous (Quetiapine Topical Cream 0.5 Ml~ Order Awaiting Action) 1 ea N/A QS [facility] Stop: 04/15/20 15:59 Last Admin: 03/20/20 09:44 Dose: Not Given Documented by: [id number] Admin: 03/20/20 01:06 Dose: Not Given Documented by: [id number] Admin: 03/19/20 17:31 Dose: Not Given Documented by: [id number] Admin: 03/19/20 08:24 Dose: Not Given Documented by: [id number] Admin: 03/19/20 00:35 Dose: Not Given Documented by: [id number] Admin: 03/18/20 16:04 Dose: Not Given Documented by: [id number] Admin: 03/18/20 09:19 Dose: Not Given Documented by: [id number] Admin: 03/18/20 00:04 Dose: Not Given Documented by: [id number] Admin: 03/17/20 16:54 Dose: Not Given Documented by: [id number] Admin: 03/17/20 08:56 Dose: Not Given Documented by: [id number] Admin: 03/16/20 23:01 Dose: Not Given Documented by: [id number] Admin: 03/16/20 15:06 Dose: Not Given Documented by: [id number] Multivitamins/Minerals (Multi Vit W/Minerals Liquid 15 Ml Udp) 15 ml PO QAM [facility] Stop: 04/17/20 10:29 Last Admin: 03/20/20 09:44 Dose: Not Given Documented by: [id number] Admin: 03/19/20 08:24 Dose: 15 ml Documented by: [id number] Admin: 03/18/20 12:40 Dose: 15 ml Documented by: [id number] Oxycodone HCl (Oxycodone Hcl Ir 5 Mg Tab (Immediate Release)) 5 mg PO Q4H PRN PRN Reason: Pain Stop: 03/30/20 11:50 Last Admin: 03/18/20 12:52 Dose: 5 mg Documented by: [id number] Sodium Chloride (Sodium Chloride 0.9% 10ml Flush) 10 ml IV TID [facility] Stop: 04/15/20 13:59 Last Admin: 03/20/20 09:46 Dose: Not Given Documented by: [id number] Admin: 03/19/20 20:37 Dose: Not Given Documented by: [id number] Admin: 03/19/20 13:30 Dose: Not Given Documented by: [id number] Admin: 03/19/20 09:00 Dose: Not Given Documented by: [id number] Admin: 03/18/20 20:08 Dose: 10 ml Documented by: [id number] Admin: 03/18/20 12:45 Dose: Not Given Documented by: [id number] Admin: 03/18/20 09:19 Dose: 10 ml Documented by: [id number] Admin: 03/17/20 21:12 Dose: Not Given Documented by: [id number] Admin: 03/17/20 14:01 Dose: Not Given Documented by: [id number] Admin: 03/17/20 09:09 Dose: 10 ml Documented by: [id number] Admin: 03/16/20 21:03 Dose: Not Given Documented by: [id number] Admin: 03/16/20 14:12 Dose: 10 ml Documented by: [id number] Vitamin D (Cholecalciferol 1,000 Units 25 Mcg Tab) 2,000 units PO DAILY ABBI Stop: 04/15/20 12:29 Last Admin: 03/20/20 09:46 Dose: Not Given Documented by: [id number] Admin: 03/19/20 08:23 Dose: 2,000 units Documented by: [id number] Admin: 03/18/20 09:18 Dose: 2,000 units Documented by: [id number] Admin: 03/17/20 10:43 Dose: Not Given Documented by: [id number] Admin: 03/16/20 13:23 Dose: Not Given Documented by: [id number] Coding Level of Care Code 81016 U Intl Hosp Care Lvl 1
[2020-03-20] MEDS ORDERED: HALOPERIDOL LACTATE 5 MG/ML 1 ML VIAL IM STA (10:20)
[2020-03-20] MEDS: QUETIAPINE TOP SCH ×2 (11:26→19:43)
[2020-03-20] MEDS: cefTRIAXone SODIUM 2,000 MG in DEXTROSE 5% 50 ML IV SCH (11:55)
--- NOTE | 2020-03-20 11:59 | Hospitalist Progress Note ---
Date of Service March 20, 2020 Assessment & Plan (1) Encephalopathy acute: SEVERE. Started yesterday afternoon with feeling despondent, then she developed significant confusion overnight along with combativeness. I spoke with the physician doctor assistant at [facility] yesterday who regularly cares for Ms Richardson and she confirmed that Ms Richardson often develops significant confusion during times of illness. She also has baseline cognitive impairment. 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 Gave haldol 1mg IM x 1; ultimately needed additional 1mg. Spoke with pharmacy who was able to secure her topical seroquel cream from [facility]. Upon arrival to [facility] the cream was applied. Hopefully this will control her agitation/combativeness/confusion. Cont 1:1 sitting. Fall precautions. (2) Noninfected skin tear of left leg: Wound care nurse team consulted for management. (3) Septicemia: 2nd to unique species of klebsiella. the klebsiella grew on blood cx's obtained from 03[facility]15 at the [facility]. they were processed at [facility]. the klebsiella is sensitive to cipro, rocephin, unasyn, bactrim. source - a-port. see below. cont rocephin 2gm IV daily. I called Sergei this am for final culture results. cultures from 03/16 at [facility] continue to be negative. PORT removal tentatively scheduled for 03/[address] Babcock. (4) Infection due to Port-A-Cath: 2nd klebsiella species as reported by Delaney. Appreciate telehealth ID consult and recs. A-port to be removed 03/21. Venogram reviewed by Dr Babcock who states that he should be able to place a new a-port on RIGHT side in the future. Will ask IV team to place new PIV later today once patient can tolerate. (5) On total parenteral nutrition (TPN): Daily and [facility] She usually has vancomycin dwell during the daytime as well. Holding TPN due to concern of port infection and septicemia. repeat blood cx's from 03/16 remain negative. PPN initiated 03/19. reordered for today as long as new PIV is in place for such. 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 cachectic on exam with muscle wasting of facial muscles, etc. (7) Malnutrition related to chronic disease: Noted (8) CKD (chronic kidney disease) stage 3, GFR 30-59 ml/min: With acute kidney injury in the setting of CKD stage III Baseline Cr. of 1.28 awaiting today's labs to ensure stability (9) Aortic stenosis: severe, noted on echo not felt to be a good candidate for valve replacement patient has pondered the decision for years about whether to have AVR or not (10) CHF (congestive heart failure): typically takes bumex 2 mg IV daily and metolazone needs labs first and new IV site before resuming cont to hold metoprolol succinate 75 mg daily due to low-normal BPS (11) Vitamin B12 deficiency: recent b12 level wnl (12) Hypothyroidism: Cont levothyroxine recent TSH 2.560 (13) Peripheral neuropathy: Continue on mirtazapine 7.5 mg HS for sleep and lamotrigine 125 mg p.o. 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 will d/w patient this finding on CT awaiting ammonia level due to confusion (17) Pancytopenia: 2nd to cirrhosis? recent TSH, B12, folate wnl could have other micronutrient deficiency that is contributing follow (18) DVT prophylaxis: heparin 5000 BID updated Amanda Barrow, daughter, by phone 03/18 left message for Amanda Barrow on 03/20 Admission and Anticipated Discharge Date Admission Date: March 16, 2020 Subjective events of last night noted. patient locked herself in bathroom - would not come out. multiple staff members tried to talk with her and encouraged her to come out. by report staff spent a very lengthy amount of time trying to convince her to come out of the BR. security was ultimately called and assisted staff in getting her out from the bathroom. she suffered a large skin tear to the left leg in the process. she refused to have staff dress the skin tear, obtain vitals, etc. this AM she removed her peripheral IV site. upon arrival this am during rounds she was sitting in the chair. a sitter was near the window in another chair. immediately upon entering the room she told me to leave. there was blood-tinged serous fluid dripping from the left leg skin tear. I offered to clean the floor up (there was small puddle of fluid) and dress the wound - she refused. she again told me to leave. she would not let me examine her. she told me we were "all liars" and she was upset that she wasn't allowed to get up from the chair on her own. she could not tell me why she was in the hospital. she said "I don't want anything else - I want to leave - I'm paying $13,000 a mo nth." I asked her what she meant - she was referring to her room/board at [facility]. I asked her how she would get there and she said "I'll figure out a way." when I proceeded to wipe up the small puddle of serous fluid on the floor she began to kick the large vikram I had placed on the floor. Review of Systems Review of Systems: Unobtainable due to cognitive status Physical Exam Constitutional: + thin, + cachectic, + altered mental status, + frail appearing and + combative; + uncooperative Cardiovascular: Extremities: + edema (b/l legs, left leg larger than right leg (no change)) Skin: + pallor large skin tear left kolb, dripping serosanguinous fluid onto the ground Psychiatric: Orientation: alert, oriented to person and oriented to place; + not oriented to time Results & Data Results & [facility] ([facility]) Vital Signs (Past 12 Hours) Vital Signs Pulse 03/20/20 02:03 60 patient refused vitals and labs this am Laboratory Results blood cultures from 03/16/20 - negative to date PG Care Time/CCT Total # of Minutes Spent Total Time Spent with Patient: Total time spent is greater than 50% in coordination of care (as documented) at patient's floor/unit and/or counseling patient: Coding Level of Care Code 73320 Subseq Hosp Care Lvl 3 Diagnoses Encephalopathy acute G93.40 Noninfected skin tear of left leg S81.812A Encounter type: initial encounter Septicemia A41.9 Infection due to Port-A-Cath T80.219D Encounter type: subsequent encounter On total parenteral nutrition (TPN) Z78.9 Severe protein-calorie malnutrition E43 Malnutrition related to chronic disease E46 CKD (chronic kidney disease) stage 3, GFR 30-59 ml/min N18.3 Aortic stenosis I35.0 Cardiac valve disease etiology: etiology unspecified CHF (congestive heart failure) I50.32 Heart failure chronicity: chronic Heart failure type: diastolic Vitamin B12 deficiency E53.8 Hypothyroidism E03.9 Hypothyroidism type: unspecified Peripheral neuropathy G62.9 Chronic diarrhea K52.9 Third degree AV block I44.2 Cirrhosis K74.60 Pancytopenia D61.818 DVT prophylaxis Z29.9 (1) CHF (congestive heart failure) Heart failure chronicity: chronic Heart failure type: diastolic Qualified Code(s): I50.32 - Chronic diastolic (congestive) heart failure (2) Aortic stenosis Cardiac valve disease etiology: etiology unspecified Qualified Code(s): I35.0 - Nonrheumatic aortic (valve) stenosis (3) Hypothyroidism Hypothyroidism type: unspecified Qualified Code(s): E03.9 - Hypothyroidism, unspecified (4) Infection due to Port-A-Cath Encounter type: subsequent encounter Qualified Code(s): T80.219D - Unspecified infection due to central venous catheter, subsequent encounter (5) Noninfected skin tear of left leg Encounter type: initial encounter Qualified Code(s): S81.812A - Laceration without foreign body, left lower leg, initial encounter
--- NOTE | 2020-03-20 13:29 | Pharmacy Report ---
PHA: Parenteral Nutrition Con - Date of Service March 20, 2020 - Scope Pharmacy was consulted on 03/19/2020 to manage parenteral nutrition orders for this patient. - Subjective The patient is currently on day # 2 of peripheral parenteral nutrition for short gut syndrome. - Objective Height: 5 ft 1 in Weight: 54.7 kg Diet: Low-Sodium Intake & Output (24hrs):: Intake & Output 03/18/20 03/19/20 03/20/20 03/21/20 06:59 06:59 06:59 06:59 Intake Total 3298 / 3298 2694 / 2694 2638.333 / 2638.333 1151.5 / 1151.5 Output Total 360 / 360 Balance 2938 / 2938 2694 / 2694 2637.333 / 2637.333 1151.5 / 1151.5 Weight 54.3 kg 54.7 kg 54.7 kg Nutrition Assessment:: Please refer to the Notes section of the EMR for the most recent plant facilities technician note. - Assessment 03/20: * Patient became very combative/agitated overnight/this morning. She refused lab work and removed her peripheral IV site. * Patient agreeable to new peripheral IV site this afternoon. Will resume previous bag until 1559 and then compound new bag for today. * Planning for port removal tomorrow 03/19: * Patient with gram-negative bacteremia - suspected source is her a-port * Plan is to either remove/replace port * Peripheral line placed today in order to allow for temporary PPN * Cultures available through [facility] - changed to ceftriaxone 2 g IV q24h today based on sensitivities * Patient is ordered a diet, but chronically eats very minimally * Ordered D5/NS@100 mL/hr yesterday (~120 g/day) -> reduced to 75 mL/hr today and will be d/c'd at time of PPN initiation * Home TPN [facility] * Dextrose 70%: 300 g/day * Plenamine: 70 g/day * SMOF lipid 20%: 50 g/day * Sodium chloride: 100 mEq/day * Sodium acetate: 60 mEq/day * Potassium chloride: 24 mEq/day * Magnesium sulfate: 4 mEq * Calcium gluconate: 9 mEq * Sodium phosphate: 15 mmoL/day * Copper: 0.4 mg/day * Zinc chloride: 5 mg/day * Selenium: 100 mcg/day * Infuvite: 10 mL/day * Famotidine 20 mg/day * Receives resides at [facility] - receives chronic bumetanide 2 mg IV daily - Plan For day # of PN administration, the following will be ordered: Macronutrients Amino acids 70 grams/day Dextrose 125 grams/day Micronutrients Sodium acetate 40 mEq Sodium phosphate 15 mmol Potassium chloride 20 mEq Magnesium sulfate 4.06 mEq Calcium gluconate 4.65 mEq - decreased from yesterday Multivitamins 10 mL Trace Elements 1 mL Total volume 1680 mL to be infused over 24 hrs will provide 705 kcal/day Final osmolarity 836 mOsm/L (maximum for PPN is 900 mOsm/L) Labs, as indicated, will be ordered per protocol Pharmacy will continue to follow and adjust parenteral nutrition orders on a daily basis. Thank you for allowing us to participate in the care of this patient.
[2020-03-20] MEDS ORDERED: TPN IV SCH (16:00)
[2020-03-20] MEDS ORDERED: PERIPHERAL PN IV SCH (16:00)
[2020-03-20] MEDS: LEVOTHYROXINE SODIUM 175 MCG TABLET PO SCH (19:43)
[2020-03-20] MEDS: MIRTAZAPINE TAB 15 MG TAB PO SCH (19:43)
[2020-03-21] MEDS: DICLOFENAC SOD 1% GEL 100 GM TUBE EXT SCH ×4 (01:07→19:48)
[2020-03-21] MEDS: OXYCODONE HCL IR 5 MG TAB (IMMEDIATE RELEASE) PO PRN (04:19)
[2020-03-21] MEDS: QUETIAPINE TOP SCH ×2 (10:11→21:01)
[2020-03-21] MEDS: DIPHENOXYLATE/ATROPINE 2.5/0.025MG TAB PO SCH ×4 (10:13→21:01)
[2020-03-21] MEDS: MULTI VIT W/MINERALS LIQUID 15 ML UDP PO SCH (10:13)
[2020-03-21] MEDS: lamoTRIgine 25 MG TAB PO SCH ×2 (10:13→20:39)
[2020-03-21] MEDS: PANTOprazole 40 MG in SYRINGE 0 ML IV SCH ×2 (10:14→20:38)
[2020-03-21] MEDS: CHOLECALCIFEROL 1,000 UNITS 25 MCG TAB PO SCH (10:15)
[2020-03-21] MEDS: METOPROLOL SUCC 25MG EXT REL TAB PO SCH (10:15)
[2020-03-21] MEDS: SODIUM CHLORIDE 0.9% 10ML FLUSH IV SCH ×3 (10:15→20:40)
[2020-03-21 10:43] LABS: Hemoglobin 10.7 g/dL (12.0-16.0); Mean Corpuscular Hemoglobin 31.8 pg (25-34); Mean Corpuscular Hgb Conc 31.5 g/dL (32-36); Mean Corpuscular Volume 100.9 fL (80-100); Mean Platelet Volume 10.1 fL (7.4-10.4); Platelet Count 158 K/uL (130-400); RDW Coefficient of Variation 14.1 % (11.5-14.5); RDW Standard Deviation 51.4 fL (36.4-46.3); Red Blood Count 3.37 M/uL (4.2-5.4); White Blood Count 8.33 K/uL (4.8-10.8)
[2020-03-21 11:17] LABS: BUN Creatinine Ratio 25.1 (10-20); Calcium 8.5 mg/dl (8.5-10.1); Creatinine Clr Calc Pharmacy 26.2 ml/min; Est GFR (Non-African American) 40.5; Magnesium 2.3 mg/dl (1.8-2.4); Potassium 4.9 mmol/L (3.5-5.1)
[2020-03-21 11:18] LABS: Phosphorus 2.3 mg/dl (2.5-4.9)
--- NOTE | 2020-03-21 11:25 | Hospitalist Progress Note ---
Date of Service March 21, 2020 Assessment & Plan (1) Encephalopathy acute: Marked improvement today. Patient much more alert, oriented, and with insight into her illness this am. Encephalopathy was likely metabolic due to port infection/septicemia along with hospital psychosis. Cont topical seroquel cream BID. Sitter remains in room, but patient very calm this am and allowing routine/regular care (allowed dressing application to LLE, blood draw, etc). (2) Septicemia: 2nd to unique species of klebsiella. the klebsiella grew on blood cx's obtained from 03/15/20 blood draw at [facility]. they were processed at [facility]. the klebsiella is sensitive to cipro, rocephin, unasyn, bactrim. source - a-port. cont rocephin 2gm IV daily. cultures from 03/16 at [facility] are fully negative. PORT removal scheduled for 03/[address] Babcock. per the HPI in this note I believe patient has capacity today to make the decision re: port explantation. (3) Infection due to Port-A-Cath: 2nd klebsiella species as reported by Delaney. Appreciate telehealth ID consult and recs. A-port removal today. Venogram reviewed by Dr Babcock who states that he should be able to place a new a-port on RIGHT side in the future (about 1-2 weeks from now). (4) Noninfected skin tear of left leg: Wound care nurse team consulted for management and dressing changes. Resume parenteral nutrition when able. (5) On total parenteral nutrition (TPN): Chronic, for 10+ years. Usual schedule at [facility] -- Daily; runs from 8:30 PM to 8:30 AM. She usually has vancomycin dwell during the daytime as well. Holding TPN due to concern of port infection and septicemia. repeat blood cx's from 03/16 remain negative. PPN initiated 03/19, but then IV was pulled out by patient on AM of 03/20. Will resume PPN once PIV is in place. In meantime - IVF. 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 cachectic on exam with muscle wasting of facial muscles, etc. 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 (8) CKD (chronic kidney disease) stage 3, GFR 30-59 ml/min: With acute kidney injury in the setting of CKD stage III Peak Cr 1.87 ANNIKA sepsis associated ATN Today 1.2 -- now at baseline (9) Aortic stenosis: severe, noted on echo not felt to be a good candidate for valve replacement and patient had previously refused AVR as well (10) CHF (congestive heart failure): chronic diastolic typically takes bumex 2 mg IV daily and metolazone appears volume contracted on exam today hold diuretics (11) Vitamin B12 deficiency: recent b12 level wnl (12) Hypothyroidism: Cont levothyroxine recent TSH 2.560 (13) Peripheral neuropathy: Continue on mirtazapine 7.5 mg HS for sleep and lamotrigine 125 mg p.o. 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 (17) Pancytopenia: 2nd to cirrhosis? recent TSH, B12, folate wnl could have other micronutrient deficiency that is contributing follow (18) Acute kidney injury: peak Cr 1.87 Cr now at baseline ANNIKA likely sepsis-associated ATN resolved (19) DVT prophylaxis: heparin 5000 BID - if patient will allow updated Amanda Barrow, daughter, by phone 03/18 left message for Amanda Barrow on 03/20 extensively updated Sandra, another daughter, on 03/20 care d/w nursing staff care d/w psychiatry staff care d/w Dr Babcock total care time today between bedside visit, care coordination amongst multiple team members, etc -- 70 minutes Admission and Anticipated Discharge Date Admission Date: March 16, 2020 Subjective Patient was very calm with me during my bedside rounds this morning. I spent about 30 minutes speaking with her. She was oriented x 3 - knew it was , that it was 2019, and that she was in the hospital. She had limited recollection of the last 2-3 days. She did remember 2 specific events - the development of her LLE wound, and receiving haldol yesterday. She felt like we had "not been telling her what was going on" but I reassured her that I (and multiple other providers) had told her several times in the last 48 hours Why she was in the hospital (port infection) and that the port would need to be removed. She also remembered pulling out her IV yesterday morning. When I asked her why she pulled out her IV she said "wouldn't you do the same thing if you had to live the way I have for so long?" I asked her if she was angry or frustrated and she responded "anger is not the word - but I am tired of living this way" (TPN-dependent, ports, etc). The discussion then transitioned to talking about her port infection. I explained that the skin overlying the port had an ulceration in the central portion and that the port was not usable. I explained that Dr Babcock was willing to remove the port and that he could do that today. I explained that she would need, at minimum, a peripheral IV so that we could resume PPN. She asked appropriate, insightful questions today. She WAS agreeable to receiving wound care and dressings for her LLE wound. She allowed me to perform a full exam. With her verbal permission I took a close-up photo of her port and showed her the photo. I did so because she could not see the port herself due to its location. She had not realized the extent of the ulcer in the middle of the port until she saw the photo. I immediately deleted that photo in the presence of the patient. I offered to reach out to Ms Judysocorro, physician wet process miller head assistant, who cares for her at [facility] and see if she would be willing to speak with her. She declined such. She also asked that I not phone her children at any point moving forward. I offered the patient 2 options -- first, going back to [facility] with comfort care. Stopping blood draws, stopping nutrition/TPN, stopping routine care. Second, resuming routine care - dressing changes, IV placement, labs, PPN or TPN, removing port, and ultimately obtaining a new port. At the conclusion of my visit she was "still thinking" about her options. About an hour or two later the pt's nurse contacted me to state that she did indeed allow wound care to the LLE and that she allowed the lab to draw labs. She WANTED to proceed forward with port removal today. I made Dr Babcock aware of such. Patient appeared to have capacity today to make decisions on her own behalf. She was awake, alert, oriented x 3, and had insight into her medical conditions today. She was calm and allowed a normal exam today. Review of Systems Constitutional: + fatigue Respiratory: no dyspnea Cardiovascular: no chest pain Gastrointestinal: no abdominal pain Musculoskeletal: + joint pain (chronic - arthritis - she asked for oxycodone this am for such ) Psychiatric: + depression, + hopelessness and + abnormal sleep pattern (was up much of night last night ); no paranoia Physical Exam Constitutional: + thin, + cachectic, + frail appearing and cooperative; no altered mental status and not combative ENMT: external ear and nose normal, oropharynx normal Respiratory: no respiratory distress Auscultation: + rales (bases, mild, dry-sounding ); no wheezes Cardiovascular: Rate/Rhythm: regular rate and regular rhythm Heart Sounds: normal S1, normal S2 and + murmur (3/6 holosystolic murmur apex) Vessels: posterior tibial pulses present and dorsalis pedis pulses present; no JVD Extremities: + edema (b/l legs, left leg larger than right leg (no change)) Chest (Breasts): Chest: + vascular access device or port (left upper chest - with ulceration in central portion of port) Gastrointestinal (Abdomen): normal bowel sounds, soft, nontender, no hepatosplenomegaly Percussion/Palpation: + hernia (vs scar tissue - just inferior to umbilicus ) Skin: + pallor large irregular skin tear left kolb weeping clear serous fluid; superior most portion of wound is deep, about 2-3mm; no cellulitis Psychiatric: Orientation: alert, oriented to person, oriented to place and oriented to time Affect: + depressed affect; no angry affect Mood: + depressed mood Thought Process: clear/coherent thought process Results & Data Results & Data ([facility]) Laboratory Results Laboratory Results - last 24 hr 03/21/20 03/21/20 10:15 10:15 WBC 8.33 RBC 3.37 L Hgb 10.7 L Hct 34.0 L MCV 100.9 H MCH 31.8 MCHC 31.5 L RDW Std Deviation 51.4 H RDW Coeff of Gabe 14.1 Plt Count 158 MPV 10.1 Sodium 137 Potassium 4.9 Chloride 104 Carbon Dioxide 22 Anion Gap 11.0 BUN 31 H Creatinine 1.23 H Est Cr Clr Drug Dosing 26.2 Est GFR ( Amer) 47.0 Est GFR (Non-Af Amer) 40.5 BUN/Creatinine Ratio 25.1 H Glucose 54 L Calcium 8.5 Phosphorus 2.3 L Magnesium 2.3 PG Care Time/CCT Total # of Minutes Spent Total Time Spent with Patient: Total time spent is greater than 50% in coordination of care (as documented) at patient's floor/unit and/or counseling patient: Prolonged Care Time Prolonged Care Time: Yes Total Prolonged Care Time: 70 Coding Level of Care Code 58420 Subseq Hosp Care Lvl 3 (25 - SIGNIFICANT, SEPARATELY IDENTIFIABLE ) Diagnoses Encephalopathy acute G93.40 Septicemia A41.9 Infection due to Port-A-Cath T80.219D Encounter type: subsequent encounter Noninfected skin tear of left leg S81.812A Encounter type: initial encounter On total parenteral nutrition (TPN) Z78.9 Severe protein-calorie malnutrition E43 Malnutrition related to chronic disease E46 CKD (chronic kidney disease) stage 3, GFR 30-59 ml/min N18.3 Aortic stenosis I35.0 Cardiac valve disease etiology: etiology unspecified CHF (congestive heart failure) I50.32 Heart failure type: diastolic Heart failure chronicity: chronic Vitamin B12 deficiency E53.8 Hypothyroidism E03.9 Hypothyroidism type: unspecified Peripheral neuropathy G62.9 Chronic diarrhea K52.9 Third degree AV block I44.2 Cirrhosis K74.60 Pancytopenia D61.818 Acute kidney injury N17.9 DVT prophylaxis Z29.9 Additional Codes Prolonged Care Time - Prolonged Care Time: Yes ([id number]) Time Spent (min) 70 (1) Noninfected skin tear of left leg Encounter type: initial encounter Qualified Code(s): S81.812A - Laceration without foreign body, left lower leg, initial encounter (2) Infection due to Port-A-Cath Encounter type: subsequent encounter Qualified Code(s): T80.219D - Unspecified infection due to central venous catheter, subsequent encounter (3) Aortic stenosis Cardiac valve disease etiology: etiology unspecified Qualified Code(s): I35.0 - Nonrheumatic aortic (valve) stenosis (4) CHF (congestive heart failure) Heart failure type: diastolic Heart failure chronicity: chronic Qualified Code(s): I50.32 - Chronic diastolic (congestive) heart failure (5) Hypothyroidism Hypothyroidism type: unspecified Qualified Code(s): E03.9 - Hypothyroidism, unspecified
[2020-03-21] MEDS ORDERED: GLUCOSE 40% GEL 15 GM TUBE PO ONE (11:36)
[2020-03-21] MEDS ORDERED: DEXTROSE 50% 50 ML SYRINGE IV ONE (12:26)
[2020-03-21] MEDS: cefTRIAXone SODIUM 2,000 MG in DEXTROSE 5% 50 ML IV SCH (12:42)
[2020-03-21] MEDS: D5W AND NSS 1,000 ML IV SCH (12:43)
--- NOTE | 2020-03-21 12:45 | History & Physical Bridge Note ---
Date of Service March 21, 2020 History & Physical Bridge Note Patient for removal of her infected infusaport. I have discussed the risks options and benefits of the procedure with the patient. The patient understands the risks options and benefits and agrees to the procedure. I have examined the patient, reviewed the History & Physical and in the interval since the performance of the History & Physical I have noted the following changes of clinical significance: no changes noted
--- NOTE | 2020-03-21 14:23 | Pre Anesthesia Assessment ---
Date of Service March 21, 2020 Pre Sedation Assessment Vital Signs Temp Pulse Resp BP Pulse Ox 03/21/20 14:12 36.8 C 67 18 142/66 H 96 Cardiovascular RRR, no murmur, no edema Respiratory normal respiratory effort, lungs clear to auscultation Pre-Sedation Airway Assessment Smoking Status: Never smoker Hx Sleep Apnea: No Short, Thick Neck: No Thyromental Distance: > or= 3.5 Finger Breadths Oral Cavity: + WNL Mallampati Class: II ASA: ASA3 NPO Status Date of Last Intake of Fluids: 03/21/20 Time of Last Intake of Fluids: 08:00 Date of Last Intake of Solid Food: 03/20/20 Time of Last Intake of Solid Foods: 21:00 Procedure Planning Contraindications for Sedation: none Current Medications Reviewed: Yes Notes The planned sedation has been discussed with the patient. Informed Consent was obtained. I have identified the patient, determined the appropriateness of sedation and have assessed the patient immediately prior to the procedure. All medicine(s) and interventions are by my order.
--- NOTE | 2020-03-21 14:30 | Communication Note ---
Date of Service: March 21, 2020 labs returned - BMP with glucose in the 50s. hypoglycemia protocol followed by nursing staff; BSG ultimately >100. hypoglycemia 2nd to prolonged fasting state and no IVF/PPN due to lack of IV access. IV team placed PIV. can resume PPN tonight. Dr Babcock aware of AM events and patient agreeable to port removal today. Will ultimately need PICC tomorrow for TPN, and then new port placement in 1-2 weeks. Harry Poole MD
[2020-03-21] MEDS ORDERED: fentaNYL citrate 100 MCG/2 ML VIAL ONE (14:36)
[2020-03-21] MEDS ORDERED: MIDAZOLAM HCL 1 MG/ML 2ML VIAL ONE (14:36)
--- NOTE | 2020-03-21 15:11 | Post Operative Brief Note ---
Immediate Post Op Note v1 Date of Surgery March 21, 2020 Pre & Post Diagnosis Operation Date: 03/21/20 14:50 Pre-Op Diagnosis: infected aport Post-Op Diagnosis: infected aport I identified the patient and participated in the time-out.: Yes Procedure Operation Date: 03/21/20 14:50 Actual Procedures p Removal Of Aport, Moderate Sedation From 1446 to 1525(Left) - Doug Babcock MD Surgeon Doug Babcock MD [employer] Law Clerk MD Luciano Estimated Blood Loss 3 Findings Consistent with Post-Op Diagnosis Anesthesia Type RN Sedation Complications none Disposition Accompanied Patient To Recovery: No Disposition: Recovery Room
--- NOTE | 2020-03-21 15:25 | Post Anesthesia Assessment ---
Date of Service March 21, 2020 Post Sedation Assessment Vital Signs Temp Pulse Pulse Resp BP Pulse Ox 03/21/20 15:20 69 18 135/59 L 98 03/21/20 15:16 62 18 145/61 H 100 03/21/20 15:11 67 16 149/64 H 98 03/21/20 15:06 65 15 141/57 H 99 03/21/20 15:01 81 15 146/64 H 99 03/21/20 14:56 60 15 148/67 H 100 03/21/20 14:51 78 14 135/89 100 03/21/20 14:46 79 14 144/73 H 100 03/21/20 14:40 78 14 139/72 99 03/21/20 14:12 36.8 C 67 18 142/66 H 96 Recovery Score Activity: Moves 4 extremities Respiration: Deep Breath/Cough Circulation: +/-20% PreAnes Value Consciousness: Fully Awake Oxygen Saturation: > 92% On Room Air Post Anesthesia Score: 10 Discharge Sedation Level of Care: Fast Track Phase II Post Sedation Plan On clinical assessment, the patient appears to have tolerated the sedation without complications. Patient is recovering as anticipated. Patient will continue to be monitored by nursing and may be discharged when sedation discharge criteria are met per below protocol. Upon Completions of procedure up to 15 minutes continue every 5 minute vital signs and the P.A.R. score; then discharge to a Phase I or Fast Track to Phase II per the following guidelines: * Discharge Patient to appropriate Phase II area if PAR is 8 or greater or return to pre- procedure baseline. The post - procedure orders will be as directed. * If PAR score is less than 8 or not return to pre-procedure baseline then patient will follow Phase I monitoring till PAR is reached for Phase II. The Phase I may be done in procedure room or may call to secure a Phase I area. * If naloxone or flumazenil are used for reversal, hold in Phase I for continued monitoring from when last reversal dose was given for a minimum of 60 minutes or longer pending the nurse and/or physician discretion of patient condition before discharge to Phase II. Please call the Sedation Physician to re-evaluate and complete post-note for discharge to Phase II area. Do NOT discharge from procedure sedation or Phase 1 until post- sedation evaluation note is complete by procedure /sedation MD Sedation Discharge Instructions to be given to the patient at discharge to home.
--- NOTE | 2020-03-21 15:29 | Operative Report ---
Post Operative Report Pre & Post Diagnosis Operation Date: 03/21/20 14:50 Pre-Op Diagnosis: infected aport Post-Op Diagnosis: infected aport I identified the patient and participated in the time-out.: Yes Procedure Operation Date: 03/21/20 14:50 Actual Procedures p Removal Of Aport, Moderate Sedation From 1446 to 1525(Left) - Doug Babcock MD Surgeon Doug Babcock MD Tool Engine Lathe Set Up Operator Zeinab Antoine MD Estimated Blood Loss 3 Findings Consistent with Post-Op Diagnosis Specimens Catheter tip Anesthesia Type RN Sedation Complications none Disposition Accompanied Patient To Recovery: No Disposition: Recovery Room Indications 84 yoF with infected Aport. Description of Procedure The patient was placed supine on the operating room table. The left chest was prepared with Hibiclens solution due to the patient's numerous allergies. The patient was draped in standard sterile fashion. A preprocedure time-out was performed correctly identifying the patient, procedure, and informed consent. Prior to incision, ropivicaine was injected around the port circumferentially. Using a #15 blade, an ellipse incision was made over the center of the port. Using blunt and sharp dissection, the fibrin sheath was removed from the port. The fibrin sheath surrounding the catheter was removed with electrocautery. The catheter was removed and pressure was applied to the left internal jugular vein. The prolene sutures were cut and the remainder of the fibrin sheath was removed. The port was extracted and hemostasis was achieved. Deep dermal sutures were placed in an interrupted fashion using 3-0 vicryl. A running subcuticular closure was performed with 4-0 vicryl. A sterile dressing was applied. At the conclusion of the case, all needle, sponge, and instrument counts were correct. The patient tolerated the procedure well and there were no apparent complications. Dr. Babcock was present for and directly supervised the entirety of the operation. I attest to the content of the Intraoperative Record and any orders documented therein. Any exceptions are noted below.
[2020-03-21] MEDS ORDERED: ROPIVACAINE 0.5% 5 MG/ML 30 ML VIAL INSTIL ONE (15:46)
[2020-03-21] MEDS ORDERED: PERIPHERAL PN IV SCH (16:00)
[2020-03-21] MEDS ORDERED: TPN IV SCH (16:00)
[2020-03-21] MEDS: MIRTAZAPINE TAB 15 MG TAB PO SCH (20:39)
[2020-03-21] MEDS: LEVOTHYROXINE SODIUM 175 MCG TABLET PO SCH (20:41)
[2020-03-22 00:50] LABS: Partial Thromboplastin Ratio 0.9; Partial Thromboplastin Time 26.2 Seconds (21.0-31.0)
[2020-03-22] MEDS ORDERED: GLUCOSE 10 TABS/TUBE PO PRN (00:54)
[2020-03-22] MEDS: DEXTROSE 50% 50 ML SYRINGE IV PRN ×2 (01:18→01:51)
[2020-03-22] MEDS: DICLOFENAC SOD 1% GEL 100 GM TUBE EXT SCH ×4 (01:52→18:58)
[2020-03-22] MEDS: D5W AND NSS 1,000 ML IV SCH ×2 (04:01→14:17)
[2020-03-22 08:16] LABS: Hematocrit (blood only) 28.6 % (37-47); Hemoglobin 9.2 g/dL (12.0-16.0); Mean Corpuscular Hemoglobin 31.8 pg (25-34); Mean Corpuscular Hgb Conc 32.2 g/dL (32-36); Mean Platelet Volume 9.9 fL (7.4-10.4); Platelet Count 149 K/uL (130-400); RDW Coefficient of Variation 14.1 % (11.5-14.5); RDW Standard Deviation 50.3 fL (36.4-46.3); Red Blood Count 2.89 M/uL (4.2-5.4); White Blood Count 7.26 K/uL (4.8-10.8)
[2020-03-22 08:42] LABS: Calcium 8.4 mg/dl (8.5-10.1); Creatinine Clr Calc Pharmacy 30.1 ml/min; Est GFR (African American) 49.9; Est GFR (Non-African American) 43.1; Potassium 4.4 mmol/L (3.5-5.1)
[2020-03-22] MEDS: QUETIAPINE TOP SCH ×2 (08:54→21:15)
[2020-03-22] MEDS: PANTOprazole 40 MG in SYRINGE 0 ML IV SCH ×2 (08:55→21:16)
[2020-03-22] MEDS: METOPROLOL SUCC 25MG EXT REL TAB PO SCH ×2 (08:55→14:41)
[2020-03-22] MEDS: lamoTRIgine 25 MG TAB PO SCH ×3 (08:56→21:17)
[2020-03-22] MEDS: CHOLECALCIFEROL 1,000 UNITS 25 MCG TAB PO SCH (08:56)
[2020-03-22] MEDS: MULTI VIT W/MINERALS LIQUID 15 ML UDP PO SCH (08:57)
[2020-03-22] MEDS: DIPHENOXYLATE/ATROPINE 2.5/0.025MG TAB PO SCH ×5 (08:57→21:18)
[2020-03-22] MEDS: SODIUM CHLORIDE 0.9% 10ML FLUSH IV SCH ×3 (08:58→21:16)
[2020-03-22] MEDS: cefTRIAXone SODIUM 2,000 MG in DEXTROSE 5% 50 ML IV SCH (12:09)
--- NOTE | 2020-03-22 13:29 | Pharmacy Report ---
PHA: Parenteral Nutrition Con - Date of Service March 22, 2020 - Scope Pharmacy was consulted on 03/16/2020 to manage parenteral nutrition orders for this patient. 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 - Objective Height: 5 ft 1 in Weight: 59 kg Diet: Low-Sodium Intake & Output (24hrs):: Intake & Output 03/20/20 03/21/20 03/22/20 03/23/20 06:59 06:59 06:59 06:59 Intake Total 2638.333 / 2638.333 1151.5 / 1151.5 1770 / 1770 Output Total 200 / 200 Balance 2637.333 / 2637.333 1151.5 / 1151.5 1570 / 1570 Weight 54.7 kg 59 kg Laboratory Data (Last 24 Hr):: 03/22/20 03/22/20 08:03 08:03 Sodium 139 Potassium 4.4 Chloride 110 H Carbon Dioxide 21 BUN 22 H Creatinine 1.17 Glucose 82 Calcium 8.4 L Phosphorus 2.0 L Nutrition Assessment:: Please refer to the Notes section of the EMR for the most recent charcoal kiln burner note. - Assessment 03/22: * In short...patient received PPN starting 03/19 at 1600 but only until 03/20 at 1000 because she removed her IV site. On 03/20, she refused to allow another IV site to placed. She did have an IV site placed on 03/21 but it was hurting her so no PPN was given through it. Therefore, she has not received any parenteral nutrition since 03/19. * Patient had A port removed on 03/21. Cultures are pending. * Plan is to have a PICC line placed at some point. Currently, she has D5 NS running at 80 mL/hr. Will discontinue this once PPN starts today. * Will resume PPN through peripheral site today at 75 mL/hr which is less than her current maintenance fluids rate. * Lipids will be added to bag today. Originally held secondary to infection but A-port has been removed and repeat cultures are negative to date. * Labs have been ordered for the weekend. 03/20: * Patient became very combative/agitated overnight/this morning. She refused lab work and removed her peripheral IV site. * Patient agreeable to new peripheral IV site this afternoon. Will resume previous bag until 1558 and then compound new bag for today. * Planning for port removal tomorrow 03/19: * Patient with gram-negative bacteremia - suspected source is her a-port * Plan is to either remove/replace port * Peripheral line placed today in order to allow for temporary PPN * Cultures available through [facility] - changed to ceftriaxone 2 g IV q24h today based on sensitivities * Patient is ordered a diet, but chronically eats very minimally * Ordered D5/NS@100 mL/hr yesterday (~120 g/day) -> reduced to 75 mL/hr today and will be d/c'd at time of PPN initiation * Home TPN formulation obtained from [employer] * Dextrose 70%: 300 g/day * Plenamine: 70 g/day * SMOF lipid 20%: 50 g/day * Sodium chloride: 100 mEq/day * Sodium acetate: 60 mEq/day * Potassium chloride: 24 mEq/day * Magnesium sulfate: 4 mEq * Calcium gluconate: 9 mEq * Sodium phosphate: 15 mmoL/day * Copper: 0.4 mg/day * Zinc chloride: 5 mg/day * Selenium: 100 mcg/day * Infuvite: 10 mL/day * Famotidine 20 mg/day * Receives resides at [facility] - receives chronic bumetanide 2 mg IV daily - Plan For day # 2 of PN administration, the following will be ordered: Macronutrients Amino acids 70 grams/day Dextrose 125 grams/day Lipids 50 grams/day Micronutrients Sodium phosphate 15 MMol Sodium acetate 60 mEq Potassium phosphate 15 mMol Potassium chloride 20 mEq Magnesium sulfate 4.06 mEq Calcium gluconate 4.65 mEq Multivitamins 10 mL Trace Elements 1 mL Folic acid 1 mg Thiamine 100 mg Total volume 1800 mL to be infused over 24 hrs will provide 1205 kcal/day Final osmolarity 861 mOsm/L (maximum for PPN is 900 mOsm/L) Labs, as indicated, will be ordered per protocol Pharmacy will continue to follow and adjust parenteral nutrition orders on a daily basis. Thank you for allowing us to participate in the care of this patient.
[2020-03-22] MEDS ORDERED: SODIUM PHOSPHATE 3 MMOL/1 ML INFUSION IV STA (15:14)
[2020-03-22] MEDS ORDERED: SODIUM PHOSPHATE 15 MMOL in SODIUM CHLORIDE 0.9% 250 ML IV ONE (15:30)
[2020-03-22] MEDS ORDERED: Custom Peripheral Pn 1,800 ML in TPN BAG 0 ML IV SCH (16:00)
--- NOTE | 2020-03-22 17:42 | Hospitalist Progress Note ---
Date of Service March 22, 2020 Assessment & Plan (1) Septicemia: 2nd to unique species of klebsiella. the klebsiella grew on blood cx's obtained from 03/15/20 blood draw at [facility]. they were processed at [facility]. the klebsiella is sensitive to cipro, rocephin, unasyn, bactrim. source - a-port. cont rocephin 2gm IV daily. cultures from 03/16 at [facility] are fully negative. PORT removed on 03/[address] Babcock. - Will need PICC line for further TPN and antibiotics. (2) Encephalopathy acute: Stable improvement today. Encephalopathy was likely metabolic due to port infection/septicemia along with hospital psychosis. Cont topical Seroquel cream BID. (3) Infection due to Port-A-Cath: 2nd klebsiella species as reported by Delaney. Appreciate telehealth ID consult and recs. A-port removal on 03/21. Venogram reviewed by Dr Babcock who states that he should be able to place a new a-port on RIGHT side in the future (about 1-2 weeks from now). (4) Noninfected skin tear of left leg: Wound care nurse team consulted for management and dressing changes. Resume parenteral nutrition when able. (5) On total parenteral nutrition (TPN): Chronic, for 10+ years. Usual schedule at -- Daily; runs from 8:30 PM to 8:30 AM. She usually has vancomycin dwell during the daytime as well. Holding TPN due to concern of port infection and septicemia. repeat blood cx's from 03/16 remain negative. PPN initiated 03/19, but then IV was pulled out by patient on AM of 03/20. Will resume PPN once PIV is in place. In meantime - IVF. 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 cachectic on exam with muscle wasting of facial muscles, etc. 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 (8) CKD (chronic kidney disease) stage 3, GFR 30-59 ml/min: With acute kidney injury in the setting of CKD stage III Peak Cr 1.87 ANNIKA sepsis associated ATN Today 1.2 -- now at baseline (9) Aortic stenosis: severe, noted on echo not felt to be a good candidate for valve replacement and patient had previously refused AVR as well (10) CHF (congestive heart failure): chronic diastolic typically takes bumex 2 mg IV daily and metolazone appears volume contracted on exam today hold diuretics (11) Vitamin B12 deficiency: recent b12 level wnl (12) Hypothyroidism: Cont levothyroxine recent TSH 2.560 (13) Peripheral neuropathy: Continue on mirtazapine 7.5 mg HS for sleep and lamotrigine 125 mg p.o. 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 (17) Pancytopenia: 2nd to cirrhosis? recent TSH, B12, folate wnl could have other micronutrient deficiency that is contributing follow (18) Acute kidney injury: peak Cr 1.87 Cr now at baseline ANNIKA likely sepsis-associated ATN resolved (19) DVT prophylaxis: heparin 5000 BID - if patient will allow Admission and Anticipated Discharge Date Admission Date: March 16, 2020 Subjective Reports she is "cold" today and asks for more warm blankets. She also reports she is in pain all over, but falls asleep after our conversation. Reports no fevers/chills, chest pain, shortness of breath, abdominal pain, nausea, or vomiting. Physical Exam Constitutional: WD/WN, vitals as above + disheveled and cooperative Eyes: EOM intact bilaterally; no conjunctival abnormality ENMT: external ear and nose normal, oropharynx normal Neck: trachea midline, no thyromegaly normal visual inspection Respiratory: normal respiratory effort, lungs clear to auscultation no respiratory distress Cardiovascular: RRR, no murmur, no edema Gastrointestinal (Abdomen): Inspection/Auscultation: abdomen normal to inspection; abdomen not distended Musculoskeletal: no cyanosis or clubbing, extremities motor strength 5/5 Skin: no rashes, warm and dry Neurologic: moves all extremities and awake Psychiatric: Orientation: alert, oriented to person and cooperative Results & Data Results & Data ([facility]) Vital Signs (Past 12 Hours) Vital Signs Temp Pulse Pulse Resp BP Pulse Ox 03/22/20 16:00 36.4 C L 60 60 18 151/75 H 93 03/22/20 11:48 36.8 C 84 17 121/60 93 03/22/20 08:30 60 PG Care Time/CCT Total # of Minutes Spent Total Time Spent with Patient: Total time spent is greater than 50% in coordination of care (as documented) at patient's floor/unit and/or counseling patient: Coding Level of Care Code 30310 Subseq Hosp Care Lvl 2 Diagnoses Septicemia A41.9 Encephalopathy acute G93.40 Infection due to Port-A-Cath T80.219D Encounter type: subsequent encounter Noninfected skin tear of left leg S81.812A Encounter type: initial encounter On total parenteral nutrition (TPN) Z78.9 Severe protein-calorie malnutrition E43 Malnutrition related to chronic disease E46 CKD (chronic kidney disease) stage 3, GFR 30-59 ml/min N18.3 Aortic stenosis I35.0 Cardiac valve disease etiology: etiology unspecified CHF (congestive heart failure) I50.32 Heart failure type: diastolic Heart failure chronicity: chronic Vitamin B12 deficiency E53.8 Hypothyroidism E03.9 Hypothyroidism type: unspecified Peripheral neuropathy G62.9 Chronic diarrhea K52.9 Third degree AV block I44.2 Cirrhosis K74.60 Pancytopenia D61.818 Acute kidney injury N17.9 DVT prophylaxis Z29.9 (1) Infection due to Port-A-Cath Encounter type: subsequent encounter Qualified Code(s): T80.219D - Unspec ified infection due to central venous catheter, subsequent encounter (2) Noninfected skin tear of left leg Encounter type: initial encounter Qualified Code(s): S81.812A - Laceration without foreign body, left lower leg, initial encounter (3) Aortic stenosis Cardiac valve disease etiology: etiology unspecified Qualified Code(s): I35.0 - Nonrheumatic aortic (valve) stenosis (4) CHF (congestive heart failure) Heart failure type: diastolic Heart failure chronicity: chronic Qualified Code(s): I50.32 - Chronic diastolic (congestive) heart failure (5) Hypothyroidism Hypothyroidism type: unspecified Qualified Code(s): E03.9 - Hypothyroidism, unspecified
[2020-03-22] MEDS: LEVOTHYROXINE SODIUM 175 MCG TABLET PO SCH (21:17)
[2020-03-22] MEDS: MIRTAZAPINE TAB 15 MG TAB PO SCH (21:17)
[2020-03-23] MEDS: DICLOFENAC SOD 1% GEL 100 GM TUBE EXT SCH ×4 (01:16→21:05)
[2020-03-23 07:27] LABS: Hematocrit (blood only) 27.5 % (37-47); Mean Corpuscular Hemoglobin 32.4 pg (25-34); Mean Corpuscular Hgb Conc 32.7 g/dL (32-36); Mean Corpuscular Volume 98.9 fL (80-100); Mean Platelet Volume 10.4 fL (7.4-10.4); Platelet Count 140 K/uL (130-400); RDW Coefficient of Variation 14.4 % (11.5-14.5); RDW Standard Deviation 51.7 fL (36.4-46.3); Red Blood Count 2.78 M/uL (4.2-5.4); White Blood Count 7.69 K/uL (4.8-10.8)
[2020-03-23] MEDS: PANTOprazole 40 MG in SYRINGE 0 ML IV SCH ×2 (07:43→21:04)
[2020-03-23 08:05] LABS: Albumin Level 1.9 gm/dl (3.4-5.0); BUN Creatinine Ratio 18.5 (10-20); Calcium 7.3 mg/dl (8.5-10.1); Creatinine Clr Calc Pharmacy 28.5 ml/min; Est GFR (African American) 52.1; Est GFR (Non-African American) 44.9; Magnesium 1.9 mg/dl (1.8-2.4); Potassium 4.1 mmol/L (3.5-5.1)
[2020-03-23 08:27] LABS: Albumin Globulin Ratio 0.4 (0.9-2); Bilirubin,Total 0.4 mg/dl (0.2-1); Globulin 4.3 gm/dl (2.5-4.0); Total Protein 6.2 gm/dl (6.4-8.2)
[2020-03-23] MEDS: DIPHENOXYLATE/ATROPINE 2.5/0.025MG TAB PO SCH ×4 (09:00→21:02)
[2020-03-23] MEDS: QUETIAPINE TOP SCH ×2 (09:14→21:06)
[2020-03-23] MEDS: MULTI VIT W/MINERALS LIQUID 15 ML UDP PO SCH (09:16)
[2020-03-23] MEDS: SODIUM CHLORIDE 0.9% 10ML FLUSH IV SCH ×3 (09:16→21:03)
[2020-03-23] MEDS: lamoTRIgine 25 MG TAB PO SCH ×2 (11:49→21:01)
[2020-03-23] MEDS: cefTRIAXone SODIUM 2,000 MG in DEXTROSE 5% 50 ML IV SCH (11:49)
[2020-03-23] MEDS: METOPROLOL SUCC 25MG EXT REL TAB PO SCH (11:50)
[2020-03-23] MEDS: CHOLECALCIFEROL 1,000 UNITS 25 MCG TAB PO SCH (11:50)
[2020-03-23] MEDS ORDERED: Custom Peripheral Pn 1,800 ML in TPN BAG 0 ML IV SCH (16:00)
[2020-03-23] MEDS: ondansetron HCL 8 MG in DEXTROSE 5% 50 ML IV SCH (18:54)
[2020-03-23] MEDS: MIRTAZAPINE TAB 15 MG TAB PO SCH (21:01)
[2020-03-23] MEDS: LEVOTHYROXINE SODIUM 175 MCG TABLET PO SCH (21:03)
--- NOTE | 2020-03-23 22:15 | Hospitalist Progress Note ---
Date of Service March 23, 2020 Assessment & Plan (1) Septicemia: 2nd to unique species of klebsiella. the klebsiella grew on blood cx's obtained from 03/15/20 blood draw at [facility]. they were processed at [facility]. the klebsiella is sensitive to cipro, rocephin, unasyn, bactrim. source - a-port. cont rocephin 2gm IV daily. cultures from 03/16 at [facility] are fully negative. PORT removed on 03/[address] Babcock. -U/S guided peripheral line is placed (2) Encephalopathy acute: Stable improvement today. Encephalopathy was likely metabolic due to port infection/septicemia along with hospital psychosis. Cont topical Seroquel cream BID. (3) Infection due to Port-A-Cath: 2nd klebsiella species as reported by Delaney. Appreciate telehealth ID consult and recs. A-port removal on 03/21. Venogram reviewed by Dr Babcock who states that he should be able to place a new a-port on RIGHT side in the future (about 1-2 weeks from now). (4) Noninfected skin tear of left leg: Wound care nurse team consulted for management and dressing changes. Resume parenteral nutrition when able. (5) On total parenteral nutrition (TPN): Chronic, for 10+ years. Usual schedule at [facility] -- Daily; runs from 8:30 PM to 8:30 AM. She usually has vancomycin dwell during the daytime as well. Holding TPN due to concern of port infection and septicemia. repeat blood cx's from 03/16 remain negative. PPN initiated 03/19, but then IV was pulled out by patient on AM of 03/20. Will resume PPN once PIV is in place. In meantime - IVF. 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 cachectic on exam with muscle wasting of facial muscles, etc. 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 (8) CKD (chronic kidney disease) stage 3, GFR 30-59 ml/min: With acute kidney injury in the setting of CKD stage III Peak Cr 1.87 ANNIKA sepsis associated ATN Today 1.2 -- now at baseline (9) Aortic stenosis: severe, noted on echo not felt to be a good candidate for valve replacement and patient had previously refused AVR as well (10) CHF (congestive heart failure): chronic diastolic typically takes bumex 2 mg IV daily and metolazone appears volume contracted on exam today hold diuretics (11) Vitamin B12 deficiency: recent b12 level wnl (12) Hypothyroidism: Cont levothyroxine recent TSH 2.560 (13) Peripheral neuropathy: Continue on mirtazapine 7.5 mg HS for sleep and lamotrigine 125 mg p.o. 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 (17) Pancytopenia: 2nd to cirrhosis? recent TSH, B12, folate wnl could have other micronutrient deficiency that is contributing follow (18) Acute kidney injury: peak Cr 1.87 Cr now at baseline ANNIKA likely sepsis-associated ATN resolved (19) DVT prophylaxis: heparin 5000 BID - if patient will allow Admission and Anticipated Discharge Date Admission Date: March 16, 2020 Subjective 84 yo female reports feeling well. She has no new complaints at this time. She is curious about her discharge plan. Review of Systems Review of Systems: All systems reviewed & are unremarkable except as noted in HPI & below Physical Exam Physical Exam: Constitutional: WD/WN, vitals as above + disheveled and cooperative Eyes: EOM intact bilaterally; no conjunctival abnormality ENMT: external ear and nose normal, oropharynx normal Neck: trachea midline, no thyromegaly normal visual inspection Respiratory: normal respiratory effort, lungs clear to auscultation no respiratory distress Cardiovascular: RRR, no murmur, no edema Gastrointestinal (Abdomen): Inspection/Auscultation: abdomen normal to inspection; abdomen not distended Musculoskeletal: no cyanosis or clubbing, extremities motor strength 5/5 Skin: no rashes, warm and dry Neurologic: moves all extremities and awake Psychiatric: Orientation: alert, oriented to person and cooperative Results & Data Results & Data ([place]) Vital Signs (Past 12 Hours) Vital Signs Temp Pulse Resp BP BP Pulse Ox 03/23/20 19:22 36.7 C 92 H 17 131/71 98 03/23/20 16:07 36.9 C 62 17 122/63 95 03/23/20 12:28 37.1 C 66 17 152/63 H 96 PG Care Time/CCT Total # of Minutes Spent Total Time Spent with Patient: Total time spent is greater than 50% in coordination of care (as documented) at patient's floor/unit and/or counseling patient: Coding Level of Care Code 70001 Subseq Hosp Care Lvl 3 Diagnoses Septicemia A41.9 Encephalopathy acute G93.40 Infection due to Port-A-Cath T80.219D Encounter type: subsequent encounter Noninfected skin tear of left leg S81.812A Encounter type: initial encounter On total parenteral nutrition (TPN) Z78.9 Severe protein-calorie malnutrition E43 Malnutrition related to chronic disease E46 CKD (chronic kidney disease) stage 3, GFR 30-59 ml/min N18.3 Aortic stenosis I35.0 Cardiac valve disease etiology: etiology unspecified CHF (congestive heart failure) I50.32 Heart failure type: diastolic Heart failure chronicity: chronic Vitamin B12 deficiency E53.8 Hypothyroidism E03.9 Hypothyroidism type: unspecified Peripheral neuropathy G62.9 Chronic diarrhea K52.9 Third degree AV block I44.2 Cirrhosis K74.60 Pancytopenia D61.818 Acute kidney injury N17.9 DVT prophylaxis Z29.9 Time Spent (min) 35 Comment reviewed notes (1) Infection due to Port-A-Cath Encounter type: subsequent encounter Qualified Code(s): T80.219D - Unspecified infection due to central venous catheter, subsequent encounter (2) Noninfected skin tear of left leg Encounter type: initial encounter Qualified Code(s): S81.812A - Laceration without foreign body, left lower leg, initial encounter (3) Aortic stenosis Cardiac valve disease etiology: etiology unspecified Qualified Code(s): I35.0 - Nonrheumatic aortic (valve) stenosis (4) CHF (congestive heart failure) Heart failure type: diastolic Heart failure chronicity: chronic Qualified C ode(s): I50.32 - Chronic diastolic (congestive) heart failure (5) Hypothyroidism Hypothyroidism type: unspecified Qualified Code(s): E03.9 - Hypothyroidism, unspecified
[2020-03-23] MEDS: OXYCODONE HCL IR 5 MG TAB (IMMEDIATE RELEASE) PO PRN (23:35)
[2020-03-24] MEDS: DICLOFENAC SOD 1% GEL 100 GM TUBE EXT SCH ×4 (00:15→20:34)
[2020-03-24] MEDS: ondansetron HCL 8 MG in DEXTROSE 5% 50 ML IV SCH ×3 (03:19→17:28)
[2020-03-24] MEDS: OXYCODONE HCL IR 5 MG TAB (IMMEDIATE RELEASE) PO PRN (06:20)
[2020-03-24 06:24] LABS: Calcium 7.5 mg/dl (8.5-10.1); Creatinine Clr Calc Pharmacy 29.5 ml/min; Est GFR (African American) 54.4; Est GFR (Non-African American) 46.9; Magnesium 2.1 mg/dl (1.8-2.4); Phosphorus 3.2 mg/dl (2.5-4.9); Potassium 4.2 mmol/L (3.5-5.1)
--- NOTE | 2020-03-24 08:09 | Pharmacy Report ---
PHA: Parenteral Nutrition Con - Date of Service March 24, 2020 - Scope Pharmacy was consulted on 03/16/20 to manage parenteral nutrition orders for this patient. - Subjective The patient is currently on day # 4of peripheral parenteral nutrition for chronic PN d/t short gut syndrome. - Objective Height: 5 ft 1 in Weight: 56.8 kg Diet: Low-Sodium Intake & Output (24hrs):: Intake & Output 03/22/20 03/23/20 03/24/20 03/25/20 06:59 06:59 06:59 06:59 Intake Total 1770 / 1770 1365.000 / 1046.225 1335. / 2112. Output Total 200 / 200 Balance 1570 / 1570 1365.000 / 9719.034 5463. / 2112. Weight 59 kg 59 kg 56.8 kg Laboratory Data (Last 24 Hr):: 03/23/20 03/24/20 06:37 05:28 Sodium 139 136 Potassium 4.1 4.2 Chloride 110 H 105 Carbon Dioxide 23 23 BUN 21 H 26 H Creatinine 1.13 1.09 Glucose 116 H 113 H Calcium 7.3 L 7.5 L Phosphorus 3.0 D 3.2 Magnesium 1.9 2.1 Total Bilirubin 0.4 AST 28 ALT 19 Alkaline Phosphatase 170 H Albumin 1.9 L Nutrition Assessment:: Please refer to the Notes section of the EMR for the most recent social media marketing manager note. - Assessment * 84yo female on chronic TPN for short gut syndrome * Using peripheral PN for admission d/t central port infection * Able to convert outpatient PN to inpatient PN due to change in IV access from central to peripheral * Macros AA & Fat are at outpatient goal but able to reach dextrose goal d/t solution osmolarity (too high for peripheral access) * Titrating micro-nutrients per AM labs; 03/24 labs are unremarkable. Will repeat same PN from 03/23. - Plan For day # 4 of PN administration, the following will be ordered: Macronutrients Amino acids 70 grams/day Dextrose 125 grams/day Lipids 50 grams/day Micronutrients Sodium phosphate 15 MMol Sodium acetate 60 mEq Potassium phosphate 15 mMol Potassium acetate 40 mEq Magnesium sulfate 8.12 mEq Calcium gluconate 4.65 mEq Multivitamins 10 mL Trace Elements 1 mL Additional additives: Thiamine 100mg + Folic Acid 1mg Total volume 1800 mL to be infused over 24 hrs will provide 1205 kcal/day Final osmolarity 885 mOsm/L (maximum for PPN is 900 mOsm/L) Labs, as indicated, will be ordered per protocol Pharmacy will continue to follow and adjust parenteral nutrition orders on a daily basis. Thank you for allowing us to participate in the care of this patient.
[2020-03-24] MEDS: PANTOprazole 40 MG in SYRINGE 0 ML IV SCH ×2 (09:00→20:32)
[2020-03-24] MEDS: CHOLECALCIFEROL 1,000 UNITS 25 MCG TAB PO SCH (09:02)
[2020-03-24] MEDS: METOPROLOL SUCC 25MG EXT REL TAB PO SCH (09:02)
[2020-03-24] MEDS: lamoTRIgine 25 MG TAB PO SCH ×2 (09:03→20:32)
[2020-03-24] MEDS: DIPHENOXYLATE/ATROPINE 2.5/0.025MG TAB PO SCH ×4 (09:04→20:31)
[2020-03-24] MEDS: SODIUM CHLORIDE 0.9% 10ML FLUSH IV SCH ×3 (09:04→20:33)
[2020-03-24] MEDS: QUETIAPINE TOP SCH ×2 (09:06→20:32)
[2020-03-24] MEDS: cefTRIAXone SODIUM 2,000 MG in DEXTROSE 5% 50 ML IV SCH (11:54)
[2020-03-24] MEDS ORDERED: Custom Peripheral Pn 1,800 ML in TPN BAG 0 ML IV SCH (16:00)
[2020-03-24] MEDS: MIRTAZAPINE TAB 15 MG TAB PO SCH (20:31)
[2020-03-24] MEDS: LEVOTHYROXINE SODIUM 175 MCG TABLET PO SCH (20:33)
--- NOTE | 2020-03-24 22:44 | Hospitalist Progress Note ---
Date of Service March 24, 2020 Assessment & Plan (1) Septicemia: 2nd to unique species of klebsiella. the klebsiella grew on blood cx's obtained from 03/15/20 blood draw at [facility]. they were processed at [facility]. the klebsiella is sensitive to cipro, rocephin, unasyn, bactrim. source - a-port. cont rocephin 2gm IV daily. cultures from 03/16 at [facility] are fully negative. PORT removed on 03/[address] Babcock. -only peripheral line is placed. will obtain PICC line prior to discharge. (2) Encephalopathy acute: Stable improvement today. Encephalopathy was likely metabolic due to port infection/septicemia along with hospital psychosis. Cont topical Seroquel cream BID. (3) Infection due to Port-A-Cath: 2nd klebsiella species as reported by Delaney. Appreciate telehealth ID consult and recs. A-port removal on 03/21. Venogram reviewed by Dr Babcock who states that he should be able to place a new a-port on RIGHT side in the future (about 1-2 weeks from now). (4) Noninfected skin tear of left leg: Wound care nurse team consulted for management and dressing changes. Resume parenteral nutrition when able. (5) On total parenteral nutrition (TPN): Chronic, for 10+ years. Usual schedule at [facility] -- Daily; runs from 8:30 PM to 8:30 AM. She usually has vancomycin dwell during the daytime as well. Holding TPN due to concern of port infection and septicemia. repeat blood cx's from 03/16 remain negative. PPN initiated 03/19, but then IV was pulled out by patient on AM of 03/20. Will resume PPN once PIV is in place. In meantime - IVF. 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 cachectic on exam with muscle wasting of facial muscles, etc. 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 (8) CKD (chronic kidney disease) stage 3, GFR 30-59 ml/min: With acute kidney injury in the setting of CKD stage III Peak Cr 1.87 ANNIKA sepsis associated ATN Today 1.2 -- now at baseline (9) Aortic stenosis: severe, noted on echo not felt to be a good candidate for valve replacement and patient had previously refused AVR as well (10) CHF (congestive heart failure): chronic diastolic typically takes bumex 2 mg IV daily and metolazone appears volume contracted on exam today hold diuretics (11) Vitamin B12 deficiency: recent b12 level wnl (12) Hypothyroidism: Cont levothyroxine recent TSH 2.560 (13) Peripheral neuropathy: Continue on mirtazapine 7.5 mg HS for sleep and lamotrigine 125 mg p.o. 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 (17) Pancytopenia: 2nd to cirrhosis? recent TSH, B12, folate wnl could have other micronutrient deficiency that is contributing follow (18) Acute kidney injury: peak Cr 1.87 Cr now at baseline ANNIKA likely sepsis-associated ATN resolved (19) DVT prophylaxis: heparin 5000 BID - if patient will allow Admission and Anticipated Discharge Date Admission Date: March 16, 2020 Subjective Patient has no new complaints at this time. Review of Systems Review of Systems: All systems reviewed & are unremarkable except as noted in HPI & below Physical Exam Physical Exam: Constitutional: WD/WN, vitals as above cooperative Eyes: EOM intact bilaterally; no conjunctival abnormality ENMT: external ear and nose normal, oropharynx normal Neck: trachea midline, no thyromegaly normal visual inspection Respiratory: normal respiratory effort, lungs clear to auscultation no respiratory distress Cardiovascular: RRR, no murmur, no edema Gastrointestinal (Abdomen): Inspection/Auscultation: abdomen normal to inspection; abdomen not distended Musculoskeletal: no cyanosis or clubbing, extremities motor strength 5/5 Skin: no rashes, warm and dry Neurologic: moves all extremities and awake Psychiatric: Orientation: alert, oriented to person and cooperative Results & Data Results & Data ([facility]) Vital Signs (Past 12 Hours) Vital Signs Temp Pulse Pulse Resp BP BP Pulse Ox 03/24/20 22:42 36.6 C 61 18 110/64 99 03/24/20 19:32 36.7 C 66 18 126/67 99 09/20/20 16:23 37.0 C 63 17 119/67 96 03/24/20 16:00 62 03/24/20 12:02 69 03/24/20 11:23 36.9 C 60 18 167/78 H 96 PG Care Time/CCT Total # of Minutes Spent Total Time Spent with Patient: Total time spent is greater than 50% in coordination of care (as documented) at patient's floor/unit and/or counseling patient: Coding Level of Care Code 59147 Subseq Hosp Care Lvl 2 Diagnoses Septicemia A41.9 Encephalopathy acute G93.40 Infection due to Port-A-Cath T80.219D Encounter type: subsequent encounter Noninfected skin tear of left leg S81.812A Encounter type: initial encounter On total parenteral nutrition (TPN) Z78.9 Severe protein-calorie malnutrition E43 Malnutrition related to chronic disease E46 CKD (chronic kidney disease) stage 3, GFR 30-59 ml/min N18.3 Aortic stenosis I35.0 Cardiac valve disease etiology: etiology unspecified CHF (congestive heart failure) I50.32 Heart failure type: diastolic Heart failure chronicity: chronic Vitamin B12 deficiency E53.8 Hypothyroidism E03.9 Hypothyroidism type: unspecified Peripheral neuropathy G62.9 Chronic diarrhea K52.9 Third degree AV block I44.2 Cirrhosis K74.60 Pancytopenia D61.818 Acute kidney injury N17.9 DVT prophylaxis Z29.9 (1) Infection due to Port-A-Cath Encounter type: subsequent encounter Qualified Code(s): T80.219D - Unspecified infection due to central venous catheter, subsequent encounter (2) Noninfected skin tear of left leg Encounter type: initial encounter Qualified Code(s): S81.812A - Laceration without foreign body, left lower leg, initial encounter (3) Aortic stenosis Cardiac valve disease etiology: etiology unspecified Qualified Code(s): I35.0 - Nonrheumatic aortic (valve) stenosis (4) CHF (congestive heart failure) Heart failure type: diastolic Heart failure chronicity: chronic Qualified Code(s): I50.32 - Chronic diastolic (congestive) heart failure (5) Hypothyroidism Hypothyroidism type: unspecified Qualified Code(s): E03.9 - Hypothyroidism, unspecified
[2020-03-25] MEDS: DICLOFENAC SOD 1% GEL 100 GM TUBE EXT SCH ×3 (00:51→12:43)
[2020-03-25] MEDS: ondansetron HCL 8 MG in DEXTROSE 5% 50 ML IV SCH ×2 (01:30→12:14)
[2020-03-25] MEDS: lamoTRIgine 25 MG TAB PO SCH (07:42)
[2020-03-25] MEDS: DIPHENOXYLATE/ATROPINE 2.5/0.025MG TAB PO SCH ×2 (07:42→12:43)
[2020-03-25] MEDS: METOPROLOL SUCC 25MG EXT REL TAB PO SCH (07:43)
[2020-03-25] MEDS: PANTOprazole 40 MG in SYRINGE 0 ML IV SCH (07:43)
[2020-03-25] MEDS: CHOLECALCIFEROL 1,000 UNITS 25 MCG TAB PO SCH (07:43)
[2020-03-25] MEDS: QUETIAPINE TOP SCH (07:44)
[2020-03-25 07:46] LABS: BUN Creatinine Ratio 25.1 (10-20); Calcium 7.6 mg/dl (8.5-10.1); Creatinine Clr Calc Pharmacy 27.4 ml/min; Est GFR (African American) 45.2; Magnesium 2.2 mg/dl (1.8-2.4); Potassium 4.6 mmol/L (3.5-5.1)
[2020-03-25 08:04] LABS: Phosphorus 3.8 mg/dl (2.5-4.9)
[2020-03-25] MEDS: SODIUM CHLORIDE 0.9% 10ML FLUSH IV SCH ×2 (12:11→12:13)
--- NOTE | 2020-03-25 12:27 | XRay Report ---
XR chest 1V portable HISTORY: confirm PICC placement; no VPS bullseye, pacemaker COMPARISON: Chest 03/16/2020. FINDINGS: Right PICC is looped within the right internal jugular vein. This should be removed/reposit ioned. No pneumothorax. The heart remains mildly enlarged. There is mild central pulmonary basilar co ngestion without overt edema. Small bilateral pleural effusions persist. IMPRESSION: The right PICC is looped within the right internal jugular vein. This should be removed/reposition. ACT 112: Negative or not required by law. Electronically signed by: Akbar Sibley M.D. 03/25/2020 12:26 PM
[2020-03-25] MEDS: cefTRIAXone SODIUM 2,000 MG in DEXTROSE 5% 50 ML IV SCH (12:42)
[2020-03-25] MEDS ORDERED: Custom Peripheral Pn 1,800 ML in TPN BAG 0 ML IV SCH (16:00)
--- NOTE | 2020-03-31 22:42 | Discharge Summary ---
Date of Service March Admission HPI Per Admitting Provider This is an 84 yo F from [facility] with PMHx of chronic diastolic heart failure, HTN, severe aortic stenosis, pacemaker, short gut syndrome with chronic TPN since 2004, hx of multiple small bowel surgeries and small bowel obstruction, pyloric stenosis, intestinal malabsorption, macular degeneration, hypothyroidism, chronic anemia, short-term memory issues. Patient was noted to have a fever of 100.6 on 03/14/2020 and was sent for an acute visit at it was found that the patient had positive blood cultures growing Enterobacteriaceae from 03/15/2020. Repeat blood cultures have been obtained in our facility. The patient is COVID-19 negative. The pt reports being very tired, and is asking for something for sleep. She reports feeling chilled for a few days but cannot recall a fever, she is unaware if she has had a temperature. Pt provides one word answers and does not volunteer much information. During exam she has pain with palpation in the RUQ and guards the abdomen, but denies current nausea or issues with vomiting. Yesterday she had one bite of applesauce but primarily receives nutrition through TPN 5d per week through left chest port. Pt reports right leg is typically more swollen than the left, when noticing that it is red, she denies that it is normally like this. She ambulates with a walker with a one assist at baseline. Principal Diagnosis sepsis Discharge Exam Constitutional: WD/WN, vitals as above cooperative Eyes: EOM intact bilaterally; no conjunctival abnormality ENMT: external ear and nose normal, oropharynx normal Neck: trachea midline, no thyromegaly normal visual inspection Respiratory: normal respiratory effort, lungs clear to auscultation no respiratory distress Cardiovascular: RRR, no murmur, no edema Gastrointestinal (Abdomen): Inspection/Auscultation: abdomen normal to inspection; abdomen not distended Musculoskeletal: no cyanosis or clubbing, extremities motor strength 5/5 Skin: no rashes, warm and dry Neurologic: moves all extremities and awake Psychiatric: Orientation: alert, oriented to person and cooperative Discharge Data Allergies Allergy/AdvReac Type Severity Reaction Status Date / Time furosemide Allergy Mild HIVES, CAN Verified 03/21/20 14:11 TAKE BUMEX Anesthetics - Traci Type- Allergy Unknown ANAPHYLAXIS Verified 03/21/20 14:11 Parabens benzocaine Allergy Unknown Unknown Verified 03/21/20 14:11 capsaicin Allergy Unknown UNKNOWN Verified 03/21/20 14:11 ceftriaxone Allergy Unknown UNK Verified 03/21/20 14:11 clonazepam Allergy Unknown ? Verified 03/21/20 14:11 cyclobenzaprine Allergy Unknown UNKNOWN Verified 03/21/20 14:11 diclofenac Allergy Unknown UNKNOWN Verified 03/21/20 14:11 diphenhydramine Allergy Unknown UNK Verified 03/21/20 14:11 isopropyl alcohol Allergy Unknown UNKNOWN Verified 03/21/20 14:11 lidocaine Allergy Unknown Unknown Verified 03/21/20 14:11 milk Allergy Unknown Unknown Verified 03/21/20 14:11 naproxen Allergy Unknown UNKNOWN Verified 03/21/20 14:11 octreotide Allergy Unknown HIVES Verified 03/21/20 14:11 pregabalin Allergy Unknown ? Verified 03/21/20 14:11 procaine Allergy Unknown Unknown Verified 03/21/20 14:11 propylene glycol Allergy Unknown UNKNOWN Verified 03/21/20 14:11 scopolamine Allergy Unknown Unknown Verified 03/21/20 14:11 sulfamethoxazole Allergy Unknown UNKNOWN Verified 03/21/20 14:11 trimethoprim Allergy Unknown UNKNOWN Verified 03/21/20 14:11 warfarin AdvReac Severe HEMORRHAGE Verified 03/21/20 14:11 Iodinated Contrast Media AdvReac Intermediate RENAL Verified 03/21/20 14:11 FAILURE fluconazole AdvReac Mild FEVER,NAUSE Verified 03/21/20 14:11 A indomethacin AdvReac Mild N&V Verified 03/21/20 14:11 lactose AdvReac Mild INTOLERANT Verified 03/21/20 14:11 metronidazole AdvReac Mild FEVER,NAUSE Verified 03/21/20 14:11 A buprenorphine AdvReac Unknown diarrhea, Verified 03/21/20 14:11 vomiting codeine AdvReac Unknown MENTAL Verified 03/21/20 14:11 STATUS CHANGES Consultations 03/16/20 07:25 ED Decision to Admit Stat 03/16/20 10:59 Consult Case Management - Discharge Planning Routine 03/17/20 11:51 Consult Infectious Diseases Routine 03/18/20 13:00 Consult Infectious Diseases Routine 03/18/20 17:08 Consult Vascular Surgery Routine 03/20/20 01:31 Consult Psychiatry Routine 03/21/20 14:55 Consult Patient Services Routine Procedures Performed Operation Date: 03/21/20 14:50 Actual Procedures p Removal Of Aport, Moderate Sedation From 1446 to 1525(Left) - Doug Babcock MD Ordered Studies 03/16/20 10:59 CT abd pelvis wo con Stat 03/19/20 13:00 CT chest venogram wo/w con Routine Hospital Course (1) Septicemia: 2nd to unique species of klebsiella. the klebsiella grew on blood cx's obtained from 03/15/20 blood draw at [facility]. they were processed at [employer]. the klebsiella is sensitive to cipro, rocephin, unasyn, bactrim. source - a-port. cont rocephin 2gm IV daily. cultures from 03/16 at [facility] are fully negative. PORT removed on 03/[address] Babcock. - obtained PICC line prior to discharge. (2) Encephalopathy acute: Stable improvement today. Encephalopathy was likely metabolic due to port infection/septicemia along with hospital psychosis. Cont topical Seroquel cream BID. (3) Infection due to Port-A-Cath: 2nd klebsiella species as reported by Delaney. Appreciate telehealth ID consult and recs. A-port removal on 03/21. Venogram reviewed by Dr Babcock who states that he should be able to place a new a-port on RIGHT side in the future (about 1-2 weeks from now). (4) Noninfected skin tear of left leg: Wound care nurse team consulted for management and dressing changes. Resume parenteral nutrition when able. (5) On total parenteral nutrition (TPN): Chronic, for 10+ years. Usual schedule at [facility] -- Daily; runs from 8:30 PM to 8:30 AM. She usually has vancomycin dwell during the daytime as well. Holding TPN due to concern of port infection and septicemia. repeat blood cx's from 03/16 remain negative. PPN initiated 03/19, but then IV was pulled out by patient on AM of 03/20. Will resume PPN once PIV is in place. In meantime - IVF. 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 cachectic on exam with muscle wasting of facial muscles, etc. 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 (8) CKD (chronic kidney disease) stage 3, GFR 30-59 ml/min: With acute kidney injury in the setting of CKD stage III Peak Cr 1.87 ANNIKA sepsis associated ATN Today 1.2 -- now at baseline (9) Aortic stenosis: severe, noted on echo not felt to be a good candidate for valve replacement and patient had previously refused AVR as well (10) CHF (congestive heart failure): chronic diastolic typically takes bumex 2 mg IV daily and metolazone appears volume contracted on exam today hold diuretics (11) Vitamin B12 deficiency: recent b12 level wnl (12) Hypothyroidism: Cont levothyroxine recent TSH 2.560 (13) Peripheral neuropathy: Continue on mirtazapine 7.5 mg HS for sleep and lamotrigine 125 mg p.o. BID Last EMG consistent with polyneuropathy B12 level normal PT, OT (14) Chronic diarrhea: 2nd to short gut syndrome CT abd/pelvis findings reviewed from admission she has NO clinical evidence of a pSBO cont lomotil prn as previous (15) Third degree AV block: pacemaker status follows with [facility] electrophysiology (16) Cirrhosis: 2nd to chronic TPN? (17) Pancytopenia: 2nd to cirrhosis? recent TSH, B12, folate wnl could have other micronutrient deficiency that is contributing follow (18) Acute kidney injury: peak Cr 1.87 Cr now at baseline ANNIKA likely sepsis-associated ATN resolved (19) DVT prophylaxis: heparin 5000 BID - if patient will allow Total Time Total Time Spent Total Time Spent (In Minutes): 32 Discharge Plan Discharge Items Patient Disposition: Transfer [facility] Reason For Visit: BACTEREMIA Discharge Diagnosis: Bacteremia Activity: Resume your previous activity Non-emergency contact: Primary Care Provider Call non-emergency contact if: you have any medication questions Follow-up/Referrals: Samm Paulino [place] [Primary Care Provider] - Diet: Low Sodium (2gm) Addtl Attending Provider Instructions: You have been hospitalized for an acute medical problem. During your stay at [facility], we have made an effort to correct the problem that brought you to the hospital while keeping you as comfortable as possible. Medications were used to bring your condition under control and your discharge instructions will include directions for any medications you should take after leaving the hospital. Please make sure you see your Primary Care Provider as part of your follow up plan. Will need to continue with antibiotics for 10 more days: dose is given at noon. Patient will need to continue with PPN for now. Will get A-Port in 10-14 days from now. Then patient can be on TPN. Should get a BMP in 1 week. Pending Studies at Discharge: No Stand-Alone Forms: My [facility] Skilled Items Patient informed of condition?: No DNR: Yes (DNR/ DNI) Discharge Level of Care: Skilled Communicable Disease: No Discharge Prognosis: Stable Lines: None Urinary Catheter: No Medications and DC Order Prescriptions: New ceftriaxone 2 gram recon soln 2 g IV DAILY Qty: 10 RF: 0 Continued melatonin 1 mg tablet 0.5 mg PO HS PRN (Reason: Sleep) RF: 0 loperamide 2 mg tablet 2 mg PO Q3H PRN (Reason: loose stool) RF: 0 metoprolol succinate 50 mg tablet extended release 24 hr 75 mg PO DAILY RF: 0 acetaminophen 325 mg capsule 650 mg PO Q4H PRN (Reason: fever or pain) RF: 0 ketotifen fumarate 0.025 % (0.035 %) drops 1 drops OP BID PRN (Reason: allergy symptoms) RF: 0 lamotrigine 100 mg tablet 125 mg PO BID RF: 0 metolazone 5 mg tablet 5 mg PO 3XWK RF: 0 PreserVision AREDS-2 [id number] xz-thaf-lt-mg capsule 1 tab PO DAILY RF: 0 levothyroxine 175 mcg tablet 175 mcg PO HS RF: 0 Refresh Tears 0.5 % drops 1 drops OP QID PRN (Reason: dry eye(s)) RF: 0 pantoprazole 40 mg recon soln 40 mg IV BID RF: 0 ondansetron HCl (PF) 4 mg/2 mL solution 4 mg IV DAILY PRN (Reason: nausea and vomiting) RF: 0 nitroglycerin [Nitrostat] 0.4 mg Tablet, Sublingual 0.4 mg Sublingual DIRECTED PRN (Reason: Chest Pain) RF: 0 oxycodone 5 mg Tablet 5 mg PO Q4H PRN (Reason: pain) Qty: 14 RF: 0 cholecalciferol (vitamin D3) 2,000 unit/drop drops 2,000 units PO DAILY RF: 0 diphenoxylate-atropine [Lomotil] 2.5-0.025 mg tablet 2 tab PO QPM RF: 0 Procrit 10,000 unit/mL Solution 10,000 unit/kg IV MONTHLY RF: 0 ondansetron HCl 2 mg/mL Solution 8 mg IV TID RF: 0 diphenoxylate-atropine [Lomotil] 2.5-0.025 mg Tablet 4 tab PO HS@2200 RF: 0 diphenoxylate-atropine [Lomotil] 2.5-0.025 mg Tablet 3 tab PO BID RF: 0 bumetanide 0.25 mg/mL solution 2 mg IV DAILY RF: 0 camphor-menthol 0.5-0.5 % lotion 1 applic TOPICAL TID PRN (Reason: itching) RF: 0 mirtazapine 15 mg Tablet 7.5 mg PO HS RF: 0 sodium chloride 0.9 % (flush) [Normal Saline Flush] Syringe 10 ml IV TID RF: 0 sodium chloride [Saline Nasal] 0.65 % Aerosol,[place] 1 spray INTRANASAL DIRECTED PRN (Reason: NASAL DRYNESS) RF: 0 Quetiapine Topical Cream 50 MG/1 ML 0.5 ml topical AMHS RF: 0 Vancomycin/Heparin Flush 1 dose IV QAM RF: 0 Smof Lipids 2x Wk 50 g IV QPM RF: 0 Tpn 5x Wk 1,500 ml IV QPM RF: 0 Discharge Orders: Discharge Order (Routine); Ordered 03/25/20 Ordered By: Fernandez Sousa Admission Data Admit Date/Time: 03/16/20 08:38 Attending Provider: Fernandez Sousa Admit Provider: Virgie Davis Primary Care Provider: Samm Paulino [facility] Other Providers: Samm Paulino [facility] ; Arnold Flowers ; Yvon Morley ; Torito Del Rio I. ; Alejandro Mccray II ; Maria Elena De La Cruz ; Сергей Sanchez ; Virgie Davis ; Doug Babcock Melissa C. Other Interventions: Discharge Summary Assessment (RN) Last Done: 03/25/20 16:28 Coding Level of Care Code D/C Day Management >30 mins Diagnoses Septicemia A41.9 Encephalopathy acute G93.40 Infection due to Port-A-Cath T80.219D Encounter type: subsequent encounter Noninfected skin tear of left leg S81.812A Encounter type: initial encounter On total parenteral nutrition (TPN) Z78.9 Severe protein-calorie malnutrition E43 Malnutrition related to chronic disease E46 CKD (chronic kidney disease) stage 3, GFR 30-59 ml/min N18.3 Aortic stenosis I35.0 Cardiac valve disease etiology: etiology unspecified CHF (congestive heart failure) I50.32 Heart failure type: diastolic Heart failure chronicity: chronic Vitamin B12 deficiency E53.8 Hypothyroidism E03.9 Hypothyroidism type: unspecified Peripheral neuropathy G62.9 Chronic diarrhea K52.9 Third degree AV block I44.2 Cirrhosis K74.60 Pancytopenia D61.818 Acute kidney injury N17.9 DVT prophylaxis Z29.9 Time Spent (min) 32
== END 2020-03-25 17:40 | DRG 314 ==
LOC: ED 03:19 → SUATTDRO 08:38 → 2W 08:38